=== PATIENT | female | born 1945 | race African-American/Black ===

== ENCOUNTER 2016-10-25 17:52 | Inpatient (IN) | payer MEDICARE, MEDICAID ==
--- NOTE | 2016-10-25 18:49 | ER Document Report ---
ED Medical Screen (RME) - General Chief Complaint: Chest Pain Stated Complaint: CHEST PAIN Time Seen by Provider: 10/25/16 18:45 Notes: Patient says that she is having anterior chest pain, shortness of breath, and swelling of her lower extremities. She called her contract design agent who saw her in the office today and sent her here for further evaluation and care. Patient says that she has gained about 16 pounds in the past 2 weeks. Denies any vomiting or diarrhea. Has a mostly dry cough. No fevers. TRAVEL OUTSIDE OF THE [place] IN LAST 30 DAYS: No - Related Data Allergies/Adverse Reactions: codeine Allergy (Verified 10/25/16 17:55) Past Medical History - Past Medical History Cardiac Medical History: Reports: Hx Atrial Fibrillation, Hx Heart Attack, Hx Hypertension Neurological Medical History: Reports: Hx Cerebrovascular Accident Renal/ Medical History: Denies: Hx Peritoneal Dialysis GI Medical History: Reports: Hx Gastroesophageal Reflux Disease Psychiatric Medical History: Reports: Hx Depression Past Surgical History: Reports: Hx Abdominal Surgery - hernia repair, Hx Cardiac Catheterization, Hx Hysterectomy, Hx Tonsillectomy - Immunizations Immunizations up to date: Yes Hx Diphtheria, Pertussis, Tetanus Vaccination: No Physical Exam - Vital signs Vitals: Temp Pulse Resp BP Pulse Ox 97.9 F 57 L 25 H 156/76 H 97 10/25/16 18:08 10/25/16 18:08 10/25/16 18:08 10/25/16 18:08 10/25/16 18:08 Course - Vital Signs Vital signs: Temp Pulse Resp BP Pulse Ox 97.9 F 57 L 25 H 156/76 H 97 10/25/16 18:08 10/25/16 18:08 10/25/16 18:08 10/25/16 18:08 10/25/16 18:08
[2016-10-25 19:40] LABS: ABSOLUTE BASOPHILS # (AUTO) 0.1 10^3/uL (0.0-0.2); ABSOLUTE EOSINOPHILS # (AUTO) 0.2 10^3/uL (0.0-0.6); ABSOLUTE LYMPHOCYTES (AUTO) 3.2 10^3/uL (0.5-4.7); ABSOLUTE MONOCYTES (AUTO) 0.7 10^3/uL (0.1-1.4); ABSOLUTE NEUT (AUTO) 3.4 10^3/uL (1.7-8.2); EOSINOPHILS % (AUTO) 3.2 % (0-6); HEMATOCRIT 39.3 % (36.0-47.0); HEMOGLOBIN 12.9 g/dL (12.0-15.5); HGB HCT DIFFERENCE -0.6; LYMPHOCYTES % (AUTO) 41.7 % (13-45); MEAN CORPUSCULAR HEMOGLOBIN 30.3 pg (27.0-33.4); MEAN CORPUSCULAR HGB CONC 32.9 g/dL (32.0-36.0); MEAN CORPUSCULAR VOLUME 92 fl (80-97); MONOCYTES % (AUTO) 9.6 % (3-13); RED BLOOD COUNT 4.27 10^6/uL (3.72-5.28); RED CELL DISTRIBUTION WIDTH 13.6 % (11.5-14.0); SEGMENTED NEUTROPHILS % (AUTO) 44.5 % (42-78); WHITE BLOOD COUNT 7.6 10^3/uL (4.0-10.5)
[2016-10-25 19:54] LABS: ALANINE AMINOTRANSFERASE 40 U/L (9-52); ALBUMIN 3.9 g/dL (3.5-5.0); ALKALINE PHOSPHATASE 72 U/L (38-126); ANION GAP 8 (5-19); ASPARTATE AMINO TRANSFERASE 25 U/L (14-36); BILIRUBIN,DIRECT 0.3 mg/dL (0.0-0.4); BILIRUBIN,TOTAL 0.5 mg/dL (0.2-1.3); BLOOD UREA NITROGEN 16 mg/dL (7-20); CALCIUM 9.5 mg/dL (8.4-10.2); CARBON DIOXIDE 27 mmol/L (22-30); CHLORIDE 106 mmol/L (98-107); CREATININE RESULT 1.05 mg/dL (0.52-1.25); GLUCOSE 101 mg/dL (75-110); POTASSIUM 4.3 mmol/L (3.6-5.0); TOTAL PROTEIN 7.2 g/dL (6.3-8.2)
[2016-10-25 20:05] LABS: CREATINE KINASE MB 0.94 ng/mL (<4.55)
[2016-10-25 20:06] LABS: TROPONIN I < 0.012 ng/mL
--- NOTE | 2016-10-25 20:21 | RADIOLOGY REPORT (SQ) ---
EXAM DESCRIPTION: CHEST PA/LAT COMPLETED DATE/TIME: 10/25/2016 7:14 pm REASON FOR STUDY: Chest pain and short of breath. COMPARISON: February 2016 EXAM PARAMETERS: NUMBER OF VIEWS: two views TECHNIQUE: Digital Frontal and Lateral radiographic views of the chest acquired. RADIATION DOSE: NA LIMITATIONS: none FINDINGS: LUNGS AND PLEURA: Reticulonodular densities are identified in the right lung which were no t apparent on the previous study. There are minimal similar changes in the left lung. This could be on the basis of an infectious or neoplastic process. No acute consolidations or pleural effusions a re identified. MEDIASTINUM AND HILAR STRUCTURES: No masses or contour abnormalities. HEART AND VASCULAR STRUCTURES: Heart normal size. No evidence for failure. Tortuous thoracic aorta is again identified. BONES: No acute findings. HARDWARE: None in the chest. OTHER: No other significant finding. IMPRESSION: Reticular nodular densities as noted above. This could be on an infectious or neoplasti c process. Clinical correlation followup is recommended. No acute consolidations or pleural effusio ns are identified. Other findings as noted above TECHNICAL DOCUMENTATION: JOB ID: [id number] [employer]- All Rights Reserved
[2016-10-25] MEDS ORDERED: FUROSEMIDE INJ/PF 100 MG/10 ML SDV IV ONE (20:43)
--- NOTE | 2016-10-25 21:12 | EKG REPORT ---
SEVERITY:- ABNORMAL ECG - SINUS RHYTHM LEFT VENTRICULAR HYPERTROPHY : Confirmed by: Bryce Hernandez 25-Oct-2016 21:11:56
[2016-10-25] MEDS ORDERED: LORAZEPAM INJ 2 MG/1 ML VIAL IV ONE (21:48)
[2016-10-25] MEDS ORDERED: LORAZEPAM INJ 2 MG/1 ML VIAL ONE (21:52)
[2016-10-25] MEDS ORDERED: ONDANSETRON HCL INJ/PF 4 MG/2 ML SDV ONE (22:06)
[2016-10-25 22:17] LABS: APPEARANCE,URINE CLEAR; BILIRUBIN,URINE NEGATIVE (NEGATIVE); GLUCOSE, URINE NEGATIVE (NEGATIVE); KETONES,URINE NEGATIVE (NEGATIVE); LEUKOCYTE ESTERASE,URINE NEGATIVE (NEGATIVE); NITRITE,URINE NEGATIVE (NEGATIVE); PROTEIN,URINE NEGATIVE (NEGATIVE); URINE SPECIFIC GRAVITY 1.017; UROBILINOGEN,URINE NEGATIVE mg/dL (<2.0)
--- NOTE | 2016-10-25 22:22 | ER Document Report ---
ED General - General Chief Complaint: Chest Pain Stated Complaint: CHEST PAIN Time Seen by Provider: 10/25/16 18:45 Mode of Arrival: Medic Information source: Patient Notes: 71-year-old female history of congestive heart failure AEvin monroy presents with complaints of 17 pound weight gain in the past week as well as shortness of breath when she lays flat. Patient was seen by her rn licensed practical and sent in for evaluation. Patient denies any fevers or chills admits to nausea and vomiting TRAVEL OUTSIDE OF THE [place] IN LAST 30 DAYS: No - HPI Onset: Last week Onset/Duration: Persistent Quality of pain: Achy Severity: Mild Pain Level: 1 Associated symptoms: Nausea, Vomiting, Shortness of breath Exacerbated by: Supine Relieved by: Denies Similar symptoms previously: Yes Recently seen / treated by doctor: Yes - Related Data Allergies/Adverse Reactions: codeine Allergy (Verified 10/25/16 17:55) Past Medical History - Social History Smoking Status: Never Smoker Cigarette use (# per day): No Chew tobacco use (# tins/day): No Smoking Education Provided: No Drug Abuse: None Family History: Hypertension Patient has suicidal ideation: No Patient has homicidal ideation: No - Past Medical History Cardiac Medical History: Reports: Hx Atrial Fibrillation, Hx Heart Attack, Hx Hypertension Neurological Medical History: Reports: Hx Cerebrovascular Accident Renal/ Medical History: Denies: Hx Peritoneal Dialysis GI Medical History: Reports: Hx Gastroesophageal Reflux Disease Psychiatric Medical History: Reports: Hx Depression Past Surgical History: Reports: Hx Abdominal Surgery - hernia repair, Hx Cardiac Catheterization, Hx Hysterectomy, Hx Tonsillectomy - Immunizations Immunizations up to date: Yes Hx Diphtheria, Pertussis, Tetanus Vaccination: No Review of Systems - Review of Systems Notes: REVIEW OF SYSTEMS: CONSTITUTIONAL : Denies fever, chills, or sweats. Denies recent illness. EENT: Denies eye, ear, throat, or mouth pain or symptoms. Denies nasal or sinus congestion or discharge. Denies throat, tongue, or mouth swelling or difficulty swallowing. CARDIOVASCULAR: Admits to chest pain RESPIRATORY: Admits to shortness of breath GASTROINTESTINAL: Denies abdominal pain or distention. Denies nausea, vomiting , or diarrhea. Denies blood in vomitus, stools, or per rectum. Denies black, tarry stools. Denies constipation. GENITOURINARY: Denies difficulty urinating, painful urination, burning, frequency, blood in urine, or discharge. FEMALE GENITOURINARY: Denies vaginal bleeding, heavy or abnormal periods, irregular periods. Denies vaginal discharge or odor. MUSCULOSKELETAL: Peripheral edema SKIN: Denies rash, lesions or sores. HEMATOLOGIC : Denies easy bruising or bleeding. LYMPHATIC: Denies swollen, enlarged glands. NEUROLOGICAL: Denies confusion or altered mental status. Denies passing out or loss of consciousness. Denies dizziness or lightheadedness. Denies headache. Denies weakness or paralysis or loss of use of either side. Denies problems with gait or speech. Denies sensory loss, numbness, or tingling. Denies seizures. PSYCHIATRIC: Denies anxiety or stress. Denies depression, suicidal ideation, or homicidal ideation. ALL OTHER SYSTEMS REVIEWED AND NEGATIVE. Dictation was performed using [employer] recognition software PHYSICAL EXAMINATION: GENERAL: Well-appearing, well-nourished and in no acute distress. HEAD: Atraumatic, normocephalic. EYES: Pupils equal round and reactive to light, extraocular movements intact, conjunctiva are normal. ENT: Nares patent, oropharynx clear without exudates. Moist mucous membranes. NECK: Normal range of motion, supple without lymphadenopathy LUNGS: Breath sounds clear to auscultation bilaterally and equal. No wheezes rales or rhonchi. HEART: Regular rate and rhythm without murmurs ABDOMEN: Soft, nontender, nondistended abdomen. No guarding, no rebound. No masses appreciated. Female : deferred Musculoskeletal: Normal range of motion, 2 pitting edema bilateral NEUROLOGICAL: Cranial nerves grossly intact. Normal speech, normal gait. Normal sensory, motor exams PSYCH: Normal mood, normal affect. SKIN: Warm, Dry, normal turgor, no rashes or lesions noted. Physical Exam - Vital signs Vitals: Temp Pulse Resp BP Pulse Ox 97.9 F 57 L 25 H 156/76 H 97 10/25/16 18:08 10/25/16 18:08 10/25/16 18:08 10/25/16 18:08 10/25/16 18:08 Course - Re-evaluation Re-evalutation: 10/25/16 22:24 Physical examination notes no significant abnormality, given that the patient has chest pain though I will keep her for an observation. Overnight otherwise she looks well is in no distress does not appear to be an exacerbation of her congestive heart failure - Vital Signs Vital signs: Temp Pulse Resp BP Pulse Ox 97.9 F 57 L 14 162/72 H 100 10/25/16 18:08 10/25/16 18:08 10/25/16 21:32 10/25/16 21:32 10/25/16 21:32 - Laboratory Result Diagrams: 10/25/16 19:30 10/25/16 19:30 Laboratory results interpreted by me: 10/25/16 10/25/16 19:30 21:41 Est GFR (Non-Af Amer) 52 L Urine Ascorbic Acid 20 H - Diagnostic Test Radiology reviewed: Image reviewed, Reports reviewed - EKG Interpretation by Me EKG shows normal: Sinus rhythm, [place], Intervals, QRS Complexes Rhythm: A.Fib When compared to previous EKG there are: No significant change Discharge - Discharge Clinical Impression: Depression with anxiety Chest pain Qualifiers: Chest pain type: unspecified Qualified Code(s): R07.9 - Chest pain, unspecified Atrial fibrillation Qualifiers: Atrial fibrillation type: chronic Qualified Code(s): I48.2 - Chronic atrial fibrillation Nausea & vomiting Qualifiers: Vomiting type: unspecified Vomiting Intractability: non-intractable Qualified Code(s): R11.2 - Nausea with vomiting, unspecified Admitting Provider: Hospitalist Unit Admitted: Telemetry Referrals: STEPHANIE BARAHONA MD [Primary Care Provider] - Follow up as needed
[2016-10-26] MEDS ORDERED: ACETAMINOPHEN 325 MG TABLET PO PRN (00:29)
[2016-10-26] MEDS ORDERED: NORMAL SALINE 1000 ML 1,000 ML IV PRN (00:32)
--- NOTE | 2016-10-26 01:20 | PDOC H&P ---
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 She describes a one-week history of a 17 pound weight gain, along with shortness of breath when lying flat. Ankle and calf swelling over the last 2 weeks. She has had intermittent ankle swelling for some time now; states she became worried when the swelling did not go down in the morning. Intermittent pressure-like substernal chest discomfort also. Nausea and several episodes of vomiting. Several episodes of diarrhea over the weekend, but none since then. No dysuria, fever or chills. Currently resting quietly, chest pain-free. Patient has been discussed with emergency room physician who evaluated the patient. Hospitalized on our service basically overnight on February 21 of last year, with final diagnoses including chest pain, acute coronary syndrome ruled out, along with depression with anxiety, improved. Discharge summary and history and physical reviewed. She is status post Cardiolite stress test September 23 of last year revealing no scintigraphic evidence of myocardial ischemia, scar, or infarction. Aggressive risk factor modification, with treatment of underlying comorbidities recommended. Report noted. Laboratory results are listed in [employer] and are reviewed. X-ray summary results are listed below, with full report(s) reviewed. Films reviewed, along with discussion with on-call radiologist, Dr. valles EKG reviewed. Social history/personal habits: Single. 3 sons. Unemployed. No use of alcohol tobacco or illicit drugs. Allergies/adverse reactions are listed in [employer] and are reviewed. No problems with Percocet. Home medications initially autopopulated into [employer] may not accurately reflect patient's true medications, dosages, and/or frequencies. casting technician to reconcile medications. Unfortunately, patient not certain of all medications/dosages/frequencies. REVIEW OF SYSTEMS: Constitutional: No fever or chills. Eyes: Wears glasses. ENT: No swallowing problems or complaints. Denies hearing loss. Pulmonary: See history and present illness. Cardiovascular: See history and present illness. Gastrointestinal: See history and present illness. Skin: No current complaints, including rashes. Hematologic: Denies easy bruising. Neurologic: No current complaints, including numbness or tingling. Musculoskeletal: Mild joint pain from arthritis. See history and present illness. Psychiatric: Anxiety. Endocrine: No current complaints, including polyuria. Genitourinary: No current complaints, including dysuria. PHYSICAL EXAMINATION: 5 feet 5 inches tall. 115.3 kg. BMI 42.3 kg/m. Blood pressure 117/72. Pulse 71 and regular. 97% saturation on room air. Respirations are 17 and unlabored. Temperature 97.9. Morbidly obese otherwise well-developed -[place] female appearing a bit younger than her stated age. Pleasant awake alert and cooperative. Somewhat anxious, although no sheri agitation. Female emergency room nursing aide Courtney is present. Skin is warm and dry. No grossly obvious evidence of rash in areas of skin examined. No subcutaneous nodules palpated. ENT: Hearing grossly normal to normal conversation. Tongue midline on protrusion pink and slightly tacky. Eyes: No scleral icterus. Pupils equal and reactive to light at 4 mm. [place] conjunctivae. Neck is supple and nontender to gentle active range of motion and palpation. Midline trachea. No palpable thyroid nodule mass enlargement or tenderness. Lymphatic: No palpable cervical or clavicular nodes. Neck and lymphatic exams limited by patient body habitus. Psychiatric: Reasonable insight into acute and chronic medical issues. Oriented to time location and why here. Lungs: Auscultation reveals clear and equal breath sounds bilaterally. No use of accessory respiratory muscles. Cardiovascular: Heart slightly irregular rate and rhythm, without gallop or rub. Faint systolic murmur detected. No carotid or abdominal aortic bruits. Mild bilateral symmetric calf ankle and pedal edema, slightly pitting. Faintly palpable dorsalis pedis pulses. Abdomen:soft obese nontender with positive bowel sounds. Unable to adequately evaluate abdomen for masses or organomegaly due to body habitus. Compression of her upper abdomen, and, even more noticeably, compression of her sternum, reproduces her previously noted chest discomfort. Extremities: Feet are warm and dry. Very mild bilateral calf tenderness to compression, without palpable venous cord; patient states this typically happens when she has lower extremity swelling. Gentle manipulation of lower extremities fails to reveal any obvious evidence of injury or instability to knees hips or ankles. Neurologic: Moves upper extremities grossly normally. Patellar reflexes absent. Absent Babinski. Light touch is intact at feet. Dorsiflexion and plantarflexion of feet 5 / 5 and symmetric. Past Medical History Cardiac Medical History: Reports: Atrial Fibrillation, Congestive Heart Failure - Diastolic, Myocardial Infarction, Hyperlipidema, Hypertension Denies: DVT, Pulmonary Embolism Pulmonary Medical History: Reports: Sleep Apnea - Recently diagnosed; awaiting her home CPAP machine; uncertain settings Denies: Asthma, Chronic Obstructive Pulmonary Disease (COPD) EENT Medical History: Reports: Eyes - Glasses Denies: Ears, Throat Neurological Medical History: Reports: Other - Several TIAs Denies: Hemorrhagic CVA, Ischemic CVA, Seizures Endocrine Medical History: Denies: Diabetes Mellitus Type 1, Diabetes Mellitus Type 2, Hyperthyroidism, Hypothyroidism Renal/ Medical History: Reports: None GI Medical History: Reports: Gastroesophageal Reflux Disease Denies: Cirrhosis, Hepatitis, Peptic Ulcer Disease Musculoskeltal Medical History: Reports: Arthritis Skin Medical History: Reports: None Psychiatric Medical History: Reports: General Anxiety Disorder Denies: Alcohol Dependency, Depression, Substance Abuse, Tobacco Dependency Hematology: Reports: None Infectious Medical History: Denies: Clostridium Difficile, Hepatitis B, Hepatitis C, Methicillin- Resistant Staph Aureus Past Surgical History Past Surgical History: Reports: Cardiac Catheterization, Hysterectomy, Tonsillectomy Social History Information Source: Patient, Emergency Med Personnel, [facility] Records Smoking Status: Never Smoker Frequency of Alcohol Use: None Hx Recreational Drug Use: No Drugs: None Hx Prescription Drug Abuse: No - Advance Directive Resuscitation Status: Full Code Surrogate healthcare decision maker:: Her son oJse Cazares Family History Family History: Hypertension Parental Family History Reviewed: Yes - Parents of heart attacks. Children Family History Reviewed: Yes - Healthy Sibling(s) Family History Reviewed.: Yes - Brother suffered recent stroke Medication/Allergy Home Medications: RX: Ascorbic Acid [Vitamin C] 1,000 mg PO DAILY 10/26/16 RX: Cholecalciferol (Vitamin D3) [Vitamin D3 1000 Unit Tablet] 1,000 unit PO DAILY 10/26/16 RX: Cyanocobalamin (Vitamin B-12) [Vitamin B-12] 1,000 mcg PO DAILY 10/26/16 RX: Losartan Potassium [Cozaar 50 mg Tablet] 50 mg PO Q12 10/26/16 RX: [place]-3/Dha/Epa/Fish Oil [Fish Oil 1,000 mg Softgel] 1,000 mg PO DAILY 10/26 RX: Omeprazole 20 mg PO DAILY 10/26/16 RX: Rivaroxaban [Xarelto] 20 mg PO DAILY 10/26/16 Albuterol Sulfate [Ventolin HFA MDI 18 GM] 1 - 2 puff IH Q4H PRN #1 mdi Amox Tr/Potassium Clavulanate [Augmentin 875-125 mg Tablet] 1 tab PO BID #20 tablet 10/28/16 Guaifenesin [Mucinex] 600 mg PO BID #20 tab.er.12h 10/28/16 RX: Aspirin [Ecotrin 81 mg EC Tablet] 81 mg PO DAILY tabec 10/28/16 RX: Docusate Sodium [Colace 100 mg Capsule] 100 mg PO BID #60 capsule 10/28/16 RX: Doxycycline Hyclate [Vibramycin 100 mg Tablet] 100 mg PO Q12 #20 tablet 01/06 RX: Furosemide [Lasix 20 mg Tablet] 20 mg PO BID #60 tablet 10/28/16 RX: Sennosides/Docusate 8.6-50 mg [Senna Plus Tablet] 2 each PO QHS #60 tablet 10/28/16 Allergies/Adverse Reactions: codeine Allergy (Verified 10/26/16 01:05) Physical Exam Vital Signs: Temp Pulse Resp BP Pulse Ox 97.9 F 57 L 19 117/72 97 10/25/16 18:08 10/25/16 18:08 10/25/16 23:31 10/25/16 23:31 10/25/16 23:31 Results Impressions: Chest X-Ray 10/25/16 18:46 IMPRESSION: Reticular nodular densities as noted above. This could be on an infectious or neoplastic process. Clinical correlation followup is recommended. No acute consolidations or pleural effusions are identified. Other findings as noted above Assessment & Plan - Diagnosis (1) Abnormal chest x-ray Is this a current diagnosis for this admission?: YesPlan: Discussed with Dr. valles, on-call radiologist. Will proceed with CT scan of chest with contrast. (2) Precordial chest pain Is this a current diagnosis for this admission?: YesPlan: Likely musculoskeletal, but given her known coronary artery disease, Patient will be placed in observation bed under chest pain protocol. Patient understands to notify staff should chest pain recur. Serial troponin . Repeat EKG. lipid panel. I have strongly encouraged patient not to get out of bed without notifying staff , to avoid a fall with injury. Knee high SCDs for DVT prophylaxis. With patient on Xarelto, no need for Lovenox or heparin. Impression and plans were discussed with patient . Time spent in evaluation and management of patient: 61 minutes. (3) Anticoagulated Is this a current diagnosis for this admission?: YesPlan: Resume home medications as appropriate once these have been determined and reviewed. (4) Anxiety Is this a current diagnosis for this admission?: YesPlan: Resume home medications as appropriate once these have been determined and reviewed. (5) Atrial fibrillation Qualifiers: Atrial fibrillation type: paroxysmal Qualified Code(s): I48.0 - Paroxysmal atrial fibrillation Is this a current diagnosis for this admission?: YesPlan: Resume home medications as appropriate once these have been determined and reviewed. (6) Diastolic CHF Qualifiers: Congestive heart failure chronicity: acute on chronic Qualified Code (s): I50.33 - Acute on chronic diastolic (congestive) heart failure Is this a current diagnosis for this admission?: YesPlan: Resume home medications as appropriate once these have been determined and reviewed. (7) HLD (hyperlipidemia) Qualifiers: Hyperlipidemia type: unspecified Qualified Code(s): E78.5 - Hyperlipidemia, unspecified Is this a current diagnosis for this admission?: YesPlan: Resume home medications as appropriate once these have been determined and reviewed.
[2016-10-26 08:32] LABS: ANION GAP 9 (5-19); BLOOD UREA NITROGEN 17 mg/dL (7-20); CALCIUM 9.4 mg/dL (8.4-10.2); CARBON DIOXIDE 26 mmol/L (22-30); CHLORIDE 107 mmol/L (98-107); CREATININE RESULT 0.83 mg/dL (0.52-1.25); GLUCOSE 121 mg/dL (75-110); SODIUM 141.6 mmol/L (137-145)
[2016-10-26 08:33] LABS: CHOLESTEROL 200.49 mg/dL (0-200); Direct HDL 36 mg/dL (>40); TRIGLYCERIDES 139 mg/dL (<150)
[2016-10-26 08:54] LABS: DIRECT LDL 128 mg/dL (<100)
--- NOTE | 2016-10-26 09:32 | RADIOLOGY REPORT (SQ) ---
EXAM DESCRIPTION: CT CHEST WITH COMPLETED DATE/TIME: 10/26/2016 8:20 am REASON FOR STUDY: abn cxr R93.8 ABNORMAL FINDINGS ON DIAGNOSTIC IMAGING OF BODY STRUCT COMPARISON: Chest films 10/25/2016 TECHNIQUE: CT scan of the chest performed using helical scanning technique with dynamic intravenous contrast injection. Images reviewed with lung, soft tissue and bone windows. Reconstructed coronal and sagittal MPR images reviewed. All images stored on PACS. All CT scanners at this facility use dose modulation, iterative reconstruction, and/or weight based d osing when appropriate to reduce radiation dose to as low as reasonably achievable (ALARA). [facility]: Dose Right [facility]: CareDose [facility]: Dose Right [facility]: Teradose 4D [facility]: Sense.ly CONTRAST TYPE AND DOSE: 80mL Isovue 370- low osmolar. RENAL FUNCTION: Creatinine 1.05 RADIATION DOSE: 19.40 mGy. LIMITATIONS: None. FINDINGS: LUNGS AND PLEURA: There is minimal ground-glass opacity at both lung bases indicating mini mal alveolar consolidation, edema versus pneumonia. Mild pulmonary vascular prominence. No intersti tial edema. No pleural effusions. No pneumothorax. No pulmonary nodules. Airways are patent. HILAR AND MEDIASTINAL STRUCTURES: No identified masses or abnormal nodes. HEART AND VASCULAR STRUCTURES: No aneurysm or dissection. No central pulmonary emboli. No pericardi al effusion. Mild cardiomegaly HARDWARE: None in the chest. UPPER ABDOMEN: Small hiatal hernia. Fatty liver. Stones in the gallbladder. THYROID AND OTHER SOFT TISSUES: No masses. No adenopathy. BONES: No significant finding. OTHER: No other significant finding. IMPRESSION: Mild cardiomegaly and pulmonary vascular congestion. Patchy mild ground-glass opacity i n in both lungs, question mild pulmonary edema Fatty liver. Gallstones. TECHNICAL DOCUMENTATION: JOB ID: [id number] Quality ID # [id number]: Final reports with documentation of one or more dose reduction techniques (e.g., Au tomated exposure control, adjustment of the mA and/or kV according to patient size, use of iterative reconstruction technique) 2010 [employer]- All Rights Reserved
[2016-10-26] MEDS: ASPIRIN 81 MG TABLET, ENT COATED PO SCH (10:11)
--- NOTE | 2016-10-26 10:43 | Physician Advisory Note ---
Physician Advisor ProgressNote .: Pursuant to the plan for Paula Prather, I have reviewed the medical record for this patient. Physician Advisor Statement: Nice documentation of co-morbidities chronic/persistent Afib & chronic diastolic CHF. Please consider documentin. "CP, suspect due to ____" 2. "obesity w/BMI 41.5" 3. "possible acute on chronic diastolic CHF" - & state if acute CHF is later r/ o'd, if it is 4. "steatohepatitis, likely due to obesity + HLD" [or ...] 5. "chronic cholelithiasis" 6. Medical necessity: if this Medicare pt is found to not be sufficiently stable for d/c today, please document continued clinical concerns & may then consider change to Inpt status. 7. "CAD w/prior AL" 8. "bradycardia as an adverse effect of metoprolol" Discussion: 71yo w/persistent Afib, chr diast CHF, CAD/AL, KESHAWN, TIAs, in w/CP, HR 57, RR25, labs not overly remarkable, CXR w/reticular nodular densities bilat c/w infectious or CA cause. ED gave Lasix 120mg IV x1, Zofran & Ativan x1 too. Attg ordered NS @75, ASA, I/Os, daily wts, tele, falls prec.s, CT chest, f/u labs, VS q4h, CPAP Qhs. Attg held metoprolol. CT shows mild CMG, pulm vasc conges BLL, patchy gr-glass opacities bilat - possible pulm edema, along w/fatty liver, gallstones. Pt since arrival has showed recurrent bradycardia as low as 43 & 37 this AM. Thanks! CK
--- NOTE | 2016-10-26 12:15 | EKG REPORT ---
SEVERITY:- ABNORMAL ECG - SINUS RHYTHM ATRIAL PREMATURE COMPLEX LEFT VENTRICULAR HYPERTROPHY : Confirmed by: Chandni Zavala MD 26-Oct-2016 12:14:26
[2016-10-26] MEDS: RIVAROXABAN 10 MG TABLET PO SCH (13:31)
[2016-10-26] MEDS: FUROSEMIDE 20 MG TABLET PO SCH (18:18)
[2016-10-26] MEDS: ALBUTEROL SULFATE HFA (90 MCG/PUFF) 200 PUFF/8.5 GM MDI IH PRN (18:48)
[2016-10-26] MEDS: LOSARTAN POTASSIUM 50 MG TABLET PO SCH (21:04)
[2016-10-26] MEDS: AMOXICILLIN TR/POT CLAVULANATE 500-125 MG TAB PO SCH (21:04)
--- NOTE | 2016-10-26 21:26 | PDOC CONSULTATION ---
Consultation Consult Date: 10/26/16 Attending physician:: MELY AGUIAR Consult reason:: Chest pain and dyspnea History of Present Illness Admission Date/PCP: 10/25/16 23:50 STEPHANIE BARAHONA MD Patient complains of: dyspnea and chest discomfort History of Present Illness: GERARDO WILILAMSON is a 71 year old -[place] female with known underlying coronary artery disease, with history of previous MN, along with atrial fibrillation, on Xarelto for same, and known diastolic congestive heart failure who was admitted through the emergency room. She describes a one-week history of a 17 pound weight gain, along with shortness of breath when lying flat. Ankle and calf swelling over the last 2 weeks. She has had intermittent ankle swelling for some time now states she became worried when the swelling did not go down in the morning. Intermittent pressure-like substernal chest discomfort also. Nausea and several episodes of vomiting. Several episodes of diarrhea over the weekend, but none since then. Currently resting quietly, chest pain free. Patient also gives history of sleep apnea syndrome. She was last tested for sleep apnea approximately 4-5 years ago in [facility]. Subsequently she moved to [place] and has not been on CPAP therapy for last 4 years. Patient denied any significant change in weight. Patient had a heart catheterization several years ago at [facility] which was negative for any significant blockages.. This history was obtained and supplemented. Past Medical History Cardiac Medical History: Reports: Atrial Fibrillation, Congestive Heart Failure , Myocardial Infarction, Hyperlipidema, Hypertension Denies: DVT, Pulmonary Embolism Pulmonary Medical History: Reports: Sleep Apnea - Recently diagnosed; awaiting her home CPAP machine; uncertain settings Denies: Asthma, Bronchitis, Chronic Obstructive Pulmonary Disease (COPD), Pneumonia, Tuberculosis EENT Medical History: Reports: Eyes - Glasses Denies: Ears, Throat Neurological Medical History: Reports: Other - Several TIAs Denies: Hemorrhagic CVA, Ischemic CVA, Seizures Endocrine Medical History: Denies: Diabetes Mellitus Type 1, Diabetes Mellitus Type 2, Hyperthyroidism, Hypothyroidism Renal/ Medical History: Reports: None Denies: End Stage Renal Disease GI Medical History: Reports: Gastroesophageal Reflux Disease Denies: Cirrhosis, Hepatitis, Peptic Ulcer Disease Musculoskeltal Medical History: Reports: Arthritis Skin Medical History: Reports: None Psychiatric Medical History: Reports: General Anxiety Disorder Denies: Alcohol Dependency, Bipolar Disorder, Depression, Substance Abuse, Tobacco Dependency Hematology: Reports: None Denies: Anemia, Bleeding Tendencies Infectious Medical History: Denies: Clostridium Difficile, Hepatitis B, Hepatitis C, Methicillin- Resistant Staph Aureus Past Surgical History Past Surgical History: Reports: Cardiac Catheterization, Hysterectomy, Tonsillectomy Social History Information Source: Patient Smoking Status: Never Smoker Frequency of Alcohol Use: None Hx Recreational Drug Use: No Drugs: None Hx Prescription Drug Abuse: No - Advance Directive Resuscitation Status: Full Code Surrogate healthcare decision maker:: Patient's sons Family History Family History: None, Hypertension Parental Family History Reviewed: Yes Children Family History Reviewed: Yes Sibling(s) Family History Reviewed.: Yes Medication/Allergy Home Medications: Ascorbic Acid [Vitamin C] 1,000 mg PO DAILY 10/26/16 Cholecalciferol (Vitamin D3) [Vitamin D3 1000 Unit Tablet] 1,000 unit PO DAILY 10/26/16 Cyanocobalamin (Vitamin B-12) [Vitamin B-12] 1,000 mcg PO DAILY 10/26/16 Losartan Potassium [Cozaar 50 mg Tablet] 50 mg PO Q12 10/26/16 Bennett-3/Dha/Epa/Fish Oil [Fish Oil 1,000 mg Softgel] 1,000 mg PO DAILY 10/26/16 Omeprazole 20 mg PO DAILY 10/26/16 Rivaroxaban [Xarelto] 20 mg PO DAILY 10/26/16 Albuterol Sulfate [Ventolin HFA MDI 18 GM] 1 - 2 puff IH Q4H PRN #1 mdi Amox Tr/Potassium Clavulanate [Augmentin 875-125 mg Tablet] 1 tab PO BID #20 tablet 10/28/16 Aspirin [Ecotrin 81 mg EC Tablet] 81 mg PO DAILY tabec 10/28/16 Docusate Sodium [Colace 100 mg Capsule] 100 mg PO BID #60 capsule 10/28/16 Doxycycline Hyclate [Vibramycin 100 mg Tablet] 100 mg PO Q12 #20 tablet Furosemide [Lasix 20 mg Tablet] 20 mg PO BID #60 tablet 10/28/16 Guaifenesin [Mucinex] 600 mg PO BID #20 tab.er.12h 10/28/16 Sennosides/Docusate 8.6-50 mg [Senna Plus Tablet] 2 each PO QHS #60 tablet 10/28 Allergies/Adverse Reactions: codeine Allergy (Verified 10/26/16 01:05) Review of Systems Constitutional: ABSENT: chills, fever(s), headache(s), weight gain, weight loss Eyes: ABSENT: visual disturbances Ears: ABSENT: hearing changes Cardiovascular: PRESENT: chest pain, dyspnea on exertion, edema, orthropnea, palpitations Respiratory: PRESENT: dyspnea. ABSENT: cough, hemoptysis Gastrointestinal: ABSENT: abdominal pain, constipation, diarrhea, hematemesis, hematochezia, nausea, vomiting Genitourinary: ABSENT: dysuria, hematuria Musculoskeletal: ABSENT: joint swelling Integumentary: ABSENT: rash, wounds Neurological: ABSENT: abnormal gait, abnormal speech, confusion, dizziness, focal weakness, syncope Psychiatric: ABSENT: anxiety, depression, homidical ideation, suicidal ideation Endocrine: ABSENT: cold intolerance, heat intolerance, polydipsia, polyuria Hematologic/Lymphatic: ABSENT: easy bleeding, easy bruising Physical Exam Vital Signs: Temp Pulse Resp BP Pulse Ox 98.2 F 55 L 18 132/69 H 96 10/26/16 16:00 10/26/16 16:00 10/26/16 16:00 10/26/16 16:00 10/26/16 16:00 Intake & Output 10/25/16 10/26/16 10/27/16 06:59 06:59 06:59 Intake Total 800 Output Total 400 Balance 400 Weight 113.2 kg General appearance: PRESENT: no acute distress, well-developed, well-nourished Head exam: PRESENT: atraumatic, normocephalic Eye exam: PRESENT: conjunctiva pink, EOMI, PERRLA. ABSENT: scleral icterus Ear exam: PRESENT: normal external ear exam Mouth exam: PRESENT: moist, tongue midline Neck exam: ABSENT: carotid bruit, JVD, lymphadenopathy, thyromegaly Respiratory exam: PRESENT: clear to auscultation kayleigh. ABSENT: rales, rhonchi, wheezes Cardiovascular exam: PRESENT: RRR, +S1, +S2, systolic murmur - 1/6 NADER aortic area and 1/6 PSM apex. ABSENT: diastolic murmur, rubs Pulses: PRESENT: normal dorsalis pedis pul, +2 pedal pulses bilateral Vascular exam: PRESENT: normal capillary refill GI/Abdominal exam: PRESENT: normal bowel sounds, soft. ABSENT: distended, guarding, mass, organolmegaly, rebound, tenderness Rectal exam: PRESENT: deferred Extremities exam: PRESENT: full ROM, +1 edema. ABSENT: calf tenderness, clubbing, pedal edema Neurological exam: PRESENT: alert, awake, oriented to person, oriented to place , oriented to time, oriented to situation, CN II-XII grossly intact. ABSENT: motor sensory deficit Psychiatric exam: PRESENT: appropriate affect, normal mood. ABSENT: homicidal ideation, suicidal ideation Skin exam: PRESENT: dry, intact, warm. ABSENT: cyanosis, rash Results Laboratory Results: 10/26/16 07:30 10/26/16 10/26/16 10/26/16 07:30 07:30 07:30 Sodium 141.6 Potassium 4.0 Chloride 107 Carbon Dioxide 26 Anion Gap 9 BUN 17 Creatinine 0.83 Est GFR ( Amer) > 60 Est GFR (Non-Af Amer) > 60 Glucose 121 H Calcium 9.4 Magnesium 1.9 Triglycerides 139 Cholesterol 200.49 H LDL Cholesterol Direct 128 H VLDL Cholesterol 28.0 HDL Cholesterol 36 L 10/26/16 10/26/16 01:41 07:30 Troponin I < 0.012 < 0.012 EKG Comments: NSR, No acute ST-T changes Impressions: Chest X-Ray 10/25/16 18:46 IMPRESSION: Reticular nodular densities as noted above. This could be on an infectious or neoplastic process. Clinical correlation followup is recommended. No acute consolidations or pleural effusions are identified. Other findings as noted above Chest CT 10/26/16 08:00 IMPRESSION: Mild cardiomegaly and pulmonary vascular congestion. Patchy mild ground-glass opacity in in both lungs, question mild pulmonary edema Fatty liver. Gallstones. Assessment & Plan - Diagnosis (1) Chest pain Qualifiers: Chest pain type: unspecified Qualified Code(s): R07.9 - Chest pain, unspecified Is this a current diagnosis for this admission?: Yes (2) KESHAWN (obstructive sleep apnea) Is this a current diagnosis for this admission?: Yes (3) Atrial fibrillation Qualifiers: Atrial fibrillation type: paroxysmal Qualified Code(s): I48.0 - Paroxysmal atrial fibrillation Is this a current diagnosis for this admission?: Yes (4) HLD (hyperlipidemia) Qualifiers: Hyperlipidemia type: unspecified Qualified Code(s): E78.5 - Hyperlipidemia, unspecified Is this a current diagnosis for this admission?: Yes (5) Diastolic CHF Qualifiers: Congestive heart failure chronicity: acute on chronic Qualified Code (s): I50.33 - Acute on chronic diastolic (congestive) heart failure Is this a current diagnosis for this admission?: Yes (6) Dyspnea Qualifiers: Dyspnea type: unspecified Qualified Code(s): R06.00 - Dyspnea, unspecified Is this a current diagnosis for this admission?: Yes - Notes Notes: Chest pain: Patient has some typical and atypical features of chest pain. Cardiac enzymes so far has been negative. Electrocardiogram did not show any definitive ST segment changes. Multiple differential diagnoses exist in this patient. In descending order of probability this includes underlying coronary artery disease, gastroesophageal reflux, musculoskeletal pain, referred pain from elsewhere, anxiety panic disorder etc.Patient has significant cardiac risk factors, which indicates that there is a intermediate probability of chest discomfort coming from underlying CAD. Feel that it would need to be evaluated further. Discussed evaluation to assess this. In this regard risk benefits of nuclear stress test and other alternative processes were discussed in detail. The patient prefers to undergo nuclear stress test. The small risk of radiation , myocardial infarction, , cardiac arrhythmias, respiratory distress etc. were discussed. Patient understood the risks and gave informed consent. Nuclear stress test was therefore scheduled. For risk evaluation, patient is also being scheduled for a 2-D echocardiogram. Patient questions were answered. Obstructive sleep apnea: Patient has a history of it. Patient still has it based on history. Patient will benefit from reinstitution of CPAP therapy. Patient advised to come to the office for the prescription. It is very likely that patient may eventually need a sleep study. Atrial fibrillation: Paroxysmal. Patient in sinus rhythm. High chance of recurrence. Patient will benefit from continuing chronic anticoagulation. Dyslipidemia: Continue with statin therapy. CHF: Patient was noted to be in CHF on presentation. Patient did respond nicely to IV Lasix. BNP was noted to be normal but sometimes it can be falsely normal in obese patient. CHF is felt to be secondary to diastolic dysfunction. Patient has been advised salt and fluid restriction along with satisfactory control of blood pressure, weight loss and CPAP therapy. Dyspnea: Most likely related to diastolic dysfunction and CHF. This has improved following IV Lasix. Quick improvement suggest presence of CHF. There are contributing factors which includes obesity, deconditioning etc. Patient has been encouraged in weight loss and also regular walking program. - Time Time Spent: 30 to 50 Minutes - CODE STATUS was discussed, patient remains full code. Surrogate decision-maker patient son. Multiple medical problems were addressed. More than 50% of the time spent coordinating care, discussing management plans with involved caregivers. Management plans discussed with involved personnels. Medical decision making was of moderate to high complexity , patient's has multiple comorbidities. Medications reviewed and adjusted accordingly: Yes
--- NOTE | 2016-10-26 21:43 | PDOC PROGRESS REPORT ---
Subjective Progress Note for:: 10/26/16 Subjective:: Reports occasional chest tightness, but reports she overall feels much better. She also reports prior to admission that she woke up with brown phlegm and has been having a fever and chills subjectively over the past several days. Additionally, patient reports significant amount of lower extremity swelling as well as abdominal swelling over the past several days prior to admission. Patient reports that she had an outpatient sleep study which revealed that she needed CPAP, but has yet to get a machine. Patient admits to constipation and tinnitus. Denies diarrhea, rash, focal weakness, nausea, vomiting. Physical Exam Vital Signs: Temp Pulse Resp BP Pulse Ox 98.0 F 59 L 17 119/67 95 10/26/16 04:00 10/26/16 07:00 10/26/16 04:00 10/26/16 04:00 10/26/16 04:00 Intake & Output 10/25/16 10/26/16 10/27/16 06:59 06:59 06:59 Weight 113.2 kg Exam: GENERAL: No acute distress, awake, alert, oriented 3 HEENT: Conjunctiva clear, nonicteric, moist mucous membranes, no JVD, midline trachea RESPIRATORY: Bilateral bibasilar rales, right upper lobe egophony CARDIAC: IRR,+2/6 sm ABDOMEN: Soft, nondistended, nontender, positive bowel sounds, no rebound, no guarding EXTREMETIES: No cyanosis, clubbing; 1+ ble edema NEUROLOGIC: Alert, oriented to person/place/time, CN's grossly intact, no focal deficits SKIN: No rash, wounds PSYCH: Normal mood, normal affect Results Laboratory Results: 10/26/16 01:41 Troponin I < 0.012 Impressions: Chest X-Ray 10/25/16 18:46 IMPRESSION: Reticular nodular densities as noted above. This could be on an infectious or neoplastic process. Clinical correlation followup is recommended. No acute consolidations or pleural effusions are identified. Other findings as noted above Assessment & Plan - Diagnosis (1) Diastolic CHF Qualifiers: Congestive heart failure chronicity: acute on chronic Qualified Code (s): I50.33 - Acute on chronic diastolic (congestive) heart failure Is this a current diagnosis for this admission?: YesPlan: Currently volume overloaded. Echo done on 09/24/15 reveals an EF of percent, grade 1 diastolic dysfunction. Patient cannot tolerate beta blockers due to bradycardia. Patient currently on Cozaar and Lasix has been added. (2) Pneumonia Qualifiers: Laterality: right Lung location: upper lobe of lung Is this a current diagnosis for this admission?: YesPlan: Initiate patient on albuterol as needed, Augmentin and doxycycline for community -acquired pneumonia. (3) Constipation Qualifiers: Constipation type: unspecified constipation type Qualified Code(s): K59.00 - Constipation, unspecified Is this a current diagnosis for this admission?: YesPlan: Place patient on senna and Colace (4) Chest pain Qualifiers: Chest pain type: unspecified Qualified Code(s): R07.9 - Chest pain, unspecified Is this a current diagnosis for this admission?: YesPlan: Patient with chest pain likely secondary to pleurisy. Obtain stress test in a.m. Negative enzymes 3 (5) KESHAWN (obstructive sleep apnea) Is this a current diagnosis for this admission?: YesPlan: Consult patient's sleep medicine physician (6) Anticoagulated Is this a current diagnosis for this admission?: YesPlan: xarelto (7) Atrial fibrillation Qualifiers: Atrial fibrillation type: paroxysmal Qualified Code(s): I48.0 - Paroxysmal atrial fibrillation Is this a current diagnosis for this admission?: YesPlan: currently bradycardic on xarelto (8) HLD (hyperlipidemia) Qualifiers: Hyperlipidemia type: unspecified Qualified Code(s): E78.5 - Hyperlipidemia, unspecified Is this a current diagnosis for this admission?: Yes - Time Time Spent with patient: 35 or more minutes Medications reviewed and adjusted accordingly: Yes Anticipated discharge: Home Within: within 24 hours
[2016-10-26] MEDS: DOXYCYCLINE HYCLATE 100 MG TABLET PO SCH (23:22)
[2016-10-26] MEDS: SENNOSIDES/DOCUSATE 8.6-50 MG 1 EACH TABLET PO SCH (23:22)
[2016-10-27] MEDS: AMOXICILLIN TR/POT CLAVULANATE 500-125 MG TAB PO SCH ×3 (05:39→22:00)
[2016-10-27] MEDS ORDERED: (PENDING PHARMACY ID) (Omega-3/Dha/Epa/Fish Oil [Fish Oil 1,000 Mg Softgel] 1,000 MG) PO SCH (10:00)
[2016-10-27] MEDS: CYANOCOBALAMIN (VITAMIN B-12) 1,000 MCG TABLET PO SCH (11:20)
[2016-10-27] MEDS: FUROSEMIDE 20 MG TABLET PO SCH ×2 (11:20→18:35)
[2016-10-27] MEDS: DOCUSATE SODIUM 100 MG CAPSULE PO SCH ×2 (11:20→18:35)
[2016-10-27] MEDS: OMEGA-3 ACID ETHYL ESTERS 1 GM CAPSULE PO SCH (11:20)
[2016-10-27] MEDS: DOXYCYCLINE HYCLATE 100 MG TABLET PO SCH ×2 (11:21→22:00)
[2016-10-27] MEDS: LANSOPRAZOLE 15 MG TAB.RAP.DR PO SCH (11:21)
[2016-10-27] MEDS: CHOLECALCIFEROL (D3) 1,000 UNIT TABLET PO SCH (11:21)
[2016-10-27] MEDS: LOSARTAN POTASSIUM 50 MG TABLET PO SCH ×2 (11:21→21:59)
[2016-10-27] MEDS: ASPIRIN 81 MG TABLET, ENT COATED PO SCH (11:22)
[2016-10-27] MEDS: LIDOCAINE 5% (700 MG) TRANSDERMAL ADH..PATCH TP SCH (11:22)
[2016-10-27] MEDS: ASCORBIC ACID 500 MG TABLET PO SCH (11:22)
[2016-10-27] MEDS: ALBUTEROL SULFATE HFA (90 MCG/PUFF) 200 PUFF/8.5 GM MDI IH PRN (11:23)
[2016-10-27] MEDS ORDERED: REGADENOSON INJ 0.4 MG/5 ML DISP.SYRIN IV ONE (13:02)
[2016-10-27] MEDS ORDERED: AMINOPHYLLINE INJ/PF 250 MG/10 ML SDV IV ONE (13:02)
[2016-10-27] MEDS: RIVAROXABAN 10 MG TABLET PO SCH (14:49)
--- NOTE | 2016-10-27 15:12 | DRAGON STRESS TEST REPORT ---
LexiScan Nuclear Stress Test using single photon emmision computerized tomography. Indication : Patient with Chest pain and dyspnea. CAD risk factors: hypertension, family history and dyslipidemia Resting EKG: Sinus rhythm with no significant baseline ST segment changes. Stress EKG: No significant additional EKG changes noted with LexiScan bolus. Reason for termination: Protocol. Procedure report : Baseline heart rate 61 beats per minute with blood pressure of 147/86. Patient had no significant complaints. Heart rate at 2 minutes post bolus 72 with a blood pressure of 152/76 At 3 minutes post bolus heart rate 71 with blood pressure of 138/86 No significant EKG changes were noted. Patient had no significant complaints during the procedure or postprocedure. Conclusions: Normal EKG and hemodynamic response to IV LexiScan. Nuclear data: At rest the patient was given 15.04 millicuries of technetium 99 sestamibi injected intravenously. As per protocol rest non gated SPECT images were obtained. Subsequently the patient was given intravenous LexiScan at a dose of 0.4 mg in 5 mL intravenously, followed by flush with normal saline. Immediately post LexiScan bolus, stress dose of 47.8 millicuries of technetium 99 sestamibi was injected intravenously. As per protocol stress gated images were obtained. Nuclear interpretation: Both raw and processed data were used for interpretation. Visual, qualitative, computer-generated quantitative data was used. There was good myocardial uptake of technetium compound. Motion artifact and soft tissue attenuations were noted. These were felt not to be significantly affecting the interpretation. No definitive areas of transient or fixed perfusion defect noted. EKG gated imaging showed LV EF at 66 %. T. I D. ratio was 1.17 . lung heart ratio was 0.29 and also 4. Inability to exercise by its self can increase cardiovascular event rate.visually noted to be within normal limits. No significant extracardiac and abnormal radiotracer activities were noted. IMPRESSION: 1. There is no definitive scintigraphic evidence of LexiScan induced myocardial ischemia. 2. There is no definitive scintigraphic evidence of myocardial infarction/scar. 3. EKG gated imaging shows left ventricular ejection fraction of approximately 66 % without any definite regional wall motion abnormalities. 4. Inability to exercise by its self can increase cardiovascular event rate. RECOMMENDATIONS: Aggressive risk factor modification, medical therapy. Clinical correlation with echocardiogram derived ejection fraction. Patient should be informed that occasionally single vessel disease and/or balanced ischemia could be missed Further assessment and reevaluation may be needed in future if symptoms persists or worsens. Appointment to discuss results. Bryce Hernandez M.D., MRCP Board certified in cardiovascular diseases, Nuclear cardiology, Echocardiography, Cardiac CT and Cardiac MRI. Ph. [phone] [facility]
--- NOTE | 2016-10-27 18:42 | PDOC PROGRESS REPORT ---
Subjective Progress Note for:: 10/27/16 Subjective:: Patient reports she is feeling much worse. She reports shortness of breath and malaise. Patient also complains of severe constipation Denies nausea, vomiting, worsening swelling. Physical Exam Vital Signs: Temp Pulse Resp BP Pulse Ox 98.2 F 69 20 139/74 H 97 10/27/16 15:58 10/27/16 15:58 10/27/16 15:58 10/27/16 15:58 10/27/16 15:58 Intake & Output 10/26/16 10/27/16 10/28/16 06:59 06:59 06:59 Intake Total 1130 360 Output Total 400 1200 Balance 730 -840 Weight 113.2 kg 114.5 kg Exam: GENERAL: No acute distress, awake, alert, oriented 3 HEENT: Conjunctiva clear, nonicteric, moist mucous membranes, no JVD, midline trachea RESPIRATORY: Bilateral bibasilar rales, right upper lobe egophony CARDIAC: IRR,+2/6 sm ABDOMEN: Soft, nondistended, nontender, positive bowel sounds, no rebound, no guarding EXTREMETIES: No cyanosis, clubbing; 1+ ble edema NEUROLOGIC: Alert, oriented to person/place/time, CN's grossly intact, no focal deficits SKIN: No rash, wounds PSYCH: Normal mood, normal affect Results Laboratory Results: 10/26/16 07:30 10/26/16 10/26/16 01:41 07:30 Troponin I < 0.012 < 0.012 Impressions: Chest X-Ray 10/25/16 18:46 IMPRESSION: Reticular nodular densities as noted above. This could be on an infectious or neoplastic process. Clinical correlation followup is recommended. No acute consolidations or pleural effusions are identified. Other findings as noted above Chest CT 10/26/16 08:00 IMPRESSION: Mild cardiomegaly and pulmonary vascular congestion. Patchy mild ground-glass opacity in in both lungs, question mild pulmonary edema Fatty liver. Gallstones. Assessment & Plan - Diagnosis (1) Diastolic CHF Qualifiers: Congestive heart failure chronicity: acute on chronic Qualified Code (s): I50.33 - Acute on chronic diastolic (congestive) heart failure Is this a current diagnosis for this admission?: YesPlan: Currently remains volume overloaded. Echo done on 09/24/15 reveals an EF of percent, grade 1 diastolic dysfunction. Currently pending results of new echo. Patient cannot tolerate beta blockers due to bradycardia. Patient currently on Cozaar and Lasix has been added. Consider addition of spironolactone. (2) Pneumonia Qualifiers: Laterality: right Lung location: upper lobe of lung Is this a current diagnosis for this admission?: YesPlan: Initiate patient on albuterol as needed, Augmentin and doxycycline for community -acquired pneumonia. Repeat CBC in am and consider IV abx if patient significantly worsening tomorrow. (3) Constipation Qualifiers: Constipation type: unspecified constipation type Qualified Code(s): K59.00 - Constipation, unspecified Is this a current diagnosis for this admission?: YesPlan: On senna and Colace Will give miralax and dulcolax (4) Chest pain Qualifiers: Chest pain type: unspecified Qualified Code(s): R07.9 - Chest pain, unspecified Is this a current diagnosis for this admission?: YesPlan: Patient with chest pain likely secondary to pleurisy. Stress test negative. Negative enzymes 3 (5) KESHAWN (obstructive sleep apnea) Is this a current diagnosis for this admission?: Yes (6) Anticoagulated Is this a current diagnosis for this admission?: Yes (7) Atrial fibrillation Qualifiers: Atrial fibrillation type: paroxysmal Qualified Code(s): I48.0 - Paroxysmal atrial fibrillation Is this a current diagnosis for this admission?: Yes (8) HLD (hyperlipidemia) Qualifiers: Hyperlipidemia type: unspecified Qualified Code(s): E78.5 - Hyperlipidemia, unspecified Is this a current diagnosis for this admission?: Yes - Time Time Spent with patient: 25-34 minutes Medications reviewed and adjusted accordingly: Yes Anticipated discharge: Home Within: within 24 hours, within 48 hours
[2016-10-27] MEDS: SENNOSIDES/DOCUSATE 8.6-50 MG 1 EACH TABLET PO SCH (21:59)
[2016-10-28] MEDS: AMOXICILLIN TR/POT CLAVULANATE 500-125 MG TAB PO SCH (05:41)
[2016-10-28 07:12] LABS: ABSOLUTE BASOPHILS # (AUTO) 0.1 10^3/uL (0.0-0.2); ABSOLUTE EOSINOPHILS # (AUTO) 0.2 10^3/uL (0.0-0.6); ABSOLUTE LYMPHOCYTES (AUTO) 2.3 10^3/uL (0.5-4.7); ABSOLUTE MONOCYTES (AUTO) 0.6 10^3/uL (0.1-1.4); ABSOLUTE NEUT (AUTO) 3.1 10^3/uL (1.7-8.2); EOSINOPHILS % (AUTO) 3.3 % (0-6); HEMATOCRIT 38.5 % (36.0-47.0); HEMOGLOBIN 12.7 g/dL (12.0-15.5); HGB HCT DIFFERENCE -0.4; LYMPHOCYTES % (AUTO) 36.8 % (13-45); MEAN CORPUSCULAR HEMOGLOBIN 29.8 pg (27.0-33.4); MEAN CORPUSCULAR HGB CONC 33.1 g/dL (32.0-36.0); MEAN CORPUSCULAR VOLUME 90 fl (80-97); MONOCYTES % (AUTO) 9.5 % (3-13); RED BLOOD COUNT 4.27 10^6/uL (3.72-5.28); RED CELL DISTRIBUTION WIDTH 13.5 % (11.5-14.0); SEGMENTED NEUTROPHILS % (AUTO) 49.4 % (42-78); WHITE BLOOD COUNT 6.3 10^3/uL (4.0-10.5)
[2016-10-28 07:29] LABS: ANION GAP 10 (5-19); BLOOD UREA NITROGEN 18 mg/dL (7-20); CALCIUM 9.6 mg/dL (8.4-10.2); CARBON DIOXIDE 25 mmol/L (22-30); CHLORIDE 104 mmol/L (98-107); CREATININE RESULT 0.79 mg/dL (0.52-1.25); GLUCOSE 125 mg/dL (75-110); MAGNESIUM 1.8 mg/dL (1.6-2.3); POTASSIUM 4.2 mmol/L (3.6-5.0); SODIUM 139.1 mmol/L (137-145)
--- NOTE | 2016-10-28 08:43 | RADIOLOGY REPORT (SQ) ---
EXAM DESCRIPTION: CHEST PA/LAT COMPLETED DATE/TIME: 10/28/2016 8:14 am REASON FOR STUDY: pna COMPARISON: 10/25/2016 EXAM PARAMETERS: NUMBER OF VIEWS: two views TECHNIQUE: Digital Frontal and Lateral radiographic views of the chest acquired. RADIATION DOSE: NA LIMITATIONS: none FINDINGS: LUNGS AND PLEURA: The previously described reticulonodular densities appear improved. No consolidations or pleural effusions are identified. MEDIASTINUM AND HILAR STRUCTURES: No masses or contour abnormalities. HEART AND VASCULAR STRUCTURES: The configuration of the heart mediastinal structures is unchanged. BONES: No acute findings. HARDWARE: None in the chest. OTHER: No other significant finding. IMPRESSION: The previously described reticulonodular densities appear improved. Other findings as n oted above TECHNICAL DOCUMENTATION: JOB ID: [id number]- All Rights Reserved
[2016-10-28] MEDS: ASPIRIN 81 MG TABLET, ENT COATED PO SCH (09:56)
[2016-10-28] MEDS: CYANOCOBALAMIN (VITAMIN B-12) 1,000 MCG TABLET PO SCH (10:01)
[2016-10-28] MEDS: LIDOCAINE 5% (700 MG) TRANSDERMAL ADH..PATCH TP SCH (10:01)
[2016-10-28] MEDS: LANSOPRAZOLE 15 MG TAB.RAP.DR PO SCH (10:01)
[2016-10-28] MEDS: LOSARTAN POTASSIUM 50 MG TABLET PO SCH (10:01)
[2016-10-28] MEDS: OMEGA-3 ACID ETHYL ESTERS 1 GM CAPSULE PO SCH (10:02)
[2016-10-28] MEDS: FUROSEMIDE 20 MG TABLET PO SCH (10:04)
[2016-10-28] MEDS: ALBUTEROL SULFATE HFA (90 MCG/PUFF) 200 PUFF/8.5 GM MDI IH PRN (10:05)
[2016-10-28] MEDS: ASCORBIC ACID 500 MG TABLET PO SCH (10:05)
[2016-10-28] MEDS: CHOLECALCIFEROL (D3) 1,000 UNIT TABLET PO SCH (10:05)
[2016-10-28] MEDS: DOXYCYCLINE HYCLATE 100 MG TABLET PO SCH (10:05)
[2016-10-28] MEDS: DOCUSATE SODIUM 100 MG CAPSULE PO SCH (10:05)
--- NOTE | 2016-10-28 10:45 | XCELERA REPORT ---
[address] [address] Transthoracic Echocardiogram Report Name: GERARDO WILLIAMSON Age: 71 yrs Gender: Female : 1945 Patient Status: Inpatient Patient Location: 5\S\538\S\A Study Date: 10/27/2016 12:55 PM Height: 65 in Weight: 249 lb BSA: 2.2 m2 Procedure: A complete two-dimensional transthoracic echocardiogram was performed (2D, M-mode, spectral and color flow Doppler). The study was technically difficult with many images being suboptimal in quality. Reason For Study: chf Ordering Physician: GERALDINE BUTLER Performed By: Dheeraj Matthews Interpretation Summary The study was technically difficult with many images being suboptimal in quality. The left ventricular ejection fraction is normal. There is mild concentric left ventricular hypertrophy. The left ventricle is grossly normal size. Doppler measurements suggest pseudonormalized left ventricular relaxation, which is associated with grade II/IV or mild to moderate diastolic dysfunction Wall motion cannot be accurately commented on, but no definite regional wall motion abnormalities noted. The right ventricle is borderline dilated. The right ventricular systolic function is normal. The right atrium is normal in size Borderline left atrial enlargement. There is a trace amount of mitral regurgitation There is no mitral valve stenosis. There is a trace to mild amount of aortic regurgitation There is no aortic valve stenosis Tricuspid regurgitation jet envelope not well defined to measure RV systolic pressure accurately. There is a trace or physiologic amount of tricuspid regurgitation The aortic root is not well visualized. The inferior vena cava was not well visualized There is no pericardial effusion. MMode/2D Measurements \T\ Calculations RVDd: 2.7 cm LVIDd: 5.7 cm FS: 43.3 % Ao root diam: 3.1 cm IVSd: 1.3 cm LVIDs: 3.2 cm EDV(Teich): 157.5 ml LVPWd: 1.1 cm ESV(Teich): 41.3 ml Ao root area: 7.4 cm2 EF(Teich): 73.8 % LA dimension: 4.4 cm Doppler Measurements \T\ Calculations MV E max viviane: MV P1/2t max viviane: Ao V2 max: AI max viviane: 79.0 cm/sec 80.8 cm/sec 183.3 cm/sec 352.8 cm/sec MV A max viviane: MV P1/2t: 70.2 msec Ao max PG: AI max P.6 cm/sec 13.4 mmHg 49.8 mmHg MV E/A: 0.90 MVA(P1/2t): 3.1 cm2 AI dec slope: MV dec slope: 337.4 cm/sec2 151.2 cm/sec2 AI P1/2t: 683.6 msec LV V1 max PG: PA V2 max: TR max viviane: RAP systole: 10.4 mmHg 102.4 cm/sec 237.3 cm/sec 10.0 mmHg LV V1 max: PA max P.2 mmHg TR max P.1 cm/sec 22.5 mmHg RVSP(TR): 32.5 mmHg Left Ventricle The left ventricle is grossly normal size. There is mild concentric left ventricular hypertrophy. The left ventricular ejection fraction is normal. Doppler measurements suggest pseudonormalized left ventricular relaxation, which is associated with grade II/IV or mild to moderate diastolic dysfunction. Wall motion cannot be accurately commented on, but no definite regional wall motion abnormalities noted. Right Ventricle The right ventricle is borderline dilated. The right ventricular systolic function is normal. Atria The right atrium is normal in size. Borderline left atrial enlargement. Interarterial septum not well visualized and not well dopplered. Cannot comment on ASD/PFO presence. Mitral Valve There is mild mitral annular calcification. There is no mitral valve stenosis. There is a trace amount of mitral regurgitation. Aortic Valve The aortic valve is mildly calcified. There is no aortic valve stenosis. There is a trace to mild amount of aortic regurgitation. Tricuspid Valve The tricuspid valve is not well visualized secondary to technical limitations. There is no tricuspid stenosis. There is a trace or physiologic amount of tricuspid regurgitation. Tricuspid regurgitation jet envelope not well defined to measure RV systolic pressure accurately. Pulmonic Valve The pulmonic valve is not well visualized. Great Vessels The aortic root is not well visualized. The inferior vena cava was not well visualized. Effusions There is no pericardial effusion. : GERALDINE BUTLER > Bryce Hernandez
--- NOTE | 2016-10-28 11:16 | PDOC PROGRESS REPORT ---
Subjective Progress Note for:: 10/27/16 Subjective:: Patient seems to be doing better with gradual improvement. Pt is denying any chest arm or neck discomfort. Patient denying any PND, orthopnea. Patient denied any sustained palpitations, dizziness, syncope, near syncope. Patient denying any fever chills. Patient denying any other significant discomfort. Patient is maintaining sinus rhythm. Review of systems: Rest review of systems negative. Medications: Medications have been reviewed. Nuclear stress test procedure was explained to the patient in detail. Risks benefits were discussed and informed consent was obtained. Alternatives were discussed. Patient informed that based on risk factors, physical exam, lab data findings and symptoms there is at least intermediate probability of underlying CAD. Nuclear stress test procedure was therefore scheduled. Physical Exam Vital Signs: Temp Pulse Resp BP Pulse Ox 98.2 F 69 20 139/74 H 97 10/27/16 15:58 10/27/16 15:58 10/27/16 15:58 10/27/16 15:58 10/27/16 15:58 Exam: GENERAL: well-nourished and in no acute distress. Alert and oriented x3 HEAD: Atraumatic, normocephalic. EYES: Pupils equal round and reactive to light, extraocular movements intact, sclera anicteric, conjunctiva are normal. ENT: TMs normal, nares patent, oropharynx clear without exudates. Moist mucous membranes. No oral ulcerations or bleeding gums noted NECK: supple without lymphadenopathy. Trachea is central. No cervical or axillary lymphadenopathy noted. Carotids are 2+, JVD WNL LUNGS: Respiration seems nonlabored, no significant accessory muscle action noted. Breath sounds clear to auscultation bilaterally and equal noted. No wheezes rales or rhonchi noted. No significant dullness noted on percussion. CHEST: Palpation of the chest wall shows no significant chest wall tenderness. No other significant abnormalities noted. 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 ABDOMEN: Soft, no significant tenderness appreciated, normoactive bowel sounds. No guarding, no rebound. No rigidity noted . No masses appreciated. EXTREMITIES: Pedal pulses are 1-2+, no calf tenderness noted. No clubbing or cyanosis. 1+ pedal edema noted NEUROLOGICAL: Focused neurological exam showed no significant neurologic deficit. Normal speech, no focal weakness appreciated. PSYCH: Normal mood, normal affect. Judgment and insight within normal limits. SKIN: No significant ecchymosis, rash, ulcerations or signs of pruritus noted. MUSCULOSKELETAL EXAM: No significant joint swelling noted. Results Impressions: Chest X-Ray 10/25/16 18:46 IMPRESSION: Reticular nodular densities as noted above. This could be on an infectious or neoplastic process. Clinical correlation followup is recommended. No acute consolidations or pleural effusions are identified. Other findings as noted above Chest CT 10/26/16 08:00 IMPRESSION: Mild cardiomegaly and pulmonary vascular congestion. Patchy mild ground-glass opacity in in both lungs, question mild pulmonary edema Fatty liver. Gallstones. Assessment & Plan - Diagnosis (1) Chest pain Qualifiers: Chest pain type: unspecified Qualified Code(s): R07.9 - Chest pain, unspecified Is this a current diagnosis for this admission?: Yes (2) KESHAWN (obstructive sleep apnea) Is this a current diagnosis for this admission?: Yes (3) Atrial fibrillation Qualifiers: Atrial fibrillation type: paroxysmal Qualified Code(s): I48.0 - Paroxysmal atrial fibrillation Is this a current diagnosis for this admission?: Yes (4) HLD (hyperlipidemia) Qualifiers: Hyperlipidemia type: unspecified Qualified Code(s): E78.5 - Hyperlipidemia, unspecified Is this a current diagnosis for this admission?: Yes (5) Diastolic CHF Qualifiers: Congestive heart failure chronicity: acute on chronic Qualified Code (s): I50.33 - Acute on chronic diastolic (congestive) heart failure Is this a current diagnosis for this admission?: Yes - Notes Notes: Patient claims chest pain is improved. This was evaluated with a nuclear stress test. Nuclear stress test was negative for any significant areas of ischemia or any significant areas of scar. The nuclear stress test is felt to be relatively low risk. Patient informed that occasionally single-vessel disease and balanced ischemia could be missed. Patient advised aggressive risk factor modification and medical therapy. Patient informed that further evaluation may become necessary if symptoms worsens or there is a development of new symptoms indicative of angina or angina equivalent symptom. Chest pain: This is resolved. Dyspnea: This has improved. Patient to continue with some baseline diuretic therapy. KESHAWN: Patient will continue with nightly CPAP therapy. Patient may need to be requalified with his home sleep study. Diastolic CHF: Improved. 2D echo results reviewed with the patient. Obesity: Patient has been encouraged in weight loss and regular walking program. - Time Time with patient: Greater than 35 minutes - Patient was seen multiple times. Total time exceeds 40 minutes. In the morning nuclear stress test procedure, risks benefits, alternatives were discussed. Patient seen during the stress test. Patient also seen after stress test when results were discussed with the patient in detail. Patient's questions were answered. Nuclear stress test results were discussed with the patient. Patient was informed that no definitive evidence of pharmacologic stress-induced ischemia noted. No definite fixed defects were noted. Patient informed that occasionally significant single vessel disease or balanced ischemia could be missed. However based on the current study results, would recommend aggressive risk factor modification and medical therapy. It may also be worthwhile to consider evaluation or empiric management of other causes of chest pain. Should no other cause be found and if persistent in having chest pain, then cardiac catheterization should be considered. Right now, recommendations are for aggressive risk factor modification and medical management. CODE STATUS was discussed, patient remains full code. Surrogate decision-maker unchanged. Multiple medical problems were addressed. More than 50% of the time spent coordinating care, discussing management plans with involved caregivers. Management plans discussed with involved personnels. Medical decision making was of moderate to high complexity, patient's has multiple comorbidities. Medications reviewed and adjusted accordingly: Yes
[2016-10-28] MEDS ORDERED: NA PHOS,M-B/NA PHOS,DI-BA (ADULT) 133 ML ENEMA PR ONE (12:00)
[2016-10-28 12:15] VITALS: BP 119/67
--- NOTE | 2016-10-28 19:56 | PDOC DISCHARGE SUMMARY ---
General - Admit/Disc Date/PCP Admission Date/Primary Care Provider: 10/27/16 18:33 STEPHANIE BARAHONA MD Discharge Date: 10/28/16 - Discharge Diagnosis (1) Pneumonia Is this a current diagnosis for this admission?: Yes (2) Diastolic CHF Is this a current diagnosis for this admission?: Yes (3) Constipation Is this a current diagnosis for this admission?: Yes (4) Chest pain Is this a current diagnosis for this admission?: Yes (5) KESHAWN (obstructive sleep apnea) Is this a current diagnosis for this admission?: Yes (6) Anticoagulated Is this a current diagnosis for this admission?: Yes (7) Atrial fibrillation Is this a current diagnosis for this admission?: Yes (8) HLD (hyperlipidemia) Is this a current diagnosis for this admission?: Yes (9) Morbid obesity with BMI of 40.0-44.9, adult Is this a current diagnosis for this admission?: Yes - Additional Information Resuscitation Status: Full Code Discharge Diet: Cardiac, Diabetic Discharge Activity: Activity As Tolerated, Balance Activity w/Rest, Weigh Daily Home Medications: Ascorbic Acid [Vitamin C] 1,000 mg PO DAILY 10/26/16 Cholecalciferol (Vitamin D3) [Vitamin D3 1000 Unit Tablet] 1,000 unit PO DAILY 10/26/16 Cyanocobalamin (Vitamin B-12) [Vitamin B-12] 1,000 mcg PO DAILY 10/26/16 Losartan Potassium [Cozaar 50 mg Tablet] 50 mg PO Q12 10/26/16 [place]-3/Dha/Epa/Fish Oil [Fish Oil 1,000 mg Softgel] 1,000 mg PO DAILY 10/26/16 Omeprazole 20 mg PO DAILY 10/26/16 Rivaroxaban [Xarelto] 20 mg PO DAILY 10/26/16 Albuterol Sulfate [Ventolin HFA MDI 18 GM] 1 - 2 puff IH Q4H PRN #1 mdi Amox Tr/Potassium Clavulanate [Augmentin 875-125 mg Tablet] 1 tab PO BID #20 tablet 10/28/16 Aspirin [Ecotrin 81 mg EC Tablet] 81 mg PO DAILY tabec 10/28/16 Docusate Sodium [Colace 100 mg Capsule] 100 mg PO BID #60 capsule 10/28/16 Doxycycline Hyclate [Vibramycin 100 mg Tablet] 100 mg PO Q12 #20 tablet Furosemide [Lasix 20 mg Tablet] 20 mg PO BID #60 tablet 10/28/16 Guaifenesin [Mucinex] 600 mg PO BID #20 tab.er.12h 10/28/16 Sennosides/Docusate 8.6-50 mg [Senna Plus Tablet] 2 each PO QHS #60 tablet 10/28 History of Present Illness History of Present Illness: Please see H&P for full HPI. Hospital Course Hospital Course: The to the emergency department with complaints of shortness of breath chest discomfort, and increased weight gain as well as dyspnea on exertion. Patient was found to be in acute congestive heart failure and was given IV Lasix with improvement of her symptoms. Metoprolol was stopped due to chronic bradycardia. Patient is in A. fib rate controlled and also on Eliquis. Patient 's cardiac enzymes were negative. A stress test was performed which was also negative. Patient also underwent a CTA for an abnormal chest x-ray which was found to be pneumonia. Patient was empirically started on doxycycline and Augmentin with improvement of her symptoms. Patient was unable to provide a sputum specimen. Physical Exam Vital Signs: Temp Pulse Resp BP Pulse Ox 98.2 F 56 L 18 119/67 97 10/28/16 12:13 10/28/16 12:13 10/28/16 12:13 10/28/16 12:13 10/28/16 12:13 Intake & Output 10/27/16 10/28/16 10/29/16 06:59 06:59 06:59 Intake Total 335 Balance 335 Weight 117.7 kg Exam: GENERAL: No acute distress, awake, alert, oriented 3 HEENT: Conjunctiva clear, nonicteric, moist mucous membranes, no JVD, midline trachea RESPIRATORY: clear Auscultation bilaterally CARDIAC: IRR,+2/6 sm ABDOMEN: Soft, nondistended, nontender, positive bowel sounds, no rebound, no guarding EXTREMETIES: No cyanosis, clubbing, edema NEUROLOGIC: Alert, oriented to person/place/time, CN's grossly intact, no focal deficits SKIN: No rash, wounds PSYCH: Normal mood, normal affect Results Laboratory Results: 10/28/16 06:42 10/28/16 06:42 10/28/16 10/28/16 06:42 06:42 WBC 6.3 RBC 4.27 Hgb 12.7 Hct 38.5 MCV 90 MCH 29.8 MCHC 33.1 RDW 13.5 Plt Count 169 Seg Neutrophils % 49.4 Lymphocytes % 36.8 Monocytes % 9.5 Eosinophils % 3.3 Basophils % 1.0 Absolute Neutrophils 3.1 Absolute Lymphocytes 2.3 Absolute Monocytes 0.6 Absolute Eosinophils 0.2 Absolute Basophils 0.1 Sodium 139.1 Potassium 4.2 Chloride 104 Carbon Dioxide 25 Anion Gap 10 BUN 18 Creatinine 0.79 Est GFR ( Amer) > 60 Est GFR (Non-Af Amer) > 60 Glucose 125 H Calcium 9.6 Magnesium 1.8 Impressions: Chest CT 10/26/16 08:00 IMPRESSION: Mild cardiomegaly and pulmonary vascular congestion. Patchy mild ground-glass opacity in in both lungs, question mild pulmonary edema Fatty liver. Gallstones. Chest X-Ray 10/28/16 00:00 IMPRESSION: The previously described reticulonodular densities appear improved. Other findings as noted above Qualifiers PATEINT BEING DISCHARGED WITH ANY OF THE FOLLOWING DIAGNOSIS?: Heart Failure HF Pt being discharged on ACEI for LVEF less than 40%?: Yes HF Pt being discharged on ARBS for LVEF less than 40%?: No Reason(s) for not prescribing ARBS:: Not indicated - on hina HF Pt with Afib discharged with Warfarin?: No Reason(s) for not prescribing Warfarin:: Not indicated - on eliquis HF Pt discharged on evidence-based Beta Reinaldo:: No Reason(s) for not prescribing evidence-based Beta Reinaldo:: Medical Contraindication - bradycardia Plan Time Spent: Less than 30 Minutes
[2016-10-29] MEDS ORDERED: LANSOPRAZOLE 15 MG TAB.RAP.DR PO SCH (06:00)
--- NOTE | 2016-10-29 12:53 | PDOC PROGRESS REPORT ---
Subjective Progress Note for:: 10/28/16 Subjective:: Patient seems to be doing better with significant improvement. Pt is denying any chest arm or neck discomfort. Patient denying any PND, orthopnea. Patient denied any sustained palpitations, dizziness, syncope, near syncope. Patient denying any fever chills. Patient denying any other significant discomfort. Patient is maintaining sinus rhythm. Review of systems: Rest review of systems negative. Medications: Medications have been reviewed. Physical Exam Vital Signs: Temp Pulse Resp BP Pulse Ox 98.1 F 55 L 16 131/72 H 98 10/28/16 07:15 10/28/16 07:15 10/28/16 07:15 10/28/16 07:15 10/28/16 07:15 Intake & Output 10/27/16 10/28/16 10/29/16 06:59 06:59 06:59 Intake Total 335 Balance 335 Weight 117.7 kg Exam: GENERAL: well-nourished and in no acute distress. Alert and oriented x3 HEAD: Atraumatic, normocephalic. EYES: Pupils equal round and reactive to light, extraocular movements intact, sclera anicteric, conjunctiva are normal. ENT: TMs normal, nares patent, oropharynx clear without exudates. Moist mucous membranes. No oral ulcerations or bleeding gums noted NECK: supple without lymphadenopathy. Trachea is central. No cervical or axillary lymphadenopathy noted. Carotids are 2+, JVD WNL LUNGS: Respiration seems nonlabored, no significant accessory muscle action noted. Breath sounds clear to auscultation bilaterally and equal noted. No wheezes rales or rhonchi noted. No significant dullness noted on percussion. CHEST: Palpation of the chest wall shows no significant chest wall tenderness. No other significant abnormalities noted. 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 ABDOMEN: Soft, no significant tenderness appreciated, normoactive bowel sounds. No guarding, no rebound. No rigidity noted . No masses appreciated. EXTREMITIES: Pedal pulses are 1-2+, no calf tenderness noted. No clubbing or cyanosis.trace to 1+ pedal edema noted NEUROLOGICAL: Focused neurological exam showed no significant neurologic deficit. Normal speech, no focal weakness appreciated. PSYCH: Normal mood, normal affect. Judgment and insight within normal limits. SKIN: No significant ecchymosis, rash, ulcerations or signs of pruritus noted. MUSCULOSKELETAL EXAM: No significant joint swelling noted. Results Laboratory Results: 10/28/16 06:42 10/28/16 06:42 10/28/16 10/28/16 06:42 06:42 WBC 6.3 RBC 4.27 Hgb 12.7 Hct 38.5 MCV 90 MCH 29.8 MCHC 33.1 RDW 13.5 Plt Count 169 Seg Neutrophils % 49.4 Lymphocytes % 36.8 Monocytes % 9.5 Eosinophils % 3.3 Basophils % 1.0 Absolute Neutrophils 3.1 Absolute Lymphocytes 2.3 Absolute Monocytes 0.6 Absolute Eosinophils 0.2 Absolute Basophils 0.1 Sodium 139.1 Potassium 4.2 Chloride 104 Carbon Dioxide 25 Anion Gap 10 BUN 18 Creatinine 0.79 Est GFR ( Amer) > 60 Est GFR (Non-Af Amer) > 60 Glucose 125 H Calcium 9.6 Magnesium 1.8 Impressions: Chest CT 10/26/16 08:00 IMPRESSION: Mild cardiomegaly and pulmonary vascular congestion. Patchy mild ground-glass opacity in in both lungs, question mild pulmonary edema Fatty liver. Gallstones. Chest X-Ray 10/28/16 00:00 IMPRESSION: The previously described reticulonodular densities appear improved. Other findings as noted above Assessment & Plan - Diagnosis (1) Chest pain Qualifiers: Chest pain type: unspecified Qualified Code(s): R07.9 - Chest pain, unspecified Is this a current diagnosis for this admission?: Yes (2) KESHAWN (obstructive sleep apnea) Is this a current diagnosis for this admission?: Yes (3) Atrial fibrillation Qualifiers: Atrial fibrillation type: paroxysmal Qualified Code(s): I48.0 - Paroxysmal atrial fibrillation Is this a current diagnosis for this admission?: Yes (4) HLD (hyperlipidemia) Qualifiers: Hyperlipidemia type: unspecified Qualified Code(s): E78.5 - Hyperlipidemia, unspecified Is this a current diagnosis for this admission?: Yes (5) Diastolic CHF Qualifiers: Congestive heart failure chronicity: acute on chronic Qualified Code (s): I50.33 - Acute on chronic diastolic (congestive) heart failure Is this a current diagnosis for this admission?: Yes - Notes Notes: Patient claims chest pain is improved. This was evaluated with a nuclear stress test. Nuclear stress test was negative for any significant areas of ischemia or any significant areas of scar. These results were discussed. Patient questions answered. Chest pain: This is resolved. Dyspnea: This has improved. Patient to continue with some baseline diuretic therapy. Related to diastolic dysfunction. KESHAWN: Patient will continue with nightly CPAP therapy. Patient may need to be requalified with his home sleep study. Diastolic CHF: Improved. 2D echo results reviewed with the patient. Obesity: Patient has been encouraged in weight loss and regular walking program. - Time Time with patient: 15-25 minutes - CODE STATUS was discussed, patient remains full code. Surrogate decision-maker unchanged. Multiple medical problems were addressed. More than 50% of the time spent coordinating care, discussing management plans with involved caregivers. Management plans discussed with involved personnels. Medical decision making was of moderate to high complexity , patient's has multiple comorbidities. Medications reviewed and adjusted accordingly: Yes
== END 2016-10-28 12:37 | disposition home or self-care (01) | DRG 193 ==
LOC: ER 17:52 → EH 22:47 → UNDOADMOB 22:47 → EH 23:50 → 5 10-26 01:39 → OBSVTOIN 10-27 18:33
PROVIDERS: ADMIT Family Medicine; ATTEND Family Medicine
DX: J18.9 Pneumonia, unspecified organism (principal); I50.33 Acute on chronic diastolic (congestive) heart failure; Z68.41 Body mass index [BMI] 40.0-44.9, adult; R07.9 Chest pain, unspecified; G47.33 Obstructive sleep apnea (adult) (pediatric); I48.0 Paroxysmal atrial fibrillation; E78.5 Hyperlipidemia, unspecified; I10 Essential (primary) hypertension; E66.01 Morbid (severe) obesity due to excess calories; I25.10 Atherosclerotic heart disease of native coronary artery without angina pectoris; F41.1 Generalized anxiety disorder; I25.2 Old myocardial infarction; Z79.01 Long term (current) use of anticoagulants; Z79.899 Other long term (current) drug therapy; Z86.73 Personal history of transient ischemic attack (TIA), and cerebral infarction without residual deficits; Z90.710 Acquired absence of both cervix and uterus; Z88.8 Allergy status to other drugs, medicaments and biological substances
CPT/HCPCS: 36415; 71020; 71260; 78452; 80048; 80053; 80061; 81001; 82553; 83735; 83880; 84484; 85025; 93005; 93010; 93017; 93306; 94660; 94667; 94799; 96374; 96375; 99285; A9500; G0378; G8996-GN; G8997-GN; G8998-GN; J0280; J1940; J2060; J2405; J2785; J3490; Q9969

== ENCOUNTER 2016-12-14 15:32 | Emergency (ER) | payer MEDICARE, MEDICAID ==
--- NOTE | 2016-12-14 16:20 | ER Document Report ---
ED Extremity Problem, Lower - General Stated Complaint: RIGHT LEG PAIN Time Seen by Provider: 12/14/16 16:04 Notes: Patient says that she got up this morning and felt her usual normal self. She even went to [employer] and rode a low scooter around there and returned home to get ready to go to work. Patient just purchased a brace to wear on her right knee at work for stability. She has only worn the brace one day, yesterday. She went to put it on to wear it today and she noted severe pain in the right mid anterior thigh going all the way down to her right foot. She was unable to move the leg and unable to stand on it or walk. This all occurred about 2:15 this afternoon. She was unable to ambulate so she called the rescue squad to bring her here. On the way to the emergency department, the patient was given 1 mg of Dilaudid and 4 mg of Zofran IV. Patient has never had this happen before. Recalls no unusual activity or injury. Has a history of arthritis of her back. In pain management, also for her back. She is on Xarelto because she has A. fib. TRAVEL OUTSIDE OF THE [place] IN LAST 30 DAYS: No - Related Data Allergies/Adverse Reactions: codeine Allergy (Verified 10/26/16 01:05) Past Medical History - Social History Smoking Status: Unknown if Ever Smoked Cigarette use (# per day): No Family History: Reviewed & Not Pertinent, Hypertension - Past Medical History Cardiac Medical History: Reports: Hx Atrial Fibrillation, Hx Congestive Heart Failure - Diastolic, Hx Heart Attack, Hx Hypercholesterolemia, Hx Hypertension Denies: Hx DVT, Hx Pulmonary Embolism Pulmonary Medical History: Reports: Hx Sleep Apnea - Recently diagnosed; awaiting her home CPAP machine; uncertain settings Neurological Medical History: Reports: Hx Cerebrovascular Accident. Denies: Hx Seizures GI Medical History: Reports: Hx Gastroesophageal Reflux Disease Musculoskeltal Medical History: Reports Hx Arthritis Past Surgical History: Reports: Hx Abdominal Surgery - hernia repair, Hx Cardiac Catheterization, Hx Hysterectomy, Hx Tonsillectomy - Immunizations Immunizations up to date: Yes Hx Diphtheria, Pertussis, Tetanus Vaccination: No Review of Systems - Review of Systems Notes: REVIEW OF SYSTEMS: CONSTITUTIONAL : Denies fever. EENT: Denies eye, ear, nose or mouth or throat pain or other symptoms. CARDIOVASCULAR: Denies chest pain. RESPIRATORY: Denies cough, chest congestion, or shortness of breath. GASTROINTESTINAL: Denies abdominal pain or nausea, vomiting, or diarrhea. GENITOURINARY: Denies difficulty or painful urinating, urinary frequency, blood in urine. MUSCULOSKELETAL: Denies back or neck pain. Denies joint pain or swelling. See HPI. SKIN: Denies rash or skin lesions. NEUROLOGICAL: Denies LOC or altered mental status. Denies headache. Denies sensory loss or motor deficits. ALL OTHER SYSTEMS REVIEWED AND NEGATIVE. Physical Exam - Vital signs Vitals: Temp Pulse BP Pulse Ox 98.0 F 60 150/93 H 98 12/14/16 15:46 12/14/16 15:46 12/14/16 15:46 12/14/16 15:46 Interpretation: Normal - Notes Notes: PHYSICAL EXAMINATION: GENERAL: Well-appearing, in no acute distress. HEAD: Atraumatic, normocephalic. EYES: Pupils equal round and reactive to light, extraocular movements intact. ENT: oropharynx clear without exudates. Moist mucous membranes. NECK: Normal range of motion, supple. LUNGS: Breath sounds clear and equal bilaterally. HEART: Irregular rate and rhythm without murmurs. ABDOMEN: Soft, nontender. No guarding or rebound. BACK: No tenderness throughout entire back. EXTREMITIES: Right knee has fluid accumulation around the anterior knee and extending up above the patella to about the mid or distal two thirds of the right thigh. All of this area is very tender to the touch and very painful to move. Patient does not have any pain or swelling in the distal lower leg or other areas of the thigh and nothing that would suggest the patient has a venous thrombosis. NEUROLOGICAL: Normal speech, normal gait. Normal sensory, motor, and reflex exams. Awake, alert, and oriented x3. Cranial nerves normal. PSYCH: Normal mood, normal affect. SKIN: Warm, dry, no rashes. Course - Re-evaluation Re-evalutation: 12/14/16 18:59 I discussed the case with Dr. Alicea, delivery person for orthopedics, who has seen this patient previously in his office and injected both of her knees about a year ago. Tried to arrange for follow-up tomorrow but he is not in his office. However, he said other people are to be there who can see the patient in follow-up. I do not think a knee immobilizer is indicated in this patient because there is no trauma that would weaken any of the knee ligaments. In addition, I think that a knee immobilizer probably would cause more discomfort. 12/14/16 19:03 - Vital Signs Vital signs: Temp Pulse Resp BP Pulse Ox 98.0 F 93 16 138/73 H 98 12/14/16 20:00 12/14/16 20:00 12/14/16 20:00 12/14/16 20:00 12/14/16 20:00 Vital signs are all essentially normal. - Laboratory Result Diagrams: 12/14/16 17:20 12/14/16 17:20 Laboratory results interpreted by me: 12/14/16 12/14/16 17:20 17:20 PT 23.2 H APTT 37.0 H Est GFR (Non-Af Amer) 57 L Procedures - Immobilization Right Anterior Knee Pre-Proc Neuro Vasc Exam: Normal Immobilizer type: Crutches Post-Proc Neuro Vasc Exam: Normal Discharge - Discharge Clinical Impression: Effusion of right knee Condition: Stable Disposition: HOME, SELF-CARE Additional Instructions: Knee Effusion You have a fluid collection in the knee joint, called an effusion. This fluid build up can occur from irritation of the synovial membrane lining the knee joint or from a more serious injury to the knee. Irritation of the membrane can occur from excessive, repetitive knee activitiy, like kneeling or squatting for extended periods or even just excessive walking, jogging, or skiing. Effusions also can occur with infections in the joint and with some arthritic conditions, especially gout. Fluid collections in these situations are usually yellow in color and either clear or cloudy in appearance. Significant injury to the knee can result in fluid collection which is partly or entirely blood and this condition is known as a hemarthrosis of the knee joint. If the fluid collection is not too large and/or painful, it can be managed conservatively with rest, ice packs, and anti-inflammatory and pain medications as needed. If the fluid collection is large and very painful, the knee joint can be drained (aspirated) by a relatively minor procedure of inserting a needle in the joint and removing some or all of the fluid present. If your knee was aspirated, you should rest it as much as possible for a few days, keep a pressure dressing around the knee and apply ice packs for at least 48 - 72 hours. If there are signs of developing infection such as heat and redness of the knee, fever, etc. you should return immediately for a recheck. Ice Packs Apply ice packs frequently against the painful area. Many different schedules are recommended, such as "20 minutes on, 20 minutes off" or "one hour ice, two hours rest." If you need to work, you may need to go longer between ice treatments. You should plan to have the area ice packed AT LEAST one fourth of the time. The ice should be applied over the wrap, tape, or splint, or over a layer of cloth -- not directly against the skin. Some ice bags have a built-in cloth and can be put directly on the skin. USE OF CRUTCHES: The doctor has recommended that you not bear weight at this time. You will need to use crutches. Adjust the crutches so the tops come to about two inches under the armpit while you are standing upright. Use your hands -- not your armpits -- to support your weight. To get into a chair, support yourself with one crutch on the injured side. Hold the chair with the other hand, then lower yourself while putting all your weight on the good leg. Going up stairs is `good leg up, step up, then bring up crutches and bad leg.' Down stairs is `bad leg and crutches down, then bring good leg down.' If you develop numbness or swelling in an arm or hand, you are using the crutches incorrectly. Return if you are having any problems with the crutches. ORAL NARCOTIC MEDICATION: You have been given a prescription for pain control. This medication is a narcotic. It's best taken with food, as nausea can result if taken on an empty stomach. Don't operate machinery or drive within six hours of taking this medication. Do not combine this medicine with alcohol, or with any medication which can cause sedation (such as cold tablets or sleeping pills) unless you get permission from the physician. Narcotics tend to cause constipation. If possible, drink plenty of fluids and eat a diet high in fiber and fruits. Antinausea Medication You have been given a medication to suppress nausea and vomiting. This type of medication can be given as a shot, pill, or suppository. It will usually last for many hours. Pills and shots usually last six to eight hours, suppositories last about 12 hours. For the typical illness, only one or two doses of the medication may be necessary. Mild lightheadedness may occur. This type of medicine can cause drowsiness. Do not drive or operate dangerous machinery while under its influence. Do not mix with alcohol. See your doctor at once if you have muscle spasms or tightness, or uncontrollable motions (particularly of the neck, mouth, or jaw). Persistent vomiting or severe lightheadedness should also be evaluated by the physician. FOLLOW-UP CARE: If you have been referred to a physician for follow-up care, call the physician s office for an appointment as you were instructed or within the next two days. If you experience worsening or a significant change in your symptoms, notify the physician immediately or return to the Emergency Department at any time for re-evaluation. This collection of fluid in the knee might be blood because your blood is being thinned by the Xarelto you are taking. I would advise holding off taking 1 dose of the Xarelto. Call Dr. Alicea's office tomorrow morning to see if 1 of his associates can see you in the office to recheck your knee tomorrow. Forms: Return to Work Referrals: MEKHI ALICEA MD [ACTIVE STAFF] - Follow up tomorrow
[2016-12-14] MEDS ORDERED: ONDANSETRON HCL INJ/PF 4 MG/2 ML SDV IV ONE ×2 (16:25→18:15)
[2016-12-14] MEDS ORDERED: FENTANYL CITRATE INJ/PF 100 MCG/2 ML AMPUL IV ONE ×2 (16:37→18:14)
[2016-12-14 17:31] LABS: ABSOLUTE BASOPHILS # (AUTO) 0.1 10^3/uL (0.0-0.2); ABSOLUTE EOSINOPHILS # (AUTO) 0.1 10^3/uL (0.0-0.6); ABSOLUTE LYMPHOCYTES (AUTO) 1.9 10^3/uL (0.5-4.7); ABSOLUTE MONOCYTES (AUTO) 0.6 10^3/uL (0.1-1.4); ABSOLUTE NEUT (AUTO) 3.8 10^3/uL (1.7-8.2); BASOPHILS % (AUTO) 0.8 % (0-2); EOSINOPHILS % (AUTO) 2.2 % (0-6); HEMATOCRIT 37.3 % (36.0-47.0); HEMOGLOBIN 12.3 g/dL (12.0-15.5); HGB HCT DIFFERENCE -0.4; LYMPHOCYTES % (AUTO) 29.1 % (13-45); MEAN CORPUSCULAR HEMOGLOBIN 30.3 pg (27.0-33.4); MEAN CORPUSCULAR HGB CONC 32.9 g/dL (32.0-36.0); MEAN CORPUSCULAR VOLUME 92 fl (80-97); MONOCYTES % (AUTO) 8.7 % (3-13); RED BLOOD COUNT 4.05 10^6/uL (3.72-5.28); RED CELL DISTRIBUTION WIDTH 13.9 % (11.5-14.0); SEGMENTED NEUTROPHILS % (AUTO) 59.2 % (42-78); WHITE BLOOD COUNT 6.5 10^3/uL (4.0-10.5)
[2016-12-14 17:37] LABS: PROTHROMBIN TIME 23.2 SEC (11.4-15.4)
[2016-12-14 17:54] LABS: ALANINE AMINOTRANSFERASE 33 U/L (9-52); ALBUMIN 3.9 g/dL (3.5-5.0); ALKALINE PHOSPHATASE 71 U/L (38-126); ANION GAP 10 (5-19); ASPARTATE AMINO TRANSFERASE 28 U/L (14-36); BILIRUBIN,DIRECT 0.3 mg/dL (0.0-0.4); BILIRUBIN,TOTAL 0.4 mg/dL (0.2-1.3); BLOOD UREA NITROGEN 14 mg/dL (7-20); CALCIUM 9.1 mg/dL (8.4-10.2); CARBON DIOXIDE 25 mmol/L (22-30); CHLORIDE 107 mmol/L (98-107); CREATININE RESULT 0.97 mg/dL (0.52-1.25); GLUCOSE 107 mg/dL (75-110); POTASSIUM 4.5 mmol/L (3.6-5.0); SODIUM 142.4 mmol/L (137-145); TOTAL PROTEIN 7.1 g/dL (6.3-8.2)
[2016-12-14 20:02] VITALS: BP 138/73
== END 2016-12-14 20:05 | disposition home or self-care (01) ==
LOC: ER 15:32
DX: M25.461 Effusion, right knee (principal); M79.604 Pain in right leg; M79.651 Pain in right thigh; Z79.899 Other long term (current) drug therapy
CPT/HCPCS: 96376; 99283; 96374; 96375; 36415; 85025; 85610; 85730; 80053; J3010; J2405

== ENCOUNTER 2016-12-20 10:44 | Inpatient (IN) | payer MEDICARE, MEDICAID ==
[2016-12-20] MEDS ORDERED: ASPIRIN 81 MG TABLET, CHEWABLE PO ONE (11:03)
--- NOTE | 2016-12-20 11:03 | ER Document Report ---
ED General - General Stated Complaint: CHEST PAIN Time Seen by Provider: 12/20/16 11:03 Mode of Arrival: Ambulatory Information source: Patient Notes: 71-year-old female history of A. fib on Xarelto presents with complaints of chest pain palpitations. Patient notes symptoms started just prior to arrival. Patient's heart rate is noted to be greater than 100. Patient denies any fevers or chills nausea vomiting or diarrhea. Patient denies being on any medication for her heart rate TRAVEL OUTSIDE OF THE [place] IN LAST 30 DAYS: No - HPI Onset: Just prior to arrival Onset/Duration: Sudden Quality of pain: Pressure Severity: Mild Pain Level: 1 Associated symptoms: Chest pain Exacerbated by: Denies Relieved by: Denies Similar symptoms previously: Yes Recently seen / treated by doctor: Yes - Related Data Allergies/Adverse Reactions: codeine Allergy (Verified 10/26/16 01:05) Home Medications: Current Home Medications Albuterol Sulfate [Ventolin HFA MDI 18 GM] 2 puff IH Q4HP PRN 12/20/16 [History] Ascorbic Acid [Vitamin C] 1,000 mg PO DAILY 12/20/16 [History] Calcium Carbonate/Vitamin D3 [Os-Iam 250 mg with Vitamin D 125 Units] 1 tab PO DAILY 12/20/16 [History] Furosemide [Lasix 20 mg Tablet] 20 mg PO DAILY@1400 12/20/16 [History] Furosemide [Lasix] 40 mg PO QAM 12/20/16 [History] Ibuprofen [Motrin 800 mg Tablet] 800 mg PO BIDP PRN 12/20/16 [History] Losartan Potassium [Cozaar 50 mg Tablet] 50 mg PO Q12 12/20/16 [History] Metoprolol Tartrate [Lopressor 25 mg Tablet] 25 mg PO DAILY 12/20/16 [History] [place]-3 Acid Ethyl Esters [Lovaza 1 gm Capsule] 1 gm PO DAILY 12/20/16 [History] Omeprazole Magnesium [Prilosec Otc] 20 mg PO QAM 12/20/16 [History] Oxycodone HCl/Acetaminophen [Percocet 5-325 mg Tablet] 1 tab PO Q4HP PRN [History] Rivaroxaban [Xarelto] 20 mg PO WSUPPER 12/20/16 [History] Tramadol HCl [Ultram 50 mg Tablet] 50 mg PO QIDP PRN 12/20/16 [History] Past Medical History - Social History Smoking Status: Never Smoker Cigarette use (# per day): No Chew tobacco use (# tins/day): No Smoking Education Provided: No Family History: Reviewed & Not Pertinent, Hypertension - Past Medical History Cardiac Medical History: Reports: Hx Atrial Fibrillation, Hx Congestive Heart Failure - Diastolic, Hx Heart Attack, Hx Hypercholesterolemia, Hx Hypertension Denies: Hx DVT, Hx Pulmonary Embolism Pulmonary Medical History: Reports: Hx Sleep Apnea - Recently diagnosed; awaiting her home CPAP machine; uncertain settings Neurological Medical History: Reports: Hx Cerebrovascular Accident. Denies: Hx Seizures GI Medical History: Reports: Hx Gastroesophageal Reflux Disease Musculoskeltal Medical History: Reports Hx Arthritis, Denies Hx Multiple Sclerosis Past Surgical History: Reports: Hx Abdominal Surgery - hernia repair, Hx Cardiac Catheterization, Hx Hysterectomy, Hx Tonsillectomy - Immunizations Immunizations up to date: Yes Hx Diphtheria, Pertussis, Tetanus Vaccination: No Review of Systems - Review of Systems Notes: REVIEW OF SYSTEMS: CONSTITUTIONAL : Denies fever, chills, or sweats. Denies recent illness. EENT: Denies eye, ear, throat, or mouth pain or symptoms. Denies nasal or sinus congestion or discharge. Denies throat, tongue, or mouth swelling or difficulty swallowing. CARDIOVASCULAR: Admits to chest pain palpitations RESPIRATORY: Denies cough, cold, or chest congestion. Denies shortness of breath, difficulty breathing, or wheezing. GASTROINTESTINAL: Denies abdominal pain or distention. Denies nausea, vomiting , or diarrhea. Denies blood in vomitus, stools, or per rectum. Denies black, tarry stools. Denies constipation. GENITOURINARY: Denies difficulty urinating, painful urination, burning, frequency, blood in urine, or discharge. FEMALE GENITOURINARY: Denies vaginal bleeding, heavy or abnormal periods, irregular periods. Denies vaginal discharge or odor. MUSCULOSKELETAL: Denies back or neck pain or stiffness. Denies joint pain or swelling. SKIN: Denies rash, lesions or sores. HEMATOLOGIC : Denies easy bruising or bleeding. LYMPHATIC: Denies swollen, enlarged glands. NEUROLOGICAL: Denies confusion or altered mental status. Denies passing out or loss of consciousness. Denies dizziness or lightheadedness. Denies headache. Denies weakness or paralysis or loss of use of either side. Denies problems with gait or speech. Denies sensory loss, numbness, or tingling. Denies seizures. PSYCHIATRIC: Denies anxiety or stress. Denies depression, suicidal ideation, or homicidal ideation. ALL OTHER SYSTEMS REVIEWED AND NEGATIVE. PHYSICAL EXAMINATION: GENERAL: Well-appearing, well-nourished and in no acute distress. HEAD: Atraumatic, normocephalic. EYES: Pupils equal round and reactive to light, extraocular movements intact, conjunctiva are normal. ENT: Nares patent, oropharynx clear without exudates. Moist mucous membranes. NECK: Normal range of motion, supple without lymphadenopathy LUNGS: Breath sounds clear to auscultation bilaterally and equal. No wheezes rales or rhonchi. HEART: A. fib RVR ABDOMEN: Soft, nontender, nondistended abdomen. No guarding, no rebound. No masses appreciated. Female : deferred Musculoskeletal: Normal range of motion, no pitting or edema. No cyanosis. NEUROLOGICAL: Cranial nerves grossly intact. Normal speech, normal gait. Normal sensory, motor exams PSYCH: Normal mood, normal affect. SKIN: Warm, Dry, normal turgor, no rashes or lesions noted. Dictation was performed using [employer] voice recognition software Physical Exam - Vital signs Vitals: Temp Pulse Resp BP Pulse Ox 98.2 F 136 H 20 138/96 H 100 12/20/16 11:00 12/20/16 11:00 12/20/16 11:00 12/20/16 11:00 12/20/16 11:00 Course - Re-evaluation Re-evalutation: 12/20/16 13:40 Patient symptoms of palpitations have improved significantly, pt no longer in afib rvr, have stopped the drip pt continues ot have chest pain, given hx with observe 12/20/16 16:13 - Vital Signs Vital signs: Temp Pulse Resp BP Pulse Ox 98.4 F 88 18 131/79 H 100 12/20/16 16:00 12/20/16 16:00 12/20/16 16:00 12/20/16 16:00 12/20/16 16:00 - Laboratory Result Diagrams: 12/20/16 11:10 12/20/16 11:10 Laboratory results interpreted by me: 12/20/16 12/20/16 11:10 11:10 RDW 14.4 H Glucose 202 H - Diagnostic Test Radiology reviewed: Image reviewed, Reports reviewed - EKG Interpretation by Me EKG shows normal: Sinus rhythm, Foley, Intervals, QRS Complexes Rate: Tachycardia Rhythm: A.Fib Critical Care Note - Critical Care Note Total time excluding time spent on procedures (mins): 33 Comments: 33 minutes of critical care time spent in direct contact evaluating and reevaluating the patient, treating symptoms, reviewing labs and studies and speaking with family and consultants excluding any procedures Discharge - Discharge Clinical Impression: Anticoagulated, Atrial fibrillation with RVR Chest pain Qualifiers: Chest pain type: unspecified Qualified Code(s): R07.9 - Chest pain, unspecified Admitting Provider: Hospitalist Unit Admitted: Telemetry
[2016-12-20] MEDS ORDERED: DILTIAZEM HCL INJ 25 MG/5 ML VIAL IV ONE (11:04)
[2016-12-20] MEDS: DILTIAZEM HCL/D5W 125 ML IV PRN (11:19)
[2016-12-20 11:20] LABS: ABSOLUTE BASOPHILS # (AUTO) 0.1 10^3/uL (0.0-0.2); ABSOLUTE EOSINOPHILS # (AUTO) 0.2 10^3/uL (0.0-0.6); ABSOLUTE LYMPHOCYTES (AUTO) 2.9 10^3/uL (0.5-4.7); ABSOLUTE MONOCYTES (AUTO) 0.4 10^3/uL (0.1-1.4); ABSOLUTE NEUT (AUTO) 2.9 10^3/uL (1.7-8.2); BASOPHILS % (AUTO) 0.9 % (0-2); EOSINOPHILS % (AUTO) 2.7 % (0-6); HEMATOCRIT 41.8 % (36.0-47.0); HGB HCT DIFFERENCE 0.2; LYMPHOCYTES % (AUTO) 44.8 % (13-45); MEAN CORPUSCULAR HEMOGLOBIN 30.4 pg (27.0-33.4); MEAN CORPUSCULAR HGB CONC 33.5 g/dL (32.0-36.0); MEAN CORPUSCULAR VOLUME 91 fl (80-97); MONOCYTES % (AUTO) 6.7 % (3-13); RED CELL DISTRIBUTION WIDTH 14.4 % (11.5-14.0); SEGMENTED NEUTROPHILS % (AUTO) 44.9 % (42-78); WHITE BLOOD COUNT 6.5 10^3/uL (4.0-10.5)
[2016-12-20 11:38] LABS: ALANINE AMINOTRANSFERASE 42 U/L (9-52); ALKALINE PHOSPHATASE 80 U/L (38-126); ANION GAP 10 (5-19); ASPARTATE AMINO TRANSFERASE 27 U/L (14-36); BILIRUBIN,DIRECT 0.3 mg/dL (0.0-0.4); BILIRUBIN,TOTAL 0.6 mg/dL (0.2-1.3); BLOOD UREA NITROGEN 16 mg/dL (7-20); CALCIUM 9.6 mg/dL (8.4-10.2); CARBON DIOXIDE 28 mmol/L (22-30); CHLORIDE 105 mmol/L (98-107); CREATINE KINASE 120 U/L (30-135); GLUCOSE 202 mg/dL (75-110); POTASSIUM 3.8 mmol/L (3.6-5.0); SODIUM 143.3 mmol/L (137-145); TOTAL PROTEIN 7.6 g/dL (6.3-8.2)
--- NOTE | 2016-12-20 11:43 | RADIOLOGY REPORT (SQ) ---
EXAM DESCRIPTION: CHEST SINGLE VIEW COMPLETED DATE/TIME: 12/20/2016 11:18 am REASON FOR STUDY: chest pain COMPARISON: 10/28/2016 NUMBER OF VIEWS: One view. TECHNIQUE: Single frontal radiographic view of the chest acquired. LIMITATIONS: Patient body habitus. FINDINGS: LUNGS AND PLEURA: Lungs appear generally clear. Detail limited. MEDIASTINUM AND HILAR STRUCTURES: Stable appearance. HEART AND VASCULAR STRUCTURES: Heart is stable. No overt CHF. BONES: No acute findings. HARDWARE: None in the chest. OTHER: No other significant finding. IMPRESSION: Nothing acute. TECHNICAL DOCUMENTATION: JOB ID: [id number] [employer]- All Rights Reserved
[2016-12-20 11:50] LABS: TROPONIN I < 0.012 ng/mL
--- NOTE | 2016-12-20 13:37 | EKG REPORT ---
SEVERITY:- ABNORMAL ECG - A-FIB WITH RVR. LVH WITH SECONDARY REPOLARIZATION ABNORMALITY : Confirmed by: Chavo Collins MD 20-Dec-2016 13:35:29
[2016-12-20] MEDS ORDERED: IPRATROPIUM/ALBUTEROL 0.5-2.5 MG/3 ML AMPUL NEB PRN (14:12)
[2016-12-20] MEDS ORDERED: ONDANSETRON HCL INJ/PF 4 MG/2 ML SDV IV PRN (14:25)
[2016-12-20] MEDS ORDERED: OXYCODONE-ACETAMINOPHEN 5-325 MG TABLET PO PRN (14:28)
[2016-12-20] MEDS ORDERED: METOPROLOL TARTRATE 25 MG TABLET PO ONE (14:45)
--- NOTE | 2016-12-20 14:50 | PDOC H&P ---
History of Present Illness Admission Date/PCP: 12/20/16 13:49 STEPHANIE BARAHONA MD Patient complains of: chest pain History of Present Illness: GERARDO WILLIAMSON is a 71 year old female with known CAD and chronic afib on xarelto presented to the ED from home after awakening this morning with chest pressure, palpitations like her heart is coming out of her chest, diaphoresis, SOA, WHALEN, nausea, diarrhea, dysuria, swelling of her legs, 1-2 pillow orthopnea, PND, general pain and weakness, in fact nearly all review of systems positive - she just doesn't feel well. On arrival in ED she was in RVR with her afib, placed on cardizem gtt after a bolus with rapid improvement in her vent rate and subsequently resolution of her symptoms. her eval is negative otherwise. we were asked to admit for obs and evaluation. she was just here in October and underwent cardiology consult with dr hernandez including echo and stress test which were negative for ischemia. She reports previous heart cath at [facility] in 2013 that was abnormal but did not require stents or balloon, details are unknown at this time. Past Medical History Cardiac Medical History: Reports: Atrial Fibrillation, Congestive Heart Failure - Diastolic, Myocardial Infarction, Hyperlipidema, Hypertension Denies: DVT, Pulmonary Embolism Pulmonary Medical History: Reports: Sleep Apnea - Recently diagnosed; awaiting her home CPAP machine; uncertain settings Neurological Medical History: Denies: Seizures GI Medical History: Reports: Gastroesophageal Reflux Disease Musculoskeltal Medical History: Reports: Arthritis Hematology: Denies: Anemia, Bleeding Tendencies Past Surgical History Past Surgical History: Reports: Cardiac Catheterization, Hysterectomy, Tonsillectomy Social History Information Source: Patient Smoking Status: Never Smoker Frequency of Alcohol Use: None Hx Recreational Drug Use: No Drugs: None Hx Prescription Drug Abuse: No - Advance Directive Resuscitation Status: Full Code Family History Family History: Reviewed & Not Pertinent, Hypertension Parental Family History Reviewed: Yes Children Family History Reviewed: Yes Sibling(s) Family History Reviewed.: Yes Medication/Allergy Home Medications: Albuterol Sulfate [Ventolin HFA MDI 18 GM] 2 puff IH Q4HP PRN 12/20/16 Ascorbic Acid [Vitamin C] 1,000 mg PO DAILY 12/20/16 Calcium Carbonate/Vitamin D3 [Os-Iam 250 mg with Vitamin D 125 Units] 1 tab PO DAILY 12/20/16 Furosemide [Lasix 20 mg Tablet] 20 mg PO DAILY@1400 12/20/16 Furosemide [Lasix] 40 mg PO QAM 12/20/16 Ibuprofen [Motrin 800 mg Tablet] 800 mg PO BIDP PRN 12/20/16 Losartan Potassium [Cozaar 50 mg Tablet] 50 mg PO Q12 12/20/16 Metoprolol Tartrate [Lopressor 25 mg Tablet] 25 mg PO DAILY 12/20/16 [place]-3 Acid Ethyl Esters [Lovaza 1 gm Capsule] 1 gm PO DAILY 12/20/16 Omeprazole Magnesium [Prilosec Otc] 20 mg PO QAM 12/20/16 Oxycodone HCl/Acetaminophen [Percocet 5-325 mg Tablet] 1 tab PO Q4HP PRN Rivaroxaban [Xarelto] 20 mg PO WSUPPER 12/20/16 Tramadol HCl [Ultram 50 mg Tablet] 50 mg PO QIDP PRN 12/20/16 Allergies/Adverse Reactions: codeine Allergy (Verified 10/26/16 01:05) Review of Systems All systems: reviewed and no additional remarkable complaints except as stated - all systems reviewed, see HPI, remaining systems negative Physical Exam Vital Signs: Temp Pulse Resp BP Pulse Ox 98.2 F 136 H 17 122/72 99 12/20/16 11:00 12/20/16 11:00 12/20/16 13:03 12/20/16 13:03 12/20/16 13:03 General appearance: PRESENT: no acute distress, morbidly obese, well-developed, well-nourished Head exam: PRESENT: atraumatic, normocephalic Eye exam: PRESENT: EOMI. ABSENT: conjunctival injection, scleral icterus Neck exam: ABSENT: carotid bruit, JVD, lymphadenopathy, tenderness Respiratory exam: PRESENT: chest wall tenderness. ABSENT: accessory muscle use Cardiovascular exam: PRESENT: irregular rhythm, systolic murmur. ABSENT: tachycardia Pulses: PRESENT: normal radial pulses, normal dorsalis pedis pul GI/Abdominal exam: PRESENT: normal bowel sounds, soft. ABSENT: tenderness Extremities exam: PRESENT: pedal edema - trace ankles, other - palpable cord in the Rt calf. ABSENT: calf tenderness Musculoskeletal exam: PRESENT: ambulatory, full ROM Neurological exam: PRESENT: alert, awake, oriented to person, oriented to place , oriented to time, oriented to situation Psychiatric exam: PRESENT: appropriate affect, normal mood Skin exam: PRESENT: warm. ABSENT: petechiae, rash Results Laboratory Results: 12/20/16 11:10 12/20/16 11:10 MCV 91 fl (80-97) 12/20/16 11:10 MCH 30.4 pg (27.0-33.4) 12/20/16 11:10 MCHC 33.5 g/dL (32.0-36.0) 12/20/16 11:10 RDW 14.4 % (11.5-14.0) H 12/20/16 11:10 Seg Neutrophils % 44.9 % (42-78) 12/20/16 11:10 Lymphocytes % 44.8 % (13-45) 12/20/16 11:10 Monocytes % 6.7 % (3-13) 12/20/16 11:10 Eosinophils % 2.7 % (0-6) 12/20/16 11:10 Basophils % 0.9 % (0-2) 12/20/16 11:10 Absolute Neutrophils 2.9 10^3/uL (1.7-8.2) 12/20/16 11:10 Absolute Lymphocytes 2.9 10^3/uL (0.5-4.7) 12/20/16 11:10 Absolute Monocytes 0.4 10^3/uL (0.1-1.4) 12/20/16 11:10 Absolute Eosinophils 0.2 10^3/uL (0.0-0.6) 12/20/16 11:10 Absolute Basophils 0.1 10^3/uL (0.0-0.2) 12/20/16 11:10 Chloride 105 mmol/L (98-107) 12/20/16 11:10 Carbon Dioxide 28 mmol/L (22-30) 12/20/16 11:10 Anion Gap 10 (5-19) 12/20/16 11:10 Est GFR ( Amer) > 60 (>60) 12/20/16 11:10 Est GFR (Non-Af Amer) > 60 (>60) 12/20/16 11:10 Glucose 202 mg/dL (75-110) H 12/20/16 11:10 Calcium 9.6 mg/dL (8.4-10.2) 12/20/16 11:10 Total Bilirubin 0.6 mg/dL (0.2-1.3) 12/20/16 11:10 AST 27 U/L (14-36) 12/20/16 11:10 ALT 42 U/L (9-52) 12/20/16 11:10 Alkaline Phosphatase 80 U/L (38-126) 12/20/16 11:10 Total Protein 7.6 g/dL (6.3-8.2) 12/20/16 11:10 Albumin 4.0 g/dL (3.5-5.0) 12/20/16 11:10 12/20/16 12/20/16 11:10 11:10 Creatine Kinase 120 CK-MB (CK-2) 1.40 Troponin I < 0.012 EKG Comments: afib with RVR, no ischemic changes Impressions: Chest X-Ray 12/20/16 11:03 IMPRESSION: Nothing acute. Status: Image reviewed by me Assessment & Plan - Diagnosis (1) Atrial fibrillation with RVR Is this a current diagnosis for this admission?: Yes (2) Chest pain Qualifiers: Chest pain type: unspecified Qualified Code(s): R07.9 - Chest pain, unspecified Is this a current diagnosis for this admission?: Yes (3) Morbid obesity with BMI of 40.0-44.9, adult Is this a current diagnosis for this admission?: Yes (4) Anticoagulated Is this a current diagnosis for this admission?: Yes (5) KESHAWN (obstructive sleep apnea) Is this a current diagnosis for this admission?: Yes - Time Time Spent: 50 to 70 Minutes Medications reviewed and adjusted accordingly: Yes Anticipated discharge: Home Within: within 24 hours - Plan Summary Plan Summary: admit to telemetry to monitor for recurrence; resume her home toprol and may need to increase dose to maintain rate control. ck TSH, Mg, Phos and trend Yvan through the night, UA for the dysuria symptoms and if diarrhea confirmed during her stay then send stool studies. its hard to sort out due to a positive review of systems. consult Dr Hernandez given the possibility of small vessel disease suggested on heart cath and borderline TID ratio of 1.17 (with some studies suggesting 1.22 as cutoff for detecting severe CAD). try to get old records from [facility] to clarify cath results. continue xarelto which makes likelihood of thrombo-occlusive disease unlikely but she has a palpable varicosity deep in the calf so will ck doppler of the Rt leg to make sure. of note, her last CT chest showed gallstones but her WBCs and LFTs are reassuring.
[2016-12-20 15:23] LABS: APPEARANCE,URINE CLEAR; BILIRUBIN,URINE NEGATIVE (NEGATIVE); GLUCOSE, URINE NEGATIVE (NEGATIVE); KETONES,URINE NEGATIVE (NEGATIVE); LEUKOCYTE ESTERASE,URINE NEGATIVE (NEGATIVE); NITRITE,URINE NEGATIVE (NEGATIVE); PROTEIN,URINE NEGATIVE (NEGATIVE); URINE SPECIFIC GRAVITY 1.005; UROBILINOGEN,URINE NEGATIVE mg/dL (<2.0)
[2016-12-20 15:24] LABS: MAGNESIUM 1.9 mg/dL (1.6-2.3); PHOSPHORUS 3.1 mg/dL (2.5-4.5)
[2016-12-20] MEDS ORDERED: METOPROLOL TARTRATE PF/INJ 5 MG/5 ML SDV IV ONE (16:26)
[2016-12-20] MEDS ORDERED: NORMAL SALINE 1000 ML 1,000 ML IV ONE (16:26)
[2016-12-20] MEDS: RIVAROXABAN 10 MG TABLET PO SCH (16:59)
[2016-12-20 18:38] LABS: CREATINE KINASE MB 1.85 ng/mL (<4.55); TROPONIN I 0.018 ng/mL
[2016-12-20] MEDS: LOSARTAN POTASSIUM 50 MG TABLET PO SCH (21:54)
--- NOTE | 2016-12-20 22:30 | RADIOLOGY REPORT (SQ) ---
EXAM DESCRIPTION: VENOUS BILATERAL LOWER COMPLETED DATE/TIME: 12/20/2016 10:12 pm REASON FOR STUDY: palp cord, rt. calf R53.1 WEAKNESS COMPARISON: None. TECHNIQUE: Dynamic and static lee scale and color images acquired of both lower extremity venous sy stems. Selected spectral images acquired with additional compression and augmentation maneuvers. Imag es stored on PACS. LIMITATIONS: None. FINDINGS: RIGHT LEG COMMON FEMORAL AND FEMORAL: Normal phasicity, compression and augmentation. No visualized echogenic m aterial on lee scale. No defects on color images. POPLITEAL: Normal compression and augmentation. No visualized echogenic material on lee scale. No de fects on color images. CALF VESSELS: Normal compression and augmentation. No visualized echogenic material on lee scale. No defects on color image. GSV AND SSV: Normal compression. No visualized echogenic material on lee scale. No defects on color images. ANY DEEP VENOUS INSUFFICIENCY: Not evaluated. ANY EVIDENCE OF POPLITEAL CYST: No. OTHER: No other significant finding. LEFT LEG COMMON FEMORAL AND FEMORAL: Normal phasicity, compression and augmentation. No visualized echogenic m aterial on lee scale. No defects on color images. POPLITEAL: Normal compression and augmentation. No visualized echogenic material on lee scale. No de fects on color images. CALF VESSELS: Normal compression and augmentation. No visualized echogenic material on lee scale. No defects on color images. GSV AND SSV: Normal compression. No visualized echogenic material on lee scale. No defects on color images. ANY DEEP VENOUS INSUFFICIENCY: Not evaluated. ANY EVIDENCE POPLITEAL CYST: No. OTHER: No other significant finding. IMPRESSION: NO EVIDENCE DVT OR SVT IN EITHER LEG. TECHNICAL DOCUMENTATION: JOB ID: [id number] [employer]- All Rights Reserved
[2016-12-21 00:58] LABS: CREATINE KINASE MB 2.03 ng/mL (<4.55)
[2016-12-21 01:02] LABS: TROPONIN I 0.014 ng/mL
[2016-12-21] MEDS: LANSOPRAZOLE 15 MG TAB.RAP.DR PO SCH (05:24)
[2016-12-21 06:47] LABS: HEMATOCRIT 38.6 % (36.0-47.0); HGB HCT DIFFERENCE 0.4; MEAN CORPUSCULAR HEMOGLOBIN 30.4 pg (27.0-33.4); MEAN CORPUSCULAR HGB CONC 33.8 g/dL (32.0-36.0); MEAN CORPUSCULAR VOLUME 90 fl (80-97); RED BLOOD COUNT 4.28 10^6/uL (3.72-5.28); WHITE BLOOD COUNT 5.9 10^3/uL (4.0-10.5)
[2016-12-21] MEDS: ACETAMINOPHEN 325 MG TABLET PO PRN ×2 (07:59→20:25)
--- NOTE | 2016-12-21 08:03 | EKG REPORT ---
SEVERITY:- ABNORMAL ECG - ATRIAL FIBRILLATION BORDERLINE LEFT AXIS DEVIATION PROBABLE ANTEROSEPTAL INFARCT, OLD BORDERLINE PROLONGED QT INTERVAL : Confirmed by: Chavo Collins MD 21-Dec-2016 08:03:32
[2016-12-21] MEDS ORDERED: METOPROLOL TARTRATE 25 MG TABLET PO SCH (10:00)
[2016-12-21] MEDS: DILTIAZEM HCL/D5W 125 ML IV PRN (10:26)
[2016-12-21] MEDS ORDERED: METOPROLOL SUCCINATE 50 MG TAB.SR.24H PO ONE (10:30)
[2016-12-21] MEDS: CALCIUM CARBONATE 250 MG/VITAMIN D3 125 UNIT TABLET PO SCH (10:30)
[2016-12-21] MEDS: DOCUSATE SODIUM 100 MG CAPSULE PO SCH (10:31)
[2016-12-21] MEDS: LOSARTAN POTASSIUM 50 MG TABLET PO SCH ×2 (10:32→21:38)
--- NOTE | 2016-12-21 10:38 | PDOC PROGRESS REPORT ---
Subjective Progress Note for:: 12/21/16 Subjective:: Patient is seen on morning rounds. She states she is feeling much better than yesterday. She denies any palpitations, shortness of breath or dyspnea. She denies nausea, abdominal pain or diarrhea. She denies any arthralgiase and myalgias. She states she is concerned that her palpitations will come bback when she is more active. She was encouraged to increase her activity this morning. Physical Exam Vital Signs: Temp Pulse Resp BP Pulse Ox 98.1 F 76 18 123/85 100 12/21/16 07:12 12/21/16 07:12 12/21/16 07:12 12/21/16 07:12 12/21/16 07:12 Intake & Output 12/20/16 12/21/16 12/22/16 06:59 06:59 06:59 Intake Total 1190 Balance 1190 Weight 114.4 kg General appearance: PRESENT: no acute distress, morbidly obese, well-developed, well-nourished Head exam: PRESENT: atraumatic, normocephalic Eye exam: PRESENT: conjunctiva pink, EOMI, PERRLA. ABSENT: scleral icterus Ear exam: PRESENT: normal external ear exam Mouth exam: PRESENT: moist, tongue midline Neck exam: ABSENT: carotid bruit, JVD, lymphadenopathy, thyromegaly Respiratory exam: PRESENT: clear to auscultation kayleigh. ABSENT: rales, rhonchi, wheezes Cardiovascular exam: PRESENT: irregular rhythm, +S1, +S2. ABSENT: diastolic murmur, rubs, systolic murmur Pulses: PRESENT: normal dorsalis pedis pul Vascular exam: PRESENT: normal capillary refill GI/Abdominal exam: PRESENT: normal bowel sounds, soft. ABSENT: distended, guarding, mass, organolmegaly, rebound, tenderness Rectal exam: PRESENT: deferred Extremities exam: PRESENT: full ROM. ABSENT: calf tenderness, clubbing, pedal edema Neurological exam: PRESENT: alert, awake, oriented to person, oriented to place , oriented to time, oriented to situation, CN II-XII grossly intact. ABSENT: motor sensory deficit Psychiatric exam: PRESENT: appropriate affect, normal mood. ABSENT: homicidal ideation, suicidal ideation Skin exam: PRESENT: dry, intact, warm. ABSENT: cyanosis, rash Results Laboratory Results: 12/21/16 06:30 12/20/16 12/21/16 14:55 06:30 WBC 5.9 RBC 4.28 Hgb 13.0 Hct 38.6 MCV 90 MCH 30.4 MCHC 33.8 RDW 14.0 Plt Count 192 Urine Color STRAW Urine Appearance CLEAR Urine pH 5.0 Ur Specific [place] 1.005 Urine Protein NEGATIVE Urine Glucose (UA) NEGATIVE Urine Ketones NEGATIVE Urine Blood NEGATIVE Urine Nitrite NEGATIVE Ur Leukocyte Esterase NEGATIVE Urine WBC (Auto) 0 Urine RBC (Auto) 1 12/20/16 12/20/16 12/21/16 17:50 17:50 00:18 Creatine Kinase 108 99 CK-MB (CK-2) 1.85 Troponin I 0.018 12/21/16 00:18 Creatine Kinase CK-MB (CK-2) 2.03 Troponin I 0.014 Impressions: Venous Doppler Study 12/20/16 00:00 IMPRESSION: NO EVIDENCE DVT OR SVT IN EITHER LEG. Chest X-Ray 12/20/16 11:03 IMPRESSION: Nothing acute. Assessment & Plan - Diagnosis (1) Atrial fibrillation with RVR Is this a current diagnosis for this admission?: YesPlan: Rate controlled at the present time and xarelto (2) Anxiety Is this a current diagnosis for this admission?: YesPlan: Continue current medications (3) Morbid obesity with BMI of 40.0-44.9, adult Is this a current diagnosis for this admission?: YesPlan: Improved. Continue current medications (4) Anticoagulated Is this a current diagnosis for this admission?: Yes (5) KESHAWN (obstructive sleep apnea) Is this a current diagnosis for this admission?: Yes (6) HLD (hyperlipidemia) Qualifiers: Hyperlipidemia type: unspecified Qualified Code(s): E78.5 - Hyperlipidemia, unspecified (7) Chest pain Qualifiers: Chest pain type: unspecified Qualified Code(s): R07.9 - Chest pain, unspecified Is this a current diagnosis for this admission?: Yes - Time Time Spent with patient: 25-34 minutes Critical Time spent with patient: 15-24 minutes Medications reviewed and adjusted accordingly: Yes Anticipated discharge: Home Within: within 24 hours
--- NOTE | 2016-12-21 13:38 | PDOC CONSULTATION ---
Consultation Consult Date: 12/20/16 Attending physician:: NILSA PORRAS Consult reason:: Chest pain History of Present Illness Admission Date/PCP: 12/20/16 13:49 STEPHANIE BARAHONA MD Patient complains of: Chest pain History of Present Illness: GERARDO WILLIAMSON is a 71 year old female with known CAD and chronic afib on xarelto presented to the ED from home after awakening this morning with chest pressure, palpitations like her heart is coming out of her chest, diaphoresis, SOA, WHALEN, nausea, diarrhea, dysuria, swelling of her legs, 1-2 pillow orthopnea, PND, general pain and weakness, in fact nearly all review of systems positive - she just doesn't feel well. On arrival in ED she was in RVR with her afib, placed on cardizem gtt after a bolus with rapid improvement in her vent rate and subsequently resolution of her symptoms. she was just here in October and underwent cardiology consult and further evaluation with echo and stress test which were negative for ischemia. She reports previous heart cath at [facility] in 2013 that was abnormal but did not require stents or balloon, details are unknown at this time. Patient was interviewed in the evening and was noted to be comfortable. This history was confirmed and supplemented. Patient does describe history of sleep apnea but awaiting CPAP titration study. Past Medical History Cardiac Medical History: Reports: Atrial Fibrillation, Congestive Heart Failure - Diastolic, Myocardial Infarction, Hyperlipidema, Hypertension Denies: DVT, Pulmonary Embolism Pulmonary Medical History: Reports: Sleep Apnea - Recently diagnosed; awaiting her home CPAP machine; uncertain settings Neurological Medical History: Denies: Seizures GI Medical History: Reports: Gastroesophageal Reflux Disease Musculoskeltal Medical History: Reports: Arthritis Hematology: Denies: Anemia, Bleeding Tendencies Past Surgical History Past Surgical History: Reports: Cardiac Catheterization, Hysterectomy, Tonsillectomy Social History Information Source: Patient Smoking Status: Never Smoker Frequency of Alcohol Use: None Hx Recreational Drug Use: No Drugs: None Hx Prescription Drug Abuse: No - Advance Directive Resuscitation Status: Full Code Family History Family History: Hypertension Parental Family History Reviewed: Yes Children Family History Reviewed: Yes Sibling(s) Family History Reviewed.: Yes Medication/Allergy Home Medications: Albuterol Sulfate [Ventolin HFA MDI 18 GM] 2 puff IH Q4HP PRN 12/20/16 Ascorbic Acid [Vitamin C] 1,000 mg PO DAILY 12/20/16 Calcium Carbonate/Vitamin D3 [Os-Iam 250 mg with Vitamin D 125 Units] 1 tab PO DAILY 12/20/16 Furosemide [Lasix 20 mg Tablet] 20 mg PO DAILY@1400 12/20/16 Furosemide [Lasix] 40 mg PO QAM 12/20/16 Ibuprofen [Motrin 800 mg Tablet] 800 mg PO BIDP PRN 12/20/16 Losartan Potassium [Cozaar 50 mg Tablet] 50 mg PO Q12 12/20/16 Metoprolol Tartrate [Lopressor 25 mg Tablet] 25 mg PO DAILY 12/20/16 [place]-3 Acid Ethyl Esters [Lovaza 1 gm Capsule] 1 gm PO DAILY 12/20/16 Omeprazole Magnesium [Prilosec Otc] 20 mg PO QAM 12/20/16 Oxycodone HCl/Acetaminophen [Percocet 5-325 mg Tablet] 1 tab PO Q4HP PRN Rivaroxaban [Xarelto] 20 mg PO WSUPPER 12/20/16 Tramadol HCl [Ultram 50 mg Tablet] 50 mg PO QIDP PRN 12/20/16 Allergies/Adverse Reactions: codeine Allergy (Verified 10/26/16 01:05) Review of Systems Review of Systems: Please see history of present illness and past medical history as wall. Constitutional: No fever or chills reported. Head : History of intermittent headaches but no head injury. Eyes: No recent eye pain, diplopia, redness, discharge, acute visual changes. Ears: No recent chronic ear pain, acute hearing loss, ear discharge. Oral cavity: No recent ulcerations, bleeding, oral cavity discomfort. Neck: No recent acute neck pain reported. Hematologic: No recent easy bruising or bleeding or hematologic malignancy reported. Lymphatic: No recent lymphatic malignancy, chronic lymphadenopathy reported yet Cardiovascular system review: See history of present illness. Palpitations but no near syncope or syncope. Intermittent pedal edema. Respiratory system review: No recent chronic cough, hemoptysis, blood clots in the lungs reported. Mild Shortness of breath on exertion Gastrointestinal system review: Negative for any recent acute or chronic abdominal pain, hematemesis, melena, recent change in bowel habits. Genitourinary system review: No recent acute or chronic hematuria, flank pain, UTI etc. reported. Skin system review: Negative for any recent abnormal bruising, no rash, no pruritus reported. Neurologic: No prior history of strokes, mini strokes, seizure disorder. Psychologic: No history of major psychosis or major depression reported. Musculoskeletal: Minor aches and pains reported. No acute joint swelling reported. Endocrine: No recent polyuria, polydipsia, recent heat or cold intolerance. Physical Exam Vital Signs: Temp Pulse Resp BP Pulse Ox 98.4 F 78 18 131/79 H 100 12/20/16 16:00 12/20/16 19:00 12/20/16 16:00 12/20/16 16:00 12/20/16 16:00 Intake & Output 12/19/16 12/20/16 12/21/16 06:59 06:59 06:59 Intake Total 240 Balance 240 Weight 111.11 kg Exam: GENERAL: well-nourished and in no acute distress. Alert and oriented x3 HEAD: Atraumatic, normocephalic. EYES: Pupils equal round and reactive to light, extraocular movements intact, sclera anicteric, conjunctiva are normal. ENT: TMs normal, nares patent, oropharynx clear without exudates. Moist mucous membranes. No oral ulcerations or bleeding gums noted NECK: supple without lymphadenopathy. Trachea is central. No cervical or axillary lymphadenopathy noted. Carotids are 2+, JVD WNL LUNGS: Respiration seems nonlabored, no significant accessory muscle action noted. Breath sounds clear to auscultation bilaterally and equal noted. No wheezes rales or rhonchi noted. No significant dullness noted on percussion. CHEST: Palpation of the chest wall shows elicitable chest wall tenderness. No other significant abnormalities noted. HEART: [place] PERINATAL COORDINATOR, No PSH, 1/6 NADER aortic area, 1/6 husain systolic murmur mitral area, no rubs, no gallops. ABDOMEN: Soft, no significant tenderness appreciated, normoactive bowel sounds. No guarding, no rebound. No rigidity noted . No masses appreciated. EXTREMITIES: Pedal pulses are 1-2+, no calf tenderness noted. No clubbing or cyanosis.trace to 1+ pedal edema noted NEUROLOGICAL: Focused neurological exam showed no significant neurologic deficit. Normal speech, no focal weakness appreciated. PSYCH: Normal mood, normal affect. Judgment and insight within normal limits. SKIN: No significant ecchymosis, rash, ulcerations or signs of pruritus noted. MUSCULOSKELETAL EXAM: No significant joint swelling noted. Results Laboratory Results: 12/20/16 14:55 Urine Color STRAW Urine Appearance CLEAR Urine pH 5.0 Ur Specific [place] 1.005 Urine Protein NEGATIVE Urine Glucose (UA) NEGATIVE Urine Ketones NEGATIVE Urine Blood NEGATIVE Urine Nitrite NEGATIVE Ur Leukocyte Esterase NEGATIVE Urine WBC (Auto) 0 Urine RBC (Auto) 1 12/20/16 12/20/16 17:50 17:50 Creatine Kinase 108 CK-MB (CK-2) 1.85 Troponin I 0.018 Impressions: Chest X-Ray 12/20/16 11:03 IMPRESSION: Nothing acute. Assessment & Plan - Diagnosis (1) Atrial fibrillation with RVR Is this a current diagnosis for this admission?: Yes (2) Chest pain Qualifiers: Chest pain type: unspecified Qualified Code(s): R07.9 - Chest pain, unspecified Is this a current diagnosis for this admission?: Yes (3) Dyspnea Qualifiers: Dyspnea type: unspecified Qualified Code(s): R06.00 - Dyspnea, unspecified (4) Morbid obesity with BMI of 40.0-44.9, adult Is this a current diagnosis for this admission?: Yes (5) KESHAWN (obstructive sleep apnea) Is this a current diagnosis for this admission?: Yes - Notes Notes: Atrial fibrillation with rapid ventricular response: Ventricular response improved with Cardizem drip. Patient on beta-geno therapy for history of palpitations. Will try optimize beta-geno therapy. Continue chronic anticoagulation with Xarelto. Chest pain: Recent evaluation was negative. Continue with cycling cardiac enzymes. Feel chest pain clinically is musculoskeletal. Patient does describe history of arthritis. Dyspnea: Possibly related to paroxysmal atrial fibrillation with underlying diastolic dysfunction, deconditioning, obesity etc. Severe obesity: Patient will benefit from weight loss. This has been discussed with the patient and encouraged with it. Obstructive sleep apnea: Patient would benefit immensely from CPAP therapy. This will be instituted. - Time Time Spent: 30 to 50 Minutes - CODE STATUS was discussed, patient remains full code. Surrogate decision-maker patient siblings. Multiple medical problems were addressed. More than 50% of the time spent coordinating care, discussing management plans with involved caregivers. Management plans discussed with involved personnels. Medical decision making was of moderate to high complexity , patient's has multiple comorbidities.
--- NOTE | 2016-12-21 14:02 | PDOC PROGRESS REPORT ---
Subjective Progress Note for:: 12/21/16 Subjective:: Patient seems to be doing better with gradual improvement. Pt is denying any chest arm or neck discomfort. Patient denying any PND, orthopnea. Patient denied any sustained palpitations, dizziness, syncope, near syncope. Patient denying any fever chills. Patient denying any other significant discomfort. Patient is maintaining atrial fibrillation but heart rate is well controlled. Review of systems: Rest review of systems negative. Medications: Medications have been reviewed. Physical Exam Vital Signs: Temp Pulse Resp BP Pulse Ox 98.1 F 76 18 123/85 100 12/21/16 07:12 12/21/16 07:12 12/21/16 07:12 12/21/16 07:12 12/21/16 07:12 Intake & Output 12/20/16 12/21/16 12/22/16 06:59 06:59 06:59 Intake Total 1190 Balance 1190 Weight 114.4 kg Exam: GENERAL: well-nourished and in no acute distress. Alert and oriented x3 HEAD: Atraumatic, normocephalic. EYES: Pupils equal round and reactive to light, extraocular movements intact, sclera anicteric, conjunctiva are normal. ENT: TMs normal, nares patent, oropharynx clear without exudates. Moist mucous membranes. No oral ulcerations or bleeding gums noted NECK: supple without lymphadenopathy. Trachea is central. No cervical or axillary lymphadenopathy noted. Carotids are 2+, JVD WNL LUNGS: Respiration seems nonlabored, no significant accessory muscle action noted. Breath sounds clear to auscultation bilaterally and equal noted. No wheezes rales or rhonchi noted. No significant dullness noted on percussion. CHEST: Palpation of the chest wall shows elicitable chest wall tenderness. No other significant abnormalities noted. 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 ABDOMEN: Soft, no significant tenderness appreciated, normoactive bowel sounds. No guarding, no rebound. No rigidity noted . No masses appreciated. EXTREMITIES: Pedal pulses are 1-2+, no calf tenderness noted. No clubbing or cyanosis.trace to 1+ pedal edema noted NEUROLOGICAL: Focused neurological exam showed no significant neurologic deficit. Normal speech, no focal weakness appreciated. PSYCH: Normal mood, normal affect. Judgment and insight within normal limits. SKIN: No significant ecchymosis, rash, ulcerations or signs of pruritus noted. MUSCULOSKELETAL EXAM: No significant joint swelling noted. Results Laboratory Results: 12/21/16 06:30 12/20/16 12/21/16 14:55 06:30 WBC 5.9 RBC 4.28 Hgb 13.0 Hct 38.6 MCV 90 MCH 30.4 MCHC 33.8 RDW 14.0 Plt Count 192 Urine Color STRAW Urine Appearance CLEAR Urine pH 5.0 Ur Specific [place] 1.005 Urine Protein NEGATIVE Urine Glucose (UA) NEGATIVE Urine Ketones NEGATIVE Urine Blood NEGATIVE Urine Nitrite NEGATIVE Ur Leukocyte Esterase NEGATIVE Urine WBC (Auto) 0 Urine RBC (Auto) 1 12/20/16 12/20/16 12/21/16 17:50 17:50 00:18 Creatine Kinase 108 99 CK-MB (CK-2) 1.85 Troponin I 0.018 12/21/16 00:18 Creatine Kinase CK-MB (CK-2) 2.03 Troponin I 0.014 EKG Comments: Telemetry strips reviewed. Shows atrial fibrillation with controlled heart rate response. Impressions: Venous Doppler Study 12/20/16 00:00 IMPRESSION: NO EVIDENCE DVT OR SVT IN EITHER LEG. Chest X-Ray 12/20/16 11:03 IMPRESSION: Nothing acute. Assessment & Plan - Diagnosis (1) Atrial fibrillation with RVR Is this a current diagnosis for this admission?: Yes (2) Chest pain Qualifiers: Qualified Code(s): R07.9 - Chest pain, unspecified Is this a current diagnosis for this admission?: Yes (3) Dyspnea Qualifiers: Qualified Code(s): R06.00 - Dyspnea, unspecified (4) Morbid obesity with BMI of 40.0-44.9, adult Is this a current diagnosis for this admission?: Yes (5) KESHAWN (obstructive sleep apnea) Is this a current diagnosis for this admission?: Yes - Notes Notes: Atrial fibrillation with rapid ventricular response: Have placed patient on metoprolol succinate 50 mg p.o. daily, Cardizem drip stopped. Patient on beta- geno therapy for history of palpitations. Will try optimize beta-geno therapy. Continue chronic anticoagulation with Xarelto. Chest pain: Recent evaluation was negative. Continue with cycling cardiac enzymes. Feel chest pain clinically is musculoskeletal. Patient does describe history of arthritis. Dyspnea: Possibly related to atrial fibrillation with underlying diastolic dysfunction, deconditioning, obesity etc. patient will benefit from weight loss , regular walking program. Severe obesity: Patient will benefit from weight loss. This has been discussed with the patient and encouraged with it. Obstructive sleep apnea: Patient would benefit immensely from CPAP therapy. Patient will benefit from a titration study and this will be scheduled. - Time Time with patient: 15-25 minutes - CODE STATUS was discussed, patient remains full code. Surrogate decision-maker unchanged. Multiple medical problems were addressed. More than 50% of the time spent coordinating care, discussing management plans with involved caregivers. Management plans discussed with involved personnels. Medical decision making was of moderate to high complexity , patient's has multiple comorbidities. Medications reviewed and adjusted accordingly: Yes
[2016-12-21] MEDS: RIVAROXABAN 10 MG TABLET PO SCH (17:39)
[2016-12-22] MEDS: LANSOPRAZOLE 15 MG TAB.RAP.DR PO SCH (05:38)
[2016-12-22] MEDS: LOSARTAN POTASSIUM 50 MG TABLET PO SCH (09:10)
[2016-12-22] MEDS: DOCUSATE SODIUM 100 MG CAPSULE PO SCH (09:10)
[2016-12-22] MEDS: CALCIUM CARBONATE 250 MG/VITAMIN D3 125 UNIT TABLET PO SCH (09:10)
[2016-12-22] MEDS ORDERED: METOPROLOL SUCCINATE 50 MG TAB.SR.24H PO SCH (10:00)
--- NOTE | 2016-12-22 11:08 | PDOC PROGRESS REPORT ---
Subjective Progress Note for:: 12/22/16 Subjective:: Patient seems to be doing better. Patient is expected to be discharged later today. Pt is denying any chest arm or neck discomfort. Patient denying any PND , orthopnea. Patient denied any sustained palpitations, dizziness, syncope, near syncope. Patient denying any fever chills. Patient denying any other significant discomfort. Patient is maintaining atrial fibrillation but heart rate is well controlled. Review of systems: Rest review of systems negative. Medications: Medications have been reviewed. Physical Exam Vital Signs: Temp Pulse Resp BP Pulse Ox 97.5 F 11 L 16 142/83 H 100 12/22/16 07:45 12/22/16 08:48 12/22/16 08:48 12/22/16 07:45 12/22/16 08:48 Intake & Output 12/21/16 12/22/16 12/23/16 06:59 06:59 06:59 Intake Total 780 Output Total 850 Balance -70 Weight 116.7 kg Exam: GENERAL: well-nourished and in no acute distress. Alert and oriented x3 HEAD: Atraumatic, normocephalic. EYES: Pupils equal round and reactive to light, extraocular movements intact, sclera anicteric, conjunctiva are normal. ENT: TMs normal, nares patent, oropharynx clear without exudates. Moist mucous membranes. No oral ulcerations or bleeding gums noted NECK: supple without lymphadenopathy. Trachea is central. No cervical or axillary lymphadenopathy noted. Carotids are 2+, JVD WNL LUNGS: Respiration seems nonlabored, no significant accessory muscle action noted. Breath sounds clear to auscultation bilaterally and equal noted. No wheezes rales or rhonchi noted. No significant dullness noted on percussion. CHEST: Palpation of the chest wall shows no significant chest wall tenderness. No other significant abnormalities noted. 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 ABDOMEN: Soft, no significant tenderness appreciated, normoactive bowel sounds. No guarding, no rebound. No rigidity noted . No masses appreciated. EXTREMITIES: Pedal pulses are 1-2+, no calf tenderness noted. No clubbing or cyanosis.trace to 1+ pedal edema noted NEUROLOGICAL: Focused neurological exam showed no significant neurologic deficit. Normal speech, no focal weakness appreciated. PSYCH: Normal mood, normal affect. Judgment and insight within normal limits. SKIN: No significant ecchymosis, rash, ulcerations or signs of pruritus noted. MUSCULOSKELETAL EXAM: No significant joint swelling noted. Results EKG Comments: Telemetry strips shows atrial fibrillation with controlled ventricular response. Impressions: Venous Doppler Study 12/20/16 00:00 IMPRESSION: NO EVIDENCE DVT OR SVT IN EITHER LEG. Chest X-Ray 12/20/16 11:03 IMPRESSION: Nothing acute. Assessment & Plan - Diagnosis (1) Atrial fibrillation with RVR Is this a current diagnosis for this admission?: Yes (2) Chest pain Qualifiers: Qualified Code(s): R07.9 - Chest pain, unspecified Is this a current diagnosis for this admission?: Yes (3) Dyspnea Qualifiers: Qualified Code(s): R06.00 - Dyspnea, unspecified (4) Morbid obesity with BMI of 40.0-44.9, adult Is this a current diagnosis for this admission?: Yes (5) KESHAWN (obstructive sleep apnea) Is this a current diagnosis for this admission?: Yes - Notes Notes: Atrial fibrillation with rapid ventricular response: Have placed patient on metoprolol succinate 50 mg p.o. daily yesterday. Heart rate seems reasonably well controlled. Patient may benefit from a event monitoring as an outpatient for better control of heart rate. Patient on beta-geno therapy for history of palpitations. Will try optimize beta-geno therapy. Continue chronic anticoagulation with Xarelto. Chest pain: Recent evaluation was negative. Cardiac enzymes all been negative. Feel chest pain clinically is musculoskeletal. Patient does describe history of arthritis. Dyspnea: Possibly related to now persistent atrial fibrillation with underlying diastolic dysfunction, deconditioning, obesity etc. patient will benefit from weight loss, regular walking program. Severe obesity: Patient will benefit from weight loss. This has been discussed with the patient and encouraged with it. Obstructive sleep apnea: Patient would benefit immensely from CPAP therapy. Patient will benefit from a titration study and this will be scheduled. - Time Time with patient: 15-25 minutes - More than 50% of the time spent coordinating care, discussing management plans with involved caregivers. Management plans discussed with involved personnels. Medical decision making was of moderate to high complexity, patient's has multiple comorbidities.
--- NOTE | 2016-12-22 11:25 | PDOC DISCHARGE SUMMARY ---
General - Admit/Disc Date/PCP Admission Date/Primary Care Provider: 12/21/16 15:57 STEPHANIE BARAHONA MD Discharge Date: 12/22/16 - Discharge Diagnosis (1) Atrial fibrillation with RVR Is this a current diagnosis for this admission?: YesSummary: Resolved with increase in beta geno (2) Anxiety Is this a current diagnosis for this admission?: YesSummary: Improved will continue home medication (3) Morbid obesity with BMI of 40.0-44.9, adult Is this a current diagnosis for this admission?: YesSummary: Patient was counseled (4) Anticoagulated Is this a current diagnosis for this admission?: YesSummary: Continue xarelto (5) KESHAWN (obstructive sleep apnea) Is this a current diagnosis for this admission?: Yes (7) Chest pain Is this a current diagnosis for this admission?: YesSummary: Acute coronary syndrome ruled out, most likely musculoskeletal in origin - Additional Information Resuscitation Status: Full Code Discharge Diet: Cardiac Discharge Activity: Activity As Tolerated, Balance Activity w/Rest Home Medications: Albuterol Sulfate [Ventolin HFA MDI 18 GM] 2 puff IH Q4HP PRN 12/20/16 Ascorbic Acid [Vitamin C] 1,000 mg PO DAILY 12/20/16 Calcium Carbonate/Vitamin D3 [Os-Iam 250 mg with Vitamin D 125 Units] 1 tab PO DAILY 12/20/16 Furosemide [Lasix 20 mg Tablet] 20 mg PO DAILY@1400 12/20/16 Furosemide [Lasix] 40 mg PO QAM 12/20/16 Ibuprofen [Motrin 800 mg Tablet] 800 mg PO BIDP PRN 12/20/16 Losartan Potassium [Cozaar 50 mg Tablet] 50 mg PO Q12 12/20/16 Adams-3 Acid Ethyl Esters [Lovaza 1 gm Capsule] 1 gm PO DAILY 12/20/16 Omeprazole Magnesium [Prilosec Otc] 20 mg PO QAM 12/20/16 Oxycodone HCl/Acetaminophen [Percocet 5-325 mg Tablet] 1 tab PO Q4HP PRN Tramadol HCl [Ultram 50 mg Tablet] 50 mg PO QIDP PRN 12/20/16 Acetaminophen [Tylenol 325 mg Tablet] 650 mg PO Q4HP PRN tablet 12/22/16 Metoprolol Succinate [Toprol Xl 50 mg Tab.sr] 50 mg PO DAILY #30 tab.sr.24h 07/09 Rivaroxaban [Xarelto] 20 mg PO WSUPPER #30 tablet 12/22/16 History of Present Illness Patient complains of: Palpitations and chest pain History of Present Illness: GERARDO WILLIAMSON is a 71 year old female with known CAD and chronic afib on xarelto presented to the ED from home after awakening this morning with chest pressure, palpitations like her heart is coming out of her chest, diaphoresis, SOA, WHALEN, nausea, diarrhea, dysuria, swelling of her legs, 1-2 pillow orthopnea, PND, general pain and weakness, in fact nearly all review of systems positive - she just doesn't feel well. On arrival in ED she was in RVR with her afib, placed on cardizem gtt after a bolus with rapid improvement in her vent rate and subsequently resolution of her symptoms. her eval is negative otherwise. we were asked to admit for obs and evaluation. she was just here in October and underwent cardiology consult with dr hernandez including echo and stress test which were negative for ischemia. She reports previous heart cath at [facility] in 2013 that was abnormal but did not require stents or balloon, details are unknown at this time. Hospital Course Hospital Course: Patient was admitted to the telemetry floor. Patient's beta-geno was increased with improvement of rate control her atrial fibrillation. She had serial troponins which were all negative. Dr. Hernandez saw the patient in consult for cardiology. She was continued on Xarelto and metoprolol. Heart rate continued to be well controlled. She was able to be out of bed without any tachycardia. Today she feels well, she feels ready for discharge. Physical Exam Vital Signs: Temp Pulse Resp BP Pulse Ox 97.5 F 11 L 16 142/83 H 100 12/22/16 07:45 12/22/16 08:48 12/22/16 08:48 12/22/16 07:45 12/22/16 08:48 Intake & Output 12/21/16 12/22/16 12/23/16 06:59 06:59 06:59 Intake Total 780 Output Total 850 Balance -70 Weight 116.7 kg General appearance: PRESENT: no acute distress, morbidly obese, well-developed, well-nourished Head exam: PRESENT: atraumatic, normocephalic Eye exam: PRESENT: conjunctiva pink, EOMI, PERRLA. ABSENT: scleral icterus Ear exam: PRESENT: normal external ear exam Mouth exam: PRESENT: moist, tongue midline Neck exam: ABSENT: carotid bruit, JVD, lymphadenopathy, thyromegaly Respiratory exam: PRESENT: clear to auscultation kayleigh. ABSENT: rales, rhonchi, wheezes Cardiovascular exam: PRESENT: irregular rhythm. ABSENT: diastolic murmur, rubs , systolic murmur Pulses: PRESENT: normal dorsalis pedis pul Vascular exam: PRESENT: normal capillary refill GI/Abdominal exam: PRESENT: normal bowel sounds, soft. ABSENT: distended, guarding, mass, organolmegaly, rebound, tenderness Rectal exam: PRESENT: deferred Extremities exam: PRESENT: full ROM. ABSENT: calf tenderness, clubbing, pedal edema Neurological exam: PRESENT: alert, awake, oriented to person, oriented to place , oriented to time, oriented to situation, CN II-XII grossly intact. ABSENT: motor sensory deficit Psychiatric exam: PRESENT: appropriate affect, normal mood. ABSENT: homicidal ideation, suicidal ideation Skin exam: PRESENT: dry, intact, warm. ABSENT: cyanosis, rash Results Impressions: Venous Doppler Study 12/20/16 00:00 IMPRESSION: NO EVIDENCE DVT OR SVT IN EITHER LEG. Chest X-Ray 12/20/16 11:03 IMPRESSION: Nothing acute. Qualifiers PATEINT BEING DISCHARGED WITH ANY OF THE FOLLOWING DIAGNOSIS?: No Plan Discharge Plan: Home with family Time Spent: Less than 30 Minutes
[2016-12-22 11:55] VITALS: BP 131/79
== END 2016-12-22 14:04 | disposition home or self-care (01) | DRG 309 ==
LOC: ER 10:44 → EH 13:49 → 5 15:59 → OBSVTOIN 12-21 15:57
PROVIDERS: ADMIT Internal Medicine; ATTEND Internal Medicine
PROC: 3E0F73Z Introduction of Anti-inflammatory into Respiratory Tract, Via Natural or Artificial Opening (ICD-10-PCS; principal; 2016-12-20)
DX: I48.2 Chronic atrial fibrillation (principal); Z68.41 Body mass index [BMI] 40.0-44.9, adult; I50.32 Chronic diastolic (congestive) heart failure; F41.9 Anxiety disorder, unspecified; I25.10 Atherosclerotic heart disease of native coronary artery without angina pectoris; E66.01 Morbid (severe) obesity due to excess calories; G47.33 Obstructive sleep apnea (adult) (pediatric); I11.0 Hypertensive heart disease with heart failure; K21.9 Gastro-esophageal reflux disease without esophagitis; M19.90 Unspecified osteoarthritis, unspecified site; E78.5 Hyperlipidemia, unspecified; I25.2 Old myocardial infarction; Z79.01 Long term (current) use of anticoagulants; Z79.899 Other long term (current) drug therapy; Z88.6 Allergy status to analgesic agent; Z90.710 Acquired absence of both cervix and uterus; Z82.49 Family history of ischemic heart disease and other diseases of the circulatory system
CPT/HCPCS: 36415; 71010; 80053; 81001; 82550; 82553; 83735; 84100; 84484; 85025; 85027; 93005; 93010; 93970; 96365; 96366; 99291; G0378; J3490; J7030

== ENCOUNTER 2017-02-10 08:47 | Day surgery (SDC) | payer MEDICARE, MEDICAID ==
[~2017-02-10 08:47] MED LIST: CHONDR SU A NA/HYALUR INTRAOC KIT (SURGICARE) ONE; EPINEPHRINE INJ/PF 1 MG/1 ML AMPULE ONE; KETOROLAC TROMETHAMINE 0.45% 4 DROP/0.4 ML DROPERETTE OD PRN; LIDOCAINE 1% INJ-PF (10 MG/ML) 30 ML SDV ONE
[2017-02-10] MEDS: TETRACAINE HCL 0.5% OPH SOLN 2 ML OD PRN ×3 (09:14→09:43)
[2017-02-10] MEDS: CYCLOPENTOLATE 0.2%/PHENYLEPHRINE 1% OPH SOLN 2 ML OD PRN ×3 (09:15→09:32)
[2017-02-10] MEDS: BESIFLOXACIN HCL 0.6% OPH SUSP 5 ML BOTTLE OD PRN ×3 (09:15→10:03)
[2017-02-10] MEDS: TROPICAMIDE 1% OPH SOLN 3 ML OD PRN ×3 (09:15→09:32)
[2017-02-10] MEDS ORDERED: MIDAZOLAM 2 MG/2 ML INJ ONE (09:29)
--- NOTE | 2017-02-10 18:04 | [facility] OPERATIVE REPORT E ---
[facility] Operative Report NAME: GERARDO WILLIAMSON AGE: 71Y DATE OF SURGERY: 02/10/2017 ROOM: PREOPERATIVE DIAGNOSIS: CATARACT, RIGHT EYE. POSTOPERATIVE DIAGNOSIS: CATARACT, RIGHT EYE. OPERATION: Cataract extraction with intraocular lens implant of the right eye. SURGEON: HIRAM CHEN M.D. ANESTHESIA: Topical. PROCEDURE: After obtaining appropriate consent, the patient's right eye was prepped and draped in sterile fashion as well as the surgeon in a sterile manner and cataract surgery was started. First a paracentesis blade was used to make a small side-port incision. Viscoelastic was used to inflate the anterior chamber. Next a 2.4 mm incision was made with the paracentesis blade. A continuous capsulorrhexis incision was made using a cystotome and Utrata forceps. Following this hydrodissection was carried out to make the lens fully loose and mobile and it was rotated 90 degrees. Following this, a [id number]-ekn-[id number] technique was used to phacoemulsify the lens with a CDE of 7.14. The remaining cortex was removed with irrigation/aspiration. Provisc was instilled into the capsular bag to inflate the bag. A SN60WF, 21.5 diopter lens was placed. The remaining viscoelastic material was removed with irrigation/aspiration. Following this, a 10-0 nylon suture was used to close the incision and it was found to be watertight. Vigamox was instilled in the eye and a protective shield was placed over the eye. The patient returned to the postoperative recovery in stable condition. DICTATING PHYSICIAN: HIRAM CHEN M.D. [id number] PHY#: [id number] ID: [id number] JOB#: [id number] ACCT: [id number] cc:HIRAM CHEN M.D. >
--- NOTE | 2017-02-10 18:08 | DISCHARGE SUMMARY E ---
Discharge Summary NAME: GERARDO WILLIAMSON : 1945 AGE: 71Y ADMITTED: 02/10/2017 DISCHARGED: 02/10/2017 REASON FOR ADMISSION: This is a 71-year-old patient who underwent cataract extraction of the right eye. DIAGNOSIS: Cataract, right eye. HISTORY AND HISTORY: She underwent surgery because she was having trouble seeing road signs and medicine bottles. The patient should be on a regular diet. No bending at the waist. No heavy lifting. She should use her Besivance, Ilevro, and Durezol at 3:00 p.m. and 8:00 p.m. and sleep with a rigid shield, and I will see her for a 1-day postoperative tomorrow. DICTATING PHYSICIAN: HIRAM CHEN M.D. [id number] PHY#: [id number] ID: [id number] JOB#: [id number] ACCT: [id number] cc:HIRAM CHEN M.D. >
== END 2017-02-10 10:56 | disposition home or self-care (01) ==
LOC: SC 08:47
PROVIDERS: ATTEND Internal Medicine
PROC: 08RJ3JZ Replacement of Right Lens with Synthetic Substitute, Percutaneous Approach (ICD-10-PCS; principal; 2017-02-10 10:00)
DX: H25.11 Age-related nuclear cataract, right eye (principal); Z96.1 Presence of intraocular lens; Z98.42 Cataract extraction status, left eye; M19.90 Unspecified osteoarthritis, unspecified site; K21.9 Gastro-esophageal reflux disease without esophagitis; I11.0 Hypertensive heart disease with heart failure; I50.9 Heart failure, unspecified; I48.91 Unspecified atrial fibrillation; R73.03 Prediabetes; G47.30 Sleep apnea, unspecified; Z88.5 Allergy status to narcotic agent; Z79.1 Long term (current) use of non-steroidal anti-inflammatories (NSAID); Z86.73 Personal history of transient ischemic attack (TIA), and cerebral infarction without residual deficits; Z79.01 Long term (current) use of anticoagulants; Z79.899 Other long term (current) drug therapy
CPT/HCPCS: 66984; V2632; J2250; J3490 ×2; A9270; J0171; 142

== ENCOUNTER 2017-02-26 22:51 | Inpatient (IN) | payer MEDICARE, MEDICAID ==
[2017-02-26] MEDS ORDERED: DILTIAZEM HCL INJ 25 MG/5 ML VIAL IV ONE (23:23)
[2017-02-26] MEDS ORDERED: DILTIAZEM HCL/D5W 125 MG/125 ML RTUINJ IV PRN (23:23)
[2017-02-26] MEDS ORDERED: ASPIRIN 81 MG TABLET, CHEWABLE PO ONE (23:23)
[2017-02-26] MEDS: NITROGLYCERIN 0.4 MG/TAB 25 TAB/BOTTLE SL PRN (23:29)
--- NOTE | 2017-02-26 23:31 | ER Document Report ---
ED General - General Chief Complaint: Chest Pain Stated Complaint: CHEST PAIN Notes: Patient is a 71-year-old female with past medical history of diabetes, hypertension, hyperlipidemia, CHF, known coronary artery disease, history of atrial fibrillation, currently anticoagulated with rivaroxaban who presents with 1 hour of palpitations and chest pain. States that this was acute in onset has not has worsened since that time. She describes the palpitations as a sensation of her heart trying to beat out of her chest. She does describe the pain as being a pressure, heavy sensation over the left side of her chest without radiation. Nothing improves or worsens her symptoms. She notes associated shortness of breath, nausea and was diaphoretic while driving to the hospital. She has had similar symptoms in the past with exacerbations of her atrial fibrillation. She has not seen her primary care doctor since the onset of the symptoms. She denies any headache, neck pain, fever, cough, abdominal pain. She does note that she has gained 14 pounds in the past 1 week. It was TRAVEL OUTSIDE OF THE [place] IN LAST 30 DAYS: No - Related Data Allergies/Adverse Reactions: codeine Allergy (Intermediate, Verified 02/26/17 23:01) SLEEPS FOR DAYS Past Medical History - General Information source: Patient - Social History Smoking Status: Never Smoker Frequency of alcohol use: None Drug Abuse: None Family History: Hypertension - Past Medical History Cardiac Medical History: Reports: Hx Atrial Fibrillation, Hx Congestive Heart Failure - Diastolic, Hx Hypercholesterolemia, Hx Hypertension - MEDS Denies: Hx DVT, Hx Heart Attack - chf, Hx Pulmonary Embolism Pulmonary Medical History: Reports: Hx Sleep Apnea - Recently diagnosed; awaiting her home CPAP machine; uncertain settings Denies: Hx Asthma Neurological Medical History: Denies: Hx Cerebrovascular Accident, Hx Seizures Renal/ Medical History: Denies: Hx Peritoneal Dialysis GI Medical History: Reports: Hx Gastroesophageal Reflux Disease. Denies: Hx Hepatitis, Hx Hiatal Hernia, Hx Ulcer - DIVERTICULITIS Musculoskeltal Medical History: Reports Hx Arthritis, Denies Hx Multiple Sclerosis Infectious Medical History: Denies: Hx Hepatitis Past Surgical History: Reports: Hx Abdominal Surgery - hernia repair, Hx Cardiac Catheterization, Hx Hysterectomy, Hx Tonsillectomy. Denies: Hx Mastectomy, Hx Open Heart Surgery, Hx Pacemaker - Immunizations Immunizations up to date: Yes Hx Diphtheria, Pertussis, Tetanus Vaccination: No Review of Systems - Review of Systems Notes: Constitutional: Negative for fever. HENT: Negative for sore throat. Eyes: Negative for visual changes. Cardiovascular: Positive for chest pain. Respiratory: Positive for shortness of breath. Gastrointestinal: Negative for abdominal pain, vomiting or diarrhea. Genitourinary: Negative for dysuria. Musculoskeletal: Negative for back pain. Skin: Negative for rash. Neurological: Negative for headaches, weakness or numbness. 10 point ROS negative except as marked above and in HPI. Physical Exam - Vital signs Vitals: Resp Pulse Ox 22 H 98 02/26/17 23:16 02/26/17 23:16 Interpretation: Tachycardic, Tachypneic Notes: PHYSICAL EXAMINATION: GENERAL: Appears uncomfortable but in no severe distress HEAD: Atraumatic, normocephalic. EYES: Pupils equal round and reactive to light, extraocular movements intact, sclera anicteric, conjunctiva are normal. ENT: nares patent, oropharynx clear without exudates. Moderately dry mucous membranes. NECK: Normal range of motion, supple without lymphadenopathy LUNGS: Tachypneic. Breath sounds clear to auscultation bilaterally and equal. No wheezes rales or rhonchi. HEART: Irregularly irregular rhythm. 3 out of 6 systolic ejection murmur ABDOMEN: Soft, nontender, normoactive bowel sounds. No guarding, no rebound. No masses appreciated. EXTREMITIES: Normal range of motion, 2+ pitting edema that is equal and symmetric in the bilateral lower extremities. NEUROLOGICAL: No focal neurological deficits. Moves all extremities spontaneously and on command. PSYCH: Normal mood, normal affect. SKIN: Warm, Dry, normal turgor, no rashes or lesions noted. Course - Re-evaluation Re-evalutation: 02/26/17 23:28 Patient presents with acute onset of palpitations, chest pain, nausea and diaphoresis with associated shortness of breath. Her heart score at time of presentation is 6. Her initial heart rate is ranging between 130 and 150, A. fib with rapid ventricular response. She denies any missed medications of the trigger today. Her EKG does not show any significant ischemic changes beyond some minimal 0.25 mm depression in V4 through 5 nondiagnostic of acute ischemia. Patient does appear uncomfortable but in no severe distress. Examination does reveal an irregular irregular rhythm, 3 out of 6 systolic ejection murmur, and 2+ pitting edema in the bilateral lower extremities. Patient is also tachypneic. Will proceed with initiation of a diltiazem infusion after initial bolus of 10 mg, nitroglycerin for chest pain, 324 mg of aspirin chewed now, labs and a chest x-ray. Patient is critically ill at this time given her unstable vital signs, active chest pain, and the need for diltiazem infusion. Will continue to reassess frequently. She will require hospitalization. 02/27/17 00:35 Patient's heart rate has improved to 109 at this time on diltiazem infusion. She is now mostly chest pain-free after administration of the first sublingual nitroglycerin. Laboratories are unremarkable. Will discuss with the hospitalist for admission 02/27/17 01:45 Patient remains hemodynamically stable, heart rate 87, remains without any chest pain. Dr. Pruitt has agreed to admit the patient. - Vital Signs Vital signs: Temp Pulse Resp BP Pulse Ox 20 133/85 H 95 02/27/17 00:56 02/27/17 00:56 02/27/17 00:56 - Laboratory Result Diagrams: 02/26/17 23:13 02/26/17 23:13 Laboratory results interpreted by me: 02/26/17 23:13 Glucose 160 H Calcium 10.3 H AST 37 H Creatine Kinase 156 H - Diagnostic Test Radiology reviewed: Image reviewed, Reports reviewed Radiology results interpreted by me: 02/27/17 01:57 Chest x-ray: No acute infiltrate or pneumothorax - EKG Interpretation by Me Additional EKG results interpreted by me: 02/26/17 23:30 Atrial fibrillation with rapid ventricular response. Rate 129. Minimal ST depressions in V4 through V5 proximally 0.25 mm. QTC is 499. Critical Care Note - Critical Care Note Total time excluding time spent on procedures (mins): 38 Comments: Critical care time spent obtaining history from patient or surrogate, discussions with consultants, development of treatment plan with patient or surrogate, evaluation of patient's response to treatment, examination of patient , ordering and performing treatments and interventions, ordering and review of laboratory studies, re-evaluation of patient's condition, ordering and review of radiographic studies and review of old charts Discharge - Discharge Clinical Impression: Atrial fibrillation with RVR Chest pain Qualifiers: Chest pain type: unspecified Qualified Code(s): R07.9 - Chest pain, unspecified Condition: Fair Disposition: ADMITTED INPATIENT Admitting Provider: [place] [facility] Admitted: [facility] Referrals: STEPHANIE BARAHONA MD [Primary Care Provider] - Follow up as needed
[2017-02-26 23:45] LABS: ABSOLUTE BASOPHILS # (AUTO) 0.1 10^3/uL (0.0-0.2); ABSOLUTE EOSINOPHILS # (AUTO) 0.2 10^3/uL (0.0-0.6); ABSOLUTE LYMPHOCYTES (AUTO) 3.4 10^3/uL (0.5-4.7); ABSOLUTE MONOCYTES (AUTO) 0.8 10^3/uL (0.1-1.4); ABSOLUTE NEUT (AUTO) 4.3 10^3/uL (1.7-8.2); BASOPHILS % (AUTO) 1.4 % (0-2); EOSINOPHILS % (AUTO) 1.9 % (0-6); HEMATOCRIT 40.9 % (36.0-47.0); HEMOGLOBIN 13.7 g/dL (12.0-15.5); HGB HCT DIFFERENCE 0.2; LYMPHOCYTES % (AUTO) 38.5 % (13-45); MEAN CORPUSCULAR HEMOGLOBIN 30.3 pg (27.0-33.4); MEAN CORPUSCULAR HGB CONC 33.6 g/dL (32.0-36.0); MEAN CORPUSCULAR VOLUME 90 fl (80-97); MONOCYTES % (AUTO) 9.5 % (3-13); RED BLOOD COUNT 4.53 10^6/uL (3.72-5.28); SEGMENTED NEUTROPHILS % (AUTO) 48.7 % (42-78); WHITE BLOOD COUNT 8.9 10^3/uL (4.0-10.5)
[2017-02-26 23:53] LABS: ALANINE AMINOTRANSFERASE 44 U/L (9-52); ALBUMIN 4.3 g/dL (3.5-5.0); ALKALINE PHOSPHATASE 100 U/L (38-126); ANION GAP 12 (5-19); ASPARTATE AMINO TRANSFERASE 37 U/L (14-36); BILIRUBIN,DIRECT 0.4 mg/dL (0.0-0.4); BILIRUBIN,TOTAL 0.4 mg/dL (0.2-1.3); BLOOD UREA NITROGEN 16 mg/dL (7-20); CALCIUM 10.3 mg/dL (8.4-10.2); CARBON DIOXIDE 28 mmol/L (22-30); CHLORIDE 103 mmol/L (98-107); CREATINE KINASE 156 U/L (30-135); CREATININE RESULT 0.92 mg/dL (0.52-1.25); GLUCOSE 160 mg/dL (75-110); POTASSIUM 3.6 mmol/L (3.6-5.0); SODIUM 142.6 mmol/L (137-145); TOTAL PROTEIN 7.5 g/dL (6.3-8.2)
[2017-02-27 00:03] LABS: CREATINE KINASE MB 1.42 ng/mL (<4.55)
[2017-02-27 00:04] LABS: TROPONIN I < 0.012 ng/mL
[2017-02-27] MEDS: NITROGLYCERIN 0.4 MG/TAB 25 TAB/BOTTLE SL PRN (00:05)
--- NOTE | 2017-02-27 01:23 | RADIOLOGY REPORT (SQ) ---
EXAM DESCRIPTION: CHEST SINGLE VIEW CLINICAL HISTORY: 71 years, Female, sob, chest pain COMPARISON: None. NUMBER OF VIEWS: 1 TECHNIQUE: Yash radiographic technique LIMITATIONS: None. FINDINGS: Cardiac size and pulmonary vasculature are normal. Lungs are clear. No pleural effusions or pneumothorax. IMPRESSION: Normal for age portable AP chest radiograph. 2011 [facility] [employer]- All Rights Reserved
[2017-02-27] MEDS ORDERED: ACETAMINOPHEN 325 MG TABLET PO PRN (03:27)
[2017-02-27] MEDS ORDERED: PROMETHAZINE HCL 25 MG TABLET PO PRN (03:27)
[2017-02-27] MEDS ORDERED: DILTIAZEM HCL/D5W 125 MG/125 ML RTUINJ IV PRN (03:28)
[2017-02-27 03:48] LABS: ADD ON TESTING BLD IN LAB ACKNOWLEDGE
--- NOTE | 2017-02-27 03:57 | PDOC H&P ---
History of Present Illness Admission Date/PCP: 02/27/17 02:06 MD Lisa SALDIVAR Patient complains of: Chest pain History of Present Illness: GERARDO WILLIAMSON is a 71 year old -[place] female, with underlying hypertension, known diastolic heart failure and coronary artery disease, atrial fibrillation, currently anticoagulated with Xarelto, who presents to the emergency room for evaluation of a 1 hour history of palpitations fluttering and substernal chest discomfort. Chest pain described as a heavy sensation over the left side of her chest without radiation. Nothing improves or worsens her symptoms. Some associated shortness of breath, nausea and diaphoresis. No prior history of DVT or pulmonary embolism. Was noted to be in atrial fibrillation with rapid ventricular response upon arrival. Has responded nicely to Cardizem drip. Currently resting quietly. Still having some intermittent mild chest discomfort, but on exam this is reproduced/increased with upper epigastric and sternal compression. Describes a 14 pound weight gain over the past week. Saw Dr. Huertas 2 days ago and states a number of medications were changed, including increasing her Lasix. Does admit to dietary indiscretion in the form of fried fish and popcorn with popcorn salt. Normally weighs herself on a daily basis, but did skip 2 or 3 days over the last week or so. Patient has been discussed with emergency room nurse practitioner who evaluated the patient. Hospitalized on our service basically overnight the first and 2 December of this year with final diagnoses including atrial fibrillation with rapid ventricular response along with anxiety. Discharge summary has been reviewed. Admitted to our service 25 October of this year, with admission diagnoses including precordial chest pain. History and physical has been reviewed. Dictation via voice recognition software. Laboratory results are listed in [id number] and are reviewed. X-ray summary results are listed below, with full report(s) reviewed. EKG reviewed and compared to prior tracing from December 21 of this year. Social history/personal habits: Single. Lives alone. 3 sons. Unemployed. No use of alcohol tobacco or illicit drugs. Allergies/adverse reactions are listed in [id number] and are reviewed. No problems with Percocet. Home medications initially autopopulated into [employer] may not accurately reflect patient's true medications, dosages, and/or frequencies. semiconductor development technician to reconcile medications. Unfortunately, patient not certain of all medications/dosages/frequencies. REVIEW OF SYSTEMS: Constitutional: No fever or chills. Eyes: Wears glasses. ENT: No swallowing problems or complaints. Denies hearing loss. Pulmonary: See history and present illness. Cardiovascular: See history and present illness. Gastrointestinal: See history and present illness. Skin: No current complaints, including rashes. Hematologic: Easy bruising. Neurologic: No current complaints, including numbness or tingling. Musculoskeletal: Joint pain from arthritis. Psychiatric: Anxiety. Endocrine: No current complaints, including polyuria. Genitourinary: No current complaints, including dysuria. PHYSICAL EXAMINATION: Female emergency room nursing aide Bethany is present. 5 feet 5 inches tall. 113.9 kg. BMI 41.8 kg/m. Blood pressure 127/67. Pulse 80 and slightly irregular. 96% saturation on room air. Respirations are 17 and unlabored. Temperature not recorded on chart; skin feels normothermic. Morbidly obese otherwise well-developed -[place] female appearing a bit younger than her stated age. Appears slightly fatigued. Otherwise, pleasant awake alert and cooperative. No obvious distress other than mildly anxious. No agitation. Skin is warm and dry. No grossly obvious evidence of rash in areas of skin examined. No subcutaneous nodules palpated. ENT: Hearing grossly normal to normal conversation. Tongue midline on protrusion pink and slightly tacky. Eyes: No scleral icterus. Pupils equal and reactive to light at 4 mm. [place] conjunctivae. Neck is supple and nontender to gentle active range of motion and palpation. Midline trachea. No palpable thyroid nodule mass enlargement or tenderness. Lymphatic: No palpable cervical or clavicular nodes. Neck and lymphatic exams limited by patient body habitus. Psychiatric: Reasonable insight into acute and chronic medical issues. Oriented to time location and why here. Lungs: Auscultation reveals clear and equal breath sounds bilaterally. No use of accessory respiratory muscles. Cardiovascular: Heart regular rate and rhythm, without gallop or rub. Subtle 1/ 6 systolic ejection murmur heard at cardiac apex. No carotid or abdominal aortic bruits. No ankle or pedal edema. Faintly palpable dorsalis pedis pulses. Abdomen:soft obese nontender with positive bowel sounds. Unable to adequately evaluate abdomen for masses or organomegaly due to body habitus. Compression of upper epigastrium seems to somewhat reproduce her chest discomfort; sternal compression certainly does. Extremities: Feet are warm and dry. No calf tenderness to compression. No grossly obvious visual evidence of calf swelling. Gentle manipulation of lower extremities fails to reveal any obvious evidence of injury or instability to knees hips or ankles. Neurologic: Moves upper extremities grossly normally. Patellar reflexes absent. Absent Babinski. Light touch is intact at feet. Dorsiflexion and plantarflexion of feet 5 / 5 and symmetric. Past Medical History Cardiac Medical History: Reports: Atrial Fibrillation, Congestive Heart Failure - Diastolic, Myocardial Infarction, Hyperlipidema, Hypertension Denies: DVT, Pulmonary Embolism Pulmonary Medical History: Reports: Sleep Apnea - Has has home machine; uncertain settings. No home oxygen. Denies: Asthma, Chronic Obstructive Pulmonary Disease (COPD) Neurological Medical History: Denies: Hemorrhagic CVA, Ischemic CVA, Seizures Endocrine Medical History: Denies: Diabetes Mellitus Type 1, Diabetes Mellitus Type 2, Hyperthyroidism, Hypothyroidism Renal/ Medical History: Reports: None GI Medical History: Reports: Gastroesophageal Reflux Disease Denies: Cirrhosis, Hepatitis, Hiatal Hernia Musculoskeltal Medical History: Reports: Arthritis Skin Medical History: Reports: None Psychiatric Medical History: Reports: General Anxiety Disorder Denies: Alcohol Dependency, Depression, Substance Abuse, Tobacco Dependency Hematology: Reports: Other Infectious Medical History: Denies: Hepatitis B, Hepatitis C, Methicillin-Resistant Staph Aureus, Vancomycin-Resistant Enterococci Past Surgical History Past Surgical History: Reports: Cardiac Catheterization, Hysterectomy, Tonsillectomy Social History Information Source: Patient, Emergency Med Personnel, [facility] Records Lives with: Alone Smoking Status: Never Smoker Frequency of Alcohol Use: None Hx Recreational Drug Use: No Drugs: None Hx Prescription Drug Abuse: No - Advance Directive Resuscitation Status: Full Code Surrogate healthcare decision maker:: Kevin Cazares Family History Family History: Hypertension Parental Family History Reviewed: Yes - Parents of heart attacks. Children Family History Reviewed: Yes - Healthy Sibling(s) Family History Reviewed.: Yes - Brother with prior stroke. Medication/Allergy Home Medications: RX: Furosemide [Lasix 80 mg Tablet] 80 mg PO DAILY 02/27/17 RX: Ibuprofen [Motrin 800 mg Tablet] 800 mg PO Q12HP PRN 02/27/17 RX: Metoprolol Succinate [Toprol Xl 50 mg Tab.sr] 50 mg PO DAILY 02/27/17 RX: Omeprazole 20 mg PO DAILY 02/27/17 RX: Potassium Chloride [Klor-Con 10 Meq Tablet.sa] 10 meq PO DAILY 02/27/17 RX: Rivaroxaban [Xarelto] 20 mg PO DAILY 02/27/17 Diltiazem HCl [Cardizem Cd 120 mg Capsule] 1 cap.sr PO DAILY #30 cap.sr Allergies/Adverse Reactions: codeine Allergy (Intermediate, Verified 02/26/17 23:01) SLEEPS FOR DAYS Physical Exam Vital Signs: Temp Pulse Resp BP Pulse Ox 15 119/76 98 02/27/17 03:26 02/27/17 03:26 02/27/17 03:31 Results Impressions: Chest X-Ray 02/26/17 23:24 IMPRESSION: Normal for age portable AP chest radiograph. 2010 [employer]- All Rights Reserved Assessment & Plan - Diagnosis (1) Atrial fibrillation with RVR Is this a current diagnosis for this admission?: Yes Plan: Continue Cardizem drip. Wean as tolerated. Cardiology consult. I have strongly encouraged patient not to get out of bed without notifying staff , to avoid a fall with injury. Knee high SCDs for DVT prophylaxis; with patient on Xarelto, no need for Lovenox or heparin. Impression and plans were discussed with patient, who concurs. Time spent in evaluation and management of patient: 73 minutes. (2) Dietary indiscretion Is this a current diagnosis for this admission?: Yes Plan: Dietary consult (3) Precordial chest pain Is this a current diagnosis for this admission?: Yes Plan: Likely musculoskeletal in origin, but will proceed with serial troponins. (4) Weight gain, abnormal Is this a current diagnosis for this admission?: Yes Plan: Dietary consult. (5) Anticoagulated Is this a current diagnosis for this admission?: Yes Plan: Resume home medications as appropriate once these have been determined and reviewed. (6) Diastolic CHF Qualifiers: Congestive heart failure chronicity: chronic Qualified Code(s): I50.32 - Chronic diastolic (congestive) heart failure Is this a current diagnosis for this admission?: Yes Plan: Resume home medications as appropriate once these have been determined and reviewed. (7) HLD (hyperlipidemia) Qualifiers: Hyperlipidemia type: unspecified Qualified Code(s): E78.5 - Hyperlipidemia , unspecified Is this a current diagnosis for this admission?: Yes Plan: Resume home medications as appropriate once these have been determined and reviewed. (8) Morbid obesity with BMI of 40.0-44.9, adult Is this a current diagnosis for this admission?: Yes Plan: Dietary consult. (9) KESHAWN (obstructive sleep apnea) Is this a current diagnosis for this admission?: Yes Plan: CPAP nightly - Time Time Spent: Greater than 70 Minutes Medications reviewed and adjusted accordingly: No - Patient uncertain of certain recent medication changes. Anticipated discharge: Home Within: within 48 hours - Inpatient Certification Based on my medical assessment, after consideration of the patient's comorbidities, presenting symptoms, or acuity I expect that the services needed warrant INPATIENT care.: Yes I certify that my determination is in accordance with my understanding of Medicare's requirements for reasonable and necessary INPATIENT services [42 CFR 412.3e].: Yes Medical Necessity: Need Close Monitoring Due to Risk of Patient Decompensation, Need For Continuous Telemetry Monitoring, Risk of Diagnosis Which Will Require Inpatient Eval/Care/Monitoring Post Hospital Care: D/C or Transfer Summary
[2017-02-27 03:58] LABS: MAGNESIUM 1.9 mg/dL (1.6-2.3)
[2017-02-27] MEDS ORDERED: LANSOPRAZOLE 30 MG TAB.RAP.DR PO ONE (04:00)
[2017-02-27] MEDS ORDERED: ALBUTEROL SULFATE HFA (90 MCG/PUFF) 8 GM MDI (1 MDI/ER DISP) IH PRN (05:01)
[2017-02-27] MEDS ORDERED: ALBUTEROL SULFATE HFA (90 MCG/PUFF) 200 PUFF/8.5 GM MDI IH PRN (08:52)
[2017-02-27] MEDS: ASPIRIN 81 MG TABLET, ENT COATED PO SCH (10:17)
[2017-02-27] MEDS: DOCUSATE SODIUM 100 MG CAPSULE PO SCH ×2 (10:17→17:16)
[2017-02-27] MEDS: DILTIAZEM HCL 30 MG TABLET PO SCH ×6 (11:52→23:24)
--- NOTE | 2017-02-27 16:40 | PDOC CONSULTATION ---
Consultation Consult Date: 02/27/17 Attending physician:: SILVINO SHAH Consult reason:: Atrial fibrillation with rapid ventricular response and positive troponin I History of Present Illness Admission Date/PCP: 02/27/17 03:28 STEPHANIE BARAHONA MD Patient complains of: Shortness of breath History of Present Illness: GERARDO WILLIAMSON is a 71 year old -[place]iquais female, with underlying hypertension, known diastolic heart failure and coronary artery disease, atrial fibrillation, currently anticoagulated with Xarelto, who presents to the emergency room for evaluation of a 1 hour history of palpitations fluttering and substernal chest discomfort. Chest pain described as a heavy sensation over the left side of her chest without radiation. Nothing improves or worsens her symptoms. Some associated shortness of breath, nausea and diaphoresis. No prior history of DVT or pulmonary embolism. Was noted to be in atrial fibrillation with rapid ventricular response upon arrival. Has responded nicely to Cardizem drip. Currently resting quietly,. Still having some intermittent mild chest discomfort, but on exam this is reproduced/increased with upper epigastric and sternal compression. Describes a 14 pound weight loss over the past week. Saw Dr. Huertas 2 days ago and states a number of medications were changed, including increasing her Lasix. Does admit to dietary indiscretion in the form of fried fish and popcorn with popcorn salt. Normally weighs herself on a daily basis, but did skip 2 or 3 days over the last week or so. Patient has been discussed with emergency room nurse practitioner who evaluated the patient. Hospitalized on our service basically overnight the first and 2 December of this year with final diagnoses including atrial fibrillation with rapid ventricular response along with anxiety. Discharge summary has been reviewed. Admitted to our service 25 October of this year, with admission diagnoses including precordial chest pain. History and physical has been reviewed. Previous recent hospitalization was reviewed. Recent stress test was negative. Patient does have history of sleep apnea and seems to be noncompliant with CPAP therapy. Patient had seen me in the past for this problem. Past Medical History Cardiac Medical History: Reports: Atrial Fibrillation, Congestive Heart Failure - Diastolic, Myocardial Infarction, Hyperlipidema, Hypertension Denies: DVT, Pulmonary Embolism Pulmonary Medical History: Reports: Sleep Apnea - Has has home machine; uncertain settings. No home oxygen. Denies: Asthma, Chronic Obstructive Pulmonary Disease (COPD) EENT Medical History: Reports: Other Neurological Medical History: Denies: Hemorrhagic CVA, Ischemic CVA, Seizures Endocrine Medical History: Denies: Diabetes Mellitus Type 1, Diabetes Mellitus Type 2, Hyperthyroidism, Hypothyroidism Renal/ Medical History: Reports: None GI Medical History: Reports: Gastroesophageal Reflux Disease Denies: Cirrhosis, Hepatitis, Hiatal Hernia Musculoskeltal Medical History: Reports: Arthritis Skin Medical History: Reports: None Psychiatric Medical History: Reports: General Anxiety Disorder Denies: Alcohol Dependency, Depression, Substance Abuse, Tobacco Dependency Hematology: Reports: Other Denies: Anemia, Sickle Cell Disease, Bleeding Tendencies Infectious Medical History: Denies: Hepatitis B, Hepatitis C, Methicillin-Resistant Staph Aureus, Vancomycin-Resistant Enterococci Past Surgical History Past Surgical History: Reports: Cardiac Catheterization, Hysterectomy, Tonsillectomy Denies: Amputation, Mastectomy, Pacemaker Social History Information Source: Patient Lives with: Alone Smoking Status: Former Smoker Number of Years Smokin Last Time Smoked: 1996 Frequency of Alcohol Use: None Hx Recreational Drug Use: No Drugs: None Hx Prescription Drug Abuse: No - Advance Directive Resuscitation Status: Full Code Surrogate healthcare decision maker:: Patient's son is the surrogate decision-maker Family History Family History: Hypertension Parental Family History Reviewed: Yes Children Family History Reviewed: Yes Sibling(s) Family History Reviewed.: Yes Medication/Allergy Home Medications: Carvedilol [Coreg 6.25 mg Tablet] 6.25 mg PO Q12 02/27/17 Furosemide [Lasix 80 mg Tablet] 80 mg PO DAILY 02/27/17 Ibuprofen [Motrin 800 mg Tablet] 800 mg PO Q12HP PRN 02/27/17 Metolazone [Zaroxolyn 2.5 mg Tablet] 15 mg PO Q7D 02/27/17 Metoprolol Succinate [Toprol Xl 50 mg Tab.sr] 50 mg PO DAILY 02/27/17 Omeprazole 20 mg PO DAILY 02/27/17 Potassium Chloride [Klor-Con 10 Meq Tablet.sa] 10 meq PO DAILY 02/27/17 Rivaroxaban [Xarelto] 20 mg PO DAILY 02/27/17 Allergies/Adverse Reactions: codeine Allergy (Intermediate, Verified 02/26/17 23:01) SLEEPS FOR DAYS Review of Systems Review of Systems: Please see history of present illness and past medical history as wall. Constitutional: No fever or chills reported. Head : No recent chronic headaches, recent head injury. Eyes: No recent eye pain, diplopia, redness, discharge, acute visual changes. Ears: No recent chronic ear pain, acute hearing loss, ear discharge. Oral cavity: No recent ulcerations, bleeding, oral cavity discomfort. Neck: No recent acute neck pain reported. Hematologic: No recent easy bruising or bleeding or hematologic malignancy reported. Lymphatic: No recent lymphatic malignancy, chronic lymphadenopathy reported yet Cardiovascular system review: See history of present illness. Respiratory system review: No recent chronic cough, hemoptysis, blood clots in the lungs reported. Mild Shortness of breath on exertion Gastrointestinal system review: Negative for any recent acute or chronic abdominal pain, hematemesis, melena, recent change in bowel habits. Genitourinary system review: No recent acute or chronic hematuria, flank pain, UTI etc. reported. Skin system review: Negative for any recent abnormal bruising, no rash, no pruritus reported. Neurologic: No prior history of strokes, mini strokes, seizure disorder. Psychologic: No history of major psychosis or major depression reported. Musculoskeletal: Minor aches and pains reported. No acute joint swelling reported. Endocrine: No recent polyuria, polydipsia, recent heat or cold intolerance. History of sleep apnea. Physical Exam Vital Signs: Temp Pulse Resp BP Pulse Ox 97.9 F 86 20 119/79 99 02/26/17 23:03 02/27/17 14:00 02/27/17 04:06 02/27/17 13:31 02/27/17 04:06 Intake & Output 02/26/17 02/27/17 02/28/17 06:59 06:59 06:59 Intake Total 30 300 Output Total 200 Balance 30 100 Weight 114.7 kg Exam: GENERAL: well-nourished and in no acute distress. Alert and oriented x3 HEAD: Atraumatic, normocephalic. EYES: Pupils equal round and reactive to light, extraocular movements intact, sclera anicteric, conjunctiva are normal. ENT: TMs normal, nares patent, oropharynx clear without exudates. Moist mucous membranes. No oral ulcerations or bleeding gums noted NECK: supple without lymphadenopathy. Trachea is central. No cervical or axillary lymphadenopathy noted. Carotids are 2+, JVD WNL LUNGS: Respiration seems nonlabored, no significant accessory muscle action noted. Breath sounds clear to auscultation bilaterally and equal noted. No wheezes rales or rhonchi noted. No significant dullness noted on percussion. CHEST: Palpation of the chest wall shows mild diffuse chest wall tenderness. No other significant abnormalities noted. HEART: [place] [employer], No PSH, 1/6 NADER aortic area, 1/6 husain systolic murmur mitral area, no rubs, no gallops. ABDOMEN: Soft, no significant tenderness appreciated, normoactive bowel sounds. No guarding, no rebound. No rigidity noted . No masses appreciated. EXTREMITIES: Pedal pulses are 1-2+, no calf tenderness noted. No clubbing or cyanosis.trace to 1+ pedal edema noted NEUROLOGICAL: Focused neurological exam showed no significant neurologic deficit. Normal speech, no focal weakness appreciated. PSYCH: Normal mood, normal affect. Judgment and insight within normal limits. SKIN: No significant ecchymosis, rash, ulcerations or signs of pruritus noted. MUSCULOSKELETAL EXAM: No significant joint swelling noted. Results Laboratory Results: 02/27/17 02/27/17 04:02 10:11 Troponin I 0.054 0.036 EKG Comments: Atrial fibrillation with rapid ventricular response. Minor nonspecific ST segment depression noted. Impressions: Chest X-Ray 02/26/17 23:24 IMPRESSION: Normal for age portable AP chest radiograph. 2010 [employer]- All Rights Reserved Assessment & Plan - Diagnosis (1) Atrial fibrillation with RVR Is this a current diagnosis for this admission?: Yes (2) Precordial chest pain Is this a current diagnosis for this admission?: Yes (3) Diastolic CHF Qualifiers: Congestive heart failure chronicity: chronic Qualified Code(s): I50.32 - Chronic diastolic (congestive) heart failure Is this a current diagnosis for this admission?: Yes (4) HLD (hyperlipidemia) Qualifiers: Hyperlipidemia type: unspecified Qualified Code(s): E78.5 - Hyperlipidemia , unspecified Is this a current diagnosis for this admission?: Yes (5) KESHAWN (obstructive sleep apnea) Is this a current diagnosis for this admission?: Yes (6) Super obesity Is this a current diagnosis for this admission?: Yes - Notes Notes: Atrial fibrillation with rapid ventricular response: Patient responded to IV Cardizem. Recommend switch to p.o. Cardizem. Precordial chest pain: Most likely related to supply demand mismatch from atrial fibrillation with rapid ventricular response. Recent stress test results were reviewed. Troponin I was relatively unremarkable. Diastolic CHF: Most likely precipitated by atrial fibrillation with rapid ventricular response and dietary indiscretion. This is acute on chronic. Hyperlipidemia: Recommend good control of dyslipidemia. LDL goal should be less than 100. Obstructive sleep apnea: Patient will benefit from regular CPAP use. Obesity: Patient encouraged in weight loss. - Time Time Spent: 30 to 50 Minutes - CODE STATUS was discussed, patient remains full code. Surrogate decision-maker patient's son. Multiple medical problems were addressed. More than 50% of the time spent coordinating care, discussing management plans with involved caregivers. Management plans discussed with involved personnels. Medical decision making was of moderate to high complexity , patient's has multiple comorbidities. Medications reviewed and adjusted accordingly: Yes
--- NOTE | 2017-02-27 16:54 | EKG REPORT ---
SEVERITY:- ABNORMAL ECG - ATRIAL FIBRILLATION LVH WITH SECONDARY REPOLARIZATION ABNORMALITY BORDERLINE PROLONGED QT INTERVAL : Confirmed by: Chandni Zavala MD 27-Feb-2017 16:54:32
[2017-02-27] MEDS: LANSOPRAZOLE 30 MG TAB.RAP.DR PO SCH (17:16)
--- NOTE | 2017-02-27 17:22 | RADIOLOGY REPORT (SQ) ---
EXAM DESCRIPTION: MRI HEAD WITHOUT COMPLETED DATE/TIME: 02/27/2017 4:54 pm REASON FOR STUDY: numbness/tingling in right arm COMPARISON: None. TECHNIQUE: Multiplanar imaging includes non-contrasted T1, T2, FLAIR, and diffusion with ADC map seq uences. Images stored on PACS. LIMITATIONS: None. FINDINGS: ANATOMY: No anomalies. Normal vascular flow voids. Pituitary fossa normal. CSF SPACES: Age-appropriate. CEREBRUM: High signal intensity lesions scattered throughout the white matter on FLAIR imaging with d istribution suggesting micro-vascular ischemic changes. No evidence of hemorrhage, mass, or extraaxi al fluid collection. POSTERIOR FOSSA: No signal alteration. No hemorrhage. No edema, masses or mass effect. Internal minnie tory canals, cerebello-pontine angles, mastoids normal. DIFFUSION IMAGING: Negative for acute or sub-acute infarction. ORBITS: No masses. Globes normal. PARANASAL SINUSES: No fluid levels. Mucosa normal. OTHER: No other significant finding. IMPRESSION: 1. Chronic small vessel changes. No acute abnormality. No recent CVA detected. EVIDENCE OF ACUTE STROKE: NO. TECHNICAL DOCUMENTATION: JOB ID: [id number]- All Rights Reserved
[2017-02-27 22:52] LABS: AMORPHOUS SEDIMENT,URINE TRACE /HPF; APPEARANCE,URINE CLOUDY; BILIRUBIN,URINE NEGATIVE (NEGATIVE); GLUCOSE, URINE NEGATIVE (NEGATIVE); KETONES,URINE NEGATIVE (NEGATIVE); LEUKOCYTE ESTERASE,URINE NEGATIVE (NEGATIVE); NITRITE,URINE NEGATIVE (NEGATIVE); PROTEIN,URINE NEGATIVE (NEGATIVE); URINE SPECIFIC GRAVITY 1.021; UROBILINOGEN,URINE NEGATIVE mg/dL (<2.0)
[2017-02-28 05:22] LABS: HEMATOCRIT 36.6 % (36.0-47.0); HEMOGLOBIN 12.2 g/dL (12.0-15.5); MEAN CORPUSCULAR HEMOGLOBIN 30.4 pg (27.0-33.4); MEAN CORPUSCULAR HGB CONC 33.5 g/dL (32.0-36.0); MEAN CORPUSCULAR VOLUME 91 fl (80-97); RED BLOOD COUNT 4.03 10^6/uL (3.72-5.28); RED CELL DISTRIBUTION WIDTH 14.2 % (11.5-14.0); WHITE BLOOD COUNT 7.3 10^3/uL (4.0-10.5)
[2017-02-28] MEDS: DILTIAZEM HCL 30 MG TABLET PO SCH ×3 (05:31→12:14)
[2017-02-28] MEDS: LANSOPRAZOLE 30 MG TAB.RAP.DR PO SCH (05:31)
[2017-02-28 05:41] LABS: ANION GAP 10 (5-19); BLOOD UREA NITROGEN 14 mg/dL (7-20); CALCIUM 9.3 mg/dL (8.4-10.2); CARBON DIOXIDE 28 mmol/L (22-30); CHLORIDE 105 mmol/L (98-107); CREATININE RESULT 0.75 mg/dL (0.52-1.25); GLUCOSE 140 mg/dL (75-110); POTASSIUM 3.9 mmol/L (3.6-5.0); SODIUM 142.6 mmol/L (137-145)
[2017-02-28] MEDS: ASPIRIN 81 MG TABLET, ENT COATED PO SCH (09:27)
[2017-02-28] MEDS: DOCUSATE SODIUM 100 MG CAPSULE PO SCH (09:27)
[2017-02-28 09:53] VITALS: BP 132/66
--- NOTE | 2017-02-28 09:56 | PDOC DISCHARGE SUMMARY ---
General - Admit/Disc Date/PCP Admission Date/Primary Care Provider: 02/27/17 03:28 STPEHANIE BARAHONA MD Discharge Date: 02/28/17 - Additional Information Resuscitation Status: Full Code Discharge Diet: Cardiac - Low-fat low-salt Discharge Activity: Activity As Tolerated, Balance Activity w/Rest Home Medications: Furosemide [Lasix 80 mg Tablet] 80 mg PO DAILY 02/27/17 Ibuprofen [Motrin 800 mg Tablet] 800 mg PO Q12HP PRN 02/27/17 Metoprolol Succinate [Toprol Xl 50 mg Tab.sr] 50 mg PO DAILY 02/27/17 Omeprazole 20 mg PO DAILY 02/27/17 Potassium Chloride [Klor-Con 10 Meq Tablet.sa] 10 meq PO DAILY 02/27/17 Rivaroxaban [Xarelto] 20 mg PO DAILY 02/27/17 Diltiazem HCl [Cardizem Cd 120 mg Capsule] 1 cap.sr PO DAILY #30 cap.sr Additional Information: Continue home CPAP. Return to the emergency room if symptoms recur. History of Present Illness Patient complains of: Palpitations History of Present Illness: GERARDO WILLIAMSON is a 71 year old -Citizen Of [place] female, with underlying hypertension, known diastolic heart failure and coronary artery disease, atrial fibrillation, currently anticoagulated with Xarelto, who presents to the emergency room for evaluation of a 1 hour history of palpitations fluttering and substernal chest discomfort. Chest pain described as a heavy sensation over the left side of her chest without radiation. Nothing improves or worsens her symptoms. Some associated shortness of breath, nausea and diaphoresis. No prior history of DVT or pulmonary embolism. Was noted to be in atrial fibrillation with rapid ventricular response upon arrival. Has responded nicely to Cardizem drip. Currently resting quietly,. Still having some intermittent mild chest discomfort, but on exam this is reproduced/increased with upper epigastric and sternal compression. Describes a 14 pound weight loss over the past week. Saw Dr. Huertas 2 days ago and states a number of medications were changed, including increasing her Lasix. Does admit to dietary indiscretion in the form of fried fish and popcorn with popcorn salt. Normally weighs herself on a daily basis, but did skip 2 or 3 days over the last week or so. Patient has been discussed with emergency room nurse practitioner who evaluated the patient. Hospitalized on our service basically overnight the first and 2 December of this year with final diagnoses including atrial fibrillation with rapid ventricular response along with anxiety. Discharge summary has been reviewed. Admitted to our service 25 October of this year, with admission diagnoses including precordial chest pain. History and physical has been reviewed. For details please refer to history and physical examination performed by the admitting physician. Hospital Course Hospital Course: The patient was admitted to [facility]. Cardizem drip was continued. Heart rate got controlled and she was transitioned to oral Cardizem. Cardiology was consulted. Cardiac enzymes were obtained and was negative for myocardial infarction. Patient eventually converted back to sinus rhythm. Course was noted for some Course was noted for numbness in upper extremity where an MRI of brain did not reveal any stroke. The rest of the hospital stay is unremarkable. Patient cleared by cardiology to be discharged. Physical Exam Vital Signs: Temp Pulse Resp BP Pulse Ox 98.3 F 76 19 132/66 H 96 02/28/17 08:00 02/28/17 08:00 02/28/17 08:00 02/28/17 08:00 02/28/17 08:18 Intake & Output 02/27/17 02/28/17 03/01/17 06:59 06:59 06:59 Intake Total 30 1214 Output Total 750 Balance 30 464 Weight 114.7 kg 116.4 kg General appearance: PRESENT: no acute distress, cooperative, morbidly obese Head exam: PRESENT: normocephalic Eye exam: PRESENT: EOMI Mouth exam: PRESENT: moist, neck supple Neck exam: ABSENT: JVD Respiratory exam: PRESENT: clear to auscultation kayleigh Cardiovascular exam: PRESENT: RRR. ABSENT: gallop GI/Abdominal exam: PRESENT: normal bowel sounds, soft. ABSENT: distended Extremities exam: PRESENT: other - trace edema Neurological exam: PRESENT: alert, awake, oriented to situation Skin exam: PRESENT: dry, warm. ABSENT: cyanosis Results Laboratory Results: 02/28/17 04:39 02/28/17 04:39 02/27/17 02/28/17 02/28/17 21:35 04:39 04:39 WBC 7.3 RBC 4.03 Hgb 12.2 Hct 36.6 MCV 91 MCH 30.4 MCHC 33.5 RDW 14.2 H Plt Count 143 L Sodium 142.6 Potassium 3.9 Chloride 105 Carbon Dioxide 28 Anion Gap 10 BUN 14 Creatinine 0.75 Est GFR ( Amer) > 60 Est GFR (Non-Af Amer) > 60 Glucose 140 H Calcium 9.3 Urine Color YELLOW Urine Appearance CLOUDY Urine pH 5.0 Ur Specific [place] 1.021 Urine Protein NEGATIVE Urine Glucose (UA) NEGATIVE Urine Ketones NEGATIVE Urine Blood NEGATIVE Urine Nitrite NEGATIVE Ur Leukocyte Esterase NEGATIVE Urine WBC (Auto) 5 Urine RBC (Auto) 2 02/27/17 02/27/17 04:02 10:11 Troponin I 0.054 0.036 Impressions: Chest X-Ray 02/26/17 23:24 IMPRESSION: Normal for age portable AP chest radiograph. 2010 [employer]- All Rights Reserved Head MRI 02/27/17 00:00 IMPRESSION: 1. Chronic small vessel changes. No acute abnormality. No recent CVA detected. EVIDENCE OF ACUTE STROKE: NO. Qualifiers PATEINT BEING DISCHARGED WITH ANY OF THE FOLLOWING DIAGNOSIS?: No Plan Discharge Plan: Follow up with primary physician in 1 week. Time Spent: Less than 30 Minutes
--- NOTE | 2017-02-28 18:44 | PDOC PROGRESS REPORT ---
Subjective Progress Note for:: 02/28/17 Subjective:: Patient seems to be doing better with gradual improvement. Pt is denying any chest arm or neck discomfort. Patient denying any PND, orthopnea. Patient denied any sustained palpitations, dizziness, syncope, near syncope. Patient denying any fever chills. Patient denying any other significant discomfort. Patient is maintaining sinus rhythm. Review of systems: Rest review of systems negative. Medications: Medications have been reviewed. Physical Exam Vital Signs: Temp Pulse Resp BP Pulse Ox 98.3 F 76 19 132/66 H 96 02/28/17 11:02 02/28/17 11:02 02/28/17 11:02 02/28/17 11:02 02/28/17 11:02 Intake & Output 02/27/17 02/28/17 03/01/17 06:59 06:59 06:59 Intake Total 30 1214 Output Total 750 Balance 30 464 Weight 114.7 kg 116.4 kg Exam: GENERAL: well-nourished and in no acute distress. Alert and oriented x3 HEAD: Atraumatic, normocephalic. EYES: Pupils equal round and reactive to light, extraocular movements intact, sclera anicteric, conjunctiva are normal. ENT: TMs normal, nares patent, oropharynx clear without exudates. Moist mucous membranes. No oral ulcerations or bleeding gums noted NECK: supple without lymphadenopathy. Trachea is central. No cervical or axillary lymphadenopathy noted. Carotids are 2+, JVD WNL LUNGS: Respiration seems nonlabored, no significant accessory muscle action noted. Breath sounds clear to auscultation bilaterally and equal noted. No wheezes rales or rhonchi noted. No significant dullness noted on percussion. CHEST: Palpation of the chest wall shows no significant chest wall tenderness. No other significant abnormalities noted. HEART: [place] [employer], No PSH, 1/6 NADER aortic area, 1/6 husain systolic murmur mitral area, no rubs, no gallops. ABDOMEN: Soft, no significant tenderness appreciated, normoactive bowel sounds. No guarding, no rebound. No rigidity noted . No masses appreciated. EXTREMITIES: Pedal pulses are 1-2+, no calf tenderness noted. No clubbing or cyanosis.trace to 1+ pedal edema noted NEUROLOGICAL: Focused neurological exam showed no significant neurologic deficit. Normal speech, no focal weakness appreciated. PSYCH: Normal mood, normal affect. Judgment and insight within normal limits. SKIN: No significant ecchymosis, rash, ulcerations or signs of pruritus noted. MUSCULOSKELETAL EXAM: No significant joint swelling noted. Results Laboratory Results: 02/28/17 04:39 02/28/17 04:39 02/27/17 02/28/17 02/28/17 21:35 04:39 04:39 WBC 7.3 RBC 4.03 Hgb 12.2 Hct 36.6 MCV 91 MCH 30.4 MCHC 33.5 RDW 14.2 H Plt Count 143 L Sodium 142.6 Potassium 3.9 Chloride 105 Carbon Dioxide 28 Anion Gap 10 BUN 14 Creatinine 0.75 Est GFR ( Amer) > 60 Est GFR (Non-Af Amer) > 60 Glucose 140 H Calcium 9.3 Urine Color YELLOW Urine Appearance CLOUDY Urine pH 5.0 Ur Specific [place] 1.021 Urine Protein NEGATIVE Urine Glucose (UA) NEGATIVE Urine Ketones NEGATIVE Urine Blood NEGATIVE Urine Nitrite NEGATIVE Ur Leukocyte Esterase NEGATIVE Urine WBC (Auto) 5 Urine RBC (Auto) 2 02/27/17 02/27/17 04:02 10:11 Troponin I 0.054 0.036 Impressions: Chest X-Ray 02/26/17 23:24 IMPRESSION: Normal for age portable AP chest radiograph. 2010 [employer]- All Rights Reserved Head MRI 02/27/17 00:00 IMPRESSION: 1. Chronic small vessel changes. No acute abnormality. No recent CVA detected. EVIDENCE OF ACUTE STROKE: NO. Assessment & Plan - Diagnosis (1) Atrial fibrillation with RVR Is this a current diagnosis for this admission?: Yes (2) Precordial chest pain Is this a current diagnosis for this admission?: Yes (3) Diastolic CHF Qualifiers: Congestive heart failure chronicity: chronic Qualified Code(s): I50.32 - Chronic diastolic (congestive) heart failure Is this a current diagnosis for this admission?: Yes (4) HLD (hyperlipidemia) Qualifiers: Hyperlipidemia type: unspecified Qualified Code(s): E78.5 - Hyperlipidemia , unspecified Is this a current diagnosis for this admission?: Yes (5) KSEHAWN (obstructive sleep apnea) Is this a current diagnosis for this admission?: Yes (6) Super obesity Is this a current diagnosis for this admission?: Yes - Notes Notes: Atrial fibrillation with RVR: Patient noted to be in sinus rhythm this morning. Continue with current dose of Cardizem and beta-geno. Patient can be followed in the office. Patient will benefit from a sleep study. This was discussed. Precordial chest pain: Currently stable. This has also resolved. Nuclear stress test results reviewed. This was noted to be relatively satisfactory. Diastolic CHF: Aggravated by atrial fibrillation. Currently compensated. Continue low-dose diuretics and other supportive treatment. Patient advised on salt and fluid restriction. Dyslipidemia: Patient encouraged compliance with medication and keeping LDL below 70. Obstructive sleep apnea: Discussed that she will benefit from further evaluation and correct management of obstructive sleep apnea. This is especially in regards to prevention of recurrence of atrial fibrillation. Super obesity: Patient currently encouraged in losing weight. Patient was discussed with hospitalist. He is planning to discharge the patient. Patient was seen earlier this morning on morning rounds at around 9 AM. - Time Time with patient: Greater than 35 minutes - CODE STATUS was discussed, patient remains full code. Surrogate decision-maker unchanged. Multiple medical problems were addressed. More than 50% of the time spent coordinating care, discussing management plans with involved caregivers. Management plans discussed with involved personnels. Medical decision making was of moderate to high complexity, patient's has multiple comorbidities. Medications reviewed and adjusted accordingly: Yes
== END 2017-02-28 12:40 | disposition home or self-care (01) | DRG 310 ==
LOC: ER 22:51 → UNDOADMIN 02-27 02:06 → EH 02-27 02:06 → 3N 02-27 04:20
PROVIDERS: ADMIT Family Medicine; ATTEND Family Medicine
PROC: 5A09457 Assistance with Respiratory Ventilation, 24-96 Consecutive Hours, Continuous Positive Airway Pressure (ICD-10-PCS; principal; 2017-02-27)
DX: I48.91 Unspecified atrial fibrillation (principal)
CPT/HCPCS: 36415; 70551; 71010; 80048; 80053; 81001; 82550; 82553; 83735; 83880; 84443; 84484; 85025; 85027; 93005; 93010; 94660; J3490

== ENCOUNTER 2017-04-18 20:41 | Emergency (ER) | payer MEDICARE, MEDICAID ==
--- NOTE | 2017-04-18 21:32 | RADIOLOGY REPORT (SQ) ---
EXAM DESCRIPTION: CHEST PA/LAT COMPLETED DATE/TIME: 04/18/2017 9:13 pm REASON FOR STUDY: sob COMPARISON: October 2016 EXAM PARAMETERS: NUMBER OF VIEWS: two views TECHNIQUE: Digital Frontal and Lateral radiographic views of the chest acquired. RADIATION DOSE: NA LIMITATIONS: none FINDINGS: LUNGS AND PLEURA: No opacities, masses or pneumothorax. No pleural effusion. There is a m ild nonspecific prominence of interstitial markings. MEDIASTINUM AND HILAR STRUCTURES: No masses or contour abnormalities. HEART AND VASCULAR STRUCTURES: The configuration of the heart mediastinal structures is unchanged. T ortuous thoracic aorta is again identified. BONES: Degenerative changes are again identified in the thoracic spine. HARDWARE: None in the chest. OTHER: No other significant finding. IMPRESSION: No significant interval change. No acute findings. Other findings as noted above TECHNICAL DOCUMENTATION: JOB ID: [id number] [employer]- All Rights Reserved
--- NOTE | 2017-04-18 23:08 | ER Document Report ---
ED General - General Chief Complaint: Shortness Of Breath Stated Complaint: DIFFICULTY BREATHING Time Seen by Provider: 04/18/17 23:05 Notes: Patient is a 71-year-old female presents with complaint of difficulty breathing for last several days. No fevers. No vomiting. No chest pain. She does have history of atrial fibrillation but says this is been under good control. No changes in her medications since her admission February except for her doctor recently added carvedilol but she has not started taking it yet. She has no other complaints at this time. She is on Xarelto due to her history of A. fib. No new leg pain or leg swelling. No abdominal pain. No history of asthma. She does have a previous history of bronchitis but says this is when she was younger. She has not smoked since the . TRAVEL OUTSIDE OF THE [place] IN LAST 30 DAYS: No - Related Data Allergies/Adverse Reactions: codeine Allergy (Intermediate, Verified 04/18/17 20:56) SLEEPS FOR DAYS Past Medical History - Social History Smoking Status: Former Smoker Frequency of alcohol use: None Drug Abuse: None Family History: Hypertension - Past Medical History Cardiac Medical History: Reports: Hx Atrial Fibrillation, Hx Congestive Heart Failure - Diastolic, Hx Heart Attack, Hx Hypercholesterolemia, Hx Hypertension Denies: Hx DVT, Hx Pulmonary Embolism Pulmonary Medical History: Reports: Hx Sleep Apnea - Has has home machine; uncertain settings. No home oxygen. Denies: Hx Asthma, Hx COPD Neurological Medical History: Denies: Hx Cerebrovascular Accident, Hx Seizures Endocrine Medical History: Denies: Hx Diabetes Mellitus Type 1, Hx Diabetes Mellitus Type 2, Hx Hyperthyroidism, Hx Hypothyroidism Renal/ Medical History: Denies: Hx Peritoneal Dialysis GI Medical History: Reports: Hx Gastroesophageal Reflux Disease. Denies: Hx Cirrhosis, Hx Hepatitis, Hx Hiatal Hernia, Hx Ulcer - DIVERTICULITIS Musculoskeltal Medical History: Reports Hx Arthritis, Denies Hx Multiple Sclerosis Psychiatric Medical History: Denies: Hx Depression Infectious Medical History: Denies: Hx Hepatitis, Hx MRSA, Hx VRE Past Surgical History: Reports: Hx Abdominal Surgery - hernia repair, Hx Cardiac Catheterization, Hx Hysterectomy, Hx Tonsillectomy. Denies: Hx Mastectomy, Hx Open Heart Surgery, Hx Pacemaker - Immunizations Immunizations up to date: Yes Hx Diphtheria, Pertussis, Tetanus Vaccination: No Review of Systems - Review of Systems Notes: My Normal Review Basic REVIEW OF SYSTEMS: CONSTITUTIONAL : Denies fever, chills, or sweats. Denies recent illness. EENT: Denies eye, ear, throat, or mouth pain or symptoms. Denies nasal or sinus congestion. CARDIOVASCULAR: Denies chest pain. RESPIRATORY: Difficulty breathing. GASTROINTESTINAL: Denies abdominal pain. Denies nausea, vomiting, or diarrhea. Denies constipation. Last BM: MUSCULOSKELETAL: Denies neck or back pain or joint pain or swelling. SKIN: Denies rash or skin lesions. NEUROLOGICAL: Denies altered mental status or loss of consciousness. Denies headache. Denies weakness or paralysis or loss of use of either side. Denies problems with gait or speech. Denies sensory or motor loss. ALL OTHER SYSTEMS REVIEWED AND NEGATIVE. Physical Exam - Vital signs Vitals: Temp Pulse Resp BP Pulse Ox 98.5 F 78 20 129/56 H 96 04/18/17 20:56 04/18/17 20:56 04/18/17 20:56 04/18/17 20:56 04/18/17 20:56 - Notes Notes: General Appearance: Well nourished, alert, cooperative, no acute distress, no obvious discomfort. Vitals: reviewed, See vital signs table. Head: no swelling or tenderness to the head Eyes: PERRL, EOMI, Conjuctiva clear Mouth: No decreasd moisture Throat: No tonsillar inflammation, No airway obstruction, No lymphadenopathy Neck: Supple, no neck tenderness, No thyromegaly Lungs: Patient is making a wheezing type sound. Throat itself is coming from the lungs with upper airway. Give her breathing treatment. She does have good air movement bilaterally. She does not have accessory muscle use. She is mildly tachypneic. Heart: Normal rate, Regular rythm, No murmur, no rub Abdomen: Normal BS, soft, No rigidity, No abdominal tenderness, No guarding, no rebound, no abdominal masses, no organomegaly Extremities: strength 5/5 in all extremities, good pulses in all extremities, no swelling or tenderness in the extremities, no edema. Skin: warm, dry, appropriate color, no rash Neuro: speech clear, oriented x 3, normal affect, responds appropriately to questions. Course - Re-evaluation Re-evalutation: 04/19/17 00:13 After breathing treatments the patient's lung vo are completely clear but she still has an expiratory wheezing type sound but seems to be coming from her upper airway. There is no inspiratory stridor. Its only on expiration. Seems consistent with having increased secretions or mucus. I will give her 1 racemic epi to see if this helps. She is in no distress and otherwise looks well. I will obtain a lateral neck x-ray just to make sure that that looks okay. Again I do not suspect that there is any type of mass-effect in her neck being that she has no noise with inspiration. 04/19/17 00:17 04/19/17 01:38 Patient did not have a whole improvement in the slight expiratory wheeze that she has after receiving the racemic epi. The patient says that the first breathing treatment, DuoNeb, did do her a lot better. She is not tachypneic. She looks well. She says she feels much improved and like to go home. She still currently receiving magnesium I informed her that I prefer that she stays let us finish magnesium for let her go home. Patient is agreeable to this. Patient will be reassessed once magnesium is done. - Vital Signs Vital signs: Temp Pulse Resp BP Pulse Ox 98.5 F 78 22 H 142/76 H 97 04/18/17 20:56 04/18/17 20:56 04/19/17 02:01 04/19/17 02:01 04/19/17 02:01 04/19/17 02:48 Patient is feeling much improved. Her wheezing is now gone. She looks very well and says she feels much improved. Due to her frequent recurrent cough has now been ongoing for a week I will place her on azithromycin. I will also place her back on steroids. I will give him an inhaler to go home with. I strongly encouraged her follow-up closely with her care doctor. I encouraged her return to ER immediately if she has worsening cough, difficulty breathing, fevers, or she feels unwell. Patient agrees with plan will be discharged home. Dictation of this chart was performed using voice recognition software; therefore, there may be some unintended grammatical errors. - Laboratory Result Diagrams: 04/18/17 22:55 04/18/17 22:55 Laboratory results interpreted by me: 04/18/17 04/18/17 22:55 22:55 RDW 14.7 H Seg Neutrophils % 87.6 H Lymphocytes % 10.3 L Monocytes % 1.6 L Est GFR (Non-Af Amer) 50 L Glucose 244 H AST 52 H ALT 85 H - EKG Interpretation by Me Additional EKG results interpreted by me: 04/18/17 23:07 EKG is reviewed and interpreted by me. EKG shows sinus rhythm with a rate of [address] segment elevation or depression. Single PAC. OH interval, QRS duration, QTc intervals are within normal range. Old EKG for comparison is from February 26, 2017. Discharge - Discharge Clinical Impression: Bronchitis Condition: Good Disposition: HOME, SELF-CARE Additional Instructions: Please use the inhaler as 2 puffs every 4 hours. Please take the steroids and antibiotics as prescribed. Please follow up with your doctor in 2 days for revaluation. Please return to the ER if you have worsening difficulty breathing , recurrent fevers, chest pain, or if you feel unwell. Prescriptions: Azithromycin 250 mg PO DAILY #4 tablet Prednisone [Deltasone 20 mg Tablet] 3 tab PO DAILY 4 Days tablet Referrals: STEPHANIE BARAHONA MD [Primary Care Provider] - 04/21/17
[2017-04-18] MEDS ORDERED: METHYLPREDNISOLONE INJ 125 MG/2 ML SDV IV ONE (23:13)
[2017-04-18] MEDS ORDERED: IPRATROPIUM/ALBUTEROL 0.5-2.5 MG/3 ML AMPUL NEB ONE (23:14)
[2017-04-18 23:23] LABS: ABSOLUTE LYMPHOCYTES (AUTO) 0.9 10^3/uL (0.5-4.7); ABSOLUTE MONOCYTES (AUTO) 0.1 10^3/uL (0.1-1.4); ABSOLUTE NEUT (AUTO) 7.6 10^3/uL (1.7-8.2); BASOPHILS % (AUTO) 0.4 % (0-2); EOSINOPHILS % (AUTO) 0.1 % (0-6); HEMOGLOBIN 13.1 g/dL (12.0-15.5); HGB HCT DIFFERENCE 0.3; LYMPHOCYTES % (AUTO) 10.3 % (13-45); MEAN CORPUSCULAR HEMOGLOBIN 30.5 pg (27.0-33.4); MEAN CORPUSCULAR HGB CONC 33.5 g/dL (32.0-36.0); MEAN CORPUSCULAR VOLUME 91 fl (80-97); MONOCYTES % (AUTO) 1.6 % (3-13); RED BLOOD COUNT 4.29 10^6/uL (3.72-5.28); RED CELL DISTRIBUTION WIDTH 14.7 % (11.5-14.0); SEGMENTED NEUTROPHILS % (AUTO) 87.6 % (42-78); WHITE BLOOD COUNT 8.6 10^3/uL (4.0-10.5)
[2017-04-18] MEDS: MAGNESIUM SULFATE/D5W 1 GM/100 ML RTUPB IV SCH (23:30)
[2017-04-18 23:32] LABS: VENOUS BLOOD BASE EXCESS 2.4 mmol/L; VENOUS BLOOD HCO3 28.9 mmol/L (20-32); VENOUS BLOOD PCO2 51.9 mmHg (35-63); VENOUS BLOOD PH 7.36 (7.30-7.42)
[2017-04-19 00:05] LABS: ALANINE AMINOTRANSFERASE 85 U/L (9-52); ALBUMIN 3.7 g/dL (3.5-5.0); ALKALINE PHOSPHATASE 78 U/L (38-126); ANION GAP 13 (5-19); ASPARTATE AMINO TRANSFERASE 52 U/L (14-36); BILIRUBIN,DIRECT 0.4 mg/dL (0.0-0.4); BILIRUBIN,TOTAL 0.4 mg/dL (0.2-1.3); BLOOD UREA NITROGEN 20 mg/dL (7-20); CALCIUM 9.2 mg/dL (8.4-10.2); CARBON DIOXIDE 28 mmol/L (22-30); CHLORIDE 102 mmol/L (98-107); CREATININE RESULT 1.09 mg/dL (0.52-1.25); GLUCOSE 244 mg/dL (75-110); POTASSIUM 3.8 mmol/L (3.6-5.0); SODIUM 142.9 mmol/L (137-145); TOTAL PROTEIN 6.8 g/dL (6.3-8.2)
[2017-04-19] MEDS ORDERED: RACEPINEPHRINE HCL 2.25% NEB 0.5 ML AMPUL NEB ONE (00:14)
--- NOTE | 2017-04-19 01:07 | RADIOLOGY REPORT (SQ) ---
EXAM DESCRIPTION: SOFT TISSUE NECK COMPLETED DATE/TIME: 04/19/2017 12:39 am REASON FOR STUDY: dyspnea COMPARISON: None. NUMBER OF VIEWS: Two views. TECHNIQUE: AP and lateral radiographic image of the soft tissues of the neck. LIMITATIONS: Motion artifact and patient's body habitus. FINDINGS: EPIGLOTTIS: Normal. Contour normal. PREVERTEBRAL SOFT TISSUES: No obvious swelling at the visualized prevertebral soft tissues anterior t o C2-C4. The lower neck is obscured by the patient's shoulders. SUBGLOTTIC AREA: No obvious narrowing. BONES: Multilevel degenerative changes in the spine LUNG APICES: Not well visualized. OTHER: No radiopaque foreign body. IMPRESSION: Limited exam. No acute radiographic finding in the visualized soft tissues of the neck. TECHNICAL DOCUMENTATION: JOB ID: [id number] [employer]- All Rights Reserved
[2017-04-19] MEDS: MAGNESIUM SULFATE/D5W 1 GM/100 ML RTUPB IV SCH (01:09)
[2017-04-19] MEDS ORDERED: AZITHROMYCIN 250 MG TABLET PO ONE (02:47)
[2017-04-19] MEDS ORDERED: ALBUTEROL SULFATE HFA (90 MCG/PUFF) 8 GM MDI (1 MDI/ER DISP) IH ONE (02:48)
[2017-04-19 03:25] VITALS: BP 142/78
--- NOTE | 2017-04-19 07:51 | EKG REPORT ---
SEVERITY:- ABNORMAL ECG - SINUS RHYTHM ATERIAL PREMATURE COMPLEX LEFT VENTRICULAR HYPERTROPHY : Confirmed by: Chavo Collins MD 19-Apr-2017 07:50:57
== END 2017-04-19 03:25 | disposition home or self-care (01) ==
LOC: ER 20:41
DX: J40 Bronchitis, not specified as acute or chronic (principal); R06.02 Shortness of breath; Z87.891 Personal history of nicotine dependence
CPT/HCPCS: 93005; 94640 ×2; 99285; 96374; 36415; 85025; 80053; 82803; 71020; 70360; 93010; A9270 ×2; J2930; J3475 ×2; J3490 ×2; J7620

== ENCOUNTER 2017-12-26 16:52 | Emergency (ER) | payer MEDICARE, MEDICAID ==
[2017-12-26 17:35] VITALS: BP 153/74
--- NOTE | 2017-12-26 17:53 | ER Document Report ---
ED Medical Screen (RME) - General Chief Complaint: Insect Bite Stated Complaint: POSSIBLE BITE Time Seen by Provider: 12/26/17 17:47 Mode of Arrival: Wheelchair Information source: Patient Notes: Patient presents to the emergency department with complaints of right foot irritation. Patient reports she stepped in a fire ant pile on Tuesday. Since that time she has used peroxide and cream on the foot. She reports the foot is swollen and itchy. She denies allergies to fire aunts. Patient speaking in clear voice no shortness of breath. TRAVEL OUTSIDE OF THE [place] IN LAST 30 DAYS: No - HPI Onset: Other - tuesday Onset/Duration: Persistent Severity: Severe Pain Level: 5 - itchy Associated Symptoms: None. denies: Nausea, Vomiting Exacerbated by: Denies Relieved by: Denies Similar symptoms previously: Yes - years ago did the same thing on the left foot Recently seen / treated by doctor: No - Related Data Allergies/Adverse Reactions: codeine Allergy (Intermediate, Verified 12/26/17 16:55) SLEEPS FOR DAYS Past Medical History - General Information source: Patient - Social History Cigarette use (# per day): No Chew tobacco use (# tins/day): No Frequency of alcohol use: None Drug Abuse: None Lives with: Alone Family history: Reviewed & Not Pertinent - Past Medical History Cardiac Medical History: Reports: Hx Atrial Fibrillation, Hx Congestive Heart Failure - Diastolic, Hx Heart Attack, Hx Hypercholesterolemia, Hx Hypertension Denies: Hx DVT, Hx Pulmonary Embolism Pulmonary Medical History: Reports: Hx Sleep Apnea - Has has home machine; uncertain settings. No home oxygen. Denies: Hx Asthma, Hx COPD Neurological Medical History: Denies: Hx Cerebrovascular Accident, Hx Seizures Endocrine Medical History: Denies: Hx Diabetes Mellitus Type 1, Hx Diabetes Mellitus Type 2, Hx Hyperthyroidism, Hx Hypothyroidism Renal/ Medical History: Denies: Hx Peritoneal Dialysis GI Medical History: Reports: Hx Gastroesophageal Reflux Disease. Denies: Hx Cirrhosis, Hx Hepatitis, Hx Hiatal Hernia, Hx Ulcer - DIVERTICULITIS Musculoskeltal Medical History: Reports Hx Arthritis, Denies Hx Multiple Sclerosis Psychiatric Medical History: Denies: Hx Depression Infectious Medical History: Denies: Hx Hepatitis, Hx MRSA, Hx VRE Past Surgical History: Reports: Hx Abdominal Surgery - hernia repair, Hx Cardiac Catheterization, Hx Hysterectomy, Hx Tonsillectomy. Denies: Hx Mastectomy, Hx Open Heart Surgery, Hx Pacemaker - Immunizations Immunizations up to date: Yes Hx Diphtheria, Pertussis, Tetanus Vaccination: No History of Influenza Vaccine for 02/2017 - 07/2017 Season: Yes Influenza Administration Date for 02/2017 - 07/2017 Season: 02/22/17 Review of Systems - Review of Systems Notes: Review HPI for review of systems., All other systems negative Physical Exam - Vital signs Vitals: Temp Pulse Resp BP Pulse Ox 98.6 F 52 L 16 153/74 H 97 12/26/17 17:31 12/26/17 17:31 12/26/17 17:31 12/26/17 17:31 12/26/17 17:31 - Notes Notes: PHYSICAL EXAMINATION: GENERAL: Well-appearing and in no acute distress HEAD: Atraumatic, normocephalic. EYES: extraocular movements intact, sclera anicteric, conjunctiva are normal. ENT: nares patent, opens mouth wide, good clear voice. Moist mucous membranes. NECK: Normal range of motion, supple without lymphadenopathy LUNGS: CTAB and equal. No wheezes rales or rhonchi. HEART: Regular rate and rhythm without murmurs ABDOMEN: Soft, no tenderness. No guarding, no rebound EXTREMITIES: Normal range of motion, bilateral pedal swelling, No cyanosis. NEUROLOGICAL: Cranial nerves grossly intact. Normal sensory/motor exams. PSYCH: Normal mood, normal affect. SKIN: Warm, Dry, normal turgor, several fire ant bites noted to right dorsal foot, no edema, no warmth, Course - Re-evaluation Re-evalutation: 12/26/17 18:00 no SOB, right foot looks good, several fire ant bites noted but no sign of infection, RR even/unlabored. Bilateral pedal swelling. Patient was instructed on importance of soaking her foot, do not irritate ant bites, return for s/s infection. - Vital Signs Vital signs: Temp Pulse Resp BP Pulse Ox 98.6 F 52 L 16 153/74 H 97 12/26/17 17:31 12/26/17 17:31 12/26/17 17:31 12/26/17 17:31 12/26/17 17:31 Doctor's Discharge - Discharge Clinical Impression: fire ant bites right foot Condition: Stable Disposition: HOME, SELF-CARE Instructions: Use of Diphenhydramine, Insect Bites ([facility]) Additional Instructions: *You have been evaluated for fire ant bites *Take benadryl as indicated *Cool soaks ro right foot *Follow up with your primary care provider *Return to ED for worsening condition, changes, needs, difficulty breathing Monitor your blood pressure. Your blood pressure was elevated today. This may be because you were anxious, in pain or because you need medication. It is important to follow up with your primary care provider for full evaluation. Forms: Elevated Blood Pressure
== END 2017-12-26 18:02 | disposition home or self-care (01) ==
LOC: ER 16:52
DX: S90.861A Insect bite (nonvenomous), right foot, initial encounter (principal); W57.XXXA Bitten or stung by nonvenomous insect and other nonvenomous arthropods, initial encounter; I48.91 Unspecified atrial fibrillation; I50.9 Heart failure, unspecified; E78.00 Pure hypercholesterolemia, unspecified; I11.0 Hypertensive heart disease with heart failure; I25.2 Old myocardial infarction; Z90.710 Acquired absence of both cervix and uterus
CPT/HCPCS: 99281

== ENCOUNTER 2018-04-01 20:39 | Observation (INO) | payer MEDICARE, MEDICAID ==
[2018-04-01] MEDS ORDERED: ASPIRIN 81 MG TABLET, CHEWABLE PO ONE (20:50)
[2018-04-01 21:07] LABS: ABSOLUTE BASOPHILS # (AUTO) 0.1 10^3/uL (0.0-0.2); ABSOLUTE EOSINOPHILS # (AUTO) 0.2 10^3/uL (0.0-0.6); ABSOLUTE LYMPHOCYTES (AUTO) 3.3 10^3/uL (0.5-4.7); ABSOLUTE MONOCYTES (AUTO) 0.6 10^3/uL (0.1-1.4); ABSOLUTE NEUT (AUTO) 3.4 10^3/uL (1.7-8.2); BASOPHILS % (AUTO) 1.1 % (0-2); EOSINOPHILS % (AUTO) 2.2 % (0-6); HEMATOCRIT 40.6 % (36.0-47.0); HEMOGLOBIN 13.4 g/dL (12.0-15.5); LYMPHOCYTES % (AUTO) 43.8 % (13-45); MEAN CORPUSCULAR HEMOGLOBIN 29.7 pg (27.0-33.4); MEAN CORPUSCULAR VOLUME 90 fl (80-97); MONOCYTES % (AUTO) 8.4 % (3-13); PLATELET COUNT 224 10^3/uL (150-450); RED BLOOD COUNT 4.52 10^6/uL (3.72-5.28); RED CELL DISTRIBUTION WIDTH 13.8 % (11.5-14.0); SEGMENTED NEUTROPHILS % (AUTO) 44.5 % (42-78); TOTAL CELLS COUNTED % (AUTO) 100 %; WHITE BLOOD COUNT 7.6 10^3/uL (4.0-10.5)
[2018-04-01 21:20] LABS: ALANINE AMINOTRANSFERASE 36 U/L (9-52); ALBUMIN 3.7 g/dL (3.5-5.0); ALKALINE PHOSPHATASE 83 U/L (38-126); ANION GAP 12 (5-19); ASPARTATE AMINO TRANSFERASE 30 U/L (14-36); BILIRUBIN,DIRECT 0.2 mg/dL (0.0-0.4); BILIRUBIN,TOTAL 0.3 mg/dL (0.2-1.3); BLOOD UREA NITROGEN 17 mg/dL (7-20); CALCIUM 9.5 mg/dL (8.4-10.2); CARBON DIOXIDE 26 mmol/L (22-30); CHLORIDE 105 mmol/L (98-107); CREATINE KINASE 85 U/L (30-135); GLUCOSE 198 mg/dL (75-110); POTASSIUM 3.6 mmol/L (3.6-5.0); SODIUM 143.3 mmol/L (137-145); TOTAL PROTEIN 6.6 g/dL (6.3-8.2)
[2018-04-01 21:32] LABS: CREATINE KINASE MB 0.83 ng/mL (<4.55)
[2018-04-01 21:38] LABS: TROPONIN I < 0.012 ng/mL
--- NOTE | 2018-04-01 21:52 | RADIOLOGY REPORT (SQ) ---
XR CHEST 1 VIEW HISTORY: CP. COMPARISON: None. FINDINGS: Cardiomegaly is present. Lungs are clear. No pleural effusion or pneumothorax is seen. No acute osseous findings. IMPRESSION: No acute cardiopulmonary abnormality.
--- NOTE | 2018-04-01 21:53 | ER Document Report ---
ED General - General Chief Complaint: Chest Pain Stated Complaint: CHEST HEAVINESS Time Seen by Provider: 04/01/18 21:03 Notes: Patient is a 72-year old female with a past medical history of retention, hyperlipidemia, diabetes, morbid obesity, atrial fibrillation, who presents with palpitations and chest discomfort both of which have now resolved. Patient reports several hours prior to arrival she began to have a sensation of fluttering in her chest. She states that this is associated with a heaviness, tightness in her central chest with heaviness or numbness in her bilateral upper extremities. She states that she became diaphoretic and nauseated with this discomfort. She states that the symptoms have now spontaneously resolved without intervention. No obvious trigger for the onset of the symptoms. She denies a history of similar symptoms in the past. She denies any known history of coronary artery disease. She has had a catheterization 4 years ago which at that time did not show any lesions amenable to intervention. She has not had any repeat catheterizations or stress test since that time. She has not contacted her primary care doctor regarding today's concerns. She does take sotalol for her A. fib and has been compliant with this medication. TRAVEL OUTSIDE OF THE [place] IN LAST 30 DAYS: No - Related Data Allergies/Adverse Reactions: codeine Allergy (Intermediate, Verified 12/26/17 16:55) SLEEPS FOR DAYS Past Medical History - General Information source: Patient - Social History Smoking Status: Smoker,Current Status Unk Frequency of alcohol use: None Drug Abuse: None Lives with: Alone Family History: Hypertension Patient has suicidal ideation: No Patient has homicidal ideation: No - Past Medical History Cardiac Medical History: Reports: Hx Atrial Fibrillation, Hx Congestive Heart Failure - Diastolic, Hx Heart Attack, Hx Hypercholesterolemia, Hx Hypertension Denies: Hx DVT, Hx Pulmonary Embolism Pulmonary Medical History: Reports: Hx Sleep Apnea - Has has home machine; uncertain settings. No home oxygen. Denies: Hx Asthma, Hx COPD Neurological Medical History: Denies: Hx Cerebrovascular Accident, Hx Seizures Endocrine Medical History: Denies: Hx Diabetes Mellitus Type 1, Hx Diabetes Mellitus Type 2, Hx Hyperthyroidism, Hx Hypothyroidism Renal/ Medical History: Denies: Hx Peritoneal Dialysis GI Medical History: Reports: Hx Gastroesophageal Reflux Disease. Denies: Hx Cirrhosis, Hx Hepatitis, Hx Hiatal Hernia. Comment Only: Hx Ulcer - DIVERTICULITIS Musculoskeletal Medical History: Reports Hx Arthritis, Denies Hx Multiple Sclerosis Psychiatric Medical History: Denies: Hx Depression Infectious Medical History: Denies: Hx Hepatitis, Hx MRSA, Hx VRE Past Surgical History: Reports: Hx Abdominal Surgery - hernia repair, Hx Cardiac Catheterization - x3, Hx Hysterectomy, Hx Tonsillectomy. Denies: Hx Mastectomy, Hx Open Heart Surgery, Hx Pacemaker - Immunizations Immunizations up to date: Yes Hx Diphtheria, Pertussis, Tetanus Vaccination: No Review of Systems - Review of Systems Notes: Constitutional: Negative for fever. HENT: Negative for sore throat. Eyes: Negative for visual changes. Cardiovascular: Positive for chest pain and palpitations both now resolved Respiratory: Negative for shortness of breath. Gastrointestinal: Negative for abdominal pain, vomiting or diarrhea. Genitourinary: Negative for dysuria. Musculoskeletal: Negative for back pain. Skin: Negative for rash. Neurological: Negative for headaches, weakness or numbness. 10 point ROS negative except as marked above and in HPI. Physical Exam - Vital signs Vitals: Pulse Ox 100 04/01/18 20:50 Interpretation: Tachycardic Notes: PHYSICAL EXAMINATION: GENERAL: Well-appearing, well-nourished and in no acute distress. HEAD: Atraumatic, normocephalic. EYES: Pupils equal round and reactive to light, extraocular movements intact, sclera anicteric, conjunctiva are normal. ENT: nares patent, oropharynx clear without exudates. Moist mucous membranes. NECK: Normal range of motion, supple without lymphadenopathy LUNGS: Breath sounds clear to auscultation bilaterally and equal. No wheezes rales or rhonchi. HEART: Regular rate and rhythm without murmurs ABDOMEN: Soft, nontender, normoactive bowel sounds. No guarding, no rebound. No masses appreciated. EXTREMITIES: Normal range of motion, no pitting or edema. No cyanosis. NEUROLOGICAL: No focal neurological deficits. Moves all extremities spontaneously and on command. PSYCH: Normal mood, normal affect. SKIN: Warm, Dry, normal turgor, no rashes or lesions noted. Course - Re-evaluation Re-evalutation: 04/01/18 21:51 Patient presents with an episode of palpitations with associated chest pressure , bilateral upper extremity heaviness, nausea and diaphoresis with associated shortness of breath that occurred several hours prior to arrival and has now resolved. The patient has a history of A. fib with RVR currently treated with sotalol and is currently in a normal sinus rhythm. Currently chest pain-free. Initial troponin and EKG unremarkable. Patient has not had a stress test or cardiac catheterization in over 4 years. She has multiple risk factors for coronary artery disease including hypertension, obesity, advanced age, known hyperlipidemia, diabetes, and a history of prior PA although has never had stents or CABG. The patient is currently pain-free but her heart score is 5 given her age, risk factors and history. I do not feel comfortable discharging the patient and will discuss with the hospitalist for observation admission for serial troponins and stress testing. [id number]-Dr. Cardona has accepted the patient for observation - Vital Signs Vital signs: Temp Pulse Resp BP Pulse Ox 97.6 F 52 L 19 112/54 L 100 04/02/18 01:09 04/02/18 02:00 04/02/18 01:09 04/02/18 01:09 04/02/18 01:09 - Laboratory Result Diagrams: 04/01/18 20:55 04/01/18 20:55 Laboratory results interpreted by me: 04/01/18 20:55 Glucose 198 H - Diagnostic Test Radiology reviewed: Image reviewed, Reports reviewed Radiology results interpreted by me: 04/02/18 03:00 Chest x-ray: No acute infiltrate or pneumothorax - EKG Interpretation by Me Additional EKG results interpreted by me: 04/02/18 03:01 Atrial fibrillation. Rate 100. No ST elevations or depressions. Prolonged QTC at 511. Discharge - Discharge Clinical Impression: Palpitations Chest pain Qualifiers: Chest pain type: unspecified Qualified Code(s): R07.9 - Chest pain, unspecified Condition: Fair Disposition: ADMITTED OBSERVATION Admitting Provider: Hospitalist Unit Admitted: Telemetry
[2018-04-01] MEDS ORDERED: DIAZEPAM 5 MG TABLET PO PRN (21:58)
[2018-04-01] MEDS ORDERED: NITROGLYCERIN 0.4 MG/TAB 25 TAB/BOTTLE SL PRN (21:58)
[2018-04-02 03:48] LABS: CHOLESTEROL 176.36 mg/dL (0-200); CREATINE KINASE 69 U/L (30-135); TRIGLYCERIDES 135 mg/dL (<150)
[2018-04-02 03:58] LABS: DIRECT LDL 128 mg/dL (<100)
[2018-04-02 03:59] LABS: CREATINE KINASE MB 1.06 ng/mL (<4.55); TROPONIN I 0.016 ng/mL
--- NOTE | 2018-04-02 04:14 | PDOC H&P ---
History of Present Illness Admission Date/PCP: 04/01/18 22:16 STEPHANIE BARAHONA MD Patient complains of: Chest pain History of Present Illness: GERARDO WILLIAMSON is a 72 year old female with a past medical history of diastolic heart failure, obstructive sleep apnea with CPAP noncompliance, dyslipidemia, diabetes, atrial fibrillation and dyslipidemia. She presents several hours after the onset of palpitations with heaviness in her chest which radiated numbness to the bilateral upper extremity. Associated with some shortness of breath nausea without vomiting or diaphoresis. She denies recent changes in her medication regiment, in the emergency room she has an unremarkable workup and is referred to the hospitalist for admission. Patient admits to fatigue, uncontrolled blood pressure at home with readings in the systolic 180s and noncompliance with CPAP. Past Medical History Cardiac Medical History: Reports: Atrial Fibrillation, Congestive Heart Failure - Diastolic, Myocardial Infarction, Hyperlipidema, Hypertension Denies: DVT, Pulmonary Embolism Pulmonary Medical History: Reports: Sleep Apnea - Has has home machine; uncertain settings. No home oxygen. Denies: Asthma, Chronic Obstructive Pulmonary Disease (COPD) Neurological Medical History: Denies: Seizures Endocrine Medical History: Denies: Diabetes Mellitus Type 1, Diabetes Mellitus Type 2, Hyperthyroidism, Hypothyroidism GI Medical History: Reports: Gastroesophageal Reflux Disease Denies: Cirrhosis, Hepatitis, Hiatal Hernia Musculoskeltal Medical History: Reports: Arthritis Psychiatric Medical History: Denies: Depression Hematology: Denies: Anemia, Sickle Cell Disease, Bleeding Tendencies Infectious Medical History: Denies: Methicillin-Resistant Staph Aureus, Vancomycin-Resistant Enterococci Past Surgical History Past Surgical History: Reports: Cardiac Catheterization - x3, Hysterectomy, Tonsillectomy Denies: Amputation, Mastectomy, Pacemaker Social History Information Source: Patient, Emergency Med Personnel, [facility] Records Smoking Status: Smoker,Current Status Unk Frequency of Alcohol Use: None Hx Recreational Drug Use: No Drugs: None Hx Prescription Drug Abuse: No - Advance Directive Resuscitation Status: Full Code Family History Family History: Hypertension Parental Family History Reviewed: Yes Children Family History Reviewed: Yes Sibling(s) Family History Reviewed.: Yes Medication/Allergy Home Medications: Furosemide [Lasix 80 mg Tablet] 80 mg PO DAILY 02/27/17 Ibuprofen [Motrin 800 mg Tablet] 800 mg PO Q12HP PRN 02/27/17 Metoprolol Succinate [Toprol Xl 50 mg Tab.sr] 50 mg PO DAILY 02/27/17 Omeprazole 20 mg PO DAILY 02/27/17 Potassium Chloride [Klor-Con 10 Meq Capsule ER] 10 meq PO DAILY 02/27/17 Rivaroxaban [Xarelto] 20 mg PO DAILY 02/27/17 Diltiazem HCl [Cardizem Cd 120 mg Capsule] 1 cap.sr PO DAILY #30 cap.sr Azithromycin 250 mg PO DAILY #4 tablet 04/19/17 Prednisone [Deltasone 20 mg Tablet] 3 tab PO DAILY 4 Days tablet 04/19/17 Allergies/Adverse Reactions: codeine Allergy (Intermediate, Verified 12/26/17 16:55) SLEEPS FOR DAYS Review of Systems Constitutional: PRESENT: fatigue. ABSENT: chills, fever(s), headache(s), weight gain, weight loss Eyes: ABSENT: visual disturbances Ears: ABSENT: hearing changes Cardiovascular: ABSENT: chest pain, dyspnea on exertion, edema, orthropnea, palpitations Respiratory: PRESENT: as per HPI, dyspnea. ABSENT: cough, hemoptysis Gastrointestinal: ABSENT: abdominal pain, constipation, diarrhea, hematemesis, hematochezia, nausea, vomiting Genitourinary: ABSENT: dysuria, hematuria Musculoskeletal: ABSENT: joint swelling Integumentary: ABSENT: rash, wounds Neurological: ABSENT: abnormal gait, abnormal speech, confusion, dizziness, focal weakness, syncope Psychiatric: ABSENT: anxiety, depression, homidical ideation, suicidal ideation Endocrine: ABSENT: cold intolerance, heat intolerance, polydipsia, polyuria Hematologic/Lymphatic: ABSENT: easy bleeding, easy bruising Physical Exam Vital Signs: Temp Pulse Resp BP Pulse Ox 97.6 F 50 L 17 111/60 97 04/02/18 03:58 04/02/18 03:58 04/02/18 03:58 04/02/18 03:58 04/02/18 03:58 Intake & Output 03/31/18 04/01/18 04/02/18 11:59 11:59 11:59 Weight 115.4 kg General appearance: PRESENT: mild distress, obese, well-developed, well- nourished Head exam: PRESENT: atraumatic, normocephalic Eye exam: PRESENT: conjunctiva pink, EOMI, PERRLA. ABSENT: scleral icterus Ear exam: PRESENT: normal external ear exam Mouth exam: PRESENT: moist, tongue midline Neck exam: ABSENT: carotid bruit, JVD, lymphadenopathy, thyromegaly Respiratory exam: PRESENT: accessory muscle use, crackles, prolonged expiratory phas, tachypnea. ABSENT: rales, rhonchi, wheezes Cardiovascular exam: PRESENT: RRR. ABSENT: diastolic murmur, rubs, systolic murmur Pulses: PRESENT: normal dorsalis pedis pul Vascular exam: PRESENT: normal capillary refill GI/Abdominal exam: PRESENT: normal bowel sounds, soft. ABSENT: distended, guarding, mass, organolmegaly, rebound, tenderness Rectal exam: PRESENT: deferred Extremities exam: PRESENT: full ROM, +1 edema. ABSENT: calf tenderness, clubbing, pedal edema Neurological exam: PRESENT: alert, awake, oriented to person, oriented to place , oriented to time, oriented to situation, CN II-XII grossly intact. ABSENT: motor sensory deficit Psychiatric exam: PRESENT: appropriate affect, normal mood. ABSENT: homicidal ideation, suicidal ideation Skin exam: PRESENT: dry, intact, warm. ABSENT: cyanosis, rash Results Laboratory Results: 04/02/18 03:18 Triglycerides 135 Cholesterol 176.36 LDL Cholesterol Direct 128 H VLDL Cholesterol 27.0 HDL Cholesterol 36 L 04/02/18 04/02/18 03:18 03:18 Creatine Kinase 69 CK-MB (CK-2) 1.06 Troponin I 0.016 Impressions: Chest X-Ray 04/01/18 20:50 IMPRESSION: No acute cardiopulmonary abnormality. Assessment & Plan - Diagnosis (1) Chest pain Qualifiers: Chest pain type: unspecified Qualified Code(s): R07.9 - Chest pain, unspecified Is this a current diagnosis for this admission?: Yes Plan: multiple risk factors for coronary artery disease and subsequently will observe and evaluation of acute coronary syndrome versus coronary artery disease with anginal equivalents. Cardiac monitoring blood pressure Q6 hours ,TSH, lipid profile, serial cardiac enzymes and consideration of cardiac stress test (2) Palpitations Is this a current diagnosis for this admission?: Yes Plan: Paroxysmal uncontrolled A. fib (3) Atrial fibrillation with RVR Is this a current diagnosis for this admission?: Yes Plan: Currently controlled, follow-up telemetry monitoring (4) Diastolic CHF Qualifiers: Qualified Code(s): I50.32 - Chronic diastolic (congestive) heart failure Is this a current diagnosis for this admission?: Yes Plan: Optimize blood pressure, heart rate and volume (5) KESHAWN (obstructive sleep apnea) Is this a current diagnosis for this admission?: Yes Plan: CPAP and education - Time Time Spent: 30 to 50 Minutes - Inpatient Certification Medical Necessity: Need Close Monitoring Due to Risk of Patient Decompensation
--- NOTE | 2018-04-02 09:57 | EKG REPORT ---
SEVERITY:- ABNORMAL ECG - ATRIAL FIBRILLATION LEFT VENTRICULAR HYPERTROPHY PROLONGED QT INTERVAL : Confirmed by: Chavo Collins MD 02-Apr-2018 09:56:36
[2018-04-02 09:58] LABS: CREATINE KINASE MB 1.04 ng/mL (<4.55)
[2018-04-02] MEDS ORDERED: METOPROLOL SUCCINATE 50 MG TAB.SR.24H PO SCH (10:00)
[2018-04-02 10:04] LABS: TROPONIN I < 0.012 ng/mL
[2018-04-02 10:46] LABS: FREE T4 (FREE THYROXINE) 0.97 ng/dL (0.78-2.19)
[2018-04-02 10:59] LABS: THYROID STIMULATING HORMONE 1.39 uIU/mL (0.47-4.68)
[2018-04-02] MEDS: DILTIAZEM HCL 120 MG CAP.SR.24H PO SCH (11:15)
[2018-04-02] MEDS: FUROSEMIDE 80 MG TABLET PO SCH (11:15)
[2018-04-02] MEDS: LANSOPRAZOLE 15 MG TAB.RAP.DR PO SCH (11:16)
--- NOTE | 2018-04-02 11:22 | RADIOLOGY REPORT (SQ) ---
EXAM DESCRIPTION: MRI HEAD WITHOUT COMPLETED DATE/TIME: 04/02/2018 11:05 am REASON FOR STUDY: left sided weakness, r/o CVA I48.0 PAROXYSMAL ATRIAL FIBRILLATION COMPARISON: 2016. TECHNIQUE: Multiplanar imaging includes non-contrasted T1, T2, FLAIR, and diffusion with ADC map seq uences. Images stored on PACS. LIMITATIONS: None. FINDINGS: ANATOMY: No anomalies. Normal vascular flow voids. Pituitary fossa normal. CSF SPACES: Atrophy induced prominence of ventricles and CSF spaces. CEREBRUM: High signal intensity lesions scattered throughout the white matter on FLAIR imaging with d istribution suggesting micro-vascular ischemic changes. No evidence of hemorrhage, mass, or extraaxi al fluid collection. POSTERIOR FOSSA: No signal alteration. No hemorrhage. No edema, masses or mass effect. Internal minnie tory canals, cerebello-pontine angles, mastoids normal. DIFFUSION IMAGING: Negative for acute or sub-acute infarction. ORBITS: No masses. Globes normal. PARANASAL SINUSES: Right maxillary mucosal thickening. No fluid levels. OTHER: No other significant finding. IMPRESSION: 1. Chronic changes. 2. No acute or suspicious abnormality. No recent CVA evident. EVIDENCE OF ACUTE STROKE: NO. TECHNICAL DOCUMENTATION: JOB ID: [id number] [employer]- All Rights Reserved Reading location - IP/workstation name: [email or web address]
--- NOTE | 2018-04-02 13:58 | PDOC PROGRESS REPORT ---
Subjective Progress Note for:: 04/02/18 - seen on rounds this morning. Subjective:: states she has numbness of her left hand. states she had chest pressure. states the left side of her arm feels weak. states she had these feelings in the past when she had a CVA years ago. states her left leg also left weak yesterday. states she felt diaphoretic, nauseous and lightheaded. states 2 weeks ago she was started on sotalol by her insurance auditor- dr shore Reason For Visit: CHEST PAIN, AFIB, ANXIETY Physical Exam Vital Signs: Temp Pulse Resp BP Pulse Ox 98.0 F 48 L 16 140/73 H 100 04/02/18 08:26 04/02/18 08:26 04/02/18 08:26 04/02/18 08:26 04/02/18 08:26 Intake & Output 04/01/18 04/02/18 04/03/18 06:59 06:59 06:59 Weight 254 lb 6.615 oz General appearance: PRESENT: no acute distress, morbidly obese Head exam: PRESENT: atraumatic, normocephalic Eye exam: PRESENT: EOMI. ABSENT: scleral icterus Ear exam: PRESENT: normal external ear exam Mouth exam: PRESENT: moist, tongue midline Neck exam: ABSENT: tracheal deviation Respiratory exam: PRESENT: decreased breath sounds - bilaterally- ?body habitus vs poor inspiratory effort, symmetrical Cardiovascular exam: PRESENT: +S1, +S2 Pulses: PRESENT: +2 pedal pulses bilateral GI/Abdominal exam: PRESENT: normal bowel sounds, soft. ABSENT: tenderness Extremities exam: ABSENT: pedal edema Neurological exam: PRESENT: alert, awake, oriented to person, oriented to place , oriented to time, oriented to situation, CN II-XII grossly intact, other - strength UE- R>L, sensation intact Skin exam: PRESENT: dry, warm Results Laboratory Results: 04/02/18 04/02/18 03:18 03:18 Triglycerides 135 Cholesterol 176.36 LDL Cholesterol Direct 128 H VLDL Cholesterol 27.0 HDL Cholesterol 36 L TSH 1.39 Free T4 0.97 04/02/18 04/02/18 04/02/18 03:18 03:18 08:55 Creatine Kinase 69 CK-MB (CK-2) 1.06 1.04 Troponin I 0.016 < 0.012 Impressions: Chest X-Ray 04/01/18 20:50 IMPRESSION: No acute cardiopulmonary abnormality. Head MRI 04/02/18 00:00 IMPRESSION: 1. Chronic changes. 2. No acute or suspicious abnormality. No recent CVA evident. EVIDENCE OF ACUTE STROKE: NO. Assessment & Plan - Diagnosis (1) Chest pain Qualifiers: Chest pain type: unspecified Qualified Code(s): R07.9 - Chest pain, unspecified Is this a current diagnosis for this admission?: Yes (2) Palpitations Is this a current diagnosis for this admission?: Yes (4) KESHAWN (obstructive sleep apnea) Is this a current diagnosis for this admission?: Yes (5) PAF (paroxysmal atrial fibrillation) Is this a current diagnosis for this admission?: Yes (6) Diastolic CHF Qualifiers: Qualified Code(s): I50.32 - Chronic diastolic (congestive) heart failure Is this a current diagnosis for this admission?: Yes - Time Time Spent with patient: 15-24 minutes - Plan Summary Plan Summary: chest pain- troponins remain neg. EKG showed no changes. sinus justin. will repeat in AM. will get an ECHO. c/w home meds for now. continue to monitor on Tele overnight. possible D/C in AM if she does well and remains asymptomatic. she will need to f/u with her insurance auditor. she told me that she was started on sotalol 2 weeks ago- but i do not see that in her med list - will ask nursing to verify that. TSH normal. Nitro PRN. Bilateral numbness of hands- left side worse than right- concern for CVA with decreased strength- got MRI head to r/o CVA- was normal with no acute findings. PAF- well controlled- c/w xarelto and cardizem. disposition- possible d/c in AM if she remains pain free and imaging results are WNL
[2018-04-02 16:11] LABS: CREATINE KINASE MB 1.03 ng/mL (<4.55); TROPONIN I 0.012 ng/mL
[2018-04-02] MEDS ORDERED: RIVAROXABAN 10 MG TABLET PO SCH (17:00)
--- NOTE | 2018-04-02 17:46 | EKG REPORT ---
SEVERITY:- ABNORMAL ECG - SINUS BRADYCARDIA LEFT VENTRICULAR HYPERTROPHY : Confirmed by: Chavo Collins MD 02-Apr-2018 17:45:28
[2018-04-02] MEDS ORDERED: SOTALOL HCL 80 MG TABLET ONE (18:12)
[2018-04-02] MEDS: SOTALOL HCL 80 MG TABLET PO SCH (18:14)
--- NOTE | 2018-04-02 21:43 | XCELERA REPORT ---
[address] [address] Transthoracic Echocardiogram Report Name: GERARDO WILLIAMSON Age: 72 yrs Gender: Female : 1945 Patient Status: Inpatient Patient Location: [address] [place], [place] [address] Study Date: 04/02/2018 05:32 PM Height: 65 in Weight: 254 lb BSA: 2.2 m2 Procedure: A complete two-dimensional transthoracic echocardiogram was performed (2D, M-mode, spectral and color flow Doppler). The study was technically difficult with many images being suboptimal in quality. Reason For Study: atrial fibrillation Ordering Physician: JAYCEE MOON Performed By: Torri George Interpretation Summary The left ventricular ejection fraction is normal. There is mild to moderate concentric left ventricular hypertrophy. Doppler measurements suggest pseudonormalized left ventricular relaxation, which is associated with grade II/IV or mild to moderate diastolic dysfunction The left ventricle is grossly normal size. Wall motion cannot be accurately commented on, but no definite regional wall motion abnormalities noted. The right ventricle is mildly dilated. Right ventricular function cannot be assessed due to poor image quality. The left atrium is moderately dilated. The right atrium is mildly dilated. There is a trace amount of mitral regurgitation There is no mitral valve stenosis. There is no aortic valve stenosis There is a mild amount of aortic regurgitation There is a trace or physiologic amount of tricuspid regurgitation Tricuspid regurgitation jet envelope not well defined to measure RV systolic pressure accurately. The aortic root is not well visualized. The inferior vena cava was not well visualized There is no pericardial effusion. The study was technically difficult with many images being suboptimal in quality. MMode/2D Measurements & Calculations RVDd: 3.5 cm LVIDd: 5.0 cm FS: 37.6 % Ao root diam: 2.6 cm IVSd: 1.6 cm LVIDs: 3.1 cm EDV(Teich): 119.9 ml Ao root area: 5.2 cm2 LVPWd: 1.2 cm ESV(Teich): 39.1 ml EF(Teich): 67.4 % LVOT diam: 1.6 cm LVOT area: 2.0 cm2 Doppler Measurements & Calculations MV E max viviane: MV dec slope: Ao V2 max: LV V1 max P.6 cm/sec 280.6 cm/sec2 143.7 cm/sec 7.7 mmHg MV A max viviane: MV dec time: 0.28 secAo max PG: LV V1 max: 71.6 cm/sec 8.3 mmHg 138.6 cm/sec MV E/A: 1.1 BARON(V,D): 2.0 cm2 MR max viviane: PA V2 max: TR max viviane: 174.1 cm/sec 102.6 cm/sec 119.8 cm/sec MR max PG: PA max P.2 mmHg TR max P.1 mmHg 5.8 mmHg Left Ventricle The left ventricle is grossly normal size. There is mild to moderate concentric left ventricular hypertrophy. The left ventricular ejection fraction is normal. Doppler measurements suggest pseudonormalized left ventricular relaxation, which is associated with grade II/IV or mild to moderate diastolic dysfunction. Wall motion cannot be accurately commented on, but no definite regional wall motion abnormalities noted. Right Ventricle The right ventricle is mildly dilated. Right ventricular function cannot be assessed due to poor image quality. Atria The right atrium is mildly dilated. The left atrium is moderately dilated. Interarterial septum not well visualized and not well dopplered. Cannot comment on ASD/PFO presence. Mitral Valve The mitral valve is not well visualized. There is no mitral valve stenosis. There is a trace amount of mitral regurgitation. Aortic Valve The aortic valve is not well visualized secondary to technical limitations. There is no aortic valve stenosis. There is a mild amount of aortic regurgitation. Tricuspid Valve The tricuspid valve is not well visualized secondary to technical limitations. There is no tricuspid stenosis. There is a trace or physiologic amount of tricuspid regurgitation. Tricuspid regurgitation jet envelope not well defined to measure RV systolic pressure accurately. Pulmonic Valve The pulmonic valve is not well visualized. Great Vessels The aortic root is not well visualized. The inferior vena cava was not well visualized. Effusions There is no pericardial effusion. : JAYCEE MOON > Bryce Hernandez
[2018-04-02] MEDS: POTASSIUM CHLORIDE 10 MEQ CAPSULE.ER PO SCH (22:23)
[2018-04-03] MEDS ORDERED: LOSARTAN POTASSIUM 25 MG TABLET PO SCH (10:00)
[2018-04-03] MEDS: SOTALOL HCL 80 MG TABLET PO SCH (10:21)
[2018-04-03] MEDS: POTASSIUM CHLORIDE 10 MEQ CAPSULE.ER PO SCH (10:21)
[2018-04-03] MEDS: DILTIAZEM HCL 120 MG CAP.SR.24H PO SCH (10:21)
[2018-04-03] MEDS: FUROSEMIDE 80 MG TABLET PO SCH (10:22)
[2018-04-03] MEDS: LANSOPRAZOLE 15 MG TAB.RAP.DR PO SCH (10:22)
--- NOTE | 2018-04-03 11:20 | Physician Advisory Note ---
Physician Advisor ProgressNote .: Pursuant to the plan for [facility], I have reviewed the medical record for this patient. Physician Advisor Statement: Elderly Medicare pt, 72yo, w/DM-2, HLD, HTN, moribd obesity w/BMI 43.9, paroxysmal Afib, chr diast CHF, KESHAWN w/CPAP noncompliance, presented w/CP/ palpits assoc'd w/N/diaph. "HEART score 5". Initial HR 100 on EKG, but subsequently mostly 50s per VS notes. Spent 1st MN in ED care. AFter being brought in as Obs, she developed left-sided numbness/weakness concerning for possible CVA. New attg felt need for MRI & ECHO & continued monitoring for a 2nd MN. Please document, if you agree: 1. "Acute CP, suspect due to " 2. was there "acute Lt hemiparesis, suspect acute cerebrovascular ischemia/____ _", or just numbness? - or just 1 extremity affected? 3. Medical necessity: Please be explicit about the reasons you felt CONCERNED enough to keep pt a 2nd MN for continued close monitoring rather than d/c'ing pt on 11 PM. Then may change to Inpt status, b/c appropriate for this as of 04/02 PM (even if now ok for d/c today). Thanks! CK
[2018-04-03 14:21] VITALS: BP 111/60
--- NOTE | 2018-04-03 15:19 | PDOC DISCHARGE SUMMARY ---
General - Admit/Disc Date/PCP Admission Date/Primary Care Provider: 04/01/18 22:16 STEPHANIE BARAHONA MD Discharge Date: 04/03/18 - seen on rounds this morning - Discharge Diagnosis (1) Chest pain Is this a current diagnosis for this admission?: Yes (2) Palpitations Is this a current diagnosis for this admission?: Yes (4) KESHAWN (obstructive sleep apnea) Is this a current diagnosis for this admission?: Yes (5) PAF (paroxysmal atrial fibrillation) Is this a current diagnosis for this admission?: Yes (6) Diastolic CHF Is this a current diagnosis for this admission?: Yes - Additional Information Resuscitation Status: Full Code Discharge Diet: Cardiac Discharge Activity: Activity As Tolerated, Balance Activity w/Rest Prescriptions: Diltiazem HCl [Cardizem Cd 120 mg Capsule] 120 mg PO DAILY #30 cap.sr.24h Nitroglycerin [Nitrostat 0.4 mg (1/150 Gr) Tabs 25/Bottle] 1 tab SL Q5MP PRN # 14 bottle PRN Reason: Home Medications: Ascorbic Acid [Vitamin C 500 mg Tablet] 500 mg PO BID 04/02/18 Calcium Carbonate [Calcium] 500 mg PO BID 04/02/18 Cyanocobalamin (Vitamin B-12) [Vitamin B12] 2,500 mcg PO BID 04/02/18 Furosemide [Lasix 80 mg Tablet] 80 mg PO BID 04/02/18 Losartan Potassium [Cozaar 25 mg Tablet] 25 mg PO Q12 04/02/18 Omeprazole Magnesium [Prilosec Otc] 20 mg PO DAILY 04/02/18 Potassium Chloride [Klor-Con 10 Meq Capsule ER] 10 meq PO Q12 04/02/18 Rivaroxaban [Xarelto] 20 mg PO QPM 04/02/18 Sotalol HCl [Sotalol AF] 80 mg PO BID 04/02/18 Diltiazem HCl [Cardizem Cd 120 mg Capsule] 120 mg PO DAILY #30 cap.sr.24h Nitroglycerin [Nitrostat 0.4 mg (1/150 Gr) Tabs 25/Bottle] 1 tab SL Q5MP PRN # 14 bottle 04/03/18 History of Present Illness History of Present Illness: GERARDO WILLIAMSON is a 72 year old female who was placed on observation for chest pain. please see initially H&P for full assessment and plan Hospital Course Hospital Course: she was placed in telemetry after admission. she remained chest pain free. her troponins remained WNL. she was started back on her CPAP. she told me that she could not use the CPAP because it did not fit her well- states she was getting "water" in her face. states she couldn't keep it on her face and hence she stopped using it. i think her chest pain was due to not using her CPAP- i have contacted and they have ordered CPAP at home and she will try new machine. spoke to her this morning- she has no acute complaints at this time- her son at bedside- they are both requesting discharge. she walked around with nursing on the hallway and had no pain I have told her to speak with her bioinformatics software engineer for possible stress test she had ECHO done- which showed grade 2/3 diastolic dysfunction. she will continue with her lasix. during her stay she c/o arm weakness - concern for stroke and hence MRI brain was ordered. she was started on cardizem but since she has sotalol as her medication at home by her bioinformatics software engineer- i am STOPPING cardizem and discharging her on sotalol. advised her the following discharge instructions: follow up with pcp within 1 week follow up with bioinformatics software engineer within 1 week- consider having a stress test done. start using your CPAP daily as discussed. talk to your bioinformatics software engineer about it if you have any chest pain then please call 911 and go to ED immediately Physical Exam Vital Signs: Temp Pulse Resp BP Pulse Ox 98.2 F 57 L 17 111/60 98 04/03/18 14:16 04/03/18 14:16 04/03/18 14:16 04/03/18 14:16 04/03/18 14:16 Intake & Output 04/02/18 04/03/18 04/04/18 06:59 06:59 06:59 Intake Total 1385 Balance 1385 Weight 254 lb 6.615 oz 263 lb 14.293 oz Results Laboratory Results: 04/02/18 04/02/18 04/02/18 03:18 03:18 08:55 Creatine Kinase 69 CK-MB (CK-2) 1.06 1.04 Troponin I 0.016 < 0.012 04/02/18 15:30 Creatine Kinase CK-MB (CK-2) 1.03 Troponin I 0.012 Impressions: Chest X-Ray 04/01/18 20:50 IMPRESSION: No acute cardiopulmonary abnormality. Head MRI 04/02/18 00:00 IMPRESSION: 1. Chronic changes. 2. No acute or suspicious abnormality. No recent CVA evident. EVIDENCE OF ACUTE STROKE: NO. Qualifiers - * PATIENT BEING DISCHARGED WITH ANY OF THE FOLLOWING DIAGNOSIS: No Plan Time Spent: Less than 30 Minutes
[2018-04-04] MEDS ORDERED: LANSOPRAZOLE 15 MG TAB.RAP.DR PO SCH (06:00)
== END 2018-04-03 16:00 | disposition home or self-care (01) ==
LOC: ER 20:39 → EH 22:16 → 4N 04-02 00:09
PROVIDERS: ADMIT Internal Medicine; ATTEND Internal Medicine
DX: R07.89 Other chest pain (principal); R00.2 Palpitations; G47.33 Obstructive sleep apnea (adult) (pediatric); I48.0 Paroxysmal atrial fibrillation; I50.32 Chronic diastolic (congestive) heart failure; I11.0 Hypertensive heart disease with heart failure; R53.1 Weakness; R06.02 Shortness of breath; R11.0 Nausea; R53.83 Other fatigue; R20.0 Anesthesia of skin; F17.200 Nicotine dependence, unspecified, uncomplicated; E78.5 Hyperlipidemia, unspecified; E66.9 Obesity, unspecified; I25.2 Old myocardial infarction; Z91.19 Patient's noncompliance with other medical treatment and regimen; Z79.02 Long term (current) use of antithrombotics/antiplatelets; Z90.710 Acquired absence of both cervix and uterus; Z82.49 Family history of ischemic heart disease and other diseases of the circulatory system; Z86.73 Personal history of transient ischemic attack (TIA), and cerebral infarction without residual deficits
CPT/HCPCS: 93005 ×2; 99285; 36415 ×2; 84439; 82553 ×2; 82550 ×2; 84443; 85025; 80053; 84484 ×2; 80061; 93306; 70551; 71045; 93010 ×2; 94660; G0378 ×3; A9270 ×14; J3490 ×2

== ENCOUNTER 2018-10-25 18:46 | Emergency (ER) | payer MEDICARE ==
--- NOTE | 2018-10-25 19:21 | ER Document Report ---
ED Medical Screen (RME) - General Chief Complaint: Dizziness Stated Complaint: DIZZY Time Seen by Provider: 10/25/18 19:20 Mode of Arrival: Wheelchair Information source: Patient Notes: Patient presents with multiple complaints. Patient reports nausea dizziness with shortness of breath for the past 5 days. Patient also reports lower abdominal pain low back pain and facial swelling. Patient denies any chest discomfort. I have greeted and performed a rapid initial assessment of this patient. A comprehensive ED assessment and evaluation of the patient, analysis of test results and completion of the medical decision making process will be conducted by additional ED providers. TRAVEL OUTSIDE OF THE [place] IN LAST 30 DAYS: No - Related Data Allergies/Adverse Reactions: No Known Allergies Allergy (Verified 10/25/18 18:55) Past Medical History - Social History Family history: Reviewed & Not Pertinent - Past Medical History Cardiac Medical History: Reports: Hx Atrial Fibrillation, Hx Congestive Heart Failure - Diastolic, Hx Heart Attack, Hx Hypercholesterolemia, Hx Hypertension Denies: Hx Coronary Artery Disease, Hx DVT, Hx Pulmonary Embolism Pulmonary Medical History: Reports: Hx Bronchitis, Hx Sleep Apnea - Has has home machine; uncertain settings. No home oxygen. Denies: Hx Asthma, Hx COPD, Hx Pneumonia Neurological Medical History: Reports: Hx Cerebrovascular Accident - 1984, NO LASTING DEFICITS. Denies: Hx Seizures Endocrine Medical History: Denies: Hx Diabetes Mellitus Type 1, Hx Diabetes Mellitus Type 2, Hx Hyperthyroidism, Hx Hypothyroidism Renal/ Medical History: Denies: Hx Peritoneal Dialysis GI Medical History: Reports: Hx Gastroesophageal Reflux Disease. Denies: Hx Cirrhosis, Hx Hepatitis, Hx Hiatal Hernia. Comment Only: Hx Ulcer - DIVERTICULITIS Musculoskeltal Medical History: Denies Hx Arthritis, Denies Hx Multiple Scle rosis Psychiatric Medical History: Denies: Hx Depression Infectious Medical History: Denies: Hx Hepatitis, Hx MRSA, Hx VRE Past Surgical History: Reports: Hx Abdominal Surgery - hernia repair, Hx Cardiac Catheterization - x3, Hx Hysterectomy, Hx Tonsillectomy. Denies: Hx Mastectomy, Hx Open Heart Surgery, Hx Pacemaker - Immunizations Immunizations up to date: Yes Hx Diphtheria, Pertussis, Tetanus Vaccination: Yes History of Influenza Vaccine for 02/2017 - 07/2017 Season: Yes Influenza Administration Date for 02/2017 - 07/2017 Season: 02/22/17 Physical Exam - Vital signs Vitals: Temp Pulse Resp BP Pulse Ox 97.9 F 52 L 19 146/70 H 97 10/25/18 19:13 10/25/18 19:13 10/25/18 19:13 10/25/18 19:13 10/25/18 19:13 - Respiratory Respiratory status: No respiratory distress Chest status: Nontender Breath sounds: Normal Chest palpation: Normal Course - Vital Signs Vital signs: Temp Pulse Resp BP Pulse Ox 97.9 F 52 L 19 146/70 H 97 10/25/18 19:13 10/25/18 19:13 10/25/18 19:13 10/25/18 19:13 10/25/18 19:13
--- NOTE | 2018-10-25 19:52 | RADIOLOGY REPORT (SQ) ---
EXAM DESCRIPTION: CHEST 2 VIEWS COMPLETED DATE/TIME: 10/25/2018 7:44 pm REASON FOR STUDY: sob, dizzy COMPARISON: 10/23/2018 EXAM PARAMETERS: NUMBER OF VIEWS: two views TECHNIQUE: Digital Frontal and Lateral radiographic views of the chest acquired. RADIATION DOSE: NA LIMITATIONS: none FINDINGS: LUNGS AND PLEURA: No opacities, masses or pneumothorax. No pleural effusion. MEDIASTINUM AND HILAR STRUCTURES: No masses or contour abnormalities. HEART AND VASCULAR STRUCTURES: Heart normal size. No evidence for failure. BONES: No acute findings. HARDWARE: None in the chest. OTHER: No other significant finding. IMPRESSION: NO ACUTE RADIOGRAPHIC FINDING IN THE CHEST. TECHNICAL DOCUMENTATION: JOB ID: [id number] [employer]- All Rights Reserved Reading location - IP/workstation name: [email or web address]
[2018-10-25 20:27] LABS: ABSOLUTE EOSINOPHILS # (AUTO) 0.2 10^3/uL (0.0-0.6); ABSOLUTE LYMPHOCYTES (AUTO) 3.3 10^3/uL (0.5-4.7); ABSOLUTE MONOCYTES (AUTO) 0.7 10^3/uL (0.1-1.4); ABSOLUTE NEUT (AUTO) 2.8 10^3/uL (1.7-8.2); BASOPHILS % (AUTO) 0.7 % (0-2); EOSINOPHILS % (AUTO) 2.9 % (0-6); HEMATOCRIT 37.4 % (36.0-47.0); HEMOGLOBIN 12.4 g/dL (12.0-15.5); LYMPHOCYTES % (AUTO) 46.5 % (13-45); MEAN CORPUSCULAR HGB CONC 33.2 g/dL (32.0-36.0); MEAN CORPUSCULAR VOLUME 90 fl (80-97); MONOCYTES % (AUTO) 10.2 % (3-13); PLATELET COUNT 208 10^3/uL (150-450); RED BLOOD COUNT 4.14 10^6/uL (3.72-5.28); RED CELL DISTRIBUTION WIDTH 13.6 % (11.5-14.0); SEGMENTED NEUTROPHILS % (AUTO) 39.7 % (42-78); TOTAL CELLS COUNTED % (AUTO) 100 %; WHITE BLOOD COUNT 7.2 10^3/uL (4.0-10.5)
[2018-10-25 20:45] LABS: ALANINE AMINOTRANSFERASE 38 U/L (9-52); ALBUMIN 3.6 g/dL (3.5-5.0); ALKALINE PHOSPHATASE 78 U/L (38-126); ANION GAP 8 (5-19); ASPARTATE AMINO TRANSFERASE 37 U/L (14-36); BILIRUBIN,DIRECT 0.2 mg/dL (0.0-0.4); BILIRUBIN,TOTAL 0.2 mg/dL (0.2-1.3); BLOOD UREA NITROGEN 13 mg/dL (7-20); CALCIUM 9.1 mg/dL (8.4-10.2); CARBON DIOXIDE 30 mmol/L (22-30); CHLORIDE 103 mmol/L (98-107); GLUCOSE 171 mg/dL (75-110); POTASSIUM 3.6 mmol/L (3.6-5.0); SODIUM 140.6 mmol/L (137-145); TOTAL PROTEIN 6.4 g/dL (6.3-8.2)
[2018-10-25 20:46] LABS: APPEARANCE,URINE SLIGHTLY-CLOUDY; BILIRUBIN,URINE NEGATIVE (NEGATIVE); COLOR,URINE YELLOW; GLUCOSE, URINE NEGATIVE (NEGATIVE); KETONES,URINE NEGATIVE (NEGATIVE); LEUKOCYTE ESTERASE,URINE NEGATIVE (NEGATIVE); NITRITE,URINE NEGATIVE (NEGATIVE); PROTEIN,URINE NEGATIVE (NEGATIVE); URINE SPECIFIC GRAVITY 1.016; UROBILINOGEN,URINE NEGATIVE mg/dL (<2.0)
--- NOTE | 2018-10-25 20:46 | ER Document Report ---
ED General - General Chief Complaint: Dizziness Stated Complaint: DIZZY Time Seen by Provider: 10/25/18 19:20 Primary Care Provider: STEPHANIE BARAHONA MD [Primary Care Provider] - Follow up tomorrow Mode of Arrival: Wheelchair Notes: Patient is a 73-year-old female that comes emergency department with several complaints. Her chief complaint is pain along the right side of her face, she states it feels like there is a "drawing" towards her right jaw and just underneath the jaw with pain in the area. She clarifies that she means "swelling". She states it also hurts to chew/heat. She denies painful swallowing, fever/chills. She states she is having to eat slightly differently because of the pain. Patient secondarily states that she will get frequent lightheadedness when walking around although this is not new, she states this is been going on for a long time. She denies falling or hitting her head. She denies any other complaints to me although she did tell triage she occasionally gets some pain in her belly and back. She denies nausea or vomiting. Past medical history includes atrial fibrillation, hypertension, CAD, she states she has had multiple catheterizations but never had a stent or bypass. She also has had a hernia repair and hysterectomy. She denies diabetes. She is on Xarelto. TRAVEL OUTSIDE OF THE [place] IN LAST 30 DAYS: No - Related Data Allergies/Adverse Reactions: No Known Allergies Allergy (Verified 10/25/18 18:55) Past Medical History - General Information source: Patient - Social History Smoking Status: Never Smoker Frequency of alcohol use: None Drug Abuse: None Lives with: Family Family History: Hypertension Patient has suicidal ideation: No Patient has homicidal ideation: No - Past Medical History Cardiac Medical History: Reports: Hx Atrial Fibrillation, Hx Congestive Heart Failure - Diastolic, Hx Heart Attack, Hx Hypercholesterolemia, Hx Hypertension Denies: Hx Coronary Artery Disease, Hx DVT, Hx Pulmonary Embolism Pulmonary Medical History: Reports: Hx Bronchitis, Hx Sleep Apnea - Has has home machine; uncertain settings. No home oxygen. Denies: Hx Asthma, Hx COPD, Hx Pneumonia Neurological Medical History: Reports: Hx Cerebrovascular Accident - 1984, NO LASTING DEFICITS. Denies: Hx Seizures Endocrine Medical History: Denies: Hx Diabetes Mellitus Type 1, Hx Diabetes Mellitus Type 2, Hx Hyperthyroidism, Hx Hypothyroidism Renal/ Medical History: Denies: Hx Peritoneal Dialysis GI Medical History: Reports: Hx Gastroesophageal Reflux Disease. Denies: Hx Cirrhosis, Hx Hepatitis, Hx Hiatal Hernia. Comment Only: Hx Ulcer - DIVE RTICULITIS Musculoskeletal Medical History: Denies Hx Arthritis, Denies Hx Multiple Sclerosis Psychiatric Medical History: Denies: Hx Depression Infectious Medical History: Denies: Hx Hepatitis, Hx MRSA, Hx VRE Past Surgical History: Reports: Hx Abdominal Surgery - hernia repair, Hx Cardiac Catheterization - x3, Hx Hysterectomy, Hx Tonsillectomy. Denies: Hx Mastectomy, Hx Open Heart Surgery, Hx Pacemaker - Immunizations Immunizations up to date: Yes Hx Diphtheria, Pertussis, Tetanus Vaccination: Yes Review of Systems - Review of Systems Constitutional: See HPI EENT: See HPI Cardiovascular: See HPI Respiratory: No symptoms reported Gastrointestinal: No symptoms reported Genitourinary: No symptoms reported Female Genitourinary: No symptoms reported Musculoskeletal: No symptoms reported Skin: No symptoms reported Hematologic/Lymphatic: No symptoms reported Neurological/Psychological: See HPI Physical Exam - Vital signs Vitals: Temp Pulse Resp BP Pulse Ox 97.9 F 52 L 19 146/70 H 97 10/25/18 19:13 10/25/18 19:13 10/25/18 19:13 10/25/18 19:13 10/25/18 19:13 - Notes Notes: GENERAL: Alert, interacts well. No acute distress. HEAD: Normocephalic, atraumatic. EYES: Pupils equal, round, and reactive to light. Extraocular movements intact. ENT: Oral mucosa moist, tongue midline. Oropharynx unremarkable. Airway patent. Nares patent, no nasal septal hematoma, TM's intact. Erythema and tenderness over the posterior molar area with no evidence of induration or fluctuance, no abscesses noted. Slight nearby lymphadenopathy of the submandibular and anterior cervical areas. No submandibular swelling. No cellulitis noted. NECK: Full range of motion. Supple. Trachea midline. LUNGS: Clear to auscultation bilaterally, no wheezes, rales, or rhonchi. No respiratory distress. HEART: Regular rate and rhythm. No murmur ABDOMEN: Soft, non-tender. Non-distended. Bowel sounds present in all 4 quadrants. GENITOURINARY: Deferred EXTREMITIES: Moves all 4 extremities spontaneously. No edema, normal radial and dorsalis pedis pulses bilaterally. No cyanosis. BACK: no cervical, thoracic, lumbar midline tenderness. No saddle anesthesia, normal distal neurovascular exam. Moves all extremities in full range of motion. NEUROLOGICAL: Alert and oriented x3. Normal speech. Cranial nerves II through XII grossly intact. PSYCH: Normal affect, normal mood. SKIN: Warm, dry, normal turgor. No rashes or lesions noted. Course - Re-evaluation Re-evalutation: CBC, chemistry, troponin unremarkable. Chest x-ray unremarkable. EKG without significant change. Patient is well-appearing, sleeping on initial evaluation, easily aroused, conversational. Patient's only new symptoms today are the mouth and jaw pain. She has in flammation and pain with erythema over the right lower gumline, appears to have adjacent tender lymph nodes but there is no soft tissue swelling, indurated or fluctuant area, no evidence of abscess. No trismus. No neurological deficits. I did get the patient up to ambulate and she was able to do so without difficulty. Her symptoms of dizziness with standing which, go have been going on for a long time. I discussed with patient. Patient will be treated with antibiotics for what appears to be a dental infection, she states she is ready to leave, she states that she needs rest, she is still working despite her advanced age and she states she is completely worn out. She does agree to follow close with primary care provider first and then she will follow-up with dentist afterwards if nee ded. Discussed chronic dizziness work-up and she states she will have this performed and close follow-up. She agrees to return if she worsens in any way, this was discussed in detail. Stable at time of discharge. - Vital Signs Vital signs: Temp Pulse Resp BP Pulse Ox 97.9 F 52 L 19 129/64 H 95 10/25/18 22:42 10/25/18 19:13 10/25/18 22:42 10/25/18 22:42 10/25/18 22:42 - Laboratory Result Diagrams: 10/25/18 20:07 10/25/18 20:07 Laboratory results interpreted by me: 10/25/18 10/25/18 10/25/18 20:07 20:07 20:14 Seg Neutrophils % 39.7 L Lymphocytes % 46.5 H Glucose 171 H AST 37 H Urine Ascorbic Acid 40 H - EKG Interpretation by Me Additional EKG results interpreted by me: EKG shows sinus bradycardia at a rate of 53, no T wave inversions or ST segment changes in consecutive leads, left axis deviation, QTC 436, NC interval of 176. Previous EKG also showing bradycardia and LVH. Discharge - Discharge Clinical Impression: Jaw pain, Facial swelling, Light-headedness Condition: Stable Disposition: HOME, SELF-CARE Additional Instructions: With the pain along your gumline, redness and swelling along the gumline, nearby swollen lymph nodes, this appears to be a dental infection. Take the antibiotics as prescribed to completion. Your work-up and evaluation is reassuring at this time, however because of frequent dizziness and lightheadedness please follow-up closely with your primary care provider for additional evaluation management. Return if you worsen including passing out, severe headache, chest pain, fever, weakness/numbness on one side of the body, or any other concerning or worsening symptoms. Prescriptions: Penicillin V Potassium [Penicillin Vk 500 mg Tablet] 500 mg PO BID #20 tablet Forms: Return to Work Referrals: STEPHANIE BARAHONA MD [Primary Care Provider] - Follow up tomorrow
[2018-10-25] MEDS ORDERED: PENICILLIN V POTASSIUM 500 MG TABLET PO ONE (21:59)
[2018-10-25 22:43] VITALS: BP 129/64
--- NOTE | 2018-10-26 07:37 | EKG REPORT ---
SEVERITY:- ABNORMAL ECG - SINUS RHYTHM LEFT VENTRICULAR HYPERTROPHY : Confirmed by: Chavo Collins MD 26-Oct-2018 07:36:45
== END 2018-10-25 22:43 | disposition home or self-care (01) ==
LOC: ER 18:46
DX: R68.84 Jaw pain (principal); K05.10 Chronic gingivitis, plaque induced; R42 Dizziness and giddiness; I11.9 Hypertensive heart disease without heart failure; I25.10 Atherosclerotic heart disease of native coronary artery without angina pectoris; I25.2 Old myocardial infarction; I48.91 Unspecified atrial fibrillation; Z79.02 Long term (current) use of antithrombotics/antiplatelets; R00.1 Bradycardia, unspecified
CPT/HCPCS: 93005; 99284; 36415; 83735; 85025; 80053; 81001; 84484; 71046; 93010; A9270

== ENCOUNTER 2018-10-27 14:19 | Observation (INO) | payer MEDICARE ==
[2018-10-27] MEDS ORDERED: ASPIRIN 81 MG TABLET, CHEWABLE PO ONE (14:22)
--- NOTE | 2018-10-27 14:55 | RADIOLOGY REPORT (SQ) ---
EXAM DESCRIPTION: CHEST SINGLE VIEW COMPLETED DATE/TIME: 10/27/2018 2:45 pm REASON FOR STUDY: chest pain COMPARISON: 10/25/2018 EXAM PARAMETERS: NUMBER OF VIEWS: One view. TECHNIQUE: Single frontal radiographic view of the chest acquired. RADIATION DOSE: NA LIMITATIONS: None. FINDINGS: LUNGS AND PLEURA: No opacities, masses or pneumothorax. No pleural effusion. MEDIASTINUM AND HILAR STRUCTURES: No masses. Contour normal. HEART AND VASCULAR STRUCTURES: Cardiomegaly. BONES: No acute findings. HARDWARE: None in the chest. OTHER: No other significant finding. IMPRESSION: Cardiomegaly without acute abnormality of the lungs. TECHNICAL DOCUMENTATION: JOB ID: [id number] [employer] All Rights Reserved Reading location - IP/workstation name: [email or web address]
[2018-10-27 15:08] LABS: ABSOLUTE BASOPHILS # (AUTO) 0.1 10^3/uL (0.0-0.2); ABSOLUTE EOSINOPHILS # (AUTO) 0.2 10^3/uL (0.0-0.6); ABSOLUTE LYMPHOCYTES (AUTO) 3.1 10^3/uL (0.5-4.7); ABSOLUTE MONOCYTES (AUTO) 0.7 10^3/uL (0.1-1.4); ABSOLUTE NEUT (AUTO) 3.4 10^3/uL (1.7-8.2); BASOPHILS % (AUTO) 1.3 % (0-2); EOSINOPHILS % (AUTO) 2.9 % (0-6); HEMATOCRIT 38.2 % (36.0-47.0); HEMOGLOBIN 12.8 g/dL (12.0-15.5); LYMPHOCYTES % (AUTO) 40.9 % (13-45); MEAN CORPUSCULAR HEMOGLOBIN 30.2 pg (27.0-33.4); MEAN CORPUSCULAR HGB CONC 33.4 g/dL (32.0-36.0); MEAN CORPUSCULAR VOLUME 90 fl (80-97); MONOCYTES % (AUTO) 9.8 % (3-13); PLATELET COUNT 203 10^3/uL (150-450); RED BLOOD COUNT 4.23 10^6/uL (3.72-5.28); RED CELL DISTRIBUTION WIDTH 13.8 % (11.5-14.0); SEGMENTED NEUTROPHILS % (AUTO) 45.1 % (42-78); TOTAL CELLS COUNTED % (AUTO) 100 %; WHITE BLOOD COUNT 7.6 10^3/uL (4.0-10.5)
[2018-10-27] MEDS ORDERED: ONDANSETRON HCL INJ/PF 4 MG/2 ML SDV IV ONE (15:09)
--- NOTE | 2018-10-27 15:27 | ER Document Report ---
ED General - General Chief Complaint: Chest Pain Stated Complaint: CHEST PAIN Time Seen by Provider: 10/27/18 14:40 Notes: Patient is a 73-year-old female, with history of CHF, atrial fibrillation that presents to the emergency department for chief complaint of chest pain shortness of breath. Patient reports that she was in preoperative area, prior to having cholecystectomy, and she told the staff that she was having chest discomfort, and shortness of breath, and felt lightheaded so they canceled the surgery and sent her to the emergency department. Patient reports she is been having symptoms on and off for the past 3 days, she did come to the emergency department on Tuesday, and was worked up and discharged home at that time. Sh anjum denies having the pain at this time, denies feeling short of breath just has some mild nausea. When she had the pain she described as a 3 out of 10 described as an ache in the middle of her chest, that would come and go. She reports she has had several left heart catheterizations in the past but it has been a few years and the last one, but denies having any stents. She thinks she had a stress test about 2 years ago, but does not remember the results. Past Medical History: Atrial fibrillation, on sotalol and Xarelto, CHF, hypertension Past Surgical History: Left heart catheterizations, without intervention Social History: Denies current tobacco, alcohol or drug use. Family History: Reviewed and noncontributory for presenting illness Allergies: Reviewed, see documented allergy list. REVIEW OF SYSTEMS: Other than noted above, the 12 point review of systems was reviewed with the pat ient and were negative, all pertinent findings are included in the HPI. PHYSICAL EXAMINATION: Vital signs reviewed, nursing noted reviewed. GENERAL: Obese female, no acute distress HEAD: Atraumatic, normocephalic. EYES: Eyes appear normal, extraocular movements intact, sclera anicteric, conjun ctiva are normal. ENT: nares patent, oropharynx clear without exudates. Moist mucous membranes. NECK: Normal range of motion, supple without lymphadenopathy LUNGS: Breath sounds clear to auscultation bilaterally and equal. No wheezes rales or rhonchi. HEART: Heart rate bradycardic, regular rhythm, no audible murmur. ABDOMEN: Soft, obese, normoactive bowel sounds. No rebound, guarding, or r igidity. No masses appreciated. EXTREMITIES: Nontender, good range of motion, pulses equal bilaterally, trace bilateral pedal edema. NEUROLOGICAL: No focal neurological deficits. Moves all extremities spontaneously Motor and sensory grossly intact on exam. PSYCH: Normal mood, normal affect. SKIN: Warm, Dry, normal turgor, no rashes or lesions noted on exposed skin TRAVEL OUTSIDE OF THE [place] IN LAST 30 DAYS: No - Related Data Allergies/Adverse Reactions: No Known Allergies Allergy (Verified 10/27/18 13:14) Past Medical History - Social History Smoking Status: Never Smoker Chew tobacco use (# tins/day): No Frequency of alcohol use: None Drug Abuse: None Family History: Hypertension Patient has suicidal ideation: No Patient has homicidal ideation: No - Past Medical History Cardiac Medical History: Reports: Hx Atrial Fibrillation, Hx Congestive Heart Failure - Diastolic, Hx Heart Attack, Hx Hypercholesterolemia, Hx Hypertension Denies: Hx Coronary Artery Disease, Hx DVT, Hx Pulmonary Embolism Pulmonary Medical History: Reports: Hx Bronchitis, Hx Sleep Apnea - Has has home machine; uncertain settings. No home oxygen. Denies: Hx Asthma, Hx COPD, Hx Pneumonia Neurological Medical History: Reports: Hx Cerebrovascular Accident - 1984, NO LASTING DEFICITS. Denies: Hx Seizures Endocrine Medical History: Denies: Hx Diabetes Mellitus Type 1, Hx Diabetes Mellitus Type 2, Hx Hyperthyroidism, Hx Hypothyroidism Renal/ Medical History: Denies: Hx Peritoneal Dialysis GI Medical History: Reports: Hx Gastroesophageal Reflux Disease. Denies: Hx Cirrhosis, Hx Hepatitis, Hx Hiatal Hernia. Comment Only: Hx Ulcer - DIVERTICULITIS Musculoskeletal Medical History: Denies Hx Arthritis, Denies Hx Multiple Scler osis Psychiatric Medical History: Denies: Hx Depression Infectious Medical History: Denies: Hx Hepatitis, Hx MRSA, Hx VRE Past Surgical History: Reports: Hx Abdominal Surgery - hernia repair, Hx Cardiac Catheterization - x3, Hx Hysterectomy, Hx Tonsillectomy. Denies: Hx Mastectomy, Hx Open Heart Surgery, Hx Pacemaker - Immunizations Immunizations up to date: Yes Hx Diphtheria, Pertussis, Tetanus Vaccination: Yes Physical Exam - Vital signs Vitals: Pulse Ox 100 10/27/18 14:22 Course - Re-evaluation Re-evalutation: Patient seen and examined vital signs reviewed. Laboratory data and imaging were ordered as appropriate for the patient's presenting symptoms and complaint, with consideration of any critical or life threatening conditions that may be associated with their obtained history and exam as noted above. Patient was treated with Zofran for her nausea, and aspirin Results were reviewed when available and demonstrated negative troponin, and BNP, chest x-ray negative for acute process just cardiomegaly The patient was re-evaluated and was stable Evaluation was most consistent with chest pain, nonspecific, patient is high risk, with a heart score of 5, recommend admitting for observation, given the patient had similar symptoms a few days ago, likely need stress test sooner than later. Results were discussed with the patient at this point after careful consideration I feel that that patient should be admitted to the hospital. This was discussed with the patient that it is in the best interest for their care to be admitted for further evaluation and management. Patient agreed with this plan of care. A call was placed to the admitted physician, Dr. Chowdary who graciously accepted the patient onto their service. *Note is created using voice recognition software and may contain spelling, syntax or grammatical errors. Laboratory 10/27/18 10/27/18 10/27/18 14:35 14:35 14:35 WBC 7.6 RBC 4.23 Hgb 12.8 Hct 38.2 MCV 90 MCH 30.2 MCHC 33.4 RDW 13.8 Plt Count 203 Seg Neutrophils % 45.1 Lymphocytes % 40.9 Monocytes % 9.8 Eosinophils % 2.9 Basophils % 1.3 Absolute Neutrophils 3.4 Absolute Lymphocytes 3.1 Absolute Monocytes 0.7 Absolute Eosinophils 0.2 Absolute Basophils 0.1 Sodium 143.5 Potassium 3.6 Chloride 105 Carbon Dioxide 29 Anion Gap 10 BUN 13 Creatinine 0.70 Est GFR ( Amer) > 60 Est GFR (Non-Af Amer) > 60 Glucose 114 H Calcium 9.4 Total Bilirubin 0.6 Direct Bilirubin 0.2 Neonat Total Bilirubin Not Reportable Neonat Direct Bilirubin Not Reportable Neonat Indirect Bili Not Reportable AST 50 H ALT 44 Alkaline Phosphatase 76 Troponin I < 0.012 NT-Pro-B Natriuret Pep Total Protein 6.9 Albumin 3.7 10/27/18 14:35 WBC RBC Hgb Hct MCV MCH MCHC RDW Plt Count Seg Neutrophils % Lymphocytes % Monocytes % Eosinophils % Basophils % Absolute Neutrophils Absolute Lymphocytes Absolute Monocytes Absolute Eosinophils Absolute Basophils Sodium Potassium Chloride Carbon Dioxide Anion Gap BUN Creatinine Est GFR ( Amer) Est GFR (Non-Af Amer) Glucose Calcium Total Bilirubin Direct Bilirubin Neonat Total Bilirubin Neonat Direct Bilirubin Neonat Indirect Bili AST ALT Alkaline Phosphatase Troponin I NT-Pro-B Natriuret Pep 102 Total Protein Albumin Chest X-Ray 10/27/18 14:22 IMPRESSION: Cardiomegaly without acute abnormality of the lungs. - Vital Signs Vital signs: Temp Pulse Resp BP Pulse Ox 98.0 F 53 L 16 134/69 H 97 10/27/18 21:08 10/27/18 21:08 10/27/18 21:08 10/27/18 21:08 10/27/18 21:08 - Laboratory Result Diagrams: 10/27/18 14:35 10/27/18 14:35 Laboratory results interpreted by me: 10/27/18 14:35 Glucose 114 H AST 50 H - EKG Interpretation by Me Additional EKG results interpreted by me: EKG demonstrates sinus bradycardia with a ventricular rate of 45 bpm, left axis deviation, QTC 437 ms, no ST elevation, this is compared with prior EKG from 10/25/2018, without significant change. Discharge - Discharge Clinical Impression: Chest pain Qualifiers: Chest pain type: unspecified Qualified Code(s): R07.9 - Chest pain, unspecified Condition: Stable Disposition: ADMITTED OBSERVATION Admitting Provider: Ricarda (Hospitalist) Unit Admitted: Telemetry
[2018-10-27 15:28] LABS: ALANINE AMINOTRANSFERASE 44 U/L (9-52); ALBUMIN 3.7 g/dL (3.5-5.0); ALKALINE PHOSPHATASE 76 U/L (38-126); ANION GAP 10 (5-19); ASPARTATE AMINO TRANSFERASE 50 U/L (14-36); BILIRUBIN,DIRECT 0.2 mg/dL (0.0-0.4); BILIRUBIN,TOTAL 0.6 mg/dL (0.2-1.3); BLOOD UREA NITROGEN 13 mg/dL (7-20); CALCIUM 9.4 mg/dL (8.4-10.2); CARBON DIOXIDE 29 mmol/L (22-30); CHLORIDE 105 mmol/L (98-107); GLUCOSE 114 mg/dL (75-110); POTASSIUM 3.6 mmol/L (3.6-5.0); SODIUM 143.5 mmol/L (137-145); TOTAL PROTEIN 6.9 g/dL (6.3-8.2)
[2018-10-27] MEDS ORDERED: IPRATROPIUM/ALBUTEROL 0.5-2.5 MG/3 ML AMPUL NEB PRN (18:42)
[2018-10-27] MEDS ORDERED: ACETAMINOPHEN 325 MG TABLET PO PRN (18:42)
[2018-10-27] MEDS ORDERED: ONDANSETRON 4 MG TAB.RAPDIS PO PRN (18:42)
--- NOTE | 2018-10-27 18:56 | PDOC H&P ---
History of Present Illness Admission Date/PCP: 10/27/18 16:19 STEPHANIE BARAHONA MD History of Present Illness: GERARDO WILLIAMSON is a 73 year old female past medical history of hypertension, diastolic heart failure, CAD (per patient she was told that she had a heart attack has had several LHC had been reported as negative), paroxysmal A. fib(on Cardizem, sotalol which was a started at [place] last year by a manager personnel selection other than her current manager personnel selection Dr. Huertas.), KESHAWN on CPAP. Patient reported to ED after complaining of shortness of breath, chest pain, dizziness while at the preop to schedule outpatient cholecystectomy. Patient reported the symptoms to the staff and her surgery was canceled and patient was brought to ED. She is stating that she has been feeling lightheaded, on and off sharp chest pain, nonradiating, 3/10, mid chest, worse with exertion and better with rest. Denies any fever, nausea, chills, abdominal pain, diarrhea, weight changes, constipation, urinary symptoms controlled weakness, tingling. On Cardizem in ED troponins were negative, NT BNP 102, chest x-ray cardiomegaly without any acute abnormalities. EKG showed sinus bradycardia. Past Medical History Cardiac Medical History: Reports: Atrial Fibrillation, Congestive Heart Failure - Diastolic, Myocardial Infarction, Hyperlipidema, Hypertension Denies: Coronary Artery Disease, DVT, Pulmonary Embolism Pulmonary Medical History: Reports: Bronchitis, Sleep Apnea - Has has home machine; uncertain settings. No home oxygen. Denies: Asthma, Chronic Obstructive Pulmonary Disease (COPD), Pneumonia Neurological Medical History: Denies: Seizures Endocrine Medical History: Denies: Diabetes Mellitus Type 1, Diabetes Mellitus Type 2, Hyperthyroidism, Hypothyroidism GI Medical History: Reports: Gastroesophageal Reflux Disease Denies: Cirrhosis, Hepatitis, Hiatal Hernia Musculoskeltal Medical History: Denies: Arthritis Psychiatric Medical History: Denies: Depression Hematology: Denies: Anemia, Sickle Cell Disease, Bleeding Tendencies Infectious Medical History: Denies: Methicillin-Resistant Staph Aureus, Vancomycin-Resistant Enterococci Past Surgical History Past Surgical History: Reports: Cardiac Catheterization - x3, Hysterectomy, Tonsillectomy Denies: Amputation, Mastectomy, Pacemaker Social History Smoking Status: Never Smoker Frequency of Alcohol Use: None Hx Recreational Drug Use: No Drugs: None Hx Prescription Drug Abuse: No Family History Family History: Hypertension Parental Family History Reviewed: Yes Children Family History Reviewed: Yes Sibling(s) Family History Reviewed.: Yes Medication/Allergy Allergies/Adverse Reactions: No Known Allergies Allergy (Verified 10/27/18 13:14) Review of Systems Review of Systems: as per hpi Physical Exam Vital Signs: Temp Pulse Resp BP Pulse Ox 98.7 F 49 L 18 159/79 H 98 10/27/18 14:30 10/27/18 14:30 10/27/18 15:01 10/27/18 15:01 10/27/18 15:01 Intake & Output 10/26/18 10/27/18 10/28/18 06:59 06:59 06:59 Weight 113 kg Results Laboratory Results: 10/27/18 14:35 10/27/18 14:35 10/27/18 10/27/18 14:35 14:35 WBC 7.6 RBC 4.23 Hgb 12.8 Hct 38.2 MCV 90 MCH 30.2 MCHC 33.4 RDW 13.8 Plt Count 203 Seg Neutrophils % 45.1 Lymphocytes % 40.9 Monocytes % 9.8 Eosinophils % 2.9 Basophils % 1.3 Absolute Neutrophils 3.4 Absolute Lymphocytes 3.1 Absolute Monocytes 0.7 Absolute Eosinophils 0.2 Absolute Basophils 0.1 Sodium 143.5 Potassium 3.6 Chloride 105 Carbon Dioxide 29 Anion Gap 10 BUN 13 Creatinine 0.70 Est GFR ( Amer) > 60 Est GFR (Non-Af Amer) > 60 Glucose 114 H Calcium 9.4 Total Bilirubin 0.6 AST 50 H ALT 44 Alkaline Phosphatase 76 Total Protein 6.9 Albumin 3.7 10/27/18 10/27/18 14:35 14:35 Troponin I < 0.012 NT-Pro-B Natriuret Pep 102 Impressions: Chest X-Ray 10/27/18 14:22 IMPRESSION: Cardiomegaly without acute abnormality of the lungs. Assessment and Plan - Diagnosis (1) Chest pain Is this a current diagnosis for this admission?: No Plan: No acute EKG changes, troponins negative. Continue antiplatelets, beta-blockers, LUIS and statins. We will order cardiac a stress test for further risk stratification. (2) Bradycardia Is this a current diagnosis for this admission?: Yes Plan: She is complaining of chronic dizziness which is worsened recently. ED she was found to be in bradycardia. Monitor on my observation patient's heart ranging from 45-50 which could be the reason for her lightheadedness. Patient does state that she was started on sotalol last year by another manager personnel selection at [facility] and Dr. Huertas her manager personnel selection is aware of it. Continue telemetry, will decrease sotalol from 80 twice daily to 40 twice daily. Contact her manager personnel selection to see if we could either DC or decrease dose of sotal ol. (3) PAF (paroxysmal atrial fibrillation) Is this a current diagnosis for this admission?: No Plan: Continue telemetry. Start Cardizem. Start sotalol at half a dose. Continue Xarelto. (4) Diastolic CHF Qualifiers: Qualified Code(s): I50.32 - Chronic diastolic (congestive) heart failure Is this a current diagnosis for this admission?: No Plan: Cardiac diet, diuretics, beta-blockers, LUIS. Does not seem to be exacerbated. (5) HLD (hyperlipidemia) Qualifiers: Hyperlipidemia type: unspecified Qualified Code(s): E78.5 - Hyperlipidemia, unspecified Is this a current diagnosis for this admission?: Yes Plan: Start home meds. (6) Morbid obesity with BMI of 40.0-44.9, adult Is this a current diagnosis for this admission?: Yes Plan: Lifestyle modification advised. (7) KESHAWN (obstructive sleep apnea) Is this a current diagnosis for this admission?: No Plan: Nocturnal CPAP.
[2018-10-27] MEDS ORDERED: NITROGLYCERIN 0.4 MG/TAB 25 TAB/BOTTLE SL PRN (19:04)
[2018-10-27] MEDS ORDERED: HYDRALAZINE HCL INJ/PF 20 MG/1 ML SDV IV PRN (19:04)
[2018-10-27] MEDS: SOTALOL HCL 80 MG TABLET PO SCH (21:31)
[2018-10-27] MEDS: DILTIAZEM HCL 60 MG TABLET PO SCH (21:38)
[2018-10-27] MEDS: PROMETHAZINE HCL INJ 25 MG/1 ML VIAL IV PRN (21:42)
[2018-10-27] MEDS: ZOLPIDEM TARTRATE 5 MG TABLET PO PRN (21:42)
[2018-10-27] MEDS: FAMOTIDINE 20 MG TABLET PO SCH (21:43)
[2018-10-27] MEDS: ATORVASTATIN CALCIUM 40 MG TABLET PO SCH (21:43)
--- NOTE | 2018-10-27 22:10 | EKG REPORT ---
SEVERITY:- ABNORMAL ECG - SINUS BRADYCARDIA LEFT VENTRICULAR HYPERTROPHY : Confirmed by: Chavo Collins MD 27-Oct-2018 22:09:49
[2018-10-28] MEDS: DILTIAZEM HCL 60 MG TABLET PO SCH ×3 (05:31→21:50)
[2018-10-28 07:26] LABS: ABSOLUTE EOSINOPHILS # (AUTO) 0.2 10^3/uL (0.0-0.6); ABSOLUTE LYMPHOCYTES (AUTO) 2.3 10^3/uL (0.5-4.7); ABSOLUTE MONOCYTES (AUTO) 0.7 10^3/uL (0.1-1.4); ABSOLUTE NEUT (AUTO) 2.6 10^3/uL (1.7-8.2); BASOPHILS % (AUTO) 0.9 % (0-2); EOSINOPHILS % (AUTO) 3.3 % (0-6); HEMATOCRIT 37.8 % (36.0-47.0); HEMOGLOBIN 12.5 g/dL (12.0-15.5); LYMPHOCYTES % (AUTO) 39.4 % (13-45); MEAN CORPUSCULAR HEMOGLOBIN 29.9 pg (27.0-33.4); MEAN CORPUSCULAR VOLUME 91 fl (80-97); MONOCYTES % (AUTO) 11.7 % (3-13); PLATELET COUNT 206 10^3/uL (150-450); RED BLOOD COUNT 4.17 10^6/uL (3.72-5.28); RED CELL DISTRIBUTION WIDTH 13.7 % (11.5-14.0); SEGMENTED NEUTROPHILS % (AUTO) 44.7 % (42-78); TOTAL CELLS COUNTED % (AUTO) 100 %; WHITE BLOOD COUNT 5.8 10^3/uL (4.0-10.5)
[2018-10-28 07:42] LABS: TRIGLYCERIDES 159 mg/dL (<150)
[2018-10-28 07:55] LABS: DIRECT LDL 131 mg/dL (<100)
[2018-10-28 07:57] LABS: VLDL CHOLESTEROL 31.8 mg/dL (10-31)
[2018-10-28] MEDS: ASPIRIN 81 MG TABLET, CHEWABLE PO SCH (09:36)
[2018-10-28] MEDS: LOSARTAN POTASSIUM 25 MG TABLET PO SCH (09:36)
[2018-10-28] MEDS: DOCUSATE SODIUM 100 MG CAPSULE PO SCH ×2 (09:36→18:01)
[2018-10-28] MEDS: FAMOTIDINE 20 MG TABLET PO SCH ×2 (09:37→21:50)
[2018-10-28] MEDS: RIVAROXABAN 10 MG TABLET PO SCH (09:37)
[2018-10-28] MEDS: FUROSEMIDE 80 MG TABLET PO SCH ×2 (09:37→18:04)
[2018-10-28] MEDS ORDERED: RIVAROXABAN 15 MG TABLET PO SCH (10:00)
--- NOTE | 2018-10-28 12:56 | PDOC PROGRESS REPORT ---
Subjective Progress Note for:: 10/28/18 Subjective:: GERARDO WILLIAMSON is a 73 year old female past medical history of hypertension, diastolic heart failure, CAD (per patient she was told that she had a heart attack has had several LHC had been reported as negative), paroxysmal A. fib(on Cardizem, sotalol which was a started at [place] last year by a anthropology instructor other than her current anthropology instructor Dr. Huertas.), KESHAWN on CPAP. Patient reported to ED after complaining of shortness of breath, chest pain, dizziness while at the preop to schedule outpatient cholecystectomy. Patient reported the symptoms to the staff and her surgery was canceled and patient was brought to ED. She is stating that she has been feeling lightheaded, on and off sharp chest pain, nonradiating, 3/10, mid chest, worse with exertion and better with rest. Denies any fever, nausea, chills, abdominal pain, diarrhea, weight changes, co nstipation, urinary symptoms controlled weakness, tingling. On Cardizem in ED troponins were negative, NT BNP 102, chest x-ray cardiomegaly without any acute abnormalities. EKG showed sinus bradycardia. 10/28/2018. No acute events overnight. Chest pain has resolved. Lightheadedness is improved. Denies any fever, chills, nausea, vomiting, diarrhea, constipation or any urinary symptoms. Reason For Visit: CHEST PAIN Physical Exam Vital Signs: Temp Pulse Resp BP Pulse Ox 97.8 F 66 18 142/77 H 95 10/28/18 08:00 10/28/18 08:37 10/28/18 08:37 10/28/18 08:00 10/28/18 08:37 Intake & Output 10/27/18 10/28/18 10/29/18 06:59 06:59 06:59 Intake Total 360 Output Total 0 Balance 360 Weight 96.7 kg Results Laboratory Results: 10/28/18 07:12 10/27/18 14:35 10/27/18 10/27/18 10/27/18 14:35 14:35 19:15 WBC 7.6 RBC 4.23 Hgb 12.8 Hct 38.2 MCV 90 MCH 30.2 MCHC 33.4 RDW 13.8 Plt Count 203 Seg Neutrophils % 45.1 Lymphocytes % 40.9 Monocytes % 9.8 Eosinophils % 2.9 Basophils % 1.3 Absolute Neutrophils 3.4 Absolute Lymphocytes 3.1 Absolute Monocytes 0.7 Absolute Eosinophils 0.2 Absolute Basophils 0.1 Sodium 143.5 Potassium 3.6 Chloride 105 Carbon Dioxide 29 Anion Gap 10 BUN 13 Creatinine 0.70 Est GFR ( Amer) > 60 Est GFR (Non-Af Amer) > 60 Glucose 114 H Calcium 9.4 Magnesium Total Bilirubin 0.6 AST 50 H ALT 44 Alkaline Phosphatase 76 Total Protein 6.9 Albumin 3.7 Triglycerides Cholesterol LDL Cholesterol Direct VLDL Cholesterol HDL Cholesterol Free T3 pg/mL 3.67 10/28/18 10/28/18 07:12 07:12 WBC 5.8 RBC 4.17 Hgb 12.5 Hct 37.8 MCV 91 MCH 29.9 MCHC 33.0 RDW 13.7 Plt Count 206 Seg Neutrophils % 44.7 Lymphocytes % 39.4 Monocytes % 11.7 Eosinophils % 3.3 Basophils % 0.9 Absolute Neutrophils 2.6 Absolute Lymphocytes 2.3 Absolute Monocytes 0.7 Absolute Eosinophils 0.2 Absolute Basophils 0.0 Sodium Potassium Chloride Carbon Dioxide Anion Gap BUN Creatinine Est GFR ( Amer) Est GFR (Non-Af Amer) Glucose Calcium Magnesium 1.9 Total Bilirubin AST ALT Alkaline Phosphatase Total Protein Albumin Triglycerides 159 H Cholesterol 183.00 LDL Cholesterol Direct 131 H VLDL Cholesterol 31.8 H HDL Cholesterol 30 L Free T3 pg/mL 10/27/18 10/27/18 10/27/18 14:35 14:35 19:15 Troponin I < 0.012 < 0.012 NT-Pro-B Natriuret Pep 102 10/28/18 01:11 Troponin I < 0.012 NT-Pro-B Natriuret Pep Impressions: Chest X-Ray 10/27/18 14:22 IMPRESSION: Cardiomegaly without acute abnormality of the lungs. Assessment and Plan - Diagnosis (1) Chest pain Qualifiers: Chest pain type: unspecified Qualified Code(s): R07.9 - Chest pain, unspecified Is this a current diagnosis for this admission?: No Plan: Resolved. No acute EKG changes except for bradycardia. Troponins < 0.0123. Continue antiplatelets, beta-blockers, LUIS and statins. Pending cardiac stress test. (2) Bradycardia Is this a current diagnosis for this admission?: Yes Plan: Improving. Heart rate 5266. Continue telemetry, sotalol 40 mg twice daily, Cardizem 60 mg p.o. 3 times daily. Note: She is complaining of chronic dizziness which is worsened recently. ED she was found to be in bradycardia. Monitor on my observation patient's heart ranging from 45-50 which could be the reason for her lightheadedness. Patient does state that she was started on sotalol last year by another anthropology instructor at [place] and Dr. Huertas her anthropology instructor is aware of it. Continue telemetry, will decrease sotalol from 80 twice daily to 40 twice daily. Contact her anthropology instructor to see if we could either DC or decrease dose of sotalol. (3) PAF (paroxysmal atrial fibrillation) Is this a current diagnosis for this admission?: No Plan: Rate controlled. Heart rate 5266. Continue Cardizem 60 g p.o. 3 times daily, sotalol 40 mg p.o. twice daily. Continue Xarelto. (4) Diastolic CHF Is this a current diagnosis for this admission?: No Plan: Cardiac diet, diuretics, beta-blockers, LUIS. Does not seem to be exacerbated. (5) HLD (hyperlipidemia) Qualifiers: Hyperlipidemia type: unspecified Qualified Code(s): E78.5 - Hyperlipidemia, unspecified Is this a current diagnosis for this admission?: Yes Plan: Start home meds. (6) Morbid obesity with BMI of 40.0-44.9, adult Is this a current diagnosis for this admission?: Yes Plan: Lifestyle modification advised. (7) KESHAWN (obstructive sleep apnea) Is this a current diagnosis for this admission?: No Plan: Nocturnal CPAP.
[2018-10-28] MEDS: SOTALOL HCL 80 MG TABLET PO SCH ×2 (13:13→21:51)
[2018-10-28] MEDS: OXYCODONE-ACETAMINOPHEN 5-325 MG TABLET PO PRN (18:14)
[2018-10-28] MEDS: ZOLPIDEM TARTRATE 5 MG TABLET PO PRN (21:49)
[2018-10-28] MEDS: ATORVASTATIN CALCIUM 40 MG TABLET PO SCH (21:50)
[2018-10-29 05:19] LABS: ABSOLUTE BASOPHILS # (AUTO) 0.1 10^3/uL (0.0-0.2); ABSOLUTE EOSINOPHILS # (AUTO) 0.2 10^3/uL (0.0-0.6); ABSOLUTE LYMPHOCYTES (AUTO) 2.7 10^3/uL (0.5-4.7); ABSOLUTE MONOCYTES (AUTO) 0.6 10^3/uL (0.1-1.4); ABSOLUTE NEUT (AUTO) 2.7 10^3/uL (1.7-8.2); BASOPHILS % (AUTO) 1.1 % (0-2); EOSINOPHILS % (AUTO) 3.3 % (0-6); HEMATOCRIT 37.5 % (36.0-47.0); HEMOGLOBIN 12.4 g/dL (12.0-15.5); LYMPHOCYTES % (AUTO) 42.9 % (13-45); MEAN CORPUSCULAR HGB CONC 33.1 g/dL (32.0-36.0); MEAN CORPUSCULAR VOLUME 91 fl (80-97); MONOCYTES % (AUTO) 9.8 % (3-13); PLATELET COUNT 202 10^3/uL (150-450); RED BLOOD COUNT 4.14 10^6/uL (3.72-5.28); RED CELL DISTRIBUTION WIDTH 13.7 % (11.5-14.0); SEGMENTED NEUTROPHILS % (AUTO) 42.9 % (42-78); TOTAL CELLS COUNTED % (AUTO) 100 %; WHITE BLOOD COUNT 6.2 10^3/uL (4.0-10.5)
[2018-10-29] MEDS: DILTIAZEM HCL 60 MG TABLET PO SCH (06:23)
[2018-10-29] MEDS: ASPIRIN 81 MG TABLET, CHEWABLE PO SCH (11:39)
[2018-10-29] MEDS: SOTALOL HCL 80 MG TABLET PO SCH ×2 (11:40→22:28)
[2018-10-29] MEDS: RIVAROXABAN 10 MG TABLET PO SCH (11:41)
[2018-10-29] MEDS: LOSARTAN POTASSIUM 25 MG TABLET PO SCH (11:41)
[2018-10-29] MEDS: FUROSEMIDE 80 MG TABLET PO SCH ×2 (11:41→17:58)
[2018-10-29] MEDS: FAMOTIDINE 20 MG TABLET PO SCH ×2 (11:41→22:17)
[2018-10-29] MEDS: DOCUSATE SODIUM 100 MG CAPSULE PO SCH ×2 (11:41→17:58)
--- NOTE | 2018-10-29 11:56 | PDOC PROGRESS REPORT ---
Subjective Progress Note for:: 10/29/18 Subjective:: GERARDO WILLIAMSON is a 73 year old female past medical history of hypertension, diastolic heart failure, CAD (per patient she was told that she had a heart attack has had several LHC had been reported as negative), paroxysmal A. fib(on Cardizem, sotalol which was a started at [place] last year by a catering sales manager other than her current catering sales manager Dr. Huertas.), KESHAWN on CPAP. Patient reported to ED after complaining of shortness of breath, chest pain, dizziness while at the preop to schedule outpatient cholecystectomy. Patient reported the symptoms to the staff and her surgery was canceled and patient was brought to ED. She is stating that she has been feeling lightheaded, on and off sharp chest pain, nonradiating, 3/10, mid chest, worse with exertion and better with rest. Denies any fever, nausea, chills, abdominal pain, diarrhea, weight changes, co nstipation, urinary symptoms controlled weakness, tingling. On Cardizem in ED troponins were negative, NT BNP 102, chest x-ray cardiomegaly without any acute abnormalities. EKG showed sinus bradycardia. 10/28/2018. No acute events overnight. Chest pain has resolved. Lightheadedness is improved. Denies any fever, chills, nausea, vomiting, diarrhea, constipation or any urinary symptoms. 10/29/2018. No acute events overnight. Patient denies any chest pain, lightheadedness has resolved. However patient was seen to have heart rate of 140s and for sotalol dosages were held. Denies any fever, chills, nausea, vomiting, diarrhea, constipation or any urinary symptoms. Ambulatory with front wheel walker which is her baseline, p.o. tolerant, having normal bowel and bladder movements. Stress test scheduled for tomorrow. Reason For Visit: CHEST PAIN Physical Exam Vital Signs: Temp Pulse Resp BP Pulse Ox 98.1 F 64 16 148/89 H 95 10/29/18 08:00 10/29/18 09:24 10/29/18 09:24 10/29/18 08:00 10/29/18 09:24 Intake & Output 10/28/18 10/29/18 10/30/18 06:59 06:59 06:59 Intake Total 360 1300 Output Total 0 Balance 360 1300 Weight 96.7 kg 96.7 kg General appearance: PRESENT: morbidly obese Head exam: PRESENT: atraumatic, normocephalic Neck exam: ABSENT: carotid bruit, JVD, lymphadenopathy, thyromegaly Respiratory exam: PRESENT: clear to auscultation kayleigh. ABSENT: rales, rhonchi, wheezes Cardiovascular exam: PRESENT: irregular rhythm. ABSENT: diastolic murmur, rubs, systolic murmur GI/Abdominal exam: PRESENT: normal bowel sounds, soft. ABSENT: distended, guarding, mass, organolmegaly, rebound, tenderness Extremities exam: PRESENT: full ROM. ABSENT: calf tenderness, clubbing, pedal edema Neurological exam: PRESENT: alert, awake, oriented to person, oriented to place, oriented to time, oriented to situation, CN II-XII grossly intact. ABSENT: motor sensory deficit Results Laboratory Results: 10/29/18 04:39 10/27/18 14:35 10/29/18 10/29/18 04:39 04:39 WBC 6.2 RBC 4.14 Hgb 12.4 Hct 37.5 MCV 91 MCH 30.0 MCHC 33.1 RDW 13.7 Plt Count 202 Seg Neutrophils % 42.9 Lymphocytes % 42.9 Monocytes % 9.8 Eosinophils % 3.3 Basophils % 1.1 Absolute Neutrophils 2.7 Absolute Lymphocytes 2.7 Absolute Monocytes 0.6 Absolute Eosinophils 0.2 Absolute Basophils 0.1 Magnesium 1.9 10/27/18 10/27/18 10/27/18 14:35 14:35 19:15 Troponin I < 0.012 < 0.012 NT-Pro-B Natriuret Pep 102 10/28/18 01:11 Troponin I < 0.012 NT-Pro-B Natriuret Pep Impressions: Chest X-Ray 10/27/18 14:22 IMPRESSION: Cardiomegaly without acute abnormality of the lungs. Assessment and Plan - Diagnosis (1) Chest pain Qualifiers: Chest pain type: unspecified Qualified Code(s): R07.9 - Chest pain, unspecified Is this a current diagnosis for this admission?: No Plan: Resolved. No acute EKG changes except for bradycardia. Troponins < 0.0123. Continue antiplatelets, beta-blockers, LUIS and statins. Stress test tomorrow. N.p.o. after midnight. (2) Bradycardia Is this a current diagnosis for this admission?: Yes Plan: Improving. Heart rate 5066. Patient's catering sales manager Dr. Huertas. Needs to be contacted Tuesday for advice about sotalol dosage. Continue telemetry, sotalol 40 mg twice daily, decrease Cardizem to 40 p.o. 3 times daily. Note: She is complaining of chronic dizziness which is worsened recently. ED she was found to be in bradycardia. Monitor on my observation patient's heart ranging from 45-50 which could be the reason for her lightheadedness. Patient does state that she was started on sotalol last year by another catering sales manager at [place] and Dr. Huertas her catering sales manager is aware of it. Continue telemetry, will decrease sotalol from 80 twice daily to 40 twice daily. Contact her catering sales manager to see if we could either DC or decrease dose of sotalol. (3) PAF (paroxysmal atrial fibrillation) Is this a current diagnosis for this admission?: No Plan: Rate controlled. Heart rate 5266. Continue Cardizem 30 g p.o. 3 times daily, sotalol 40 mg p.o. twice daily. Continue Xarelto. (4) Diastolic CHF Is this a current diagnosis for this admission?: No Plan: Cardiac diet, diuretics, beta-blockers, LUIS. Does not seem to be exacerbated. (5) HLD (hyperlipidemia) Qualifiers: Hyperlipidemia type: unspecified Qualified Code(s): E78.5 - Hyperlipidemia, unspecified Is this a current diagnosis for this admission?: Yes Plan: Start home meds. (6) Morbid obesity with BMI of 40.0-44.9, adult Is this a current diagnosis for this admission?: Yes Plan: Lifestyle modification advised. (7) KESHAWN (obstructive sleep apnea) Is this a current diagnosis for this admission?: No Plan: Nocturnal CPAP. Weight loss recommended.
[2018-10-29] MEDS ORDERED: DILTIAZEM HCL 60 MG TABLET PO SCH (14:00)
[2018-10-29] MEDS: DILTIAZEM HCL 90 MG TABLET PO SCH ×2 (15:42→22:17)
[2018-10-29] MEDS ORDERED: DILTIAZEM HCL 90 MG TABLET ONE (22:03)
[2018-10-29] MEDS: ZOLPIDEM TARTRATE 5 MG TABLET PO PRN (22:17)
[2018-10-29] MEDS: ATORVASTATIN CALCIUM 40 MG TABLET PO SCH (22:17)
[2018-10-30 04:42] LABS: ABSOLUTE BASOPHILS # (AUTO) 0.1 10^3/uL (0.0-0.2); ABSOLUTE EOSINOPHILS # (AUTO) 0.2 10^3/uL (0.0-0.6); ABSOLUTE LYMPHOCYTES (AUTO) 3.1 10^3/uL (0.5-4.7); ABSOLUTE MONOCYTES (AUTO) 0.8 10^3/uL (0.1-1.4); ABSOLUTE NEUT (AUTO) 3.1 10^3/uL (1.7-8.2); BASOPHILS % (AUTO) 1.2 % (0-2); EOSINOPHILS % (AUTO) 2.3 % (0-6); HEMATOCRIT 38.4 % (36.0-47.0); HEMOGLOBIN 12.8 g/dL (12.0-15.5); LYMPHOCYTES % (AUTO) 42.5 % (13-45); MEAN CORPUSCULAR HEMOGLOBIN 30.5 pg (27.0-33.4); MEAN CORPUSCULAR HGB CONC 33.4 g/dL (32.0-36.0); MEAN CORPUSCULAR VOLUME 91 fl (80-97); MONOCYTES % (AUTO) 11.4 % (3-13); PLATELET COUNT 176 10^3/uL (150-450); RED CELL DISTRIBUTION WIDTH 13.9 % (11.5-14.0); SEGMENTED NEUTROPHILS % (AUTO) 42.6 % (42-78); TOTAL CELLS COUNTED % (AUTO) 100 %; WHITE BLOOD COUNT 7.2 10^3/uL (4.0-10.5)
[2018-10-30] MEDS: DILTIAZEM HCL 90 MG TABLET PO SCH ×3 (10:41→21:55)
[2018-10-30] MEDS: PROMETHAZINE HCL INJ 25 MG/1 ML VIAL IV PRN (10:58)
[2018-10-30] MEDS: DOCUSATE SODIUM 100 MG CAPSULE PO SCH ×2 (10:59→17:16)
[2018-10-30] MEDS: RIVAROXABAN 10 MG TABLET PO SCH (10:59)
[2018-10-30] MEDS: FUROSEMIDE 80 MG TABLET PO SCH ×2 (11:00→17:16)
[2018-10-30] MEDS: OXYCODONE-ACETAMINOPHEN 5-325 MG TABLET PO PRN (11:00)
[2018-10-30] MEDS: FAMOTIDINE 20 MG TABLET PO SCH ×2 (11:00→21:55)
[2018-10-30] MEDS: ASPIRIN 81 MG TABLET, CHEWABLE PO SCH (11:00)
[2018-10-30] MEDS: SOTALOL HCL 80 MG TABLET PO SCH ×2 (11:02→21:55)
[2018-10-30] MEDS: LOSARTAN POTASSIUM 25 MG TABLET PO SCH (11:03)
--- NOTE | 2018-10-30 12:50 | PDOC PROGRESS REPORT ---
Subjective Progress Note for:: 10/30/18 Subjective:: 73 year old female past medical history of hypertension, diastolic heart failure, CAD (per patient she was told that she had a heart attack has had several LHC had been reported as negative), paroxysmal A. fib(on Cardizem, sotalol which was a started at [place] last year by a owner spa director other than her current owner spa director Dr. Huertas.), KESHAWN on CPAP. Patient reported to ED after complaining of shortness of breath, chest pain, dizziness while at the preop to schedule outpatient cholecystectomy. Patient reported the symptoms to the staff and her surgery was canceled and patient was brought to ED. She is stating that she has been feeling lightheaded, on and off sharp chest pain, nonradiating, 3/10, mid chest, worse with exertion and better with rest. Denies any fever, nausea, chills, abdominal pain, diarrhea, weight changes, constipation, urinary symptoms controlled weakness, tingling. On Cardizem in ED troponins were negative, NT BNP 102, chest x-ray cardiomegaly without any acute abnormalities. EKG showed sinus bradycardia. 10/28/2018. No acute events overnight. Chest pain has resolved. Lightheadedness is improved. Denies any fever, chills, nausea, vomiting, diarrhea, constipation or any urinary symptoms. 10/29/2018. No acute events overnight. Patient denies any chest pain, lightheadedness has resolved. However patient was seen to have heart rate of 140s and for sotalol dosages were held. Denies any fever, chills, nausea, vo miting, diarrhea, constipation or any urinary symptoms. Ambulatory with front wheel walker which is her baseline, p.o. tolerant, having normal bowel and bladder movements. Stress test scheduled for tomorrow. 10/30/2018-patient went to stress test this morning came back little while ago in the chair complaining of not feeling well complaining of lightheadedness dizziness chest discomfort. She does not feel like going home today. No other complaints. Waiting for the stress test report. No acute events in the last 24 hours. Heart rate at this morning is 66. Reason For Visit: CHEST PAIN Physical Exam Vital Signs: Temp Pulse Resp BP Pulse Ox 98.3 F 67 18 142/78 H 95 10/30/18 08:06 10/30/18 08:06 10/30/18 08:06 10/30/18 08:06 10/30/18 08:06 Intake & Output 10/29/18 10/30/18 10/31/18 06:59 06:59 06:59 Intake Total 1300 1860 Balance 1300 1860 Weight 96.7 kg 96.7 kg General appearance: PRESENT: no acute distress Head exam: PRESENT: atraumatic Eye exam: PRESENT: PERRLA Mouth exam: PRESENT: moist, tongue midline Neck exam: ABSENT: carotid bruit, JVD, lymphadenopathy, thyromegaly Respiratory exam: PRESENT: clear to auscultation kayleigh. ABSENT: rales, rhonchi, wheezes Cardiovascular exam: PRESENT: RRR. ABSENT: diastolic murmur, rubs, systolic murmur GI/Abdominal exam: PRESENT: normal bowel sounds, soft. ABSENT: distended, guarding, mass, organolmegaly, rebound, tenderness Rectal exam: PRESENT: deferred Extremities exam: PRESENT: full ROM. ABSENT: calf tenderness, clubbing, pedal edema Neurological exam: PRESENT: alert, awake, oriented to person, oriented to place, oriented to time, oriented to situation, CN II-XII grossly intact. ABSENT: motor sensory deficit Psychiatric exam: PRESENT: appropriate affect, normal mood. ABSENT: homicidal ideation, suicidal ideation Results Laboratory Results: 10/30/18 03:54 10/27/18 14:35 10/30/18 10/30/18 03:54 03:54 WBC 7.2 RBC 4.20 Hgb 12.8 Hct 38.4 MCV 91 MCH 30.5 MCHC 33.4 RDW 13.9 Plt Count 176 Seg Neutrophils % 42.6 Lymphocytes % 42.5 Monocytes % 11.4 Eosinophils % 2.3 Basophils % 1.2 Absolute Neutrophils 3.1 Absolute Lymphocytes 3.1 Absolute Monocytes 0.8 Absolute Eosinophils 0.2 Absolute Basophils 0.1 Magnesium 1.8 10/27/18 10/27/18 10/27/18 14:35 14:35 19:15 Troponin I < 0.012 < 0.012 NT-Pro-B Natriuret Pep 102 10/28/18 01:11 Troponin I < 0.012 NT-Pro-B Natriuret Pep Impressions: Chest X-Ray 10/27/18 14:22 IMPRESSION: Cardiomegaly without acute abnormality of the lungs. Assessment and Plan - Diagnosis (1) Chest pain Qualifiers: Chest pain type: unspecified Qualified Code(s): R07.9 - Chest pain, unspecified Is this a current diagnosis for this admission?: No Plan: Resolved. No acute EKG changes except for bradycardia. Troponins < 0.0123. Continue antiplatelets, beta-blockers, LUIS and statins. Stress test tomorrow. N.p.o. after midnight. 10/30/[id number]-buxz-old female came in with chest pains cardiac enzymes are negative. Presently on beta-blockers, LUIS inhibitors, statins and also on Xarelto. (2) Bradycardia Is this a current diagnosis for this admission?: Yes Plan: Improving. Heart rate 5066. Patient's owner spa director Dr. Huertas. Needs to be contacted Tuesday for advice about sotalol dosage. Continue telemetry, sotalol 40 mg twice daily, decrease Cardizem to 40 p.o. 3 times daily. Note: She is complaining of chronic dizziness which is worsened recently. ED she was found to be in bradycardia. Monitor on my observation patient's heart ranging from 45-50 which could be the reason for her lightheadedness. Patient does state that she was started on sotalol last year by another owner spa director at [place] and Dr. Huertas her owner spa director is aware of it. Continue telemetry, will decrease sotalol from 80 twice daily to 40 twice daily. Contact her owner spa director to see if we could either DC or decrease dose of sotalol. 11/09/2018-patient heart rate today 64 complaining of dizziness lightheadedness today. Plan sotalol 40 mg p.o. twice daily. Plan is to continue the present management. (3) PAF (paroxysmal atrial fibrillation) Is this a current diagnosis for this admission?: No Plan: Rate controlled. Heart rate 5266. Continue Cardizem 30 g p.o. 3 times daily, sotalol 40 mg p.o. twice daily. Continue Xarelto. 11/09/2018-patient has history of paroxysmal atrial fibrillation on Xarelto presently on sotalol 40 mg twice a day heart rate 64 rate controlled. Plan is to continue to closely monitor the heart rate and adjust medications appropriately. (4) Morbid obesity with BMI of 40.0-44.9, adult Is this a current diagnosis for this admission?: Yes Plan: Lifestyle modification advised. 10/30/2018-patient's BMI is more than 35 diet exercise weight loss lifestyle modifications are discussed with the patient. - Time Time Spent with patient: 15-24 minutes Smoking Cessation Education: over 10 minutes Medications reviewed and adjusted accordingly: Yes Anticipated discharge: Home
--- NOTE | 2018-10-30 14:44 | Progress Note ---
Provider Note Provider Note: 10/30/2018-patient BMI is more than 35 diet exercise weight loss lifestyle modifications are discussed with the patient.
[2018-10-30] MEDS ORDERED: REGADENOSON INJ 0.4 MG/5 ML DISP.SYRIN IV ONE (15:30)
[2018-10-30] MEDS: ASCORBIC ACID 500 MG TABLET PO SCH (17:16)
[2018-10-30] MEDS: CALCIUM CARBONATE 500 MG TABLET PO SCH (17:16)
[2018-10-30] MEDS: ATORVASTATIN CALCIUM 40 MG TABLET PO SCH (21:55)
--- NOTE | 2018-10-30 23:29 | DRAGON STRESS TEST REPORT ---
Intravenous Lexiscan Cardiolite stress test using single photon emmision computerized tomography. Date of procedure: 10/30/2018. Ordering Provider: . Patient's status: In Patient. Indication: Chest pain. Coronary risk factors: Age, hypertension, and dyslipidemia. Resting EKG: Sinus Rhythm. Nonspecific T changes diffusely. Stress EKG: No changes of ischemia. The patient had no chest pain or discomfort, and there were no arrhythmias seen. Reason for termination: Protocol. Conclusions: Normal EKG and hemodynamic response to IV Lexiscan. Nuclear data: At rest the patient was given 10.91 millicuries of technetium 99m sestamibi injected intravenously. As per protocol rest gated SPECT images were obtained. Subsequently the patient was given intravenous Lexiscan at a dose of 0.4 mg in 5 mL intravenously, followed by flush with normal saline. Subsequently the stress dose of 31.8 millicuries of technetium 99m sestamibi was injected intravenously. As per protocol stress gated images were obtained. Nuclear interpretation: Review of images showed that all segments of the myocardium had normal perfusion at rest, and normal perfusion post stress with IV Lexiscan. All segments of the myocardium had normal motion, contraction, and thickening by gated study. T. I D. ratio was normal at 0.85. There is no transient ischemic dilatation of the left ventricle. Computer read rest, and stress left ventricular ejection fraction were 68 %, and 70 %, respectively. Conclusion: 1. There is no scintigraphic evidence of Lexiscan induced myocardial ischemia. 2. There is no scintigraphic evidence of myocardial infarction/scar. Recommendations: Aggressive risk factor modification, and treating the underlying co- morbidities. MTDD
[2018-10-31] MEDS: DILTIAZEM HCL 90 MG TABLET PO SCH (05:41)
[2018-10-31 05:52] LABS: ABSOLUTE BASOPHILS # (AUTO) 0.1 10^3/uL (0.0-0.2); ABSOLUTE EOSINOPHILS # (AUTO) 0.2 10^3/uL (0.0-0.6); ABSOLUTE LYMPHOCYTES (AUTO) 3.5 10^3/uL (0.5-4.7); ABSOLUTE MONOCYTES (AUTO) 0.8 10^3/uL (0.1-1.4); ABSOLUTE NEUT (AUTO) 3.3 10^3/uL (1.7-8.2); BASOPHILS % (AUTO) 0.9 % (0-2); EOSINOPHILS % (AUTO) 2.6 % (0-6); HEMATOCRIT 38.6 % (36.0-47.0); HEMOGLOBIN 12.8 g/dL (12.0-15.5); LYMPHOCYTES % (AUTO) 45.2 % (13-45); MEAN CORPUSCULAR HEMOGLOBIN 30.2 pg (27.0-33.4); MEAN CORPUSCULAR HGB CONC 33.1 g/dL (32.0-36.0); MEAN CORPUSCULAR VOLUME 91 fl (80-97); MONOCYTES % (AUTO) 9.7 % (3-13); PLATELET COUNT 163 10^3/uL (150-450); RED BLOOD COUNT 4.23 10^6/uL (3.72-5.28); RED CELL DISTRIBUTION WIDTH 13.7 % (11.5-14.0); SEGMENTED NEUTROPHILS % (AUTO) 41.6 % (42-78); TOTAL CELLS COUNTED % (AUTO) 100 %; WHITE BLOOD COUNT 7.9 10^3/uL (4.0-10.5)
[2018-10-31 06:31] LABS: ALANINE AMINOTRANSFERASE 36 U/L (9-52); ALBUMIN 3.6 g/dL (3.5-5.0); ALKALINE PHOSPHATASE 70 U/L (38-126); ANION GAP 12 (5-19); ASPARTATE AMINO TRANSFERASE 32 U/L (14-36); BILIRUBIN,DIRECT 0.3 mg/dL (0.0-0.4); BILIRUBIN,TOTAL 0.3 mg/dL (0.2-1.3); BLOOD UREA NITROGEN 16 mg/dL (7-20); CARBON DIOXIDE 25 mmol/L (22-30); CHLORIDE 105 mmol/L (98-107); GLUCOSE 164 mg/dL (75-110); POTASSIUM 3.9 mmol/L (3.6-5.0); SODIUM 141.8 mmol/L (137-145); TOTAL PROTEIN 6.5 g/dL (6.3-8.2)
[2018-10-31] MEDS ORDERED: (PENDING PHARMACY ID) (Omega-3/Dha/Epa/Fish Oil [Fish Oil 1,000 Mg Softgel] 1 CAP) PO SCH (10:00)
[2018-10-31] MEDS ORDERED: POTASSIUM CHLORIDE 10 MEQ CAPSULE.ER PO SCH (10:00)
[2018-10-31] MEDS ORDERED: OMEGA-3 ACID ETHYL ESTERS 1 GM CAPSULE PO SCH (10:00)
[2018-10-31] MEDS ORDERED: (PENDING PHARMACY ID) (Potassium Chloride [Klor-Con M10] 10 MEQ) PO SCH (10:00)
[2018-10-31] MEDS: ASCORBIC ACID 500 MG TABLET PO SCH (10:19)
[2018-10-31] MEDS: FAMOTIDINE 20 MG TABLET PO SCH (10:19)
[2018-10-31] MEDS: ASPIRIN 81 MG TABLET, CHEWABLE PO SCH (10:19)
[2018-10-31] MEDS: DOCUSATE SODIUM 100 MG CAPSULE PO SCH (10:20)
[2018-10-31] MEDS: FUROSEMIDE 80 MG TABLET PO SCH (10:20)
[2018-10-31] MEDS: CALCIUM CARBONATE 500 MG TABLET PO SCH (10:20)
[2018-10-31] MEDS: RIVAROXABAN 10 MG TABLET PO SCH ×2 (10:21→10:29)
[2018-10-31] MEDS: SOTALOL HCL 80 MG TABLET PO SCH (10:23)
[2018-10-31] MEDS: LOSARTAN POTASSIUM 25 MG TABLET PO SCH (10:24)
[2018-10-31 10:50] VITALS: BP 108/50
--- NOTE | 2018-11-01 17:53 | PDOC DISCHARGE SUMMARY ---
General - Admit/Disc Date/PCP Admission Date/Primary Care Provider: 10/27/18 16:19 STEPHANIE BARAHONA MD Discharge Date: 10/31/18 - Discharge Diagnosis (1) Chest pain Is this a current diagnosis for this admission?: No (2) Bradycardia Is this a current diagnosis for this admission?: Yes (3) PAF (paroxysmal atrial fibrillation) Is this a current diagnosis for this admission?: No (4) Diastolic CHF Is this a current diagnosis for this admission?: No (5) HLD (hyperlipidemia) Is this a current diagnosis for this admission?: Yes (6) Morbid obesity with BMI of 40.0-44.9, adult Is this a current diagnosis for this admission?: Yes (7) KESHAWN (obstructive sleep apnea) Is this a current diagnosis for this admission?: No - Additional Information Discharge Diet: Cardiac Discharge Activity: Activity As Tolerated, Balance Activity w/Rest Prescriptions: Furosemide [Lasix 80 mg Tablet] 40 mg PO DAILY 4 Days #8 tablet Sotalol HCl [Betapace 80 mg Tablet] 40 mg PO Q12 4 Days #8 tablet Home Medications: Albuterol Sulfate [Proair HFA Inhalation Aerosol 8.5 gm MDI] 1 puff IH Q4HP PRN 10/27/18 Ascorbic Acid [Vitamin C 500 mg Tablet] 500 mg PO BID 10/27/18 Calcium Carbonate [Calcium] 500 mg PO BID 10/27/18 Cyanocobalamin (Vitamin B-12) [Vitamin B12] 2,500 mcg PO BID 10/27/18 Ibuprofen [Motrin 800 mg Tablet] 800 mg PO BIDP PRN 10/27/18 Losartan Potassium [Cozaar 50 mg Tablet] 50 mg PO BID 10/27/18 Nitroglycerin [Nitrostat 0.4 mg (1/150 Gr) Tabs 25/Bottle] 0.4 mg SL Q5MP PRN 10/27/18 Emeigh-3/Dha/Epa/Fish Oil [Fish Oil 1,000 mg Softgel] 1 cap PO DAILY 10/27/18 Omeprazole 20 mg PO DAILY 10/27/18 Potassium Chloride [Klor-Con M10] 10 meq PO DAILY 10/27/18 Promethazine HCl [Phenergan 25 mg Tablet] 25 mg PO Q6HP PRN 10/27/18 Rivaroxaban [Xarelto] 20 mg PO DAILY 10/27/18 Furosemide [Lasix 80 mg Tablet] 40 mg PO DAILY 4 Days #8 tablet 10/31/18 Sotalol HCl [Betapace 80 mg Tablet] 40 mg PO Q12 4 Days #8 tablet 10/31/18 History of Present Illness History of Present Illness: GERARDO WILLIAMSON is a 73 year old female past medical history of hypertension, diastolic heart failure, CAD (per patient she was told that she had a heart attack has had several LHC had been reported as negative), paroxysmal A. fib(on Cardizem, sotalol which was a started at [place] last year by a death surveys coder other than her current death surveys coder Dr. Huertas.), KESHAWN on CPAP. Patient reported to ED after complaining of shortness of breath, chest pain, dizziness while at the preop to schedule outpatient laparoscopic cholecystectomy. Patient reported the symptoms to the staff and her surgery was canceled and patient was brought to ED. She is stating that she has been feeling lightheaded, on and off sharp chest pain, nonradiating, 3/10, mid chest, worse with exertion and better with rest. Denies any fever, nausea, chills, abdominal pain, diarrhea, weight changes, constipation, urinary symptoms controlled weakness, tingling. On Cardizem in ED troponins were negative, NT BNP 102, chest x-ray cardiomegaly without any acute abnormalities. EKG showed sinus bradycardia. Hospital Course Hospital Course: (1) Chest pain Resolved. No anginal symptoms during hospitalization or before discharge. No acute EKG changes except for bradycardia. Troponins < 0.0123. Continue antiplatelets, beta-blockers, LUIS and statins. 10/30/2018. Nuclear stress test read as normal perfusion at rest, and normal perfusion post stress test with IV Lexiscan. Ejection fraction 68 and 70% respectively. (2) Bradycardia Resolved. >50s. This was most likely a combination of sotalol and Cardizem. She was admitted to telemetry, her sotalol was decreased to sotalol 40 mg twice daily, decrease Cardizem to 40 p.o. 3 times daily. I personally contacted Dr. Huertas her death surveys coder on 10/30/2018 who stated that patient is not supposed to be on Cardizem. She should be on nifedipine and sotalol. He agreed on your inhaler sotalol to 40 mg and advised me to discharge patient on sotalol 40 mg twice daily and hold her nifedipine and asked the patient to stop by his office and see him on Tuesday morning on 11/01/2018. No appointment needed. Note: On review of her records based on her discharge summary from 04/03/2018 she was discharged on sotalol 80 mg p.o. twice daily and Cardizem CD 120 mg p.o. daily. (3) PAF (paroxysmal atrial fibrillation) Rate controlled. Heart rate 50s. Continued Xarelto. As above. (4) Diastolic CHF Cardiac diet, diuretics, beta-blockers, LUIS. Does not seem to be exacerbated. (5) HLD (hyperlipidemia) Start home meds. (6) Morbid obesity with BMI of 40.0-44.9, adult Lifestyle modification advised. (7) KESHAWN (obstructive sleep apnea) Nocturnal CPAP. Weight loss recommended. Physical Exam Vital Signs: Temp Pulse Resp BP Pulse Ox 98.5 F 65 16 108/50 L 95 10/31/18 10:44 10/31/18 10:44 10/31/18 10:44 10/31/18 10:44 10/31/18 10:44 Intake & Output 10/31/18 11/01/18 11/02/18 06:59 06:59 06:59 Intake Total 798 Output Total 300 Balance 498 Weight 98.6 kg General appearance: PRESENT: no acute distress, obese, well-developed, well- nourished Head exam: PRESENT: atraumatic, normocephalic Respiratory exam: PRESENT: clear to auscultation kayleigh. ABSENT: rales, rhonchi, wheezes Cardiovascular exam: PRESENT: irregular rhythm. ABSENT: diastolic murmur, rubs, systolic murmur GI/Abdominal exam: PRESENT: normal bowel sounds, soft. ABSENT: distended, guarding, mass, organolmegaly, rebound, tenderness Extremities exam: PRESENT: full ROM. ABSENT: calf tenderness, clubbing, pedal edema Neurological exam: PRESENT: alert, awake, oriented to person, oriented to place, oriented to time, oriented to situation, CN II-XII grossly intact. ABSENT: motor sensory deficit Results Laboratory Results: 10/31/18 04:25 10/31/18 04:25 10/27/18 10/27/18 10/27/18 14:35 14:35 19:15 Troponin I < 0.012 < 0.012 NT-Pro-B Natriuret Pep 102 10/28/18 01:11 Troponin I < 0.012 NT-Pro-B Natriuret Pep Impressions: Chest X-Ray 10/27/18 14:22 IMPRESSION: Cardiomegaly without acute abnormality of the lungs. Qualifiers - * PATIENT BEING DISCHARGED WITH ANY OF THE FOLLOWING DIAGNOSIS: No Acute Heart Failure - Is this a Heart Failure Patient?: No LVEF < 40%?: No- if no continue to question #3
== END 2018-10-31 11:35 | disposition home or self-care (01) ==
LOC: ER 14:19 → EH 16:19 → 4N 20:55
PROVIDERS: ADMIT Internal Medicine; ATTEND Internal Medicine
DX: R07.89 Other chest pain (principal); R00.1 Bradycardia, unspecified; I48.0 Paroxysmal atrial fibrillation; I50.32 Chronic diastolic (congestive) heart failure; I11.0 Hypertensive heart disease with heart failure; E78.5 Hyperlipidemia, unspecified; E66.01 Morbid (severe) obesity due to excess calories; G47.33 Obstructive sleep apnea (adult) (pediatric); I25.2 Old myocardial infarction; I25.10 Atherosclerotic heart disease of native coronary artery without angina pectoris; R11.0 Nausea; Z68.41 Body mass index [BMI] 40.0-44.9, adult; Z79.899 Other long term (current) drug therapy; Z82.49 Family history of ischemic heart disease and other diseases of the circulatory system; Z79.02 Long term (current) use of antithrombotics/antiplatelets; Z86.14 Personal history of Methicillin resistant Staphylococcus aureus infection; Z87.19 Personal history of other diseases of the digestive system
CPT/HCPCS: 93005; 99285; 96374; 36415 ×5; 83735 ×4; 85025 ×5; 80053 ×2; 84484 ×2; 84481; 80061; 83880; 93017; 71045; 78452; 93010; 94660 ×3; G0378 ×6; A9500; J2785; A9270 ×45; J2550 ×2; J2405; Q9969; J3490; S0119

== ENCOUNTER → 2018-10-27 | Day surgery (SDC) | payer MEDICARE ==
[2018-10-23 10:12] LABS: HEMATOCRIT 37.8 % (36.0-47.0); HEMOGLOBIN 12.4 g/dL (12.0-15.5); MEAN CORPUSCULAR HEMOGLOBIN 29.8 pg (27.0-33.4); MEAN CORPUSCULAR HGB CONC 32.7 g/dL (32.0-36.0); MEAN CORPUSCULAR VOLUME 91 fl (80-97); PLATELET COUNT 207 10^3/uL (150-450); RED BLOOD COUNT 4.15 10^6/uL (3.72-5.28); RED CELL DISTRIBUTION WIDTH 13.9 % (11.5-14.0); WHITE BLOOD COUNT 7.4 10^3/uL (4.0-10.5)
[2018-10-23 10:32] LABS: ALANINE AMINOTRANSFERASE 34 U/L (9-52); ALBUMIN 3.8 g/dL (3.5-5.0); ALKALINE PHOSPHATASE 84 U/L (38-126); ANION GAP 9 (5-19); ASPARTATE AMINO TRANSFERASE 29 U/L (14-36); BILIRUBIN,DIRECT 0.2 mg/dL (0.0-0.4); BILIRUBIN,TOTAL 0.3 mg/dL (0.2-1.3); BLOOD UREA NITROGEN 13 mg/dL (7-20); CALCIUM 9.6 mg/dL (8.4-10.2); CARBON DIOXIDE 29 mmol/L (22-30); CHLORIDE 105 mmol/L (98-107); GLUCOSE 201 mg/dL (75-110); POTASSIUM 4.2 mmol/L (3.6-5.0); SODIUM 142.7 mmol/L (137-145); TOTAL PROTEIN 6.7 g/dL (6.3-8.2)
--- NOTE | 2018-10-23 11:37 | RADIOLOGY REPORT (SQ) ---
EXAM DESCRIPTION: CHEST PA/LATERAL COMPLETED DATE/TIME: 10/23/2018 11:23 am REASON FOR STUDY: PRE-OP COMPARISON: 04/01/2018 EXAM PARAMETERS: NUMBER OF VIEWS: two views TECHNIQUE: Digital Frontal and Lateral radiographic views of the chest acquired. RADIATION DOSE: NA LIMITATIONS: none FINDINGS: LUNGS AND PLEURA: No opacities, masses or pneumothorax. No pleural effusion. MEDIASTINUM AND HILAR STRUCTURES: No masses or contour abnormalities. HEART AND VASCULAR STRUCTURES: Stable appearance. No evidence for failure. BONES: No acute findings. HARDWARE: None in the chest. OTHER: No other significant finding. IMPRESSION: 1. No significant interval changes since the prior study dated 04/01/2018. No acute fi ndings. TECHNICAL DOCUMENTATION: JOB ID: [id number] [employer]- All Rights Reserved Reading location - IP/workstation name: [email or web address]
--- NOTE | 2018-10-23 13:00 | EKG REPORT ---
SEVERITY:- ABNORMAL ECG - SINUS BRADYCARDIA LEFT VENTRICULAR HYPERTROPHY : Confirmed by: Chavo Collins MD 23-Oct-2018 13:00:09
[~2018-10-27] MED LIST changes: +BUPIVACAINE HCL 0.25 % INJ/PF (2.5 MG/1 ML) 30 ML VIAL ONE; +CEFOXITIN SODIUM 2 GM in DEXTROSE 5%-WATER 100 ML IV PRN; -CHONDR SU A NA/HYALUR INTRAOC KIT (SURGICARE) ONE; -EPINEPHRINE INJ/PF 1 MG/1 ML AMPULE ONE; +IBUPROFEN 800 MG in NORMAL SALINE 250 ML IV PRN; -KETOROLAC TROMETHAMINE 0.45% 4 DROP/0.4 ML DROPERETTE OD PRN; +LACTATED RINGERS 1000 ML IV PRN; +LIDOCAINE 0.5% INJ-PF (5 MG/ML) 50 ML SDV SUBCUT PRN; -LIDOCAINE 1% INJ-PF (10 MG/ML) 30 ML SDV ONE; +MECLIZINE HCL 25 MG TABLET PO PRN; +PREGABALIN 50 MG CAPSULE PO PRN
[2018-10-27 13:44] VITALS: BP 158/80
[2018-10-27 14:11] LABS: INTERNATIONAL RATION (INR) 1.43; PROTHROMBIN TIME 18.2 SEC (11.4-15.4)
[2018-10-27 14:48] LABS: PARTIAL THROMBOPLASTIN TIME 37.8 SEC (23.5-35.8)
== END ==
LOC: OROUT 13:01
PROVIDERS: ATTEND Surgery
DX: K80.20 Calculus of gallbladder without cholecystitis without obstruction (principal); Z01.818 Encounter for other preprocedural examination; I63.9 Cerebral infarction, unspecified; I21.9 Acute myocardial infarction, unspecified; G47.30 Sleep apnea, unspecified; I48.91 Unspecified atrial fibrillation; R73.03 Prediabetes; I82.409 Acute embolism and thrombosis of unspecified deep veins of unspecified lower extremity; I10 Essential (primary) hypertension; E01.1 Iodine-deficiency related multinodular (endemic) goiter
CPT/HCPCS: 93005; 36415 ×2; 84132; 85027; 85610; 85730; 80053; 71046; 93010; J0694; J7060; J1741; J7050

== ENCOUNTER 2018-11-12 08:37 | Emergency (ER) | payer MEDICARE ==
--- NOTE | 2018-11-12 09:16 | ER Document Report ---
ED General - General Chief Complaint: Shortness Of Breath Stated Complaint: RESPIRATORY DISTRESS Time Seen by Provider: 11/12/18 08:46 Primary Care Provider: SETPHANIE BARAHONA MD [Primary Care Provider] - Follow up as needed Notes: 73-year-old female that presents today stating the onset around 3 days ago runny nose, congestion, cough, low-grade fevers of 99.4, nausea without vomiting, diarrhea x3. She states yesterday some chest pain with coughing. She denies any calf pain or leg swelling. Patient has an albuterol inhaler at home but denies any COPD or asthma. She denies a long history of smoking. Patient does have a history of atrial fibrillation and is followed by the manager talent Dr. Huertas. Patient has been taking Xarelto for the last 2 years as well as sotalol. Patient was recently discharged here Tuesday of last week. She came in on the for gallbladder surgery was found to have a low heart rate. Patient currently denies any and all abdominal pain. TRAVEL OUTSIDE OF THE [place] IN LAST 30 DAYS: No - Related Data Allergies/Adverse Reactions: No Known Allergies Allergy (Verified 10/27/18 13:14) Past Medical History - Social History Smoking Status: Never Smoker Family History: Hypertension - Past Medical History Cardiac Medical History: Reports: Hx Atrial Fibrillation, Hx Congestive Heart Failure - Diastolic, Hx Heart Attack, Hx Hypercholesterolemia, Hx Hypertension Denies: Hx Coronary Artery Disease, Hx DVT, Hx Pulmonary Embolism Pulmonary Medical History: Reports: Hx Bronchitis, Hx Sleep Apnea - Has has home machine; uncertain settings. No home oxygen. Denies: Hx Asthma, Hx COPD, Hx Pneumonia Neurological Medical History: Reports: Hx Cerebrovascular Accident - 1984, NO LASTING DEFICITS. Denies: Hx Seizures Endocrine Medical History: Denies: Hx Diabetes Mellitus Type 1, Hx Diabetes Fidelina itus Type 2, Hx Hyperthyroidism, Hx Hypothyroidism Renal/ Medical History: Denies: Hx Peritoneal Dialysis GI Medical History: Reports: Hx Gastroesophageal Reflux Disease. Denies: Hx Cirrhosis, Hx Hepatitis, Hx Hiatal Hernia. Comment Only: Hx Ulcer - DIVERTICULITIS Musculoskeletal Medical History: Denies Hx Arthritis, Denies Hx Multiple Sclerosis Psychiatric Medical History: Denies: Hx Depression Infectious Medical History: Denies: Hx Hepatitis, Hx MRSA, Hx VRE Past Surgical History: Reports: Hx Abdominal Surgery - hernia repair, Hx Cardiac Catheterization - x3, Hx Hysterectomy, Hx Tonsillectomy. Denies: Hx Mastectomy, Hx Open Heart Surgery, Hx Pacemaker - Immunizations Immunizations up to date: Yes Hx Diphtheria, Pertussis, Tetanus Vaccination: Yes Review of Systems - Review of Systems Constitutional: denies: Fever EENT: Nose congestion, Nose discharge. denies: Eye discharge Cardiovascular: denies: Dyspnea, Dizziness, Lightheaded Respiratory: denies: Short of breath Gastrointestinal: denies: Vomiting Genitourinary: denies: Dysuria Musculoskeletal: denies: Leg swelling Skin: Other - no hives. denies: Rash Neurological/Psychological: Other - no slurred speech -: Yes All other systems reviewed and negative Physical Exam - Vital signs Vitals: Temp 98.2 F 11/12/18 08:50 Notes: Reviewed vital signs and nursing note as charted by RN. CONSTITUTIONAL: Alert and oriented and responds appropriately to questions. Well-appearing; well-nourished HEAD: Normocephalic; atraumatic EYES: PERRL; Conjunctivae clear, sclerae non-icteric ENT: Normal nose; bilateral nonpurulent nasal rhinorrhea; moist mucous membranes; pharynx without lesions noted NECK: Supple without meningismus; non-tender; no cervical lymphadenopathy, no masses CARD: Irregularly irregular with a heart rate around 65; no murmurs; symmetric distal pulses RESP: Normal chest excursion without splinting or tachypnea; breath sounds clear and equal bilaterally; very scant minimal bilateral end expiratory wheezing with no rhonchi or rales present ABD/GI: Normal bowel sounds; non-distended; soft, non-tender; no palpable organomegaly or masses BACK: The back appears normal and is non-tender to palpation EXT: Normal ROM in all joints; non-tender to palpation; no edema SKIN: No acute lesions noted NEURO: CN 2-12 intact; 5/5 bilateral upper and lower extremity strength with sensation intact to light touch PSYCH: The patient's mood and manner are appropriate. Grooming and personal hygiene are appropriate. Course - Re-evaluation Re-evalutation: 11/12/18 09:16 Given the history and physical examination, with runny nose, congestion, coughing, with much relief with the Solu-Medrol and duo nebulizer provided by EMS, I will obtain an x-ray of the chest, EKG, cardiac panel, BNP, and reassess. No calf pain or leg swelling. Patient has chest pain only with coughing. Room air oxygen saturation is currently 100%. Patient has been taking Xarelto. I do believe pulmonary embolism, dissection, ACS, all to be unlikely at this time. 11/12/18 09:25 EKG shows a heart of 61, normal sinus rhythm, normal axis, no ST elevation or depression. Flattening T waves in leads I, 2, 3, aVF, V6. Compared to the previous EKG on October 27 I see no appreciable change. 11/12/18 09:28 Reviewing the patient's previous charting it does appear that the patient was admitted on the . She had a stress test by the manager talent here that was unremarkable. Patient was bradycardic. Consulting with the patient's manager talent the patient was not supposed to be on sotalol and Cardizem. The Cardizem and nifedipine were held and the patient did follow-up with the manager talent. The sotalol was decreased. Heart rate as recorded here. 11/12/18 10:18 Labs and troponin as recorded. Normal BNP. Chest x-ray shows normal heart, normal mediastinum, no fractures, normal lung vo, no pneumothorax. Patient's breathing is still improved. Good oxygen saturation. No obvious pneumonia on x-ray. 11/12/18 10:26 Patient still has good oxygen saturation. She denies any pain. Very minimal scant wheezing. We will provide 1 more duo nebulizer. Patient has an albuterol inhaler at home. No history of diabetes. Patient did follow-up with the manager talent with a decrease in the sotalol. Given the above history, physical, x-ray, labs, BNP, troponin, EKG, Patient will be discharged home with strict return precautions and follow-up with the primary care physician with a short course of steroids and instructions regarding the albuterol inhaler. Patient is very comfortable with this plan. - Vital Signs Vital signs: Temp Pulse Resp BP Pulse Ox 98.2 F 21 H 130/75 H 93 11/12/18 08:50 11/12/18 10:01 11/12/18 10:00 11/12/18 10:01 - Laboratory Result Diagrams: 11/12/18 08:56 11/12/18 08:56 Laboratory results interpreted by me: 11/12/18 08:56 Glucose 151 H Discharge - Discharge Clinical Impression: Nasal congestion, Cough, Wheezing Condition: Good Disposition: HOME, SELF-CARE Additional Instructions: Come back immediately for any worsening cough, wheezing, chest pain, leg swelling, fever, or any other acute problems. Please take 2 puffs of the albuterol inhaler every 4 hours for the next 48 hours then every 6 hours as needed after that. Please complete the course of steroids we have prescribed. Please follow-up with the primary care physician as discussed. Prescriptions: Prednisone [Deltasone 20 mg Tablet] 3 tab PO DAILY 4 Days #12 tablet Referrals: STEPHANIE BARAHONA MD [Primary Care Provider] - Follow up as needed
--- NOTE | 2018-11-12 09:30 | EKG REPORT ---
SEVERITY:- ABNORMAL ECG - SINUS RHYTHM MULTIPLE ATRIAL PREMATURE COMPLEXES BORDERLINE T WAVE ABNORMALITIES : Confirmed by: Chandni Zavala MD 12-Nov-2018 09:29:03
[2018-11-12 09:40] LABS: ANION GAP 7 (5-19); BLOOD UREA NITROGEN 11 mg/dL (7-20); CALCIUM 9.2 mg/dL (8.4-10.2); CARBON DIOXIDE 29 mmol/L (22-30); CHLORIDE 107 mmol/L (98-107); GLUCOSE 151 mg/dL (75-110); POTASSIUM 3.6 mmol/L (3.6-5.0); SODIUM 142.6 mmol/L (137-145)
[2018-11-12 09:44] LABS: ABSOLUTE BASOPHILS # (AUTO) 0.1 10^3/uL (0.0-0.2); ABSOLUTE EOSINOPHILS # (AUTO) 0.4 10^3/uL (0.0-0.6); ABSOLUTE LYMPHOCYTES (AUTO) 2.7 10^3/uL (0.5-4.7); ABSOLUTE MONOCYTES (AUTO) 0.9 10^3/uL (0.1-1.4); ABSOLUTE NEUT (AUTO) 4.9 10^3/uL (1.7-8.2); BASOPHILS % (AUTO) 0.8 % (0-2); EOSINOPHILS % (AUTO) 4.1 % (0-6); HEMATOCRIT 36.1 % (36.0-47.0); LYMPHOCYTES % (AUTO) 29.9 % (13-45); MEAN CORPUSCULAR HEMOGLOBIN 29.9 pg (27.0-33.4); MEAN CORPUSCULAR HGB CONC 33.2 g/dL (32.0-36.0); MEAN CORPUSCULAR VOLUME 90 fl (80-97); MONOCYTES % (AUTO) 10.4 % (3-13); PLATELET COUNT 202 10^3/uL (150-450); RED BLOOD COUNT 4.01 10^6/uL (3.72-5.28); RED CELL DISTRIBUTION WIDTH 13.7 % (11.5-14.0); SEGMENTED NEUTROPHILS % (AUTO) 54.8 % (42-78); TOTAL CELLS COUNTED % (AUTO) 100 %; WHITE BLOOD COUNT 8.9 10^3/uL (4.0-10.5)
[2018-11-12 09:52] LABS: NT PRO BNP 308 pg/mL (5-900)
[2018-11-12 09:53] LABS: TROPONIN I < 0.012 ng/mL
--- NOTE | 2018-11-12 09:58 | RADIOLOGY REPORT (SQ) ---
EXAM DESCRIPTION: CHEST 2 VIEWS COMPLETED DATE/TIME: 11/12/2018 9:50 am REASON FOR STUDY: 21, cough and shortness of breath COMPARISON: 10/27/2018 EXAM PARAMETERS: NUMBER OF VIEWS: two views TECHNIQUE: Digital Frontal and Lateral radiographic views of the chest acquired. RADIATION DOSE: NA LIMITATIONS: none FINDINGS: LUNGS AND PLEURA: No opacities, masses or pneumothorax. No pleural effusion. MEDIASTINUM AND HILAR STRUCTURES: No masses or contour abnormalities. HEART AND VASCULAR STRUCTURES: Normal size heart. Marked aortic ectasia. BONES: No acute findings. HARDWARE: None in the chest. OTHER: No other significant finding. IMPRESSION: NO ACUTE RADIOGRAPHIC FINDING IN THE CHEST. TECHNICAL DOCUMENTATION: JOB ID: [id number] [employer]- All Rights Reserved Reading location - IP/workstation name: [email or web address]
[2018-11-12] MEDS ORDERED: IPRATROPIUM/ALBUTEROL 0.5-2.5 MG/3 ML AMPUL NEB SCH (10:45)
[2018-11-12] MEDS ORDERED: ALBUTEROL SULFATE HFA (90 MCG/PUFF) 8 GM MDI (1 MDI/ER DISP) IH PRN (10:45)
[2018-11-12 10:46] VITALS: BP 126/67
== END 2018-11-12 10:59 | disposition home or self-care (01) ==
LOC: ER 08:37
DX: R06.2 Wheezing (principal); R05 Cough; R09.81 Nasal congestion; I48.91 Unspecified atrial fibrillation; I50.9 Heart failure, unspecified; E78.00 Pure hypercholesterolemia, unspecified; I11.0 Hypertensive heart disease with heart failure; I25.2 Old myocardial infarction; Z90.710 Acquired absence of both cervix and uterus
CPT/HCPCS: 93005; 94640; 99285; 36415; 85025; 80048; 84484; 83880; 71046; 93010; J3490; A9270; J7620

== ENCOUNTER 2019-04-17 17:30 | Inpatient (IN) | payer MEDICARE, MEDICAID ==
--- NOTE | 2019-04-17 18:03 | ER Document Report ---
ED Medical Screen (RME) - General Chief Complaint: Chest Pain Stated Complaint: CHEST PAIN Time Seen by Provider: 04/17/19 18:00 Primary Care Provider: STEPHANIE BARAHONA MD [Primary Care Provider] - Follow up as needed Mode of Arrival: Wheelchair Information source: Patient Notes: Patient presents complaining of midsternal chest pain that radiates to bilateral arms and the neck that started yesterday. Patient does report nausea with cough and shortness of breath. Patient does report lightheadedness as well. Patient also reports that she lost her son 2 weeks ago. Patient does have a history of diabetes A. fib, hypertension CVA and AK. Patient is currently on Xarelto for A. fib. I have greeted and performed a rapid initial assessment of this patient. A c omprehensive ED assessment and evaluation of the patient, analysis of test results and completion of the medical decision making process will be conducted by additional ED providers. TRAVEL OUTSIDE OF THE [place] IN LAST 30 DAYS: No - Related Data Allergies/Adverse Reactions: No Known Allergies Allergy (Verified 10/27/18 13:14) Past Medical History - Social History Family history: Reviewed & Not Pertinent - Past Medical History Cardiac Medical History: Reports: Hx Atrial Fibrillation, Hx Congestive Heart Failure - Diastolic, Hx Heart Attack, Hx Hypercholesterolemia, Hx Hypertension Denies: Hx Coronary Artery Disease, Hx DVT, Hx Pulmonary Embolism Pulmonary Medical History: Reports: Hx Bronchitis, Hx Sleep Apnea - Has has home machine; uncertain settings. No home oxygen. Denies: Hx Asthma, Hx COPD, Hx Pneumonia Neurological Medical History: Reports: Hx Cerebrovascular Accident - 1984, NO LASTING DEFICITS. Denies: Hx Seizures, Hx Parkinson's Disease Endocrine Medical History: Denies: Hx Diabetes Mellitus Type 1, Hx Diabetes Mellitus Type 2, Hx Hyperthyroidism, Hx Hypothyroidism Renal/ Medical History: Denies: Hx Peritoneal Dialysis GI Medical History: Reports: Hx Gastroesophageal Reflux Disease. Denies: Hx Cirrhosis, Hx Hepatitis, Hx Hiatal Hernia. Comment Only: Hx Ulcer - D IVERTICULITIS Musculoskeltal Medical History: Denies Hx Arthritis, Denies Hx Multiple Sclerosis Psychiatric Medical History: Denies: Hx Depression Infectious Medical History: Denies: Hx Hepatitis, Hx MRSA, Hx VRE Past Surgical History: Reports: Hx Abdominal Surgery - hernia repair, Hx Cardiac Catheterization - x3, Hx Hysterectomy, Hx Tonsillectomy. Denies: Hx Mastectomy, Hx Open Heart Surgery, Hx Pacemaker - Immunizations Immunizations up to date: Yes Hx Diphtheria, Pertussis, Tetanus Vaccination: Yes Physical Exam - Respiratory Respiratory status: No respiratory distress Chest status: Tender Chest palpation: Tender - Cardiovascular Rhythm: Irregularly irregular Heart sounds: S1 appreciated, S2 appreciated Doctor's Discharge - Discharge Referrals: STEPHANIE BARAHONA MD [Primary Care Provider] - Follow up as needed
--- NOTE | 2019-04-17 18:57 | RADIOLOGY REPORT (SQ) ---
EXAM DESCRIPTION: CERV SP 4 OR 5 VIEWS COMPLETED DATE/TIME: 04/17/2019 6:26 pm REASON FOR STUDY: neck pain COMPARISON: None. NUMBER OF VIEWS: Five views. TECHNIQUE: AP, lateral, obliques and odontoid radiographic images acquired of the cervical spine. LIMITATIONS: None. FINDINGS: MINERALIZATION: Normal. ALIGNMENT: Anatomic. VERTEBRAE: Vertebral bodies of normal height. DISCS: There is disc narrowing at C5-6 and C6-7. FORAMINA: There is mild left foraminal narrowing at C5-6 and C6-7 secondary to uncovertebral osteophy hugo. LATERAL AND POSTERIOR ELEMENTS: Facets, lateral masses and spinous processes without significant find ings. HARDWARE: None in the spine. SOFT TISSUES: No masses or calcifications. Lung apices clear. OTHER: No other significant finding. IMPRESSION: Degenerative disc disease and spondylosis. TECHNICAL DOCUMENTATION: JOB ID: [id number] [employer]- All Rights Reserved Reading location - IP/workstation name: [email or web address]
--- NOTE | 2019-04-17 18:58 | RADIOLOGY REPORT (SQ) ---
EXAM DESCRIPTION: CHEST 2 VIEWS COMPLETED DATE/TIME: 04/17/2019 6:26 pm REASON FOR STUDY: cp COMPARISON: 11/12/2018 EXAM PARAMETERS: NUMBER OF VIEWS: two views TECHNIQUE: Digital Frontal and Lateral radiographic views of the chest acquired. RADIATION DOSE: NA LIMITATIONS: none FINDINGS: LUNGS AND PLEURA: No opacities, masses or pneumothorax. No pleural effusion. MEDIASTINUM AND HILAR STRUCTURES: No masses or contour abnormalities. HEART AND VASCULAR STRUCTURES: Heart size is borderline. No pulmonary edema. BONES: No acute findings. HARDWARE: None in the chest. OTHER: No other significant finding. IMPRESSION: Borderline cardiomegaly without pulmonary edema. TECHNICAL DOCUMENTATION: JOB ID: [id number] [employer]- All Rights Reserved Reading location - IP/workstation name: [email or web address]
[2019-04-17 19:00] LABS: ABSOLUTE BASOPHILS # (AUTO) 0.1 10^3/uL (0.0-0.2); ABSOLUTE EOSINOPHILS # (AUTO) 0.1 10^3/uL (0.0-0.6); ABSOLUTE LYMPHOCYTES (AUTO) 3.7 10^3/uL (0.5-4.7); ABSOLUTE MONOCYTES (AUTO) 0.6 10^3/uL (0.1-1.4); BASOPHILS % (AUTO) 1.2 % (0-2); EOSINOPHILS % (AUTO) 2.2 % (0-6); HEMATOCRIT 44.4 % (36.0-47.0); HEMOGLOBIN 14.5 g/dL (12.0-15.5); LYMPHOCYTES % (AUTO) 56.3 % (13-45); MEAN CORPUSCULAR HEMOGLOBIN 29.5 pg (27.0-33.4); MEAN CORPUSCULAR HGB CONC 32.7 g/dL (32.0-36.0); MEAN CORPUSCULAR VOLUME 90 fl (80-97); MONOCYTES % (AUTO) 9.6 % (3-13); PLATELET COUNT 250 10^3/uL (150-450); RED BLOOD COUNT 4.92 10^6/uL (3.72-5.28); RED CELL DISTRIBUTION WIDTH 14.5 % (11.5-14.0); SEGMENTED NEUTROPHILS % (AUTO) 30.7 % (42-78); TOTAL CELLS COUNTED % (AUTO) 100 %; WHITE BLOOD COUNT 6.5 10^3/uL (4.0-10.5)
[2019-04-17 19:14] LABS: ALBUMIN 3.9 g/dL (3.5-5.0); ALKALINE PHOSPHATASE 94 U/L (38-126); ANION GAP 8 (5-19); ASPARTATE AMINO TRANSFERASE 36 U/L (14-36); BILIRUBIN,DIRECT 0.1 mg/dL (0.0-0.4); BILIRUBIN,TOTAL 0.3 mg/dL (0.2-1.3); BLOOD UREA NITROGEN 17 mg/dL (7-20); CALCIUM 9.7 mg/dL (8.4-10.2); CARBON DIOXIDE 27 mmol/L (22-30); CHLORIDE 106 mmol/L (98-107); GLUCOSE 276 mg/dL (75-110); TOTAL PROTEIN 7.2 g/dL (6.3-8.2)
[2019-04-17 19:24] LABS: TROPONIN I 0.013 ng/mL
[2019-04-17] MEDS ORDERED: NORMAL SALINE 250 ML IV ONE (20:53)
--- NOTE | 2019-04-17 20:59 | ER Document Report ---
ED General - General Chief Complaint: Chest Pain Stated Complaint: CHEST PAIN Time Seen by Provider: 04/17/19 18:00 Primary Care Provider: STEPHANIE BARAHONA MD [Primary Care Provider] - Follow up as needed Mode of Arrival: Wheelchair Notes: 73 year old female presents to the ED complaining of midsternal chest pain radiating to her bilateral arms that worsens with exertion and improves with r est. Pain started yesterday. Its associated with lightheadedness and a fluttering feeling in her chest. Patient has a history of atrial fibrillation. Has not recently had any change in her medications. Patient also complains of nausea without vomiting. Patient does note that her son 2 weeks ago, she is been having trouble sleeping then since then and states she really has not slept. Patient had a heart attack in 1991, stroke in 1984, her last heart catheterization was in 2013 at [facility]. Primary care physician is Dr. 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 TRAVEL OUTSIDE OF THE [place] IN LAST 30 DAYS: No - Related Data Allergies/Adverse Reactions: No Known Allergies Allergy (Verified 10/27/18 13:14) Past Medical History - General Information source: Patient - Social History Smoking Status: Former Smoker Chew tobacco use (# tins/day): No Frequency of alcohol use: None Drug Abuse: None Family History: CAD - Father's first [place] was at 78, mother had her first heart attack at 72 and brother had his first attack at 69., Hypertension Patient has suicidal ideation: No Patient has homicidal ideation: No - Past Medical History Cardiac Medical History: Reports: Hx Atrial Fibrillation, Hx Congestive Heart Failure - Diastolic, Hx Heart Attack, Hx Hypercholesterolemia, Hx Hypertension Denies: Hx Coronary Artery Disease, Hx DVT, Hx Pulmonary Embolism Pulmonary Medical History: Reports: Hx Bronchitis, Hx Sleep Apnea - Has has home machine; uncertain settings. No home oxygen. Denies: Hx Asthma, Hx COPD, Hx Pneumonia Neurological Medical History: Reports: Hx Cerebrovascular Accident - 1984, NO LASTING DEFICITS. Denies: Hx Seizures, Hx Parkinson's Disease Endocrine Medical History: Denies: Hx Diabetes Mellitus Type 1, Hx Diabetes Mellitus Type 2, Hx Hyperthyroidism, Hx Hypothyroidism Renal/ Medical History: Denies: Hx Peritoneal Dialysis GI Medical History: Reports: Hx Gastroesophageal Reflux Disease. Denies: Hx Cirrhosis, Hx Hepatitis, Hx Hiatal Hernia. Comment Only: Hx Ulcer - DIVERTICULITIS Musculoskeletal Medical History: Denies Hx Arthritis, Denies Hx Multiple Sclerosis Psychiatric Medical History: Denies: Hx Depression Infectious Medical History: Denies: Hx Hepatitis, Hx MRSA, Hx VRE Past Surgical History: Reports: Hx Abdominal Surgery - hernia repair, Hx Cardiac Catheterization - x3, Hx Hysterectomy, Hx Tonsillectomy. Denies: Hx Mastectomy, Hx Open Heart Surgery, Hx Pacemaker - Immunizations Immunizations up to date: Yes Hx Diphtheria, Pertussis, Tetanus Vaccination: Yes Review of Systems - Review of Systems Constitutional: See HPI - Insomnia EENT: No symptoms reported Cardiovascular: See HPI Respiratory: No symptoms reported Gastrointestinal: See HPI Neurological/Psychological: See HPI - Insomnia and depression. -: Yes All other systems reviewed and negative Physical Exam - Vital signs Vitals: Temp Pulse Resp BP Pulse Ox 98.1 F 102 H 18 132/64 H 96 04/17/19 18:02 04/17/19 18:02 04/17/19 18:02 04/17/19 18:02 04/17/19 18:02 Interpretation: Tachycardic - Notes Notes: GENERAL: Alert, interacts well. Appears mildly short of breath with minimal movement, has dizziness on sitting up. HEAD: Normocephalic, atraumatic EYES: Pupils equal, round and reactive to light, extraocular movements intact. ENT: Oral mucosa moist, tongue midline. NECK: Full range of motion, supple, trachea midline. LUNGS: Trace inspiratory crackles, appears short of breath with minimal movement, no hypoxia. HEART: Irregularly irregular rhythm, rate is controlled while laying down, becomes tachycardic into the 120s upon sitting up, trace systolic murmur approximately 1 out of 6, no gallops or rubs. ABDOMEN: Soft, mild epigastric tenderness palpation nondistended, bowel sounds present in all 4 quadrants. EXTREMITIES: Moves all 4 extremities spontaneously, 1+ pitting edema at the ankles, radial and dorsalis pedis pulses 2/4 bilaterally. No cyanosis. NEUROLOGICAL: Alert and oriented x3, normal speech, biceps and patellar DTRs 2+ bilaterally. PSYCH: Normal mood, normal affect. SKIN: Warm, Dry, normal turgor, no rashes or lesions noted. Course - Re-evaluation Re-evalutation: 04/17/19 21:05 CBC unremarkable, CMP shows elevated glucose at 276, patient is not known to be a diabetic, troponin is detectable but negative at 0.013, proBNP slightly elevated at 1070, chest x-ray shows no acute process, C-spine x-ray ordered from triage also shows no acute process, there are chronic changes, EKG has LVH with secondary repolarization abnormality, no specific ischemia. Chest pain has improved while resting in the emergency department. Given the dizziness and symptomatic tachycardia on changing from laying to sitting position as well as her hypotension patient will be given a small bolus of fluid 250 mL's of normal saline. Discussed case with Dr. Wen who agrees to accept the patient to his service on the [facility]. - Vital Signs Vital signs: Temp Pulse Resp BP Pulse Ox 98.1 F 102 H 18 132/64 H 99 04/17/19 18:02 04/17/19 18:02 04/17/19 18:02 04/17/19 18:02 04/17/19 18:36 - Laboratory Result Diagrams: 04/17/19 18:35 04/17/19 18:35 Laboratory results interpreted by me: 04/17/19 04/17/19 04/17/19 18:35 18:35 18:35 RDW 14.5 H Lymph % (Auto) 56.3 H Seg Neutrophils % 30.7 L Glucose 276 H NT-Pro-B Natriuret Pep 1070 H - EKG Interpretation by Me Additional EKG results interpreted by me: 04/17/19 21:06 EKG shows atrial fibrillation at a rate of 113, ventricular rate ranges from 5-1 46, left axis deviation, borderline QT interval prolongation, poor R wave progression, no ST segment elevations or depressions, LVH, no T wave inversions per my interpretation. Discharge - Discharge Clinical Impression: Chest pain, rule out acute myocardial infarction, Atrial fibrillation with controlled ventricular rate, Orthostatic hypotension Obesity Qualifiers: Obesity type: unspecified obesity type Obesity classification: adult class 3 (BMI >= 40) Serious obesity comorbidity presence: with serious comorbidity Body mass index: unspecified BMI Qualified Code(s): E66.01 - Morbid (severe) obesity due to excess calories Congestive heart failure Qualifiers: Heart failure type: diastolic Heart failure chronicity: acute on chronic Qualified Code(s): I50.33 - Acute on chronic diastolic (congestive) heart failure Condition: Fair Disposition: ADMITTED INPATIENT Admitting Provider: Bettye (Hospitalist) Unit Admitted: IMCU Referrals: STEPHANIE BARAHONA MD [Primary Care Provider] - Follow up as needed
[2019-04-17] MEDS ORDERED: MAGNESIUM HYDROXIDE SUSP 30 ML UDCUP PO PRN (21:34)
[2019-04-17] MEDS ORDERED: TEMAZEPAM 7.5 MG CAPSULE PO PRN (21:34)
[2019-04-17] MEDS ORDERED: MAG HYDROX/AL HYDROX/SIMETH SUSP 30 ML UDCUP PO PRN (21:34)
[2019-04-17] MEDS ORDERED: LEVALBUTEROL HCL NEB 0.63 MG/3 ML AMPUL NEB PRN (21:34)
[2019-04-17] MEDS ORDERED: MORPHINE SULFATE 10 MG/ML INJ IV PRN ×3 (21:40)
[2019-04-17] MEDS ORDERED: ACETAMINOPHEN 325 MG TABLET PO PRN (21:40)
[2019-04-17 21:57] LABS: APPEARANCE,URINE CLEAR; BILIRUBIN,URINE NEGATIVE (NEGATIVE); COLOR,URINE YELLOW; GLUCOSE, URINE NEGATIVE (NEGATIVE); KETONES,URINE NEGATIVE (NEGATIVE); LEUKOCYTE ESTERASE,URINE NEGATIVE (NEGATIVE); NITRITE,URINE NEGATIVE (NEGATIVE); PROTEIN,URINE NEGATIVE (NEGATIVE); URINE SPECIFIC GRAVITY 1.012; UROBILINOGEN,URINE NEGATIVE mg/dL (<2.0)
[2019-04-17] MEDS: FAMOTIDINE 20 MG TABLET PO SCH (22:32)
[2019-04-17] MEDS ORDERED: SOTALOL HCL 80 MG TABLET PO ONE (23:00)
[2019-04-17 23:13] LABS: CREATINE KINASE MB 1.16 ng/mL (<4.55)
[2019-04-17 23:18] LABS: TROPONIN I < 0.012 ng/mL
--- NOTE | 2019-04-18 00:09 | PDOC H&P ---
History of Present Illness Admission Date/PCP: 04/17/19 21:10 STEPHANIE BARAHONA MD Patient complains of: Chest pain History of Present Illness: GERARDO WILLIAMSON is a 73 year old female who presented to the emergency room with a 1 day history of chest pain. Patient admits intermittent 1 to 3-hour episodes of moderately intense substernal chest pressure with radiation to both arms, worsened by exertion and reduced by rest. Her chest pressure has been accompanied by nausea and associated with lightheadedness and fluttering palpitations. She denies other associated or accompanying signs and symptoms. She further admits that she has not been sleeping well for the last 2 weeks due to the recent of her son. She admits prior similar episodes with various heart problems in the past. She denies identification of any additional aggravating or ameliorating factors for her chest pressure. In the emergency room she was found to have chronic atrial fibrillation with an initial EKG sh owing no evidence of myocardial ischemia or injury. Initial troponin was 0.013. Patient was noted to have mild hypotension with a systolic pressure in the 90s while recumbent and she became orthostatic with a pulse rate in the 120s with sitting up or standing. She was subsequently admitted to [facility] for further evaluation and treatment. Past Medical History Cardiac Medical History: Reports: Atrial Fibrillation, Congestive Heart Failure - Diastolic, Myocardial Infarction, Hyperlipidema, Hypertension Denies: Coronary Artery Disease, DVT, Pulmonary Embolism Pulmonary Medical History: Reports: Bronchitis, Sleep Apnea - Has has home CPAP. Denies: Asthma, Chronic Obstructive Pulmonary Disease (COPD), Pneumonia EENT Medical History: Denies: Cataracts, Ears - Hearing aids Neurological Medical History: Denies: Hemorrhagic CVA, Ischemic CVA, Seizures Endocrine Medical History: Reports: Obesity Denies: Diabetes Mellitus Type 1, Diabetes Mellitus Type 2, Hyperthyroidism, Hypothyroidism Renal/ Medical History: Denies: Chronic Kidney Disease, Nephrolithiasis Malignancy Medical History: Reports: None GI Medical History: Reports: Gastroesophageal Reflux Disease Denies: Cirrhosis, Crohn's Disease, Hepatitis, Hiatal Hernia, Peptic Ulcer Disease, Ulcerative Colitis Musculoskeltal Medical History: Denies: Arthritis, Gout Skin Medical History: Denies: Eczema, Psoriasis Psychiatric Medical History: Denies: Alcohol Dependency, Depression, Substance Abuse, Tobacco Dependency Traumatic Medical History: Reports: None Hematology: Denies: Anemia, Bleeding Tendencies Infectious Medical History: Reports: None Past Surgical History Past Surgical History: Reports: Cardiac Catheterization - x3 with balloon angioplasty x1, Hysterectomy, Tonsillectomy Social History Information Source: Patient Lives with: Alone Smoking Status: Former Smoker Electronic Cigarette use?: No Frequency of Alcohol Use: None Hx Recreational Drug Use: No Drugs: None Hx Prescription Drug Abuse: No - Advance Directive Resuscitation Status: Full Code Surrogate healthcare decision maker:: Sloan Cazares Family History Family History: CAD - Father's first [place] was at 78, mother had her first heart attack at 72 and brother had his first attack at 69., Hypertension. denies: DM, Malignancy Parental Family History Reviewed: Yes Children Family History Reviewed: No Sibling(s) Family History Reviewed.: Yes Medication/Allergy Allergies/Adverse Reactions: No Known Allergies Allergy (Verified 10/27/18 13:14) Review of Systems Constitutional: ABSENT: chills, fever(s) Eyes: ABSENT: visual disturbances, other - Eye pain Ears: ABSENT: hearing changes, other - Ear pain Nose, Mouth, and Throat: ABSENT: headache(s), mouth pain, sore throat Cardiovascular: PRESENT: as per HPI, chest pain, palpitations. ABSENT: dyspnea on exertion, edema, orthropnea Respiratory: ABSENT: cough, dyspnea Gastrointestinal: PRESENT: as per HPI, nausea. ABSENT: abdominal pain, constipation, diarrhea, vomiting Genitourinary: ABSENT: dysuria, hematuria Musculoskeletal: ABSENT: back pain, joint swelling, muscle weakness Integumentary: ABSENT: pruritus, rash Neurological: PRESENT: as per HPI, other - Lightheadedness. ABSENT: confusion, convulsions, focal weakness, memory loss, syncope Psychiatric: PRESENT: depression - Situational regarding loss of her son 2 weeks ago. ABSENT: anxiety Endocrine: ABSENT: cold intolerance, heat intolerance Hematologic/Lymphatic: ABSENT: easy bleeding, easy bruising Allergic/Immunologic: ABSENT: seasonal rhinorrhea Physical Exam Vital Signs: Temp Pulse Resp BP Pulse Ox 98.1 F 102 H 18 132/64 H 99 04/17/19 18:02 04/17/19 18:02 04/17/19 18:02 04/17/19 18:02 04/17/19 18:36 Intake & Output 04/15/19 04/16/19 04/17/19 23:59 23:59 23:59 Weight 109.769 kg General appearance: PRESENT: no acute distress, cooperative Head exam: PRESENT: atraumatic, normocephalic Eye exam: PRESENT: conjunctiva pink. ABSENT: conjunctival injection, scleral icterus Ear exam: PRESENT: normal external ear exam. ABSENT: bleeding, drainage Mouth exam: PRESENT: dry mucosa, neck supple Neck exam: ABSENT: JVD, thyromegaly, tracheal deviation Respiratory exam: PRESENT: rales - Minimal bibasilar fine rales, symmetrical, unlabored Cardiovascular exam: PRESENT: irregular rhythm - Irregularly irregular rate and rhythm. ABSENT: clicks, gallop, rubs Pulses: PRESENT: normal radial pulses, normal dorsalis pedis pul Vascular exam: PRESENT: normal capillary refill. ABSENT: pallor GI/Abdominal exam: PRESENT: normal bowel sounds, soft Rectal exam: PRESENT: deferred Extremities exam: ABSENT: joint swelling, pedal edema Musculoskeletal exam: ABSENT: deformity, dislocation Neurological exam: PRESENT: alert, oriented to person, oriented to place, oriented to time, oriented to situation, CN II-XII grossly intact. ABSENT: motor sensory deficit Psychiatric exam: PRESENT: appropriate affect, normal mood Skin exam: PRESENT: dry, intact, warm. ABSENT: jaundice, rash, urticaria Results Laboratory Results: 04/17/19 18:35 04/17/19 18:35 04/17/19 04/17/19 18:35 18:35 WBC 6.5 RBC 4.92 Hgb 14.5 Hct 44.4 MCV 90 MCH 29.5 MCHC 32.7 RDW 14.5 H Plt Count 250 Seg Neutrophils % 30.7 L Sodium 141.1 Potassium 4.0 Chloride 106 Carbon Dioxide 27 Anion Gap 8 BUN 17 Creatinine 0.82 Est GFR ( Amer) > 60 Glucose 276 H Calcium 9.7 Total Bilirubin 0.3 AST 36 Alkaline Phosphatase 94 Total Protein 7.2 Albumin 3.9 04/17/19 18:35 Troponin I 0.013 NT-Pro-B Natriuret Pep 1070 H Impressions: Cervical Spine X-Ray 04/17/19 18:01 IMPRESSION: Degenerative disc disease and spondylosis. Chest X-Ray 04/17/19 18:01 IMPRESSION: Borderline cardiomegaly without pulmonary edema. Assessment and Plan - Diagnosis (1) Precordial chest pain Is this a current diagnosis for this admission?: Yes (2) Palpitations Is this a current diagnosis for this admission?: Yes (3) Atrial fibrillation with controlled ventricular rate Is this a current diagnosis for this admission?: Yes (4) KESHAWN (obstructive sleep apnea) Is this a current diagnosis for this admission?: Yes (5) Chronic diastolic congestive heart failure Is this a current diagnosis for this admission?: Yes (6) HLD (hyperlipidemia) Qualifiers: Hyperlipidemia type: unspecified Qualified Code(s): E78.5 - Hyperlipidemia, unspecified Is this a current diagnosis for this admission?: Yes (7) Obesity Qualifiers: Obesity type: due to excess calories Obesity classification: adult class 3 (BMI >= 40) Serious obesity comorbidity presence: with serious comorbidity Body mass index: unspecified BMI Qualified Code(s): E66.01 - Morbid (severe) obesity due to excess calories Is this a current diagnosis for this admission?: Yes - Plan Summary Summary: Patient will be admitted to [facility] with serial cardiac enzymes performed. She will be monitored via telemetry and frequent assessments of her vital signs will be obtained. 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 She will be continued on her usual medications for her chronic medical illnesses. She received a fluid bolus in the ER and orthostatic vital signs will be obtained every 4 hours. Chest pressure will be treated with morphine sulfate 2 to 4 mg IV every 2 hours on an as-needed basis utilizing a sliding scale for pain. Further evaluation and treatment will be based upon the results and findings of her initial evaluation. - Time Time Spent with patient: 25-34 minutes Medications reviewed and adjusted accordingly: Yes Anticipated discharge: Home - Inpatient Certification Based on my medical assessment, after consideration of the patient's comorbidities, presenting symptoms, or acuity I expect that the services needed warrant INPATIENT care.: Yes I certify that my determination is in accordance with my understanding of Medicare's requirements for reasonable and necessary INPATIENT services [42 CFR 412.3e].: Yes Medical Necessity: Significant Comorbidiites Make Outpatient Treatment Too Risky, Need Close Monitoring Due to Risk of Patient Decompensation, Need For IV Fluids, Need For Continuous Telemetry Monitoring, Risk of Complication if Not Cared For in Hospital, Risk of Diagnosis Which Will Require Inpatient Eval/Care/Monitoring
[2019-04-18 05:22] LABS: HEMATOCRIT 42.2 % (36.0-47.0); HEMOGLOBIN 13.7 g/dL (12.0-15.5); MEAN CORPUSCULAR HEMOGLOBIN 29.6 pg (27.0-33.4); MEAN CORPUSCULAR HGB CONC 32.4 g/dL (32.0-36.0); MEAN CORPUSCULAR VOLUME 91 fl (80-97); PLATELET COUNT 197 10^3/uL (150-450); RED BLOOD COUNT 4.63 10^6/uL (3.72-5.28); RED CELL DISTRIBUTION WIDTH 14.5 % (11.5-14.0); WHITE BLOOD COUNT 6.9 10^3/uL (4.0-10.5)
[2019-04-18 05:37] LABS: ANION GAP 8 (5-19); BLOOD UREA NITROGEN 17 mg/dL (7-20); CALCIUM 9.1 mg/dL (8.4-10.2); CARBON DIOXIDE 26 mmol/L (22-30); CHLORIDE 107 mmol/L (98-107); CHOLESTEROL 191.28 mg/dL (0-200); GLUCOSE 140 mg/dL (75-110); POTASSIUM 3.8 mmol/L (3.6-5.0); TRIGLYCERIDES 183 mg/dL (<150)
[2019-04-18 05:48] LABS: DIRECT LDL 137 mg/dL (<100)
[2019-04-18 05:49] LABS: VLDL CHOLESTEROL 36.6 mg/dL (10-31)
[2019-04-18 06:01] LABS: CREATINE KINASE MB 1.36 ng/mL (<4.55)
[2019-04-18 06:02] LABS: TROPONIN I < 0.012 ng/mL
--- NOTE | 2019-04-18 08:40 | PDOC PROGRESS REPORT ---
Subjective Progress Note for:: 04/18/19 Subjective:: 04/18/2019-complains of abdominal pain that radiates to her shoulder blades and into her substernal chest. Reason For Visit: CHEST PRESSURE,CHRONIC AFIB,ORTHOSTATIC POSITIVE Physical Exam Vital Signs: Temp Pulse Resp BP Pulse Ox 97.5 F 86 18 119/87 H 100 04/18/19 08:00 04/18/19 08:00 04/18/19 08:00 04/18/19 08:00 04/18/19 08:00 Intake & Output 04/17/19 04/18/19 04/19/19 06:59 06:59 06:59 Intake Total 250 Balance 250 Weight 111.1 kg General appearance: PRESENT: no acute distress, well-developed, well-nourished Neck exam: ABSENT: carotid bruit, JVD, lymphadenopathy, thyromegaly Respiratory exam: PRESENT: clear to auscultation [place]. ABSENT: rales, rhonchi, wheezes Cardiovascular exam: PRESENT: irregular rhythm, +S1, +S2 Pulses: PRESENT: +1 pedal pulses bilateral Vascular exam: PRESENT: normal capillary refill GI/Abdominal exam: PRESENT: hypoactive bowel sounds, tenderness, other - Tenderness right upper quadrant Extremities exam: PRESENT: full ROM. ABSENT: calf tenderness, clubbing, pedal edema Neurological exam: PRESENT: alert, awake, oriented to person, oriented to place, oriented to time, oriented to situation, CN II-XII grossly intact. ABSENT: motor sensory deficit Psychiatric exam: PRESENT: appropriate affect, normal mood. ABSENT: homicidal ideation, suicidal ideation Skin exam: PRESENT: dry, intact, warm. ABSENT: cyanosis, rash Results Laboratory Results: 04/18/19 04:35 04/18/19 04:35 04/17/19 04/17/19 04/17/19 18:35 18:35 21:10 WBC 6.5 RBC 4.92 Hgb 14.5 Hct 44.4 MCV 90 MCH 29.5 MCHC 32.7 RDW 14.5 H Plt Count 250 Seg Neutrophils % 30.7 L Sodium 141.1 Potassium 4.0 Chloride 106 Carbon Dioxide 27 Anion Gap 8 BUN 17 Creatinine 0.82 Est GFR ( Amer) > 60 Glucose 276 H Calcium 9.7 Magnesium Total Bilirubin 0.3 AST 36 Alkaline Phosphatase 94 Total Protein 7.2 Albumin 3.9 Triglycerides Cholesterol LDL Cholesterol Direct VLDL Cholesterol HDL Cholesterol TSH Urine Color YELLOW Urine Appearance CLEAR Urine pH 5.0 Ur Specific [place] 1.012 Urine Protein NEGATIVE Urine Glucose (UA) NEGATIVE Urine Ketones NEGATIVE Urine Blood NEGATIVE Urine Nitrite NEGATIVE Ur Leukocyte Esterase NEGATIVE Urine WBC (Auto) 0 Urine RBC (Auto) 1 04/18/19 04/18/19 04/18/19 04:35 04:35 04:35 WBC 6.9 RBC 4.63 Hgb 13.7 Hct 42.2 MCV 91 MCH 29.6 MCHC 32.4 RDW 14.5 H Plt Count 197 Seg Neutrophils % Sodium 141.4 Potassium 3.8 Chloride 107 Carbon Dioxide 26 Anion Gap 8 BUN 17 Creatinine 0.67 Est GFR ( Amer) > 60 Glucose 140 H Calcium 9.1 Magnesium 1.8 Total Bilirubin AST Alkaline Phosphatase Total Protein Albumin Triglycerides 183 H Cholesterol 191.28 LDL Cholesterol Direct 137 H VLDL Cholesterol 36.6 H HDL Cholesterol 29 L TSH 0.82 Urine Color Urine Appearance Urine pH Ur Specific [place] Urine Protein Urine Glucose (UA) Urine Ketones Urine Blood Urine Nitrite Ur Leukocyte Esterase Urine WBC (Auto) Urine RBC (Auto) 04/17/19 04/17/19 04/17/19 18:35 22:06 22:06 Creatine Kinase 66 CK-MB (CK-2) 1.16 Troponin I 0.013 < 0.012 NT-Pro-B Natriuret Pep 1070 H 04/18/19 04/18/19 04:00 04:35 Creatine Kinase 60 CK-MB (CK-2) 1.36 Troponin I < 0.012 NT-Pro-B Natriuret Pep Impressions: Cervical Spine X-Ray 04/17/19 18:01 IMPRESSION: Degenerative disc disease and spondylosis. Chest X-Ray 04/17/19 18:01 IMPRESSION: Borderline cardiomegaly without pulmonary edema. Assessment and Plan - Diagnosis (1) Atrial fibrillation with controlled ventricular rate Is this a current diagnosis for this admission?: Yes (2) Chronic diastolic congestive heart failure Is this a current diagnosis for this admission?: Yes (3) Obesity Qualifiers: Obesity type: due to excess calories Obesity classification: adult class 3 (BMI >= 40) Serious obesity comorbidity presence: with serious comorbidity Body mass index: unspecified BMI Qualified Code(s): E66.01 - Morbid (severe) obesity due to excess calories Is this a current diagnosis for this admission?: Yes (4) Palpitations Is this a current diagnosis for this admission?: Yes (5) Precordial chest pain Is this a current diagnosis for this admission?: Yes (6) HLD (hyperlipidemia) Qualifiers: Hyperlipidemia type: unspecified Qualified Code(s): E78.5 - Hyperlipidemia, unspecified Is this a current diagnosis for this admission?: Yes (7) KESHAWN (obstructive sleep apnea) Is this a current diagnosis for this admission?: Yes - Plan Summary Summary: Patient will be admitted to [facility] with serial cardiac enzymes performed. She will be monitored via telemetry and frequent assessments of her vital signs will be obtained. 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 She will be continued on her usual medications for her chronic medical illnesses. She received a fluid bolus in the ER and orthostatic vital signs will be obtained every 4 hours. Chest pressure will be treated with morphine sulfate 2 to 4 mg IV every 2 hours on an as-needed basis utilizing a sliding scale for pain. Further evaluation and treatment will be based upon the results and findings of her initial evaluation. 04/18/2019 Precordial chest pain-this sounds more like gallbladder disease at this time. Patient will continue current work-up for cardiac disease and I will add a ultrasound of her right upper quadrant to ensure this is not gallbladder related. Palpitations-stable at this time continue to follow Atrial fibrillation with controlled ventricular rate-stable at this time continue to follow. Obstructive sleep apnea continue CPAP at night Chronic diastolic congestive heart failure-no acute exacerbation stable continue to follow Hyperlipidemia-I have added Lipitor 40 mill grams p.o. daily Obesity-continue educated about dietary modifications - Time Time Spent with patient: 15-24 minutes - Inpatient Certification Based on my medical assessment, after consideration of the patient's comorbidities, presenting symptoms, or acuity I expect that the services needed warrant INPATIENT care.: Yes I certify that my determination is in accordance with my understanding of Medicare's requirements for reasonable and necessary INPATIENT services [42 CFR 412.3e].: Yes Medical Necessity: Need for Pain Control, Other - Possible surgical candidate
[2019-04-18] MEDS ORDERED: TORSEMIDE 20 MG TABLET PO SCH (10:00)
--- NOTE | 2019-04-18 10:11 | RADIOLOGY REPORT (SQ) ---
EXAM DESCRIPTION: U/S ABDOMEN LIMITED W/O DOP COMPLETED DATE/TIME: 04/18/2019 9:19 am REASON FOR STUDY: abdominal pain RUQ COMPARISON: None. TECHNIQUE: Dynamic and static grayscale images acquired of the abdomen and recorded on PACS. Additio nal selected color Doppler and spectral images recorded. LIMITATIONS: None. FINDINGS: PANCREAS: The visualized portions of the pancreas appear normal. LIVER: Heterogeneous echotexture. LIVER VASCULATURE: Normal directional flow of the main portal vein and hepatic veins. GALLBLADDER: There are echogenic calculi within the gallbladder lumen. The gallbladder wall measures 2.1 mm in thickness. There is no pericholecystic fluid. ULTRASOUND-DETECTED HERNANDEZ'S SIGN: Negative. INTRAHEPATIC DUCTS AND COMMON DUCT: The CBD measures 5.6 mm in diameter. There is no dilatation of t he intrahepatic biliary ducts. INFERIOR VENA CAVA: Normal flow. AORTA: No aneurysm. RIGHT KIDNEY: The right kidney measures 10.7 cm in length. There is no hydronephrosis. PERITONEAL AND RIGHT PLEURAL SPACE: No ascites or effusions. OTHER: No other findings. IMPRESSION: 1. Hepatic steatosis. 2. Cholelithiasis without other associated ancillary findings to indicate an acute cholecystitis. TECHNICAL DOCUMENTATION: JOB ID: [id number] [employer]- All Rights Reserved Reading location - IP/workstation name: [email or web address]
[2019-04-18] MEDS: FAMOTIDINE 20 MG TABLET PO SCH ×2 (10:15→21:25)
[2019-04-18] MEDS: DOCUSATE SODIUM 100 MG CAPSULE PO SCH ×2 (10:15→18:16)
[2019-04-18] MEDS: SOTALOL HCL 80 MG TABLET PO SCH ×2 (10:15→21:25)
[2019-04-18] MEDS: LOSARTAN POTASSIUM 50 MG TABLET PO SCH (10:15)
[2019-04-18] MEDS: TORSEMIDE 20 MG TABLET PO SCH (10:16)
[2019-04-18] MEDS: ONDANSETRON HCL INJ/PF 4 MG/2 ML SDV IV PRN ×2 (10:32→16:18)
[2019-04-18 11:20] LABS: CREATINE KINASE MB 1.19 ng/mL (<4.55)
[2019-04-18 11:24] LABS: TROPONIN I < 0.012 ng/mL
[2019-04-18] MEDS ORDERED: RIVAROXABAN 10 MG TABLET PO SCH (17:00)
[2019-04-18] MEDS ORDERED: ATORVASTATIN CALCIUM 40 MG TABLET PO SCH (22:00)
--- NOTE | 2019-04-18 23:33 | EKG REPORT ---
SEVERITY:- ABNORMAL ECG - ATRIAL FIBRILLATION, V-RATE 95-146 LVH WITH SECONDARY REPOLARIZATION ABNORMALITY BORDERLINE PROLONGED QT INTERVAL : Confirmed by: Bryce Hernandez 18-Apr-2019 23:33:17
[2019-04-19 05:37] LABS: HEMATOCRIT 41.4 % (36.0-47.0); HEMOGLOBIN 13.6 g/dL (12.0-15.5); MEAN CORPUSCULAR HEMOGLOBIN 29.5 pg (27.0-33.4); MEAN CORPUSCULAR VOLUME 90 fl (80-97); PLATELET COUNT 207 10^3/uL (150-450); RED BLOOD COUNT 4.62 10^6/uL (3.72-5.28); RED CELL DISTRIBUTION WIDTH 14.1 % (11.5-14.0); WHITE BLOOD COUNT 6.1 10^3/uL (4.0-10.5)
[2019-04-19 05:51] LABS: ANION GAP 6 (5-19); BLOOD UREA NITROGEN 14 mg/dL (7-20); CALCIUM 8.9 mg/dL (8.4-10.2); CARBON DIOXIDE 30 mmol/L (22-30); CHLORIDE 103 mmol/L (98-107); GLUCOSE 181 mg/dL (75-110); POTASSIUM 3.9 mmol/L (3.6-5.0)
--- NOTE | 2019-04-19 08:04 | PDOC DISCHARGE SUMMARY ---
Impression - Admit/DC Date/PCP Admission Date/Primary Care Provider: 04/17/19 21:10 STEPHANIE BARAHONA MD Discharge Date: 04/19/19 - Discharge Diagnosis (1) Atrial fibrillation with controlled ventricular rate Is this a current diagnosis for this admission?: Yes (2) Chronic diastolic congestive heart failure Is this a current diagnosis for this admission?: Yes (3) Obesity Is this a current diagnosis for this admission?: Yes (4) Palpitations Is this a current diagnosis for this admission?: Yes (5) Precordial chest pain Is this a current diagnosis for this admission?: Yes (6) HLD (hyperlipidemia) Is this a current diagnosis for this admission?: Yes (7) KESHAWN (obstructive sleep apnea) Is this a current diagnosis for this admission?: Yes - Assessment Summary: Patient will be admitted to [facility] with serial cardiac enzymes performed. She will be monitored via telemetry and frequent assessments of her vital signs will be obtained. She sees Dr. Huertas as her clicker operator and further follow-up can be accomplished on an outpatient basis after discharge. She will be continued on her usual medications for her chronic medical illnesses. She received a fluid bolus in the ER and orthostatic vital signs will be obtained every 4 hours. Chest pressure will be treated with morphine sulfate 2 to 4 mg IV every 2 hours on an as-needed basis utilizing a sliding scale for pain. Further evaluation and treatment will be based upon the results and findings of her initial evaluation. 04/18/2019 Precordial chest pain-this sounds more like gallbladder disease at this time. Patient will continue current work-up for cardiac disease and I will add a ultrasound of her right upper quadrant to ensure this is not gallbladder related. Palpitations-stable at this time continue to follow Atrial fibrillation with controlled ventricular rate-stable at this time continue to follow. Obstructive sleep apnea continue CPAP at night Chronic diastolic congestive heart failure-no acute exacerbation stable continue to follow Hyperlipidemia-I have added Lipitor 40 mill grams p.o. daily Obesity-continue educated about dietary modifications - Additional Information Resuscitation Status: Full Code Discharge Diet: As Tolerated Discharge Activity: Activity As Tolerated Referrals: STEPHANIE BARAHONA MD [Primary Care Provider] - Follow up as needed Home Medications: Albuterol Sulfate [Proair HFA Inhalation Aerosol 8.5 gm MDI] 2 puff IH Q6HP PRN 04/18/19 Ascorbic Acid [Vitamin C 500 mg Tablet] 500 mg PO DAILY 04/18/19 Cetirizine HCl [Zyrtec 10 mg Tablet] 10 mg PO DAILY 04/18/19 Fluticasone Propionate [Flonase Nasal [place] 50 Mcg/[place] 16 gm] 2 spray NASL DAILY 04/18/19 Furosemide [Lasix 80 mg Tablet] 80 mg PO DAILY 04/18/19 Ibuprofen [Motrin 800 mg Tablet] 800 mg PO Q12HP PRN 04/18/19 Isosorbide Mononitrate [Imdur 30 mg Tablet.er] 15 mg PO DAILY 04/18/19 Losartan Potassium [Cozaar 50 mg Tablet] 50 mg PO BID 04/18/19 Nifedipine [Nifedipine ER] 60 mg PO BID 04/18/19 [place]-3 Fatty Acids [[place]-3] 1,000 mg PO DAILY 04/18/19 Omeprazole 20 mg PO DAILY 04/18/19 Potassium Chloride [Klor-Con M10] 10 meq PO BID MDD TAKE WITH LASIX 04/18/19 Rivaroxaban [Xarelto] 20 mg PO DAILY 04/18/19 Sertraline HCl [Zoloft] 100 mg PO DAILY 04/18/19 Simethicone [Gas-X] 125 mg PO MEALS PRN 04/18/19 Sotalol HCl [Betapace 80 mg Tablet] 80 mg PO Q12 04/18/19 Tramadol HCl [Ultram 50 mg Tablet] 50 mg PO Q6HP PRN 04/18/19 History of Present Illiness History of Present Illness: GERARDO WILLIAMSON is a 73 year old female who presented to ER with chest pain Hospital Course Hospital Course: Patient presented to the ER with chest pain for 1 day duration. Patient admits to having a history of gallbladder disease and was supposed to have her gallbladder taken out previously unfortunately was unable to secondary to hypotension. Patient admitted to a 1 to 3-hour episode of moderately intense s ubsternal chest pain radiation both arms and to her shoulder blades. Is currently with nausea and lightheadedness with fluttering palpitations. Patient was admitted to [facility] had serial troponins which were negative. I did ultrasound her gallbladder showing cholelithiasis. Troponins have been negative throughout her stay she will be discharged today and follow-up with her clicker operator Dr. Huertas for outpatient stress test and need to follow-up for outpatient evaluation for cholecystectomy. Patient is agrees with plan of care. Physical Exam Vital Signs: Temp Pulse Resp BP Pulse Ox 97.6 F 83 20 117/76 98 04/19/19 03:43 04/19/19 07:00 04/19/19 03:43 04/19/19 03:43 04/19/19 03:43 Intake & Output 04/18/19 04/19/19 04/20/19 06:59 06:59 06:59 Intake Total 250 702 Output Total 2600 Balance 250 -1898 Weight 111.1 kg 111.8 kg General appearance: PRESENT: no acute distress, well-developed, well-nourished Head exam: PRESENT: atraumatic, normocephalic Eye exam: PRESENT: conjunctiva pink, EOMI, PERRLA. ABSENT: scleral icterus Ear exam: PRESENT: normal external ear exam Mouth exam: PRESENT: moist, tongue midline Neck exam: ABSENT: carotid bruit, JVD, lymphadenopathy, thyromegaly Respiratory exam: PRESENT: clear to auscultation kayleigh. ABSENT: rales, rhonchi, wheezes Cardiovascular exam: PRESENT: RRR. ABSENT: diastolic murmur, rubs, systolic murmur Pulses: PRESENT: normal dorsalis pedis pul Vascular exam: PRESENT: normal capillary refill GI/Abdominal exam: PRESENT: normal bowel sounds, soft. ABSENT: distended, guarding, mass, organolmegaly, rebound, tenderness Rectal exam: PRESENT: deferred Extremities exam: PRESENT: full ROM. ABSENT: calf tenderness, clubbing, pedal edema Neurological exam: PRESENT: alert, awake, oriented to person, oriented to place, oriented to time, oriented to situation, CN II-XII grossly intact. ABSENT: motor sensory deficit Psychiatric exam: PRESENT: appropriate affect, normal mood. ABSENT: homicidal ideation, suicidal ideation Skin exam: PRESENT: dry, intact, warm. ABSENT: cyanosis, rash Results Laboratory Results: WBC 6.1 10^3/uL (4.0-10.5) 04/19/19 05:15 RBC 4.62 10^6/uL (3.72-5.28) 04/19/19 05:15 Hgb 13.6 g/dL (12.0-15.5) 04/19/19 05:15 Hct 41.4 % (36.0-47.0) 04/19/19 05:15 MCV 90 fl (80-97) 04/19/19 05:15 MCH 29.5 pg (27.0-33.4) 04/19/19 05:15 MCHC 33.0 g/dL (32.0-36.0) 04/19/19 05:15 RDW 14.1 % (11.5-14.0) H 04/19/19 05:15 Plt Count 207 10^3/uL (150-450) 04/19/19 05:15 Lymph % (Auto) 56.3 % (13-45) H 04/17/19 18:35 [place] % (Auto) 9.6 % (3-13) 04/17/19 18:35 Eos % (Auto) 2.2 % (0-6) 04/17/19 18:35 Baso % (Auto) 1.2 % (0-2) 04/17/19 18:35 Absolute Neuts (auto) 2.0 10^3/uL (1.7-8.2) 04/17/19 18:35 Absolute Lymphs (auto) 3.7 10^3/uL (0.5-4.7) 04/17/19 18:35 Absolute Monos (auto) 0.6 10^3/uL (0.1-1.4) 04/17/19 18:35 Absolute Eos (auto) 0.1 10^3/uL (0.0-0.6) 04/17/19 18:35 Absolute Basos (auto) 0.1 10^3/uL (0.0-0.2) 04/17/19 18:35 Seg Neutrophils % 30.7 % (42-78) L 04/17/19 18:35 Sodium 139.4 mmol/L (137-145) 04/19/19 05:15 Potassium 3.9 mmol/L (3.6-5.0) 04/19/19 05:15 Chloride 103 mmol/L (98-107) 04/19/19 05:15 Carbon Dioxide 30 mmol/L (22-30) 04/19/19 05:15 Anion Gap 6 (5-19) 04/19/19 05:15 BUN 14 mg/dL (7-20) 04/19/19 05:15 Creatinine 0.81 mg/dL (0.52-1.25) 04/19/19 05:15 Est GFR ( Amer) > 60 (>60) 04/19/19 05:15 Est GFR (MDRD) Non-Af > 60 (>60) 04/19/19 05:15 Glucose 181 mg/dL (75-110) H 04/19/19 05:15 Hemoglobin A1c % 7.5 % (4.7-6.0) H 04/18/19 04:35 Calcium 8.9 mg/dL (8.4-10.2) 04/19/19 05:15 Magnesium 1.8 mg/dL (1.6-2.3) 04/18/19 04:35 Total Bilirubin 0.3 mg/dL (0.2-1.3) 04/17/19 18:35 Direct Bilirubin 0.1 mg/dL (0.0-0.4) 04/17/19 18:35 Neonat Total Bilirubin Not Reportable 04/17/19 18:35 Neonat Direct Bilirubin Not Reportable 04/17/19 18:35 Neonat Indirect Bili Not Reportable 04/17/19 18:35 AST 36 U/L (14-36) 04/17/19 18:35 ALT 34 U/L (<35) 04/17/19 18:35 Alkaline Phosphatase 94 U/L (38-126) 04/17/19 18:35 Creatine Kinase 64 U/L (30-135) 04/18/19 10:15 CK-MB (CK-2) 1.19 ng/mL (<4.55) 04/18/19 10:15 Troponin I < 0.012 ng/mL 04/18/19 10:15 NT-Pro-B Natriuret Pep 1070 pg/mL (<125) H 04/17/19 18:35 Total Protein 7.2 g/dL (6.3-8.2) 04/17/19 18:35 Albumin 3.9 g/dL (3.5-5.0) 04/17/19 18:35 Triglycerides 183 mg/dL (<150) H 04/18/19 04:35 Cholesterol 191.28 mg/dL (0-200) 04/18/19 04:35 LDL Cholesterol Direct 137 mg/dL (<100) H 04/18/19 04:35 VLDL Cholesterol 36.6 mg/dL (10-31) H 04/18/19 04:35 HDL Cholesterol 29 mg/dL (>40) L 04/18/19 04:35 TSH 0.82 uIU/mL (0.47-4.68) 04/18/19 04:35 Urine Color YELLOW 04/17/19 21:10 Urine Appearance CLEAR 04/17/19 21:10 Urine pH 5.0 (5.0-9.0) 04/17/19 21:10 Ur Specific [place] 1.012 04/17/19 21:10 Urine Protein NEGATIVE mg/dL (NEGATIVE) 04/17/19 21:10 Urine Glucose (UA) NEGATIVE mg/dL (NEGATIVE) 04/17/19 21:10 Urine Ketones NEGATIVE mg/dL (NEGATIVE) 04/17/19 21:10 Urine Blood NEGATIVE (NEGATIVE) 04/17/19 21:10 Urine Nitrite NEGATIVE (NEGATIVE) 04/17/19 21:10 Urine Bilirubin NEGATIVE (NEGATIVE) 04/17/19 21:10 Urine Urobilinogen NEGATIVE mg/dL (<2.0) 04/17/19 21:10 Ur Leukocyte Esterase NEGATIVE (NEGATIVE) 04/17/19 21:10 Urine WBC (Auto) 0 /HPF 04/17/19 21:10 Urine RBC (Auto) 1 /HPF 04/17/19 21:10 U Hyaline Cast (Auto) 37 /LPF 04/17/19 21:10 Urine Bacteria (Auto) TRACE /HPF 04/17/19 21:10 Squamous Epi Cells Auto 3 /HPF 04/17/19 21:10 Urine Mucus (Auto) RARE /LPF 04/17/19 21:10 Urine Ascorbic Acid 40 (NEGATIVE) H 04/17/19 21:10 04/17/19 04/17/19 04/18/19 18:35 22:06 04:35 CK-MB (CK-2) 1.16 1.36 Troponin I 0.013 < 0.012 < 0.012 NT-Pro-B Natriuret Pep 1070 H 04/18/19 10:15 CK-MB (CK-2) 1.19 Troponin I < 0.012 NT-Pro-B Natriuret Pep Impressions: Cervical Spine X-Ray 04/17/19 18:01 IMPRESSION: Degenerative disc disease and spondylosis. Chest X-Ray 04/17/19 18:01 IMPRESSION: Borderline cardiomegaly without pulmonary edema. Abdomen Ultrasound 04/18/19 08:30 IMPRESSION: 1. Hepatic steatosis. 2. Cholelithiasis without other associated ancillary findings to indicate an acute cholecystitis. Plan Time Spent: Greater than 30 Minutes Stroke Is this a Stroke Patient?: No Acute Heart Failure - Is this a Heart Failure Patient?: No
[2019-04-19] MEDS: DOCUSATE SODIUM 100 MG CAPSULE PO SCH (10:20)
[2019-04-19] MEDS: FAMOTIDINE 20 MG TABLET PO SCH (10:20)
[2019-04-19] MEDS: SOTALOL HCL 80 MG TABLET PO SCH (10:21)
[2019-04-19] MEDS: TORSEMIDE 20 MG TABLET PO SCH (10:21)
[2019-04-19] MEDS: LOSARTAN POTASSIUM 50 MG TABLET PO SCH (10:21)
[2019-04-19 11:53] VITALS: BP 90/63
== END 2019-04-19 13:15 | disposition home or self-care (01) | DRG 313 ==
LOC: ER 17:30 → EH 21:10 → 3S 23:16
PROVIDERS: ADMIT Emergency Medicine; ATTEND Emergency Medicine
DX: R07.2 Precordial pain (principal); I50.32 Chronic diastolic (congestive) heart failure; Z68.41 Body mass index [BMI] 40.0-44.9, adult; I48.20 Chronic atrial fibrillation, unspecified; K80.20 Calculus of gallbladder without cholecystitis without obstruction; I11.0 Hypertensive heart disease with heart failure; E78.5 Hyperlipidemia, unspecified; E66.01 Morbid (severe) obesity due to excess calories; K21.9 Gastro-esophageal reflux disease without esophagitis; I95.1 Orthostatic hypotension; G47.33 Obstructive sleep apnea (adult) (pediatric); Z79.51 Long term (current) use of inhaled steroids; Z79.899 Other long term (current) drug therapy; I25.2 Old myocardial infarction; Z87.891 Personal history of nicotine dependence; Z86.73 Personal history of transient ischemic attack (TIA), and cerebral infarction without residual deficits; Z82.49 Family history of ischemic heart disease and other diseases of the circulatory system
CPT/HCPCS: 36415; 71046; 72050; 76705; 80048; 80053; 80061; 81001; 82550; 82553; 83036; 83735; 83880; 84443; 84484; 85025; 85027; 93005; 93010; 94660; 99285; J2270; J2405; J3490; J7050

== ENCOUNTER 2019-05-14 15:38 | Inpatient (IN) | payer MEDICARE, MEDICAID ==
[2019-05-14 16:17] LABS: ABSOLUTE EOSINOPHILS # (AUTO) 0.1 10^3/uL (0.0-0.6); ABSOLUTE LYMPHOCYTES (AUTO) 1.4 10^3/uL (0.5-4.7); ABSOLUTE MONOCYTES (AUTO) 0.9 10^3/uL (0.1-1.4); ABSOLUTE NEUT (AUTO) 3.3 10^3/uL (1.7-8.2); BASOPHILS % (AUTO) 0.8 % (0-2); EOSINOPHILS % (AUTO) 1.1 % (0-6); HEMOGLOBIN 12.7 g/dL (12.0-15.5); LYMPHOCYTES % (AUTO) 24.2 % (13-45); MEAN CORPUSCULAR HEMOGLOBIN 29.8 pg (27.0-33.4); MEAN CORPUSCULAR HGB CONC 33.5 g/dL (32.0-36.0); MEAN CORPUSCULAR VOLUME 89 fl (80-97); MONOCYTES % (AUTO) 16.2 % (3-13); PLATELET COUNT 157 10^3/uL (150-450); RED BLOOD COUNT 4.28 10^6/uL (3.72-5.28); RED CELL DISTRIBUTION WIDTH 14.4 % (11.5-14.0); SEGMENTED NEUTROPHILS % (AUTO) 57.7 % (42-78); TOTAL CELLS COUNTED % (AUTO) 100 %; WHITE BLOOD COUNT 5.7 10^3/uL (4.0-10.5)
--- NOTE | 2019-05-14 16:28 | RADIOLOGY REPORT (SQ) ---
EXAM DESCRIPTION: CHEST SINGLE VIEW COMPLETED DATE/TIME: 05/14/2019 4:00 pm REASON FOR STUDY: SOB COMPARISON: Chest films 04/17/2019, 11/12/2018, 10/23/2018 EXAM PARAMETERS: NUMBER OF VIEWS: One view. TECHNIQUE: Single frontal radiographic view of the chest acquired. RADIATION DOSE: NA LIMITATIONS: Obese patient, AP portable technique FINDINGS: LUNGS AND PLEURA: No opacities, masses or pneumothorax. No pleural effusion. MEDIASTINUM AND HILAR STRUCTURES: No masses. Contour normal. HEART AND VASCULAR STRUCTURES: Moderate cardiomegaly BONES: No acute findings. HARDWARE: None in the chest. OTHER: No other significant finding. IMPRESSION: No acute findings TECHNICAL DOCUMENTATION: JOB ID: [id number] [employer]- All Rights Reserved Reading location - IP/workstation name: [email or web address]
[2019-05-14 16:48] LABS: ALBUMIN 3.6 g/dL (3.5-5.0); ALKALINE PHOSPHATASE 71 U/L (38-126); ANION GAP 11 (5-19); ASPARTATE AMINO TRANSFERASE 87 U/L (14-36); BILIRUBIN,DIRECT 0.2 mg/dL (0.0-0.4); BILIRUBIN,TOTAL 0.5 mg/dL (0.2-1.3); BLOOD UREA NITROGEN 9 mg/dL (7-20); CALCIUM 8.8 mg/dL (8.4-10.2); CARBON DIOXIDE 25 mmol/L (22-30); CHLORIDE 103 mmol/L (98-107); GLUCOSE 152 mg/dL (75-110); TOTAL PROTEIN 6.5 g/dL (6.3-8.2)
[2019-05-14] MEDS ORDERED: IPRATROPIUM/ALBUTEROL 0.5-2.5 MG/3 ML AMPUL NEB ONE ×2 (17:11→19:02)
[2019-05-14] MEDS ORDERED: METHYLPREDNISOLONE INJ 125 MG/2 ML SDV IV ONE (17:11)
[2019-05-14 17:42] LABS: A TYPE INFLUENZA AG NEGATIVE (NEGATIVE); B INFLUENZA AG POSITIVE (NEGATIVE)
[2019-05-14 17:46] LABS: ARTERIAL BLOOD BASE EXCESS 1.7 mmol/L; ARTERIAL BLOOD H2CO3 1.29 mmol/L (1.05-1.35); ARTERIAL BLOOD HCO3 26.6 mmol/L (20-24); ARTERIAL BLOOD O2 SATURATION 81.3 % (94-98); ARTERIAL BLOOD PCO2 42.8 mmHg (35-45); ARTERIAL BLOOD PH 7.41 (7.35-7.45); ARTERIAL BLOOD PO2 44.9 mmHg (80-100); ARTERIAL BLOOD TOTAL CO2 27.9 mmol/L (21-25)
[2019-05-14 17:50] LABS: ARTERIAL BLOOD FIO2 ROOM AIR
[2019-05-14] MEDS ORDERED: ALBUTEROL SULFATE 0.083% NEB 2.5 MG/3 ML AMPUL NEB ONE (17:52)
[2019-05-14] MEDS ORDERED: NORMAL SALINE 500 ML IV ONE (17:52)
--- NOTE | 2019-05-14 17:54 | ER Document Report ---
ED General - General Chief Complaint: Shortness Of Breath Stated Complaint: TROUBLE BREATHING Time Seen by Provider: 05/14/19 17:02 Primary Care Provider: STEPHANIE BARAHONA MD [Primary Care Provider] - Follow up as needed TRAVEL OUTSIDE OF THE [place] IN LAST 30 DAYS: No - HPI Notes: 73-year-old female with history of CHF and hypertension to the emergency department with complaints of progressively worsening shortness of breath since Tuesday. She states that she is been feeling pretty poorly and had body aches as well as nasal congestion and cough. She states that she began to wheeze over the weekend. She states this feels a little bit like her congestive heart failure but denies any leg swelling. She states that she has been taking her furosemide without fail. She also states that she has left lower abdominal pain and been having diarrhea for almost a week. She states she is concerned that maybe she has diverticulitis. She has had that in the past. She admits to some vomiting as well. She denies any urinary symptoms. She does not have a history of asthma. She is a former smoker but quit back in 1996. She denies any chest pain. - Related Data Allergies/Adverse Reactions: No Known Allergies Allergy (Verified 10/27/18 13:14) Past Medical History - General Information source: Patient, Emergency Med Personnel - Social History Smoking Status: Former Smoker Frequency of alcohol use: None Drug Abuse: None Family History: CAD - Father's first CT was at 78, mother had her first heart attack at 72 and brother had his first attack at 69., Hypertension. denies: DM, Malignancy Patient has suicidal ideation: No Patient has homicidal ideation: No - Past Medical History Cardiac Medical History: Reports: Hx Atrial Fibrillation, Hx Congestive Heart Failure - Diastolic, Hx Heart Attack, Hx Hypercholesterolemia, Hx Hypertension Denies: Hx Coronary Artery Disease, Hx DVT, Hx Pulmonary Embolism Pulmonary Medical History: Reports: Hx Bronchitis, Hx Sleep Apnea - Has has home CPAP. Denies: Hx Asthma, Hx COPD, Hx Pneumonia Neurological Medical History: Reports: Hx Cerebrovascular Accident - 1984, NO LASTING DEFICITS. Denies: Hx Seizures, Hx Parkinson's Disease Endocrine Medical History: Denies: Hx Diabetes Mellitus Type 1, Hx Diabetes Mellitus Type 2, Hx Hyperthyroidism, Hx Hypothyroidism Renal/ Medical History: Denies: Hx Peritoneal Dialysis GI Medical History: Reports: Hx Gastroesophageal Reflux Disease. Denies: Hx Cirrhosis, Hx Crohn's Disease, Hx Hepatitis, Hx Hiatal Hernia, Hx Ulcerative Colitis. Comment Only: Hx Ulcer - DIVERTICULITIS Musculoskeletal Medical History: Denies Hx Arthritis, Denies Hx Gout, Denies Hx Multiple Sclerosis Skin Medical History: Denies Hx Eczema, Denies Hx Psoriasis Psychiatric Medical History: Denies: Hx Depression Infectious Medical History: Denies: Hx Hepatitis, Hx MRSA, Hx VRE Past Surgical History: Reports: Hx Abdominal Surgery - hernia repair, Hx Cardiac Catheterization - x3 with balloon angioplasty x1, Hx Hysterectomy, Hx Tonsill ectomy. Denies: Hx Mastectomy, Hx Open Heart Surgery, Hx Pacemaker - Immunizations Immunizations up to date: Yes Hx Diphtheria, Pertussis, Tetanus Vaccination: Yes Review of Systems - Review of Systems Constitutional: Chills, Fever, Malaise EENT: Nose congestion Cardiovascular: denies: Chest pain, Palpitations, Syncope, Dizziness, Lightheaded Respiratory: See HPI, Cough, Short of breath, Wheezing Gastrointestinal: See HPI, Abdominal pain, Diarrhea, Nausea, Vomiting Genitourinary: No symptoms reported Female Genitourinary: No symptoms reported Musculoskeletal: No symptoms reported Skin: No symptoms reported Hematologic/Lymphatic: No symptoms reported Neurological/Psychological: No symptoms reported -: Yes All other systems reviewed and negative Physical Exam - Vital signs Vitals: Temp Pulse Resp BP Pulse Ox 103.1 F H 130 H 27 H 136/90 H 95 05/14/19 15:39 05/14/19 15:39 05/14/19 15:39 05/14/19 15:39 05/14/19 15:39 Interpretation: Normal - General General appearance: Alert In distress: Mild Notes: Mild respiratory distress. Patient is audibly wheezing. No accessory muscle use. - HEENT Head: Normocephalic, Atraumatic Eyes: Normal Pupils: PERRL Ears: Normal External canal: Normal Tympanic membrane: Normal Sinus: Normal Nasal: Normal Mouth/Lips: Normal Mucous membranes: Normal Pharynx: Normal, Potential airway comprom. Neck: Normal, Supple. No: Lymphadenopathy, Meningismus - Respiratory Respiratory status: No: Pursed lip breathing, Retractions, Tripod position Chest status: Nontender. No: Accessory muscle use Breath sounds: Decreased air movement, Wheezing - Grossly audible wheezing. On auscultation she has diffuse inspiratory and expiratory wheezing. She is not using accessory muscles. But she is breathy when she is speaking to me. She can speak in about 3-4 words at a time. She is not tripoding and she does not have retractions. Chest palpation: Normal - Cardiovascular Rhythm: Regular Heart sounds: Normal auscultation Murmur: No - Abdominal Inspection: Normal Distension: No distension Bowel sounds: Normal Tenderness: Tender - Tenderness to palpation in the left lower quadrant Organomegaly: No organomegaly - Back Back: Normal, Nontender. No: CVA tenderness - Neurological Neuro grossly intact: Yes Cognition: Normal Orientation: AAOx4 [place] Coma Scale Eye Opening: Spontaneous [place] Coma Scale Verbal: Oriented Andi Coma Scale Motor: Obeys Commands [place] Coma Scale Total: 15 Speech: Normal Motor strength normal: LUE, RUE, LLE, RLE Additional motor exam normals: Equal flatwork tier. No: Pronator drift Sensory: Normal - Psychological Associated symptoms: Normal affect, Normal mood - Skin Skin Temperature: Warm Skin Moisture: Dry Skin Color: Normal Course - Re-evaluation Re-evalutation: 05/14/[address] Ta, ER attending. We agree that given the patient's concurrent shortness of breath with wheezing in the setting of flu as well as the diverticulitis that she will need admission. Dr. Juarez went and saw patient. Gone ahead and started her on Tamiflu and also started on Cipro and Flagyl. Patient is gotten 3 breathing treatments, Solu-Medrol and is still audibly wheezing. Dr. Ta went and saw the patient as well and she agrees she needs admission. Paged hospitalist. 05/14/19 20:32 Dr. Cardona called back and I was in a room with another patient to Dr. Ta explained to him what was going on with the patient. Dr. Ta requested a telemetry bed. Patient to be admitted to the hospitalist service Impression: Influenza B with wheezing, diverticulitis. Patient has high risk for getting worse so we will admit to the hospital. Gave Tamiflu as well as Cipro and Flagyl. Patient is aware the plan and agrees. - Vital Signs Vital signs: Temp Pulse Resp BP Pulse Ox 100.2 F 130 H 24 H 151/84 H 95 05/14/19 18:55 05/14/19 15:39 05/14/19 19:01 05/14/19 19:00 05/14/19 19:01 - Laboratory Result Diagrams: 05/14/19 16:00 05/14/19 16:00 Laboratory results interpreted by me: 05/14/19 05/14/19 05/14/19 16:00 16:00 16:00 RDW 14.4 H [place] % (Auto) 16.2 H ABG pO2 ABG HCO3 ABG Total CO2 ABG O2 Saturation Potassium 3.0 L* Glucose 152 H AST 87 H NT-Pro-B Natriuret Pep 747 H 05/14/19 17:25 RDW [place] % (Auto) ABG pO2 44.9 L ABG HCO3 26.6 H ABG Total CO2 27.9 H ABG O2 Saturation 81.3 L Potassium Glucose AST NT-Pro-B Natriuret Pep - Diagnostic Test Radiology reviewed: Image reviewed, Reports reviewed Discharge - Discharge Clinical Impression: Influenza B, Diverticulitis, Vomiting Atrial fibrillation Qualifiers: Atrial fibrillation type: unspecified Qualified Code(s): I48.91 - Unspecified atrial fibrillation Dyspnea Qualifiers: Dyspnea type: shortness of breath Qualified Code(s): R06.02 - Shortness of breath Condition: Stable Disposition: ADMITTED INPATIENT Admitting Provider: Brendan (Hospitalist) Unit Admitted: Telemetry Referrals: STEPHANIE BARAHONA MD [Primary Care Provider] - Follow up as needed
[2019-05-14] MEDS: POTASSIUM CHLORIDE 10 MEQ TABLET.ER PO ONE ×2 (18:00→18:01)
[2019-05-14] MEDS ORDERED: ONDANSETRON HCL INJ/PF 4 MG/2 ML SDV IV ONE (18:04)
[2019-05-14 18:07] LABS: TROPONIN I 0.015 ng/mL
--- NOTE | 2019-05-14 18:55 | RADIOLOGY REPORT (SQ) ---
EXAM DESCRIPTION: CT ABD/PELVIS WITH IV ONLY COMPLETED DATE/TIME: 05/14/2019 6:28 pm REASON FOR STUDY: LLq abd pain, fever, hx of diverticulitis COMPARISON: None. TECHNIQUE: CT scan of the abdomen and pelvis performed using helical scanning technique with dynamic intravenous contrast injection. No oral contrast. Images reviewed with lung, soft tissue, and bone windows. Reconstructed coronal and sagittal MPR images reviewed. Delayed images for evaluation of the urinary system also acquired. All images stored on PACS. All CT scanners at this facility use dose modulation, iterative reconstruction, and/or weight based d osing when appropriate to reduce radiation dose to as low as reasonably achievable (ALARA). [facility]: Dose Right [facility]: CareDose [facility]: Dose Right [facility]: Teradose 4D [facility]: [employer] Systems CONTRAST TYPE AND DOSE: contrast/concentration: Isovue 350.00 mg/ml; Total Contrast Delivered: 94.0 ml; Total Saline Delivered: 72.0 ml RENAL FUNCTION: BUN 9 creatinine 0.79 RADIATION DOSE: CT Rad equipment meets quality standard of care and radiation dose reduction techniq ues were employed. CTDIvol: 20.9 - 21.1 mGy. DLP: 2360 mGy-cm.. LIMITATIONS: None. FINDINGS: LOWER CHEST: No significant findings. No nodules or infiltrates. LIVER: Normal size. No masses. No dilated ducts. SPLEEN: Normal size. No focal lesions. PANCREAS: No masses. No significant calcifications. No adjacent inflammation or peripancreatic fluid collections. Pancreatic duct not dilated. GALLBLADDER: Small gallstones are present. ADRENAL GLANDS: 21 mm relatively hyperdense left adrenal nodule. RIGHT KIDNEY AND URETER: No solid masses. No significant calcifications. No hydronephrosis or hyd roureter. LEFT KIDNEY AND URETER: No solid masses. No significant calcifications. No hydronephrosis or hydr oureter. AORTA AND VESSELS: No aneurysm. No dissection. Renal arteries, SMA, celiac without stenosis. RETROPERITONEUM: No retroperitoneal adenopathy, hemorrhage or masses. BOWEL AND PERITONEAL CAVITY: Extensive sigmoid diverticulosis with minimal associated inflammatory ch anges. No abscess. No perforation. No obvious bowel mass. APPENDIX: Normal. PELVIS: No mass. No free fluid. Normal bladder. ABDOMINAL WALL: No masses. No hernias. BONES: No significant or acute findings. OTHER: No other significant finding. IMPRESSION: 1. Sigmoid diverticulosis with mild diverticulitis. 2. 21 mm slightly heterogeneous, relatively hyperdense left adrenal mass. Recommend MRI with adrena l protocol. Recommend lab evaluation for pheochromocytoma. TECHNICAL DOCUMENTATION: JOB ID: [id number] Quality ID # [id number]: Final reports with documentation of one or more dose reduction techniques (e.g., Au tomated exposure control, adjustment of the mA and/or kV according to patient size, use of iterative reconstruction technique) 2010 [employer]- All Rights Reserved Reading location - IP/workstation name: [email or web address]
[2019-05-14] MEDS ORDERED: OSELTAMIVIR PHOSPHATE 75 MG CAPSULE PO ONE (19:14)
[2019-05-14] MEDS ORDERED: CIPROFLOXACIN 400 MG/D5W RTU 400 MG/200 ML RTUPB IV ONE (19:18)
[2019-05-14] MEDS ORDERED: METRONIDAZOLE 500 MG/NS RTU 500 MG in CONTAINER,EMPTY 1 EACH IV ONE (19:18)
[2019-05-14] MEDS ORDERED: METOPROLOL TARTRATE PF/INJ 5 MG/5 ML SDV IV ONE (20:08)
[2019-05-14] MEDS ORDERED: ACETAMINOPHEN 325 MG TABLET PO PRN (20:10)
[2019-05-14] MEDS ORDERED: MAG HYDROX/AL HYDROX/SIMETH SUSP 30 ML UDCUP PO PRN (20:10)
[2019-05-14] MEDS ORDERED: HYDRALAZINE HCL INJ/PF 20 MG/1 ML SDV IV PRN (20:17)
[2019-05-14] MEDS ORDERED: HYDROCODONE BIT/HOMATROPINE SYRUP 5 ML UDCUP PO PRN (20:17)
[2019-05-14] MEDS ORDERED: IPRATROPIUM BROMIDE 0.02% NEB 0.5 MG/2.5 ML AMPUL NEB PRN (20:18)
[2019-05-14] MEDS ORDERED: LEVALBUTEROL HCL NEB 1.25 MG/3 ML AMPUL NEB PRN (20:18)
[2019-05-14] MEDS ORDERED: METRONIDAZOLE 500 MG/NS RTU 500 MG/100 ML RTUPB IV ONE (20:30)
[2019-05-14] MEDS: METRONIDAZOLE 500 MG TABLET PO SCH (21:56)
--- NOTE | 2019-05-14 22:28 | EKG REPORT ---
SEVERITY:- ABNORMAL ECG - ATRIAL FIBRILLATION PROBABLE LVH WITH SECONDARY REPOL ABNRM BORDERLINE PROLONGED QT INTERVAL : Confirmed by: Chandni Zavala MD 14-May-2019 22:27:59
[2019-05-14] MEDS: CIPROFLOXACIN 400 MG/D5W RTU 400 MG/200 ML RTUPB IV SCH (23:29)
[2019-05-14] MEDS: OSELTAMIVIR PHOSPHATE 75 MG CAPSULE PO SCH (23:55)
[2019-05-14] MEDS: METOPROLOL TARTRATE 50 MG TABLET PO SCH (23:58)
[2019-05-15] MEDS: IPRATROPIUM BROMIDE 0.02% NEB 0.5 MG/2.5 ML AMPUL NEB SCH ×3 (00:20→17:11)
[2019-05-15] MEDS: LEVALBUTEROL HCL NEB 1.25 MG/3 ML AMPUL NEB SCH ×3 (00:20→17:11)
[2019-05-15] MEDS: METRONIDAZOLE 500 MG TABLET PO SCH ×4 (00:24→17:55)
[2019-05-15] MEDS ORDERED: INFLUENZA QUAD (6MOS+) 2019-20 VAC 0.5 ML SYR IM ONE (00:44)
[2019-05-15] MEDS: POTASSI CL 20 MEQ/50 ML RIDER 20 MEQ/50 ML RTUPB IV SCH ×3 (01:07→04:58)
--- NOTE | 2019-05-15 04:58 | PDOC H&P ---
History of Present Illness Admission Date/PCP: 05/14/19 20:17 STEPHANIE BARAHONA MD Patient complains of: Shortness of breath and left lower quadrant pain History of Present Illness: GERARDO WILLIAMSON is a 73 year old female with an extensive past medical history of morbid obesity, obstructive sleep apnea, congestive heart failure, diverticulitis, atrial fibrillation and diabetes. She presents with several days of cough congestion and subjective fever as well as left lower quadrant pain and diarrhea. In the emergency room she is found to have fever, nausea, i nfluenza B positive, acute diverticulitis by CT and left adrenal incidentaloma. She started on empiric antibiotics and referred to the hospitalist for admission. Medication compliance is unclear. At bedside the patient is found obtunded unable to provide history, arousable only briefly falling back to sleep. She is placed on BiPAP with follow-up ABG. Past Medical History Cardiac Medical History: Reports: Atrial Fibrillation, Congestive Heart Failure - Diastolic, Myocardial Infarction, Hyperlipidema, Hypertension Denies: Coronary Artery Disease, DVT, Pulmonary Embolism Pulmonary Medical History: Reports: Bronchitis, Sleep Apnea - Has has home CPAP. Denies: Asthma, Chronic Obstructive Pulmonary Disease (COPD), Pneumonia Neurological Medical History: Denies: Seizures Endocrine Medical History: Denies: Diabetes Mellitus Type 1, Diabetes Mellitus Type 2, Hyperthyroidism, Hypothyroidism GI Medical History: Reports: Gastroesophageal Reflux Disease Denies: Cirrhosis, Crohn's Disease, Hepatitis, Hiatal Hernia, Ulcerative Colitis Musculoskeltal Medical History: Denies: Arthritis, Gout Skin Medical History: Denies: Eczema, Psoriasis Psychiatric Medical History: Denies: Depression Hematology: Denies: Anemia, Sickle Cell Disease, Bleeding Tendencies Infectious Medical History: Denies: Methicillin-Resistant Staph Aureus, Vancomycin-Resistant Enterococci Past Surgical History Past Surgical History: Reports: Cardiac Catheterization - x3 with balloon angioplasty x1, Hysterectomy, Tonsillectomy Denies: Amputation, Mastectomy, Pacemaker Social History Smoking Status: Former Smoker Electronic Cigarette use?: No Last Time Smoked: 1996 Frequency of Alcohol Use: Rare Hx Recreational Drug Use: No Drugs: None Hx Prescription Drug Abuse: No Family History Family History: CAD - Father's first WA was at 78, mother had her first heart attack at 72 and brother had his first attack at 69., Hypertension. denies: DM, Malignancy Parental Family History Reviewed: No - Unobtainable Children Family History Reviewed: No - Unobtainable Sibling(s) Family History Reviewed.: No - Unobtainable Medication/Allergy Home Medications: Albuterol Sulfate [Proair Hfa Inhalation Aerosol 8.5 gm Mdi] 1 puff IH Q4 PRN 05/14/19 Furosemide [Lasix 80 mg Tablet] 80 mg PO DAILY 05/14/19 Ibuprofen [Ibu] 800 mg PO BID 05/14/19 Isosorbide Mononitrate [Imdur 30 mg Tablet.er] 15 mg PO DAILY 05/14/19 Losartan Potassium [Cozaar 50 mg Tablet] 50 mg PO DAILY 05/14/19 Omeprazole 20 mg PO DAILY 05/14/19 Rivaroxaban [Xarelto] 20 mg PO DAILY 05/14/19 Sertraline HCl [Zoloft] 100 mg PO DAILY 05/14/19 Sotalol HCl [Betapace 80 mg Tablet] 1 tab PO BID 05/14/19 Allergies/Adverse Reactions: No Known Allergies Allergy (Verified 10/27/18 13:14) Review of Systems ROS unobtainable: Due to mental status Physical Exam Vital Signs: Temp Pulse Resp BP Pulse Ox 97.5 F 98 20 110/65 95 05/14/19 23:57 05/15/19 00:20 05/15/19 00:20 05/14/19 23:57 05/15/19 00:20 Intake & Output 05/13/19 05/14/19 05/15/19 11:59 11:59 11:59 Intake Total 1025 Output Total 0 Balance 1025 Weight 104.6 kg General appearance: PRESENT: cooperative, mild distress, morbidly obese, well- developed, well-nourished Head exam: PRESENT: atraumatic, normocephalic Eye exam: PRESENT: conjunctiva pink, EOMI, PERRLA. ABSENT: scleral icterus Ear exam: PRESENT: normal external ear exam Mouth exam: PRESENT: moist, tongue midline Neck exam: ABSENT: carotid bruit, JVD, lymphadenopathy, thyromegaly Respiratory exam: PRESENT: accessory muscle use, clear to auscultation kayleigh, prolonged expiratory phas. ABSENT: rales, rhonchi, tachypnea, wheezes Cardiovascular exam: PRESENT: +S2, systolic murmur, tachycardia. ABSENT: RRR Pulses: PRESENT: normal dorsalis pedis pul Vascular exam: PRESENT: normal capillary refill GI/Abdominal exam: PRESENT: hyperactive bowel sounds, normal bowel sounds, soft. ABSENT: distended, guarding, mass, organolmegaly, rebound, tenderness Rectal exam: PRESENT: deferred Extremities exam: PRESENT: full ROM. ABSENT: calf tenderness, clubbing, pedal edema Neurological exam: PRESENT: alert, awake, oriented to person, oriented to place, oriented to time, oriented to situation, CN II-XII grossly intact. ABSENT: maddison r sensory deficit Psychiatric exam: PRESENT: appropriate affect, normal mood. ABSENT: homicidal ideation, suicidal ideation Skin exam: PRESENT: dry, intact, warm. ABSENT: cyanosis, rash Results Laboratory Results: 05/14/19 16:00 05/14/19 16:00 05/14/19 05/14/19 05/14/19 16:00 16:00 16:00 WBC 5.7 RBC 4.28 Hgb 12.7 Hct 38.0 MCV 89 MCH 29.8 MCHC 33.5 RDW 14.4 H Plt Count 157 Seg Neutrophils % 57.7 Carbonic Acid HCO3/H2CO3 Ratio ABG pH ABG pCO2 ABG pO2 ABG HCO3 ABG O2 Saturation ABG Base Excess FiO2 Sodium 139.1 Potassium 3.0 L* Chloride 103 Carbon Dioxide 25 Anion Gap 11 BUN 9 Creatinine 0.79 Est GFR ( Amer) > 60 Glucose 152 H Lactic Acid Calcium 8.8 Magnesium 1.6 Total Bilirubin 0.5 AST 87 H Alkaline Phosphatase 71 Total Protein 6.5 Albumin 3.6 05/14/19 05/14/19 16:00 17:25 WBC RBC Hgb Hct MCV MCH MCHC RDW Plt Count Seg Neutrophils % Carbonic Acid 1.29 HCO3/H2CO3 Ratio 20:1 ABG pH 7.41 ABG pCO2 42.8 ABG pO2 44.9 L ABG HCO3 26.6 H ABG O2 Saturation 81.3 L ABG Base Excess 1.7 FiO2 ROOM AIR Sodium Potassium Chloride Carbon Dioxide Anion Gap BUN Creatinine Est GFR ( Amer) Glucose Lactic Acid 1.5 Calcium Magnesium Total Bilirubin AST Alkaline Phosphatase Total Protein Albumin 05/14/19 16:00 Troponin I 0.015 NT-Pro-B Natriuret Pep 747 H Impressions: Chest X-Ray 05/14/19 15:48 IMPRESSION: No acute findings Abdomen/Pelvis CT 05/14/19 17:11 IMPRESSION: 1. Sigmoid diverticulosis with mild diverticulitis. 2. 21 mm slightly heterogeneous, relatively hyperdense left adrenal mass. Recommend MRI with adrenal protocol. Recommend lab evaluation for pheochromocytoma. Assessment and Plan - Diagnosis (1) Influenza B Is this a current diagnosis for this admission?: Yes Plan: Tamiflu, albuterol and Atrovent, incentive spirometry with supplemental oxygen (2) Atrial fibrillation Qualifiers: Atrial fibrillation type: unspecified Qualified Code(s): I48.91 - Un specified atrial fibrillation Is this a current diagnosis for this admission?: Yes Plan: Lopressor, Xarelto (3) Diverticulitis Is this a current diagnosis for this admission?: Yes Plan: Clear liquids, Cipro and Flagyl, follow-up CBC and blood culture (4) Dyspnea Qualifiers: Dyspnea type: shortness of breath Qualified Code(s): R06.02 - Shortness of breath; R06.00 - Dyspnea, unspecified; R06.01 - Orthopnea Is this a current diagnosis for this admission?: Yes Plan: Secondary to #1, complicated by morbid obesity. Supplemental oxygen, incentive spirometry (5) Super obesity Is this a current diagnosis for this admission?: Yes Plan: BiPAP, follow-up ABG (6) KESHAWN (obstructive sleep apnea) Is this a current diagnosis for this admission?: Yes Plan: BiPAP, follow-up ABG (7) Adrenal mass Is this a current diagnosis for this admission?: Yes Plan: Follow-up urine metanephrine, plasma renin and plasma aldosterone - Time Time Spent with patient: 35 or more minutes - Inpatient Certification Medical Necessity: Need Close Monitoring Due to Risk of Patient Decompensation
[2019-05-15 05:49] LABS: ABSOLUTE LYMPHOCYTES (AUTO) 1.1 10^3/uL (0.5-4.7); ABSOLUTE MONOCYTES (AUTO) 0.1 10^3/uL (0.1-1.4); ABSOLUTE NEUT (AUTO) 2.8 10^3/uL (1.7-8.2); BASOPHILS % (AUTO) 0.4 % (0-2); HEMATOCRIT 40.3 % (36.0-47.0); HEMOGLOBIN 13.3 g/dL (12.0-15.5); LYMPHOCYTES % (AUTO) 28.2 % (13-45); MEAN CORPUSCULAR HEMOGLOBIN 29.8 pg (27.0-33.4); MEAN CORPUSCULAR HGB CONC 33.1 g/dL (32.0-36.0); MEAN CORPUSCULAR VOLUME 90 fl (80-97); PLATELET COUNT 169 10^3/uL (150-450); RED BLOOD COUNT 4.46 10^6/uL (3.72-5.28); RED CELL DISTRIBUTION WIDTH 14.7 % (11.5-14.0); SEGMENTED NEUTROPHILS % (AUTO) 68.4 % (42-78); TOTAL CELLS COUNTED % (AUTO) 100 %; WHITE BLOOD COUNT 4.1 10^3/uL (4.0-10.5)
[2019-05-15 06:14] LABS: ANION GAP 12 (5-19); BLOOD UREA NITROGEN 11 mg/dL (7-20); CALCIUM 8.8 mg/dL (8.4-10.2); CARBON DIOXIDE 23 mmol/L (22-30); CHLORIDE 105 mmol/L (98-107); GLUCOSE 190 mg/dL (75-110)
--- NOTE | 2019-05-15 08:23 | Progress Note ---
Provider Note Provider Note: 05/15/2019-patient admitted early a.m. I have reviewed labs medications and patient status. We will continue to follow make change plan of care as appropriate.
[2019-05-15] MEDS: SERTRALINE HCL 50 MG TABLET PO SCH (12:05)
[2019-05-15] MEDS: METOPROLOL TARTRATE 50 MG TABLET PO SCH ×2 (12:05→21:19)
[2019-05-15] MEDS: RIVAROXABAN 10 MG TABLET PO SCH (12:05)
[2019-05-15] MEDS: FLUTICASONE NASAL SPRAY 50 MCG/SPRY 120 SPRAY/16 GM NASL SCH ×2 (12:06→21:19)
[2019-05-15] MEDS: CIPROFLOXACIN 400 MG/D5W RTU 400 MG/200 ML RTUPB IV SCH ×2 (12:06→22:26)
[2019-05-15] MEDS: OSELTAMIVIR PHOSPHATE 75 MG CAPSULE PO SCH ×2 (12:06→21:19)
[2019-05-15] MEDS: DOCUSATE SODIUM 100 MG CAPSULE PO SCH ×2 (12:06→17:51)
[2019-05-16] MEDS: IPRATROPIUM BROMIDE 0.02% NEB 0.5 MG/2.5 ML AMPUL NEB SCH ×3 (00:17→16:23)
[2019-05-16] MEDS: LEVALBUTEROL HCL NEB 1.25 MG/3 ML AMPUL NEB SCH ×3 (00:17→16:24)
[2019-05-16] MEDS: METRONIDAZOLE 500 MG TABLET PO SCH ×5 (00:22→23:44)
[2019-05-16] MEDS ORDERED: GUAIFENESIN SYRP 200 MG/10 ML UDC PO PRN (05:51)
--- NOTE | 2019-05-16 08:37 | PDOC PROGRESS REPORT ---
Subjective Progress Note for:: 05/16/19 Subjective:: 05/16/2019-continue cough and wheeze Reason For Visit: AFIB, DCHF, DIVERTICULITIS, HYPOKAL Physical Exam Vital Signs: Temp Pulse Resp BP Pulse Ox 98.4 F 88 16 135/97 H 93 05/16/19 03:40 05/16/19 07:00 05/16/19 03:40 05/16/19 03:40 05/16/19 03:40 Intake & Output 05/15/19 05/16/19 05/17/19 06:59 06:59 06:59 Intake Total 1325 1140 200 Output Total 100 1100 Balance 1225 40 200 Weight 104.6 kg 107.3 kg General appearance: PRESENT: no acute distress, well-developed, well-nourished Neck exam: ABSENT: carotid bruit, JVD, lymphadenopathy, thyromegaly Respiratory exam: PRESENT: decreased breath sounds, symmetrical, tachypnea, wheezes Cardiovascular exam: PRESENT: RRR. ABSENT: diastolic murmur, rubs, systolic murmur Pulses: PRESENT: +1 pedal pulses bilateral Vascular exam: PRESENT: normal capillary refill GI/Abdominal exam: PRESENT: normal bowel sounds, soft. ABSENT: distended, guarding, mass, organolmegaly, rebound, tenderness Extremities exam: PRESENT: full ROM. ABSENT: calf tenderness, clubbing, pedal edema Neurological exam: PRESENT: alert, awake, oriented to person, oriented to place, oriented to time, oriented to situation, CN II-XII grossly intact. ABSENT: motor sensory deficit Psychiatric exam: PRESENT: appropriate affect, normal mood. ABSENT: homicidal ideation, suicidal ideation Skin exam: PRESENT: dry, intact, warm. ABSENT: cyanosis, rash Results Laboratory Results: 05/15/19 05:32 05/15/19 05:32 05/14/19 16:00 Troponin I 0.015 NT-Pro-B Natriuret Pep 747 H Impressions: Chest X-Ray 05/14/19 15:48 IMPRESSION: No acute findings Abdomen/Pelvis CT 05/14/19 17:11 IMPRESSION: 1. Sigmoid diverticulosis with mild diverticulitis. 2. 21 mm slightly heterogeneous, relatively hyperdense left adrenal mass. Recommend MRI with adrenal protocol. Recommend lab evaluation for pheochromocytoma. Assessment and Plan - Diagnosis (1) Influenza B Is this a current diagnosis for this admission?: Yes Plan: Tamiflu, albuterol and Atrovent, incentive spirometry with supplemental oxygen 05/16/2019-patient continues on Tamiflu. I believe there are some component of bronchitis along with this episode. Patient will continue with Tamiflu, bronchodilators and supplemental oxygen. I did add Solu-Medrol 40 mg IV every 8. (2) Obesity Is this a current diagnosis for this admission?: Yes Plan: 05/16/2019-continue educated about the positive health benefits associated with weight loss (3) Adrenal mass Is this a current diagnosis for this admission?: Yes Plan: Follow-up urine metanephrine, plasma renin and plasma aldosterone 05/16/2019-CT exhibited a 21 mm lesion on adrenal gland. Urine has been sent for metanephrines and catecholamines. Plasma renin and aldosterone are pending. I have placed patient on list for in a.m. CT abdomen pelvis with adrenal protocol. Will await further findings may change plan of care as appropriate (4) Atrial fibrillation Qualifiers: Atrial fibrillation type: unspecified Qualified Code(s): I48.91 - Unspecified atrial fibrillation Is this a current diagnosis for this admission?: Yes Plan: Lopressor, Xarelto 05/16/2019-chronic stable continue Lopressor and Xarelto (5) Diverticulitis Is this a current diagnosis for this admission?: Yes Plan: Clear liquids, Cipro and Flagyl, follow-up CBC and blood culture 05/16/2019-continues on clear liquids, Cipro Flagyl improving. (6) Dyspnea Qualifiers: Dyspnea type: shortness of breath Qualified Code(s): R06.02 - Shortness of breath; R06.00 - Dyspnea, unspecified; R06.01 - Orthopnea Is this a current diagnosis for this admission?: Yes Plan: Secondary to #1, complicated by morbid obesity. Supplemental oxygen, incentive spirometry 05/16/2019-most likely bronchitis in nature. I have added Solu-Medrol to patient's regimen will follow (7) KESHAWN (obstructive sleep apnea) Is this a current diagnosis for this admission?: Yes Plan: BiPAP, follow-up ABG 05/16/2019-continue BiPAP as needed - Time Time Spent with patient: 15-24 minutes - Inpatient Certification Based on my medical assessment, after consideration of the patient's comorbidities, presenting symptoms, or acuity I expect that the services needed warrant INPATIENT care.: Yes I certify that my determination is in accordance with my understanding of Medicare's requirements for reasonable and necessary INPATIENT services [42 CFR 412.3e].: Yes Medical Necessity: Significant Comorbidiites Make Outpatient Treatment Too Risky, Need Close Monitoring Due to Risk of Patient Decompensation, Need for IV Antibiotics
[2019-05-16] MEDS: RIVAROXABAN 10 MG TABLET PO SCH (09:15)
[2019-05-16] MEDS: METOPROLOL TARTRATE 50 MG TABLET PO SCH ×2 (09:16→21:01)
[2019-05-16] MEDS: METHYLPREDNISOLONE INJ 40 MG/1 ML SDV IV SCH ×3 (09:16→21:01)
[2019-05-16] MEDS: SERTRALINE HCL 50 MG TABLET PO SCH (09:16)
[2019-05-16] MEDS: DOCUSATE SODIUM 100 MG CAPSULE PO SCH ×2 (09:16→17:13)
[2019-05-16] MEDS: CIPROFLOXACIN 400 MG/D5W RTU 400 MG/200 ML RTUPB IV SCH ×2 (09:16→21:01)
[2019-05-16] MEDS: OSELTAMIVIR PHOSPHATE 75 MG CAPSULE PO SCH ×2 (09:17→21:01)
[2019-05-16] MEDS: FLUTICASONE NASAL SPRAY 50 MCG/SPRY 120 SPRAY/16 GM NASL SCH ×2 (09:18→21:00)
[2019-05-16] MEDS ORDERED: PROMETHAZINE HCL INJ 25 MG/1 ML VIAL ONE (23:37)
[2019-05-17] MEDS: LEVALBUTEROL HCL NEB 1.25 MG/3 ML AMPUL NEB SCH ×4 (00:18→23:36)
[2019-05-17] MEDS: IPRATROPIUM BROMIDE 0.02% NEB 0.5 MG/2.5 ML AMPUL NEB SCH ×4 (00:18→23:36)
[2019-05-17 04:00] LABS: APPEARANCE,URINE CLEAR; BILIRUBIN,URINE NEGATIVE (NEGATIVE); COLOR,URINE STRAW; GLUCOSE, URINE NEGATIVE (NEGATIVE); KETONES,URINE NEGATIVE (NEGATIVE); LEUKOCYTE ESTERASE,URINE NEGATIVE (NEGATIVE); NITRITE,URINE NEGATIVE (NEGATIVE); PROTEIN,URINE NEGATIVE (NEGATIVE); URINE SPECIFIC GRAVITY 1.003; UROBILINOGEN,URINE NEGATIVE mg/dL (<2.0)
[2019-05-17 05:24] LABS: HEMATOCRIT 42.2 % (36.0-47.0); HEMOGLOBIN 13.9 g/dL (12.0-15.5); MEAN CORPUSCULAR HEMOGLOBIN 29.9 pg (27.0-33.4); MEAN CORPUSCULAR VOLUME 91 fl (80-97); PLATELET COUNT 191 10^3/uL (150-450); RED BLOOD COUNT 4.66 10^6/uL (3.72-5.28); RED CELL DISTRIBUTION WIDTH 14.2 % (11.5-14.0); WHITE BLOOD COUNT 4.4 10^3/uL (4.0-10.5)
[2019-05-17 05:53] LABS: ANION GAP 12 (5-19); BLOOD UREA NITROGEN 16 mg/dL (7-20); CALCIUM 9.3 mg/dL (8.4-10.2); CARBON DIOXIDE 24 mmol/L (22-30); CHLORIDE 105 mmol/L (98-107); GLUCOSE 160 mg/dL (75-110); POTASSIUM 4.2 mmol/L (3.6-5.0)
[2019-05-17] MEDS: METHYLPREDNISOLONE INJ 40 MG/1 ML SDV IV SCH ×3 (05:53→21:20)
[2019-05-17] MEDS: PROMETHAZINE HCL INJ 25 MG/1 ML VIAL IV PRN (05:53)
[2019-05-17] MEDS: METRONIDAZOLE 500 MG TABLET PO SCH ×3 (05:53→17:19)
--- NOTE | 2019-05-17 08:25 | PDOC PROGRESS REPORT ---
Subjective Progress Note for:: 05/17/19 Subjective:: 05/16/2019-continue cough and wheeze 05/17/2019-continued wheeze Reason For Visit: AFIB, DCHF, DIVERTICULITIS, HYPOKAL Physical Exam Vital Signs: Temp Pulse Resp BP Pulse Ox 98.8 F 84 18 146/90 H 99 05/17/19 03:48 05/17/19 07:44 05/17/19 07:44 05/17/19 03:48 05/17/19 07:44 Intake & Output 05/16/19 05/17/19 05/18/19 06:59 06:59 06:59 Intake Total 1140 1380 Output Total 1100 850 Balance 40 530 Weight 107.3 kg 109.2 kg General appearance: PRESENT: no acute distress, well-developed, well-nourished Neck exam: ABSENT: carotid bruit, JVD, lymphadenopathy, thyromegaly Respiratory exam: PRESENT: decreased breath sounds, symmetrical, unlabored, wheezes Cardiovascular exam: PRESENT: irregular rhythm, +S1, +S2. ABSENT: diastolic murmur, rubs, systolic murmur Pulses: PRESENT: +1 pedal pulses bilateral Vascular exam: PRESENT: normal capillary refill GI/Abdominal exam: PRESENT: normal bowel sounds, soft. ABSENT: distended, guarding, mass, organolmegaly, rebound, tenderness Extremities exam: PRESENT: full ROM. ABSENT: calf tenderness, clubbing, pedal edema Neurological exam: PRESENT: alert, awake, oriented to person, oriented to place, oriented to time, oriented to situation, CN II-XII grossly intact. ABSENT: motor sensory deficit Psychiatric exam: PRESENT: appropriate affect, normal mood. ABSENT: homicidal ideation, suicidal ideation Skin exam: PRESENT: dry, intact, warm. ABSENT: cyanosis, rash Results Laboratory Results: 05/17/19 04:32 05/17/19 04:32 05/17/19 05/17/19 05/17/19 03:40 04:32 04:32 WBC 4.4 RBC 4.66 Hgb 13.9 Hct 42.2 MCV 91 MCH 29.9 MCHC 33.0 RDW 14.2 H Plt Count 191 Sodium 140.7 Potassium 4.2 Chloride 105 Carbon Dioxide 24 Anion Gap 12 BUN 16 Creatinine 0.74 Est GFR ( Amer) > 60 Glucose 160 H Calcium 9.3 Urine Color STRAW Urine Appearance CLEAR Urine pH 6.0 Ur Specific Hyde 1.003 Urine Protein NEGATIVE Urine Glucose (UA) NEGATIVE Urine Ketones NEGATIVE Urine Blood SMALL H Urine Nitrite NEGATIVE Ur Leukocyte Esterase NEGATIVE Urine WBC (Auto) 1 05/14/19 16:00 Troponin I 0.015 NT-Pro-B Natriuret Pep 747 H Impressions: Chest X-Ray 05/14/19 15:48 IMPRESSION: No acute findings Abdomen/Pelvis CT 05/14/19 17:11 IMPRESSION: 1. Sigmoid diverticulosis with mild diverticulitis. 2. 21 mm slightly heterogeneous, relatively hyperdense left adrenal mass. Recommend MRI with adrenal protocol. Recommend lab evaluation for pheochromocytoma. Assessment and Plan - Diagnosis (1) Influenza B Is this a current diagnosis for this admission?: Yes Plan: Tamiflu, albuterol and Atrovent, incentive spirometry with supplemental oxygen 05/16/2019-patient continues on Tamiflu. I believe there are some component of bronchitis along with this episode. Patient will continue with Tamiflu, bronchodilators and supplemental oxygen. I did add Solu-Medrol 40 mg IV every 8. 05/17/2019 Tamiflu continues (2) Obesity Is this a current diagnosis for this admission?: Yes Plan: 05/16/2019-continue educated about the positive health benefits associated with weight loss 05/17/2019-continue dietary modification education (3) Adrenal mass Is this a current diagnosis for this admission?: Yes Plan: Follow-up urine metanephrine, plasma renin and plasma aldosterone 05/16/2019-CT exhibited a 21 mm lesion on adrenal gland. Urine has been sent for metanephrines and catecholamines. Plasma renin and aldosterone are pending. I have placed patient on list for in a.m. CT abdomen pelvis with adrenal protocol. Will await further findings may change plan of care as appropriate 05/17/2019-patient undergo adrenal protocol MRI this a.m. Awaiting urine for metanephrines and catecholamines. (4) Atrial fibrillation Qualifiers: Atrial fibrillation type: unspecified Qualified Code(s): I48.91 - Unspecified atrial fibrillation Is this a current diagnosis for this admission?: Yes Plan: Lopressor, Xarelto 05/16/2019-chronic stable continue Lopressor and Xarelto 05/17/2019-stable at this time continues Lopressor and Xarelto. (5) Diverticulitis Is this a current diagnosis for this admission?: Yes Plan: Clear liquids, Cipro and Flagyl, follow-up CBC and blood culture 05/16/2019-continues on clear liquids, Cipro Flagyl improving. 05/17/2019-improved. Patient diet advanced yesterday. Cipro and Flagyl continue (6) Dyspnea Qualifiers: Dyspnea type: shortness of breath Qualified Code(s): R06.02 - Shortness of breath; R06.00 - Dyspnea, unspecified; R06.01 - Orthopnea Is this a current diagnosis for this admission?: Yes Plan: Secondary to #1, complicated by morbid obesity. Supplemental oxygen, incentive spirometry 05/16/2019-most likely bronchitis in nature. I have added Solu-Medrol to patient's regimen will follow 05/17/2019-improved. Patient remains with scattered wheeze. Although improved we will continue Solu-Medrol at this time. (7) KESHAWN (obstructive sleep apnea) Is this a current diagnosis for this admission?: Yes Plan: BiPAP, follow-up ABG 05/16/2019-continue BiPAP as needed 05/17/2019-BiPAP PRN - Time Time Spent with patient: 15-24 minutes - Inpatient Certification Based on my medical assessment, after consideration of the patient's comorbidities, presenting symptoms, or acuity I expect that the services needed warrant INPATIENT care.: Yes I certify that my determination is in accordance with my understanding of Medicare's requirements for reasonable and necessary INPATIENT services [42 CFR 412.3e].: Yes Medical Necessity: Significant Comorbidiites Make Outpatient Treatment Too Risky, Need Close Monitoring Due to Risk of Patient Decompensation, Need For Continuous Telemetry Monitoring, Need for IV Antibiotics
[2019-05-17] MEDS: OSELTAMIVIR PHOSPHATE 75 MG CAPSULE PO SCH ×2 (09:27→21:20)
[2019-05-17] MEDS: RIVAROXABAN 10 MG TABLET PO SCH (09:27)
[2019-05-17] MEDS: SERTRALINE HCL 50 MG TABLET PO SCH (09:27)
[2019-05-17] MEDS: FLUTICASONE NASAL SPRAY 50 MCG/SPRY 120 SPRAY/16 GM NASL SCH ×2 (09:28→21:20)
[2019-05-17] MEDS: METOPROLOL TARTRATE 50 MG TABLET PO SCH ×2 (09:28→21:20)
[2019-05-17] MEDS: CIPROFLOXACIN 400 MG/D5W RTU 400 MG/200 ML RTUPB IV SCH ×2 (09:28→21:20)
[2019-05-17] MEDS: DOCUSATE SODIUM 100 MG CAPSULE PO SCH ×2 (09:29→17:19)
--- NOTE | 2019-05-17 15:37 | RADIOLOGY REPORT (SQ) ---
EXAM DESCRIPTION: MRI ABDOMEN COMBO COMPLETED DATE/TIME: 05/17/2019 1:43 pm REASON FOR STUDY: adrenal mass - Adrenal protocol COMPARISON: CT dated 05/14/2019, CT chest dated 10/26/2016 TECHNIQUE: Multiplanar multisequence imaging performed without and with contrast including sagittal, axial and coronal T2, axial T1, axial gradient fat sat T1, axial, sagittal and coronal fat sat T1 po st contrast. CONTRAST TYPE AND DOSE: 20 mL mL Dotarem. RENAL FUNCTION: Not indicated. ACR Type II contrast agent associated with few, if any, unconfounded cases of NSF LIMITATIONS: None. FINDINGS: LIVER: Normal size. No masses. No dilated ducts. CBD normal. SPLEEN: Normal size. No focal lesions. PANCREAS: No masses. No adjacent inflammation or peripancreatic fluid collections. Pancreatic duct no t dilated. GALLBLADDER: Gallstones are noted. ADRENAL GLANDS: 21 mm left adrenal mass is noted. The lesion demonstrates enhancement. There is sean e dropout of signal on out of phase sequences. The lesion does contain some fat. The lesion has bee n stable dating back to 10/26/2016. Malignancy is unlikely. RIGHT KIDNEY AND URETER: No masses. No hydronephrosis. LEFT KIDNEY AND URETER: No masses. No hydronephrosis. AORTA AND VESSELS: No aneurysm. No dissection. Renal arteries, SMA, celiac without stenosis. RETROPERITONEUM: No retroperitoneal adenopathy, hemorrhage or masses. BOWEL: No visualized masses. No inflammation. No significant dilatation. ABDOMINAL WALL AND PERITONEUM: No hernias. No free fluid. BONES: No acute or significant findings. OTHER: No other significant finding. IMPRESSION: The left adrenal lesion by strict MRI criteria is indeterminate. There is evidence of t he lesion containing some fat with some areas of signal dropout on out of phase sequences. The lesio n has been stable dating back to 10/26/2016 which highly suggest benign process. TECHNICAL DOCUMENTATION: JOB ID: [id number] [employer]- All Rights Reserved Reading location - IP/workstation name: [email or web address]
[2019-05-18] MEDS: METRONIDAZOLE 500 MG TABLET PO SCH ×4 (00:29→23:13)
[2019-05-18] MEDS: PROMETHAZINE HCL INJ 25 MG/1 ML VIAL IV PRN ×2 (00:29→06:02)
[2019-05-18 05:14] LABS: HEMATOCRIT 43.3 % (36.0-47.0); HEMOGLOBIN 14.3 g/dL (12.0-15.5); MEAN CORPUSCULAR HEMOGLOBIN 29.6 pg (27.0-33.4); MEAN CORPUSCULAR HGB CONC 32.9 g/dL (32.0-36.0); MEAN CORPUSCULAR VOLUME 90 fl (80-97); PLATELET COUNT 193 10^3/uL (150-450); RED BLOOD COUNT 4.82 10^6/uL (3.72-5.28); RED CELL DISTRIBUTION WIDTH 14.6 % (11.5-14.0); WHITE BLOOD COUNT 6.1 10^3/uL (4.0-10.5)
[2019-05-18 05:37] LABS: ANION GAP 9 (5-19); BLOOD UREA NITROGEN 17 mg/dL (7-20); CARBON DIOXIDE 25 mmol/L (22-30); CHLORIDE 107 mmol/L (98-107); GLUCOSE 165 mg/dL (75-110); POTASSIUM 4.4 mmol/L (3.6-5.0)
[2019-05-18] MEDS: METHYLPREDNISOLONE INJ 40 MG/1 ML SDV IV SCH ×3 (06:02→23:13)
[2019-05-18] MEDS: LEVALBUTEROL HCL NEB 1.25 MG/3 ML AMPUL NEB SCH ×2 (07:47→16:28)
[2019-05-18] MEDS: IPRATROPIUM BROMIDE 0.02% NEB 0.5 MG/2.5 ML AMPUL NEB SCH ×2 (07:47→16:28)
--- NOTE | 2019-05-18 08:39 | PDOC PROGRESS REPORT ---
Subjective Progress Note for:: 05/18/19 Subjective:: 05/16/2019-continue cough and wheeze 05/17/2019-continued wheeze 05/18/2019-patient states she feels better this a.m. continues with wheeze. Reason For Visit: AFIB, DCHF, DIVERTICULITIS, HYPOKAL Physical Exam Vital Signs: Temp Pulse Resp BP Pulse Ox 98.5 F 76 20 139/92 H 98 05/18/19 08:04 05/18/19 08:04 05/18/19 08:04 05/18/19 08:04 05/18/19 08:04 Intake & Output 05/17/19 05/18/19 05/19/19 06:59 06:59 06:59 Intake Total 1380 933 Output Total 850 900 Balance 530 33 Weight 109.2 kg 108.6 kg General appearance: PRESENT: no acute distress, well-developed, well-nourished Neck exam: ABSENT: carotid bruit, JVD, lymphadenopathy, thyromegaly Respiratory exam: PRESENT: decreased breath sounds, symmetrical, unlabored, wheezes Cardiovascular exam: PRESENT: irregular rhythm, +S1, +S2. ABSENT: diastolic murmur, rubs, systolic murmur Pulses: PRESENT: +1 pedal pulses bilateral Vascular exam: PRESENT: normal capillary refill GI/Abdominal exam: PRESENT: normal bowel sounds, soft. ABSENT: distended, guarding, mass, organolmegaly, rebound, tenderness Extremities exam: PRESENT: full ROM. ABSENT: calf tenderness, clubbing, pedal edema Neurological exam: PRESENT: alert, awake, oriented to person, oriented to place, oriented to time, oriented to situation, CN II-XII grossly intact. ABSENT: motor sensory deficit Psychiatric exam: PRESENT: appropriate affect, normal mood. ABSENT: homicidal ideation, suicidal ideation Skin exam: PRESENT: dry, intact, warm. ABSENT: cyanosis, rash Results Laboratory Results: 05/18/19 04:38 05/18/19 04:38 05/16/19 05/18/19 05/18/19 16:00 04:38 04:38 WBC 6.1 RBC 4.82 Hgb 14.3 Hct 43.3 MCV 90 MCH 29.6 MCHC 32.9 RDW 14.6 H Plt Count 193 Sodium 140.8 Potassium 4.4 Chloride 107 Carbon Dioxide 25 Anion Gap 9 BUN 17 Creatinine 0.72 Est GFR ( Amer) > 60 Glucose 165 H Calcium 9.0 Ur Epinephrine 24 Hr Cancelled U Norepinephrine 24 Hr Cancelled Ur Dopamine 24 Hr Cancelled 05/14/19 16:00 Troponin I 0.015 NT-Pro-B Natriuret Pep 747 H Impressions: Chest X-Ray 05/14/19 15:48 IMPRESSION: No acute findings Abdomen/Pelvis CT 05/14/19 17:11 IMPRESSION: 1. Sigmoid diverticulosis with mild diverticulitis. 2. 21 mm slightly heterogeneous, relatively hyperdense left adrenal mass. Recommend MRI with adrenal protocol. Recommend lab evaluation for pheochro mocytoma. Abdomen MRI 05/17/19 08:00 IMPRESSION: The left adrenal lesion by strict MRI criteria is indeterminate. There is evidence of the lesion containing some fat with some areas of signal dropout on out of phase sequences. The lesion has been stable dating back to 10/26/2016 which highly suggest benign process. Assessment and Plan - Diagnosis (1) Influenza B Is this a current diagnosis for this admission?: Yes Plan: Tamiflu, albuterol and Atrovent, incentive spirometry with supplemental oxygen 05/16/2019-patient continues on Tamiflu. I believe there are some component of bronchitis along with this episode. Patient will continue with Tamiflu, bronchodilators and supplemental oxygen. I did add Solu-Medrol 40 mg IV every 8. 05/17/2019 Tamiflu continues 05/18/2019-improved. Continue Tamiflu (2) Obesity Is this a current diagnosis for this admission?: Yes Plan: 05/16/2019-continue educated about the positive health benefits associated with weight loss 05/17/2019-continue dietary modification education 05/18/2019 dietary modification education (3) Adrenal mass Is this a current diagnosis for this admission?: Yes Plan: Follow-up urine metanephrine, plasma renin and plasma aldosterone 05/16/2019-CT exhibited a 21 mm lesion on adrenal gland. Urine has been sent for metanephrines and catecholamines. Plasma renin and aldosterone are pending. I have placed patient on list for in a.m. CT abdomen pelvis with adrenal protocol. Will await further findings may change plan of care as appropriate 05/17/2019-patient undergo adrenal protocol MRI this a.m. Awaiting urine for metanephrines and catecholamines. 05/18/2019-adrenal protocol MRI showing most likely benign process this is been stable since 2017. Await metanephrine and catecholamines (4) Atrial fibrillation Qualifiers: Atrial fibrillation type: unspecified Qualified Code(s): I48.91 - Unspecified atrial fibrillation Is this a current diagnosis for this admission?: Yes Plan: Lopressor, Xarelto 05/16/2019-chronic stable continue Lopressor and Xarelto 05/17/2019-stable at this time continues Lopressor and Xarelto. 05/18/2019-stable continue Lopressor and Xarelto (5) Diverticulitis Is this a current diagnosis for this admission?: Yes Plan: Clear liquids, Cipro and Flagyl, follow-up CBC and blood culture 05/16/2019-continues on clear liquids, Cipro Flagyl improving. 05/17/2019-improved. Patient diet advanced yesterday. Cipro and Flagyl continue 05/18/2019-continues to improve. Diet discontinued be advanced. Switch Cipro Flagyl to p.o. dosing (6) Dyspnea Qualifiers: Dyspnea type: shortness of breath Qualified Code(s): R06.02 - Shortness of breath; R06.00 - Dyspnea, unspecified; R06.01 - Orthopnea Is this a current diagnosis for this admission?: Yes Plan: Secondary to #1, complicated by morbid obesity. Supplemental oxygen, incentive spirometry 05/16/2019-most likely bronchitis in nature. I have added Solu-Medrol to patient's regimen will follow 05/17/2019-improved. Patient remains with scattered wheeze. Although improved we will continue Solu-Medrol at this time. 05/18/2019-improved. Patient remains with scattered wheezing throughout. We will continue to follow continue Solu-Medrol at this time anticipate discharge home in the a.m. (7) KESHAWN (obstructive sleep apnea) Is this a current diagnosis for this admission?: Yes Plan: BiPAP, follow-up ABG 05/16/2019-continue BiPAP as needed 05/17/2019-BiPAP PRN 05/18/2019-BiPAP as needed - Time Time Spent with patient: 15-24 minutes - Inpatient Certification Based on my medical assessment, after consideration of the patient's comorbidities, presenting symptoms, or acuity I expect that the services needed warrant INPATIENT care.: Yes I certify that my determination is in accordance with my understanding of Medicare's requirements for reasonable and necessary INPATIENT services [42 CFR 412.3e].: Yes Medical Necessity: Significant Comorbidiites Make Outpatient Treatment Too Risky, Need Close Monitoring Due to Risk of Patient Decompensation
[2019-05-18] MEDS: DOCUSATE SODIUM 100 MG CAPSULE PO SCH ×2 (09:19→17:05)
[2019-05-18] MEDS: RIVAROXABAN 10 MG TABLET PO SCH (09:19)
[2019-05-18] MEDS: CIPROFLOXACIN HCL 500 MG TABLET PO SCH ×2 (09:19→23:13)
[2019-05-18] MEDS: OSELTAMIVIR PHOSPHATE 75 MG CAPSULE PO SCH ×2 (09:19→23:13)
[2019-05-18] MEDS: SERTRALINE HCL 50 MG TABLET PO SCH (09:19)
[2019-05-18] MEDS: METOPROLOL TARTRATE 50 MG TABLET PO SCH ×2 (09:19→23:14)
[2019-05-18] MEDS: FLUTICASONE NASAL SPRAY 50 MCG/SPRY 120 SPRAY/16 GM NASL SCH ×2 (09:19→23:15)
[2019-05-19] MEDS: IPRATROPIUM BROMIDE 0.02% NEB 0.5 MG/2.5 ML AMPUL NEB SCH ×4 (00:40→23:49)
[2019-05-19] MEDS: LEVALBUTEROL HCL NEB 1.25 MG/3 ML AMPUL NEB SCH ×4 (00:40→23:49)
[2019-05-19] MEDS: METHYLPREDNISOLONE INJ 40 MG/1 ML SDV IV SCH (05:43)
[2019-05-19] MEDS: METRONIDAZOLE 500 MG TABLET PO SCH ×3 (05:44→21:36)
[2019-05-19] MEDS: FLUTICASONE NASAL SPRAY 50 MCG/SPRY 120 SPRAY/16 GM NASL SCH ×2 (09:07→21:35)
[2019-05-19] MEDS: OSELTAMIVIR PHOSPHATE 75 MG CAPSULE PO SCH ×2 (09:07→21:35)
[2019-05-19] MEDS: SERTRALINE HCL 50 MG TABLET PO SCH (09:07)
[2019-05-19] MEDS: CIPROFLOXACIN HCL 500 MG TABLET PO SCH ×2 (09:07→21:36)
[2019-05-19] MEDS: METOPROLOL TARTRATE 50 MG TABLET PO SCH ×2 (09:07→21:36)
[2019-05-19] MEDS: RIVAROXABAN 10 MG TABLET PO SCH (09:07)
[2019-05-19] MEDS: DOCUSATE SODIUM 100 MG CAPSULE PO SCH ×2 (09:09→17:40)
--- NOTE | 2019-05-19 10:09 | PDOC PROGRESS REPORT ---
Subjective Progress Note for:: 05/19/19 Subjective:: 05/16/2019-continue cough and wheeze 05/17/2019-continued wheeze 05/18/2019-patient states she feels better this a.m. continues with wheeze. 05/19/2019-no complaints Reason For Visit: AFIB, DCHF, DIVERTICULITIS, HYPOKAL Physical Exam Vital Signs: Temp Pulse Resp BP Pulse Ox 98.4 F 83 20 154/88 H 95 05/19/19 06:58 05/19/19 07:00 05/19/19 06:58 05/19/19 06:58 05/19/19 06:58 Intake & Output 05/18/19 05/19/19 05/20/19 06:59 06:59 06:59 Intake Total 933 1420 Output Total 900 550 Balance 33 870 Weight 108.6 kg 112.2 kg General appearance: PRESENT: no acute distress, well-developed, well-nourished Neck exam: ABSENT: carotid bruit, JVD, lymphadenopathy, thyromegaly Respiratory exam: PRESENT: decreased breath sounds, symmetrical, tachypnea, unlabored, wheezes Cardiovascular exam: PRESENT: irregular rhythm, +S1, +S2 Pulses: PRESENT: +1 pedal pulses bilateral Vascular exam: PRESENT: normal capillary refill GI/Abdominal exam: PRESENT: normal bowel sounds, soft. ABSENT: distended, guarding, mass, organolmegaly, rebound, tenderness Extremities exam: PRESENT: full ROM. ABSENT: calf tenderness, clubbing, pedal edema Neurological exam: PRESENT: alert, awake, oriented to person, oriented to place, oriented to time, oriented to situation, CN II-XII grossly intact. ABSENT: motor sensory deficit Psychiatric exam: PRESENT: appropriate affect, normal mood. ABSENT: homicidal ideation, suicidal ideation Skin exam: PRESENT: dry, intact, warm. ABSENT: cyanosis, rash Results Laboratory Results: 05/18/19 04:38 05/18/19 04:38 05/14/19 16:00 Troponin I 0.015 NT-Pro-B Natriuret Pep 747 H Impressions: Chest X-Ray 05/14/19 15:48 IMPRESSION: No acute findings Abdomen/Pelvis CT 05/14/19 17:11 IMPRESSION: 1. Sigmoid diverticulosis with mild diverticulitis. 2. 21 mm slightly heterogeneous, relatively hyperdense left adrenal mass. Recommend MRI with adrenal protocol. Recommend lab evaluation for pheochromocytoma. Abdomen MRI 05/17/19 08:00 IMPRESSION: The left adrenal lesion by strict MRI criteria is indeterminate. There is evidence of the lesion containing some fat with some areas of signal dropout on out of phase sequences. The lesion has been stable dating back to 10/26/2016 which highly suggest benign process. Assessment and Plan - Diagnosis (1) Influenza B Is this a current diagnosis for this admission?: Yes Plan: Tamiflu, albuterol and Atrovent, incentive spirometry with supplemental oxygen 05/16/2019-patient continues on Tamiflu. I believe there are some component of bronchitis along with this episode. Patient will continue with Tamiflu, bronchodilators and supplemental oxygen. I did add Solu-Medrol 40 mg IV every 8. 05/17/2019 Tamiflu continues 05/18/2019-improved. Continue Tamiflu 05/19/2019-Tamiflu continues (2) Obesity Is this a current diagnosis for this admission?: Yes Plan: 05/16/2019-continue educated about the positive health benefits associated with weight loss 05/17/2019-continue dietary modification education 05/18/2019 dietary modification education 05/11/2019-continue dietary modification education (3) Adrenal mass Is this a current diagnosis for this admission?: Yes Plan: Follow-up urine metanephrine, plasma renin and plasma aldosterone 05/16/2019-CT exhibited a 21 mm lesion on adrenal gland. Urine has been sent for metanephrines and catecholamines. Plasma renin and aldosterone are pending. I have placed patient on list for in a.m. CT abdomen pelvis with adrenal protocol. Will await further findings may change plan of care as appropriate 05/17/2019-patient undergo adrenal protocol MRI this a.m. Awaiting urine for metanephrines and catecholamines. 05/18/2019-adrenal protocol MRI showing most likely benign process this is been stable since 2017. Await metanephrine and catecholamines 05/19/2019-continue to wait 24-hour urine for metanephrines and catecholamines (4) Atrial fibrillation Qualifiers: Atrial fibrillation type: unspecified Qualified Code(s): I48.91 - Unspecified atrial fibrillation Is this a current diagnosis for this admission?: Yes Plan: Lopressor, Xarelto 05/16/2019-chronic stable continue Lopressor and Xarelto 05/17/2019-stable at this time continues Lopressor and Xarelto. 05/18/2019-stable continue Lopressor and Xarelto 05/19/2019-stable at this time patient continues on Xarelto and Lopressor (5) Diverticulitis Is this a current diagnosis for this admission?: Yes Plan: Clear liquids, Cipro and Flagyl, follow-up CBC and blood culture 05/16/2019-continues on clear liquids, Cipro Flagyl improving. 05/17/2019-improved. Patient diet advanced yesterday. Cipro and Flagyl continue 05/18/2019-continues to improve. Diet discontinued be advanced. Switch Cipro Flagyl to p.o. dosing 05/19/2019-stable. Patient continues on p.o. Cipro and Flagyl. Diet continues advancement (6) Dyspnea Qualifiers: Dyspnea type: shortness of breath Qualified Code(s): R06.02 - Shortness of breath; R06.00 - Dyspnea, unspecified; R06.01 - Orthopnea Is this a current diagnosis for this admission?: Yes Plan: Secondary to #1, complicated by morbid obesity. Supplemental oxygen, incentive spirometry 05/16/2019-most likely bronchitis in nature. I have added Solu-Medrol to patient's regimen will follow 05/17/2019-improved. Patient remains with scattered wheeze. Although improved we will continue Solu-Medrol at this time. 05/18/2019-improved. Patient remains with scattered wheezing throughout. We will continue to follow continue Solu-Medrol at this time anticipate discharge home in the a.m. 05/19/2019-improved. I have switched from Solu-Medrol to prednisone 60 mg p.o. daily. As patient still has multiple wheeze and awaiting metanephrines and catecholamines will anticipate discharge in the next 2 days. (7) KESHAWN (obstructive sleep apnea) Is this a current diagnosis for this admission?: Yes Plan: BiPAP, follow-up ABG 05/16/2019-continue BiPAP as needed 05/17/2019-BiPAP PRN 05/18/2019-BiPAP as needed 05/19/2019-BiPAP as needed - Time Time Spent with patient: 15-24 minutes - Inpatient Certification Based on my medical assessment, after consideration of the patient's comorbid ities, presenting symptoms, or acuity I expect that the services needed warrant INPATIENT care.: Yes I certify that my determination is in accordance with my understanding of Medicare's requirements for reasonable and necessary INPATIENT services [42 CFR 412.3e].: Yes Medical Necessity: Significant Comorbidiites Make Outpatient Treatment Too Risky, Need Close Monitoring Due to Risk of Patient Decompensation
[2019-05-19] MEDS ORDERED: SOTALOL HCL 80 MG TABLET PO SCH (18:00)
[2019-05-20] MEDS: METRONIDAZOLE 500 MG TABLET PO SCH ×3 (06:22→21:41)
[2019-05-20] MEDS: IPRATROPIUM BROMIDE 0.02% NEB 0.5 MG/2.5 ML AMPUL NEB SCH ×2 (08:51→16:35)
[2019-05-20] MEDS: LEVALBUTEROL HCL NEB 1.25 MG/3 ML AMPUL NEB SCH ×2 (08:51→16:35)
[2019-05-20] MEDS: CIPROFLOXACIN HCL 500 MG TABLET PO SCH ×2 (09:02→21:41)
[2019-05-20] MEDS: OSELTAMIVIR PHOSPHATE 75 MG CAPSULE PO SCH ×2 (09:02→21:41)
[2019-05-20] MEDS: RIVAROXABAN 10 MG TABLET PO SCH (09:03)
[2019-05-20] MEDS: PREDNISONE 20 MG TABLET PO SCH (09:03)
[2019-05-20] MEDS: LOSARTAN POTASSIUM 50 MG TABLET PO SCH (09:03)
[2019-05-20] MEDS: DOCUSATE SODIUM 100 MG CAPSULE PO SCH ×2 (09:03→17:00)
[2019-05-20] MEDS: SERTRALINE HCL 50 MG TABLET PO SCH (09:03)
[2019-05-20] MEDS: METOPROLOL TARTRATE 50 MG TABLET PO SCH ×2 (09:03→21:41)
[2019-05-20] MEDS: ISOSORBIDE MONONITRATE 30 MG TAB.ER.24H PO SCH (09:03)
[2019-05-20] MEDS: FLUTICASONE NASAL SPRAY 50 MCG/SPRY 120 SPRAY/16 GM NASL SCH ×2 (09:04→21:43)
--- NOTE | 2019-05-20 09:15 | PDOC PROGRESS REPORT ---
Subjective Progress Note for:: 05/20/19 Subjective:: The patient is resting in the chair. She just had breakfast. She is on room air. She exhibits intermittent coughing. She reports some dyspnea on exertion. She only feels about 50% back to her baseline. Reason For Visit: AFIB, DCHF, DIVERTICULITIS, HYPOKAL Physical Exam Vital Signs: Temp Pulse Resp BP Pulse Ox 97.9 F 79 18 142/97 H 99 05/20/19 08:06 05/20/19 08:06 05/20/19 08:06 05/20/19 08:06 05/20/19 08:06 Intake & Output 05/19/19 05/20/19 05/21/19 06:59 06:59 06:59 Intake Total 1420 1895 Output Total 550 Balance 870 1895 Weight 112.2 kg 112.4 kg General appearance: PRESENT: cooperative, mild distress, morbidly obese, well- developed Head exam: PRESENT: atraumatic, normocephalic Respiratory exam: PRESENT: symmetrical, wheezes - Bilateral expiratory wheezes. ABSENT: accessory muscle use, rales, rhonchi, tachypnea Cardiovascular exam: PRESENT: RRR, +S1, +S2 GI/Abdominal exam: PRESENT: normal bowel sounds, soft, other - Protuberant abdomen. ABSENT: tenderness Rectal exam: PRESENT: deferred Gentrourinary exam: ABSENT: indwelling catheter Extremities exam: ABSENT: pedal edema Musculoskeletal exam: PRESENT: ambulatory, normal inspection. ABSENT: deformity Neurological exam: PRESENT: alert, awake, oriented to person, oriented to place, oriented to time, oriented to situation, CN II-XII grossly intact Psychiatric exam: PRESENT: appropriate affect. ABSENT: agitated, anxious Results Laboratory Results: 05/18/19 04:38 05/18/19 04:38 05/14/19 20:45 Blood Blood Culture - Final NO GROWTH IN 5 DAYS 05/14/19 16:00 Blood Blood Culture - Final NO GROWTH IN 5 DAYS 05/14/19 16:00 Troponin I 0.015 NT-Pro-B Natriuret Pep 747 H Impressions: Chest X-Ray 05/14/19 15:48 IMPRESSION: No acute findings Abdomen/Pelvis CT 05/14/19 17:11 IMPRESSION: 1. Sigmoid diverticulosis with mild diverticulitis. 2. 21 mm slightly heterogeneous, relatively hyperdense left adrenal mass. Recommend MRI with adrenal protocol. Recommend lab evaluation for pheochromocytoma. Abdomen MRI 05/17/19 08:00 IMPRESSION: The left adrenal lesion by strict MRI criteria is indeterminate. There is evidence of the lesion containing some fat with some areas of signal dropout on out of phase sequences. The lesion has been stable dating back to 10/26/2016 which highly suggest benign process. Assessment and Plan - Diagnosis (1) Influenza B Is this a current diagnosis for this admission?: Yes Plan: 05/20/2019-continue Tamiflu. Patient is slightly wheezy today. I will resume her diuretic therapy. (2) Obesity Qualifiers: Obesity type: unspecified obesity type Obesity classification: adult class 3 (BMI >= 40) Serious obesity comorbidity presence: with serious comorbidity Body mass index: BMI 40.0-44.9 Qualified Code(s): E66.01 - Morbid (severe) obesity due to excess calories; Z68.41 - Body mass index (BMI) 40.0-44.9, adult Is this a current diagnosis for this admission?: Yes Plan: 05/20/2019-the patient has morbid obesity. This is likely contributing to her health. It is certainly contributing to obstructive sleep apnea. It plays a role in her hypertension and heart disease. Encourage aggressive dietary management for weight loss. (3) Adrenal mass Is this a current diagnosis for this admission?: Yes Plan: 05/20/2019-studies for pheochromocytoma are pending. It is unlikely since the patient would have difficult to control blood pressure and tachycardia. (4) Atrial fibrillation Qualifiers: Atrial fibrillation type: longstanding persistent Qualified Code(s): I48.11 - Longstanding persistent atrial fibrillation Is this a current diagnosis for this admission?: Yes Plan: 05/20/2019-continue metoprolol as well as apixaban for anticoagulation (5) Diverticulitis Is this a current diagnosis for this admission?: Yes Plan: 05/20/2019-complete course of Flagyl. (6) Dyspnea Qualifiers: Dyspnea type: shortness of breath Qualified Code(s): R06.02 - Shortness of breath; R06.00 - Dyspnea, unspecified; R06.01 - Orthopnea Is this a current diagnosis for this admission?: Yes Plan: 05/20/2019-the patient has congestive heart failure. She has morbid obesity. She has grade II diastolic congestive heart failure. We will continue nebulizers. Her furosemide was on hold and this is been resumed. (7) KESHAWN (obstructive sleep apnea) Is this a current diagnosis for this admission?: Yes Plan: 05/20/2019-BiPAP as needed (8) Chronic diastolic congestive heart failure Is this a current diagnosis for this admission?: Yes Plan: 05/20/2019-try to maintain a negative fluid balance. Continue current regimen. Furosemide has been restarted. - Time Time Spent with patient: Less than 15 minutes Medications reviewed and adjusted accordingly: Yes Anticipated discharge: Home Within: within 24 hours
[2019-05-20] MEDS ORDERED: GUAIFENESIN/D-METHORPHAN (200-20 MG) SYRUP 10 ML PO PRN (09:16)
[2019-05-20] MEDS: GUAIFENESIN 600 MG TABLET.SA PO SCH ×2 (09:38→21:41)
[2019-05-21] MEDS: IPRATROPIUM BROMIDE 0.02% NEB 0.5 MG/2.5 ML AMPUL NEB SCH ×2 (00:18→07:55)
[2019-05-21] MEDS: LEVALBUTEROL HCL NEB 1.25 MG/3 ML AMPUL NEB SCH ×2 (00:18→07:55)
[2019-05-21] MEDS: METRONIDAZOLE 500 MG TABLET PO SCH (06:07)
[2019-05-21] MEDS: SERTRALINE HCL 50 MG TABLET PO SCH (09:02)
[2019-05-21] MEDS: ISOSORBIDE MONONITRATE 30 MG TAB.ER.24H PO SCH (09:02)
[2019-05-21] MEDS: GUAIFENESIN 600 MG TABLET.SA PO SCH (09:02)
[2019-05-21] MEDS: LOSARTAN POTASSIUM 50 MG TABLET PO SCH (09:02)
[2019-05-21] MEDS: METOPROLOL TARTRATE 50 MG TABLET PO SCH (09:02)
[2019-05-21] MEDS: RIVAROXABAN 10 MG TABLET PO SCH (09:02)
[2019-05-21] MEDS: PREDNISONE 20 MG TABLET PO SCH (09:02)
[2019-05-21] MEDS: OSELTAMIVIR PHOSPHATE 75 MG CAPSULE PO SCH (09:03)
[2019-05-21] MEDS: CIPROFLOXACIN HCL 500 MG TABLET PO SCH (09:03)
[2019-05-21] MEDS: FLUTICASONE NASAL SPRAY 50 MCG/SPRY 120 SPRAY/16 GM NASL SCH (09:03)
[2019-05-21] MEDS: DOCUSATE SODIUM 100 MG CAPSULE PO SCH (09:03)
[2019-05-21] MEDS ORDERED: FUROSEMIDE 80 MG TABLET PO SCH (10:00)
[2019-05-21 12:02] VITALS: BP 125/89
--- NOTE | 2019-05-21 12:06 | PDOC DISCHARGE SUMMARY ---
Impression - Admit/DC Date/PCP Admission Date/Primary Care Provider: 05/14/19 20:17 STEPHANIE BARAHONA MD Discharge Date: 05/21/19 - Discharge Diagnosis (1) Acute diverticulitis Is this a current diagnosis for this admission?: Yes (2) Persistent atrial fibrillation Is this a current diagnosis for this admission?: Yes (3) Influenza B Is this a current diagnosis for this admission?: Yes (4) Chronic diastolic congestive heart failure Is this a current diagnosis for this admission?: Yes (5) Morbid obesity with BMI of 40.0-44.9, adult Is this a current diagnosis for this admission?: Yes (6) KESHAWN (obstructive sleep apnea) Is this a current diagnosis for this admission?: Yes (7) Adrenal mass Is this a current diagnosis for this admission?: Yes - Assessment Summary: Patient was admitted for shortness of breath. At that time patient also complained of left abdominal pain in the lower quadrant. Abdominal CT was done which showed evidence of diverticulitis. Patient was started on antibiotics with ciprofloxacin and Flagyl. Patient was also noted to have been wheezing on time of admission. Patient was started on breathing treatments. Nasopharyngeal swab revealed positive influenza B. Patient was started on Tamiflu. Patient denies any history of COPD or emphysema. Of note patient was never documented to be hypoxic during this visit on chart review. Patient shortness of breath is likely secondary to her influenza B with some reactive airway disease causing bronchospasms and wheezing if patient truly does not have a diagnosis of COPD. Patient was given some prednisone for 3 more days and her albuterol inhaler was refilled. Patient was discharged on ciprofloxacin and Flagyl for 4 more days to complete a day therapy for her diverticulitis. Lasix was continued for patient's chronic diastolic heart failure and patient continued on beta-geno and Eliquis for her atrial fibrillation. 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 Urine 24-hour metanephrines were negative. A.m. cortisol was also normal but 24-hour urine cortisol is pending further results. Patient has been given strict instructions to follow-up with her primary care physician for serial imaging and further evaluation. Patient is being discharged in stable condition to follow-up with your primary care physician and is being sent home with home health. - Additional Information Discharge Diet: Regular Discharge Activity: Activity As Tolerated Referrals: STEPHANIE BARAHONA MD [Primary Care Provider] - 05/24/19 9:45 am Prescriptions: Ciprofloxacin HCl [Cipro 500 mg Tablet] 500 mg PO Q12 4 Days #8 tablet Prednisone [Deltasone 20 mg Tablet] 40 mg PO DAILY #3 tablet Metronidazole [Flagyl 500 mg Tablet] 500 mg PO Q8 #12 tablet Albuterol Sulfate [Proair HFA Inhalation Aerosol 8.5 gm MDI] 1 puff IH Q4 PRN #1 inhaler PRN Reason: Home Medications: Furosemide [Lasix 80 mg Tablet] 80 mg PO DAILY 05/14/19 Ibuprofen [Ibu] 800 mg PO BID 05/14/19 Isosorbide Mononitrate [Imdur 30 mg Tablet.er] 15 mg PO DAILY 05/14/19 Losartan Potassium [Cozaar 50 mg Tablet] 50 mg PO DAILY 05/14/19 Omeprazole 20 mg PO DAILY 05/14/19 Rivaroxaban [Xarelto] 20 mg PO DAILY 05/14/19 Sertraline HCl [Zoloft] 100 mg PO DAILY 05/14/19 Sotalol HCl [Betapace 80 mg Tablet] 1 tab PO BID 05/14/19 Albuterol Sulfate [Proair HFA Inhalation Aerosol 8.5 gm MDI] 1 puff IH Q4 PRN #1 inhaler 05/21/19 Ciprofloxacin HCl [Cipro 500 mg Tablet] 500 mg PO Q12 4 Days #8 tablet 05/21/19 Metronidazole [Flagyl 500 mg Tablet] 500 mg PO Q8 #12 tablet 05/21/19 Prednisone [Deltasone 20 mg Tablet] 40 mg PO DAILY #3 tablet 05/21/19 History of Present Illiness History of Present Illness: GERARDO WILLIAMSON is a 73 year old female with an extensive past medical history of morbid obesity, obstructive sleep apnea, congestive heart failure, diverticulitis, atrial fibrillation and diabetes. She presents with several days of cough congestion and subjective fever as well as left lower quadrant pain and diarrhea. In the emergency room she is found to have fever, nausea, influenza B positive, acute diverticulitis by CT and left adrenal incidentaloma. She started on empiric antibiotics and referred to the hospitalist for admission. Medication compliance is unclear. At bedside the patient is found obtunded unable to provide history, arousable only briefly falling back to sleep. She is placed on BiPAP with follow-up ABG. Physical Exam Vital Signs: Temp Pulse Resp BP Pulse Ox 98.4 F 89 18 143/94 H 97 05/21/19 06:57 05/21/19 07:57 05/21/19 07:57 05/21/19 06:57 05/21/19 07:57 Intake & Output 05/20/19 05/21/19 05/22/19 06:59 06:59 06:59 Intake Total 1895 1360 Output Total 1450 Balance 1895 -90 Weight 112.4 kg 110.7 kg General appearance: PRESENT: no acute distress, cooperative Respiratory exam: PRESENT: wheezes Cardiovascular exam: PRESENT: +S1, +S2 Musculoskeletal exam: PRESENT: ambulatory Neurological exam: PRESENT: alert, awake, oriented to person, oriented to place, oriented to time Results Laboratory Results: WBC 6.1 10^3/uL (4.0-10.5) 05/18/19 04:38 RBC 4.82 10^6/uL (3.72-5.28) 05/18/19 04:38 Hgb 14.3 g/dL (12.0-15.5) 05/18/19 04:38 Hct 43.3 % (36.0-47.0) 05/18/19 04:38 MCV 90 fl (80-97) 05/18/19 04:38 MCH 29.6 pg (27.0-33.4) 05/18/19 04:38 MCHC 32.9 g/dL (32.0-36.0) 05/18/19 04:38 RDW 14.6 % (11.5-14.0) H 05/18/19 04:38 Plt Count 193 10^3/uL (150-450) 05/18/19 04:38 Lymph % (Auto) 28.2 % (13-45) 05/15/19 05:32 [place] % (Auto) 3.0 % (3-13) 05/15/19 05:32 Eos % (Auto) 0.0 % (0-6) 05/15/19 05:32 Baso % (Auto) 0.4 % (0-2) 05/15/19 05:32 Absolute Neuts (auto) 2.8 10^3/uL (1.7-8.2) 05/15/19 05:32 Absolute Lymphs (auto) 1.1 10^3/uL (0.5-4.7) 05/15/19 05:32 Absolute Monos (auto) 0.1 10^3/uL (0.1-1.4) 05/15/19 05:32 Absolute Eos (auto) 0.0 10^3/uL (0.0-0.6) 05/15/19 05:32 Absolute Basos (auto) 0.0 10^3/uL (0.0-0.2) 05/15/19 05:32 Seg Neutrophils % 68.4 % (42-78) 05/15/19 05:32 Carbonic Acid 1.29 mmol/L (1.05-1.35) 05/14/19 17:25 HCO3/H2CO3 Ratio 20:1 05/14/19 17:25 ABG pH 7.41 (7.35-7.45) 05/14/19 17:25 ABG pCO2 42.8 mmHg (35-45) 05/14/19 17:25 ABG pO2 44.9 mmHg (80-100) L 05/14/19 17:25 ABG HCO3 26.6 mmol/L (20-24) H 05/14/19 17:25 ABG Total CO2 27.9 mmol/L (21-25) H 05/14/19 17:25 ABG O2 Saturation 81.3 % (94-98) L 05/14/19 17:25 ABG Base Excess 1.7 mmol/L 05/14/19 17:25 FiO2 ROOM AIR 05/14/19 17:25 Sodium 140.8 mmol/L (137-145) 05/18/19 04:38 Potassium 4.4 mmol/L (3.6-5.0) 05/18/19 04:38 Chloride 107 mmol/L (98-107) 05/18/19 04:38 Carbon Dioxide 25 mmol/L (22-30) 05/18/19 04:38 Anion Gap 9 (5-19) 05/18/19 04:38 BUN 17 mg/dL (7-20) 05/18/19 04:38 Creatinine 0.72 mg/dL (0.52-1.25) 05/18/19 04:38 Est GFR ( Amer) > 60 (>60) 05/18/19 04:38 Est GFR (MDRD) Non-Af > 60 (>60) 05/18/19 04:38 Glucose 165 mg/dL (75-110) H 05/18/19 04:38 Hemoglobin A1c % 7.1 % (4.7-6.0) H 05/15/19 05:32 Lactic Acid 1.5 mmol/L (0.7-2.1) 05/14/19 16:00 Calcium 9.0 mg/dL (8.4-10.2) 05/18/19 04:38 Magnesium 1.8 mg/dL (1.6-2.3) 05/15/19 05:32 Total Bilirubin 0.5 mg/dL (0.2-1.3) 05/14/19 16:00 Direct Bilirubin 0.2 mg/dL (0.0-0.4) 05/14/19 16:00 Neonat Total Bilirubin Not Reportable 05/14/19 16:00 Neonat Direct Bilirubin Not Reportable 05/14/19 16:00 Neonat Indirect Bili Not Reportable 05/14/19 16:00 AST 87 U/L (14-36) H 05/14/19 16:00 ALT 50 U/L (<35) 05/14/19 16:00 Alkaline Phosphatase 71 U/L (38-126) 05/14/19 16:00 Troponin I 0.015 ng/mL 05/14/19 16:00 NT-Pro-B Natriuret Pep 747 pg/mL (<125) H 05/14/19 16:00 Total Protein 6.5 g/dL (6.3-8.2) 05/14/19 16:00 Albumin 3.6 g/dL (3.5-5.0) 05/14/19 16:00 Cortisol AM Sample 4.71 ug/dL (4.46-22.7) 05/15/19 05:32 Urine Color STRAW 05/17/19 03:40 Urine Appearance CLEAR 05/17/19 03:40 Urine pH 6.0 (5.0-9.0) 05/17/19 03:40 Ur Specific [place] 1.003 05/17/19 03:40 Urine Protein NEGATIVE mg/dL (NEGATIVE) 05/17/19 03:40 Urine Glucose (UA) NEGATIVE mg/dL (NEGATIVE) 05/17/19 03:40 Urine Ketones NEGATIVE mg/dL (NEGATIVE) 05/17/19 03:40 Urine Blood SMALL (NEGATIVE) H 05/17/19 03:40 Urine Nitrite NEGATIVE (NEGATIVE) 05/17/19 03:40 Urine Bilirubin NEGATIVE (NEGATIVE) 05/17/19 03:40 Urine Urobilinogen NEGATIVE mg/dL (<2.0) 05/17/19 03:40 Ur Leukocyte Esterase NEGATIVE (NEGATIVE) 05/17/19 03:40 Urine WBC (Auto) 1 /HPF 05/17/19 03:40 Squamous Epi Cells Auto <1 /HPF 05/17/19 03:40 Urine Mucus (Auto) RARE /LPF 05/17/19 03:40 Urine Ascorbic Acid NEGATIVE (NEGATIVE) 05/17/19 03:40 Urine Epinephrine Cancelled 05/16/19 16:00 Ur Epinephrine 24 Hr Cancelled 05/16/19 16:00 Urine Norepinephrine Cancelled 05/16/19 16:00 U Norepinephrine 24 Hr Cancelled 05/16/19 16:00 U Metanephrines 24 Hr 109 ug/24 hr (45-290) 05/16/19 16:00 U Normetanephrine 24h 428 ug/24 hr (82-500) 05/16/19 16:00 Urine Dopamine Cancelled 05/16/19 16:00 Ur Dopamine 24 Hr Cancelled 05/16/19 16:00 Influenza A (Rapid) NEGATIVE (NEGATIVE) 05/14/19 17:12 Influenza B (Rapid) POSITIVE (NEGATIVE) 05/14/19 17:12 05/14/19 16:00 Troponin I 0.015 NT-Pro-B Natriuret Pep 747 H Impressions: Chest X-Ray 05/14/19 15:48 IMPRESSION: No acute findings Abdomen/Pelvis CT 05/14/19 17:11 IMPRESSION: 1. Sigmoid diverticulosis with mild diverticulitis. 2. 21 mm slightly heterogeneous, relatively hyperdense left adrenal mass. Recommend MRI with adrenal protocol. Recommend lab evaluation for pheochromocytoma. Abdomen MRI 05/17/19 08:00 IMPRESSION: The left adrenal lesion by strict MRI criteria is indeterminate. There is evidence of the lesion containing some fat with some areas of signal dropout on out of phase sequences. The lesion has been stable dating back to 10/26/2016 which highly suggest benign process. Plan Time Spent: Less than 30 Minutes Stroke Is this a Stroke Patient?: No Acute Heart Failure - Is this a Heart Failure Patient?: Yes Documentation of LVEF assessment?: Yes LVEF < 40%?: No- if no continue to question #3 3. Anticoagulant therapy for permanect/persistent/paraoxysmal Afib or Aflutter: Yes
[2019-05-23 14:04] LABS: CORTISOL FREE URINE 26 ug/L (Undefined); CORTISOL FREE URINE 24 HR 2 22 ug/24 hr (6-42)
== END 2019-05-21 13:40 | disposition home health service (06) | DRG 392 ==
LOC: ER 15:38 → EH 20:17 → 3N 22:21
PROVIDERS: ADMIT Internal Medicine; ATTEND Internal Medicine
DX: K57.92 Diverticulitis of intestine, part unspecified, without perforation or abscess without bleeding (principal); I50.32 Chronic diastolic (congestive) heart failure; I48.19 Other persistent atrial fibrillation; Z68.41 Body mass index [BMI] 40.0-44.9, adult; J11.1 Influenza due to unidentified influenza virus with other respiratory manifestations; E27.9 Disorder of adrenal gland, unspecified; I11.0 Hypertensive heart disease with heart failure; E78.00 Pure hypercholesterolemia, unspecified; K21.9 Gastro-esophageal reflux disease without esophagitis; G47.33 Obstructive sleep apnea (adult) (pediatric); E66.01 Morbid (severe) obesity due to excess calories; Z86.73 Personal history of transient ischemic attack (TIA), and cerebral infarction without residual deficits; Z79.01 Long term (current) use of anticoagulants; Z79.51 Long term (current) use of inhaled steroids; Z79.899 Other long term (current) drug therapy
CPT/HCPCS: 36415; 71045; 74177; 74183; 80048; 80053; 81001; 82088; 82530; 82533; 82570; 82803; 83036; 83605; 83735; 83880; 84244; 84484; 85025; 85027; 87040; 87804; 93005; 93010; 94640; 94660; 94667; 94668; 94799; 96361; 96365; 96375; 99285; A9576; J0744; J2405; J2550; J2920; J2930; J3480; J3490; J7040; J7512; J7620

== ENCOUNTER → 2020-01-03 | Outpatient (CLI) | payer MEDICARE, MEDICAID ==
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
== END ==
LOC: WI 07:57
PROVIDERS: ATTEND Internal Medicine Gastroenterology
DX: K80.20 Calculus of gallbladder without cholecystitis without obstruction (principal); R10.11 Right upper quadrant pain; K76.0 Fatty (change of) liver, not elsewhere classified
CPT/HCPCS: 76705

== ENCOUNTER 2020-02-19 09:35 | Emergency (ER) | payer OTHER, MEDICARE, MEDICAID ==
[2020-02-19] MEDS ORDERED: ACETAMINOPHEN 325 MG TABLET PO ONE (10:04)
[2020-02-19] MEDS ORDERED: ONDANSETRON 4 MG TAB.RAPDIS PO ONE (10:32)
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
[2020-02-19 11:37] LABS: ABSOLUTE BASOPHILS # (AUTO) 0.1 10^3/uL (0.0-0.2); ABSOLUTE EOSINOPHILS # (AUTO) 0.1 10^3/uL (0.0-0.6); ABSOLUTE LYMPHOCYTES (AUTO) 2.9 10^3/uL (0.5-4.7); ABSOLUTE MONOCYTES (AUTO) 0.4 10^3/uL (0.1-1.4); ABSOLUTE NEUT (AUTO) 2.5 10^3/uL (1.7-8.2); BASOPHILS % (AUTO) 1.3 % (0-2); EOSINOPHILS % (AUTO) 2.2 % (0-6); HEMATOCRIT 38.9 % (36.0-47.0); HEMOGLOBIN 13.1 g/dL (12.0-15.5); LYMPHOCYTES % (AUTO) 47.9 % (13-45); MEAN CORPUSCULAR HEMOGLOBIN 29.7 pg (27.0-33.4); MEAN CORPUSCULAR HGB CONC 33.6 g/dL (32.0-36.0); MEAN CORPUSCULAR VOLUME 88 fl (80-97); MONOCYTES % (AUTO) 6.9 % (3-13); PLATELET COUNT 202 10^3/uL (150-450); RED BLOOD COUNT 4.41 10^6/uL (3.72-5.28); RED CELL DISTRIBUTION WIDTH 14.2 % (11.5-14.0); SEGMENTED NEUTROPHILS % (AUTO) 41.7 % (42-78); TOTAL CELLS COUNTED % (AUTO) 100 %
[2020-02-19 11:56] LABS: ALBUMIN 3.7 g/dL (3.5-5.0); ALKALINE PHOSPHATASE 66 U/L (38-126); ANION GAP 6 (5-19); ASPARTATE AMINO TRANSFERASE 23 U/L (14-36); BILIRUBIN,DIRECT 0.2 mg/dL (0.0-0.4); BILIRUBIN,TOTAL 0.6 mg/dL (0.2-1.3); BLOOD UREA NITROGEN 13 mg/dL (7-20); CALCIUM 9.4 mg/dL (8.4-10.2); CARBON DIOXIDE 27 mmol/L (22-30); CHLORIDE 106 mmol/L (98-107); GLUCOSE 148 mg/dL (75-110); POTASSIUM 4.4 mmol/L (3.6-5.0); TOTAL PROTEIN 6.5 g/dL (6.3-8.2)
[2020-02-19] MEDS ORDERED: BUTALB/ACETAMINOPHEN/CAFFEINE 1 TAB EACH PO ONE (12:53)
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
[2020-02-19 15:58] VITALS: BP 139/88
--- NOTE | 2020-02-19 18:52 | EKG REPORT ---
SEVERITY:- ABNORMAL ECG - ATRIAL FIBRILLATION, V-RATE 67-[address] RBBB [address]-T CHANGES INFERIOR LEADS. : Confirmed by: Chavo Collins MD 19-Feb-2020 18:51:33
--- NOTE | 2020-02-19 18:53 | EKG REPORT ---
SEVERITY:- ABNORMAL ECG - ATRIAL FIBRILLATION, V-RATE 71-101 RBBB AND LAFB NONSPECIFIC INFERIOR ST-T CHANGES : Confirmed by: Chavo Collins MD 19-Feb-2020 18:53:19
== END 2020-02-19 15:59 | disposition home or self-care (01) ==
LOC: ER 09:35
DX: S20.219A Contusion of unspecified front wall of thorax, initial encounter (principal); S30.1XXA Contusion of abdominal wall, initial encounter; S16.1XXA Strain of muscle, fascia and tendon at neck level, initial encounter; M25.561 Pain in right knee; M54.2 Cervicalgia; R51 Headache; R07.89 Other chest pain; R10.9 Unspecified abdominal pain; R10.817 Generalized abdominal tenderness; V49.40XA Driver injured in collision with unspecified motor vehicles in traffic accident, initial encounter; M17.11 Unilateral primary osteoarthritis, right knee; M81.0 Age-related osteoporosis without current pathological fracture; M47.812 Spondylosis without myelopathy or radiculopathy, cervical region; I48.91 Unspecified atrial fibrillation; I45.2 Bifascicular block; I11.0 Hypertensive heart disease with heart failure; I50.32 Chronic diastolic (congestive) heart failure; K21.9 Gastro-esophageal reflux disease without esophagitis; Z79.01 Long term (current) use of anticoagulants; Z79.899 Other long term (current) drug therapy
CPT/HCPCS: 93005; 99285; 36415; 85025; 80053; 84484; 71046; 73564; 70450; 71275; 72125; 74177; 93010; J3490; S0119

== ENCOUNTER 2020-06-13 16:10 | Inpatient (IN) | payer MEDICARE, MEDICAID ==
--- NOTE | 2020-06-13 16:19 | ER Document Report ---
ED Medical Screen (RME) - General Chief Complaint: Headache <24 hrs old Stated Complaint: POSSIBLE STROKE Time Seen by Provider: 06/13/20 16:17 Primary Care Provider: BRADLY WATERS PA-C [Primary Care Provider] - Follow up as needed Notes: Patient is a 74-year-old female, currently on Xarelto who presents emergency department with a headache to the top of her head. She was seen by her primary care provider and was told to come to the emergency department for CT of the head and work-up. Patient states that she has had her symptoms since 09 June. Exam: Slight confusion when asking what month it is. Patient states that it is September. I have greeted and performed a rapid initial assessment of this patient. A comprehensive ED assessment and evaluation of the patient, analysis of test results and completion of medical decision making process will be conducted by an additional ED providers. TRAVEL OUTSIDE OF THE [place] IN LAST 30 DAYS: No - Related Data Allergies/Adverse Reactions: No Known Allergies Allergy (Verified 10/27/18 13:14) Past Medical History - Social History Family history: Reviewed & Not Pertinent - Past Medical History Cardiac Medical History: Reports: Hx Atrial Fibrillation, Hx Congestive Heart Failure - Diastolic, Hx Heart Attack, Hx Hypercholesterolemia, Hx Hypertension Denies: Hx Coronary Artery Disease, Hx DVT, Hx Pulmonary Embolism Pulmonary Medical History: Reports: Hx Bronchitis, Hx Sleep Apnea - Has has home CPAP. Denies: Hx Asthma, Hx COPD, Hx Pneumonia Neurological Medical History: Reports: Hx Cerebrovascular Accident - 1984, NO LASTING DEFICITS. Denies: Hx Seizures, Hx Parkinson's Disease Endocrine Medical History: Denies: Hx Diabetes Mellitus Type 1, Hx Diabetes Mellitus Type 2, Hx Hyperthyroidism, Hx Hypothyroidism Renal/ Medical History: Denies: Hx Peritoneal Dialysis GI Medical History: Reports: Hx Gastroesophageal Reflux Disease. Denies: Hx Cirrhosis, Hx Crohn's Disease, Hx Hepatitis, Hx Hiatal Hernia, Hx Ulcerative Colitis. Comment Only: Hx Ulcer - DIVERTICULITIS Musculoskeltal Medical History: Denies Hx Arthritis, Denies Hx Gout, Denies Hx Multiple Sclerosis Skin Medical History: Denies Hx Eczema, Denies Hx Psoriasis Psychiatric Medical History: Denies: Hx Depression Infectious Medical History: Denies: Hx Hepatitis, Hx MRSA, Hx VRE Past Surgical History: Reports: Hx Abdominal Surgery - hernia repair, Hx Cardiac Catheterization - x3 with balloon angioplasty x1, Hx Hysterectomy, Hx Tonsillectomy. Denies: Hx Mastectomy, Hx Open Heart Surgery, Hx Pacemaker - Immunizations Immunizations up to date: Yes Hx Diphtheria, Pertussis, Tetanus Vaccination: Yes Doctor's Discharge - Discharge Referrals: BRADLY WATERS PA-C [Primary Care Provider] - Follow up as needed
--- NOTE | 2020-06-13 16:44 | RADIOLOGY REPORT (SQ) ---
EXAM DESCRIPTION: CT HEAD WITHOUT IMAGES COMPLETED DATE/TIME: 06/13/2020 4:23 pm REASON FOR STUDY: eval stroke? on xeralto COMPARISON: CT of the head without contrast from 02/19/2020. TECHNIQUE: Axial images acquired through the brain without intravenous contrast. Images reviewed wi th bone, brain and subdural windows. Additional sagittal and coronal reconstructions were generated. Images stored on PACS. All CT scanners at this facility use dose modulation, iterative reconstruction, and/or weight based d osing when appropriate to reduce radiation dose to as low as reasonably achievable (ALARA). [facility]: Dose Right [facility]: CareDose [facility]: Dose Right [facility]: Teradose 4D [facility]: [employer] RADIATION DOSE: CT Rad equipment meets quality standard of care and radiation dose reduction techniq ues were employed. CTDIvol: 53.2 mGy. DLP: 991 mGy-cm. LIMITATIONS: None. FINDINGS: There is diffuse age-appropriate cerebral and cerebellar volume loss. The caliber of the ventricles is concordant with degree of sulcation and unchanged compared to the CT from 02/19/2020. T he areas of low-attenuation in the supratentorial periventricular and subcortical white matter are al so unchanged and likely represent the sequela of chronic microvascular ischemia. There is no acute intracranial hemorrhage, vascular territorial infarct, extra-axial fluid collection , mass effect or midline shift. The lee-white matter differentiation is preserved. There is no eff acement of the cerebral sulci or basal subarachnoid cisterns. There is a chronic fracture of the medial wall of the left orbit. 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 The mastoid air cells are clear. There is no fracture of the calvariu m. IMPRESSION: No acute intracranial abnormality. EVIDENCE OF ACUTE STROKE: NO. COMMENT: Quality ID # [id number]: Final reports with documentation of one or more dose reduction techniques (e.g., Automated exposure control, adjustment of the mA and/or kV according to patient size, use of iterative reconstruction technique) TECHNICAL DOCUMENTATION: JOB ID: [id number] 2010 [employer]- All Rights Reserved Reading location - IP/workstation name: [email or web address]
--- NOTE | 2020-06-13 16:48 | RADIOLOGY REPORT (SQ) ---
EXAM DESCRIPTION: CHEST SINGLE VIEW IMAGES COMPLETED DATE/TIME: 06/13/2020 4:42 pm REASON FOR STUDY: confusion COMPARISON: PA and lateral views of the chest from 02/19/2020. EXAM PARAMETERS: NUMBER OF VIEWS: One view. TECHNIQUE: An AP view of the chest was obtained. RADIATION DOSE: NA LIMITATIONS: None. FINDINGS: LUNGS AND PLEURA: No consolidation, pleural effusion or pneumothorax. MEDIASTINUM AND HILAR STRUCTURES: No mediastinal or hilar contour abnormality. HEART AND VASCULAR STRUCTURES: The cardiac silhouette is borderline enlarged. BONES: No acute findings. HARDWARE: None in the chest. OTHER: No other finding. IMPRESSION: No acute cardiopulmonary process. TECHNICAL DOCUMENTATION: JOB ID: [id number] 2010 [employer]- All Rights Reserved Reading location - IP/workstation name: [email or web address]
[2020-06-13 16:53] LABS: ABSOLUTE BASOPHILS # (AUTO) 0.1 10^3/uL (0.0-0.2); ABSOLUTE EOSINOPHILS # (AUTO) 0.2 10^3/uL (0.0-0.6); ABSOLUTE LYMPHOCYTES (AUTO) 2.7 10^3/uL (0.5-4.7); ABSOLUTE MONOCYTES (AUTO) 0.6 10^3/uL (0.1-1.4); ABSOLUTE NEUT (AUTO) 2.9 10^3/uL (1.7-8.2); BASOPHILS % (AUTO) 0.8 % (0-2); EOSINOPHILS % (AUTO) 2.5 % (0-6); HEMATOCRIT 41.6 % (36.0-47.0); HEMOGLOBIN 13.7 g/dL (12.0-15.5); LYMPHOCYTES % (AUTO) 41.7 % (13-45); MEAN CORPUSCULAR HEMOGLOBIN 29.3 pg (27.0-33.4); MEAN CORPUSCULAR HGB CONC 32.9 g/dL (32.0-36.0); MEAN CORPUSCULAR VOLUME 89 fl (80-97); MONOCYTES % (AUTO) 9.3 % (3-13); PLATELET COUNT 214 10^3/uL (150-450); RED BLOOD COUNT 4.67 10^6/uL (3.72-5.28); RED CELL DISTRIBUTION WIDTH 13.5 % (11.5-14.0); SEGMENTED NEUTROPHILS % (AUTO) 45.7 % (42-78); TOTAL CELLS COUNTED % (AUTO) 100 %; WHITE BLOOD COUNT 6.4 10^3/uL (4.0-10.5)
[2020-06-13 17:09] LABS: ALBUMIN 3.8 g/dL (3.5-5.0); ALKALINE PHOSPHATASE 77 U/L (38-126); ASPARTATE AMINO TRANSFERASE 33 U/L (14-36); BILIRUBIN,DIRECT 0.2 mg/dL (0.0-0.4); BILIRUBIN,TOTAL 0.5 mg/dL (0.2-1.3); BLOOD UREA NITROGEN 10 mg/dL (7-20); CALCIUM 9.4 mg/dL (8.4-10.2); CARBON DIOXIDE 30 mmol/L (22-30); CHLORIDE 106 mmol/L (98-107); GLUCOSE 120 mg/dL (75-110); INTERNATIONAL RATION (INR) 0.99; POTASSIUM 3.9 mmol/L (3.6-5.0); PROTHROMBIN TIME 13.3 SEC (11.4-15.4); TOTAL PROTEIN 6.8 g/dL (6.3-8.2)
[2020-06-13 17:12] LABS: ANION GAP 3 (5-19)
[2020-06-13] MEDS ORDERED: ACETAMINOPHEN 325 MG TABLET PO ONE (17:37)
[2020-06-13 18:21] LABS: APPEARANCE,URINE CLEAR; BILIRUBIN,URINE NEGATIVE (NEGATIVE); COLOR,URINE YELLOW; GLUCOSE, URINE NEGATIVE (NEGATIVE); KETONES,URINE NEGATIVE (NEGATIVE); LEUKOCYTE ESTERASE,URINE NEGATIVE (NEGATIVE); NITRITE,URINE NEGATIVE (NEGATIVE); PROTEIN,URINE NEGATIVE (NEGATIVE); URINE SPECIFIC GRAVITY 1.013; UROBILINOGEN,URINE NEGATIVE mg/dL (<2.0)
[2020-06-13] MEDS ORDERED: LOSARTAN POTASSIUM 50 MG TABLET PO ONE (20:38)
[2020-06-13] MEDS ORDERED: SOTALOL HCL 80 MG TABLET PO ONE (20:38)
--- NOTE | 2020-06-13 21:23 | ER Document Report ---
ED General - General Chief Complaint: Headache <24 hrs old Stated Complaint: POSSIBLE STROKE Time Seen by Provider: 06/13/20 16:17 TRAVEL OUTSIDE OF THE [place] IN LAST 30 DAYS: No - HPI Notes: Patient is a 74-year-old female with a past medical history of hypertension who presents with headache, chest pain, and lightheadedness. Patient states she has had a headache to the top of her head for 3 weeks. She saw her PCP today who sent her to the ER. Patient states she feels very weak and lightheaded. She has been having difficulty ambulating. Patient also mentions she had some chest pain that felt like pressure to her chest for the past several weeks. Denies any fevers or cough. No recent illnesses. She is on Xarelto. Patient is unsure if she took her blood pressure medicine today or not. - Related Data Allergies/Adverse Reactions: No Known Allergies Allergy (Verified 10/27/18 13:14) Past Medical History - General Information source: Patient - Social History Smoking Status: Never Smoker Family History: CAD, Hypertension - Past Medical History Cardiac Medical History: Reports: Hx Atrial Fibrillation, Hx Congestive Heart Failure - Diastolic, Hx Heart Attack, Hx Hypercholesterolemia, Hx Hypertension Denies: Hx Coronary Artery Disease, Hx DVT, Hx Pulmonary Embolism Pulmonary Medical History: Reports: Hx Bronchitis, Hx Sleep Apnea - Has has home CPAP. Denies: Hx Asthma, Hx COPD, Hx Pneumonia Neurological Medical History: Reports: Hx Cerebrovascular Accident - 1984, NO LASTING DEFICITS. Denies: Hx Seizures, Hx Parkinson's Disease Endocrine Medical History: Denies: Hx Diabetes Mellitus Type 1, Hx Diabetes Mellitus Type 2, Hx Hyperthyroidism, Hx Hypothyroidism Renal/ Medical History: Denies: Hx Peritoneal Dialysis GI Medical History: Reports: Hx Gastroesophageal Reflux Disease. Denies: Hx Cirrhosis, Hx Crohn's Disease, Hx Hepatitis, Hx Hiatal Hernia, Hx Ulcerative Colitis. Comment Only: Hx Ulcer - DIVERTICULITIS Musculoskeletal Medical History: Denies Hx Arthritis, Denies Hx Gout, Denies Hx Multiple Sclerosis Skin Medical History: Denies Hx Eczema, Denies Hx Psoriasis Psychiatric Medical History: Denies: Hx Depression Infectious Medical History: Denies: Hx Hepatitis, Hx MRSA, Hx VRE Past Surgical History: Reports: Hx Abdominal Surgery - hernia repair, Hx Cardiac Catheterization - x3 with balloon angioplasty x1, Hx Hysterectomy, Hx Tonsillectomy. Denies: Hx Mastectomy, Hx Open Heart Surgery, Hx Pacemaker - Immunizations Immunizations up to date: Yes Hx Diphtheria, Pertussis, Tetanus Vaccination: Yes Review of Systems - Review of Systems Notes: CONSTITUTIONAL: No fever or weight loss. Positive for fatigue and general weakness. SKIN: No rash. HENT: No congestion, ear pain, or sore throat. EYES: Positive for blurry vision. CARDIOVASCULAR: Positive for chest pain. RESPIRATORY: No cough, shortness of breath, congestion, or wheezing. GASTROINTESTINAL: No abdominal pain, nausea, vomiting, bloody stools or diarrhea. GENITOURINARY: No dysuria. MUSCULOSKELETAL: No joint pain or swelling. LYMPHATIC: No swollen glands. NEUROLOGIC: No seizures. No focal weakness or sensory changes. Positive for headache. HEMATOLOGIC: No unusual bruising or bleeding. PSYCHIATRIC: No depression or anxiety. Physical Exam - Vital signs Vitals: Pulse Resp BP Pulse Ox 84 16 165/102 H 100 06/13/20 16:10 06/13/20 16:10 06/13/20 16:10 06/13/20 16:10 - General General appearance: Appears well In distress: None Notes: VITAL SIGNS: Within normal limits. GENERAL: No acute distress, non-toxic appearance. HEAD: Normal with no signs of head trauma. EYES: Conjunctiva normal, no discharge. EARS: Hearing grossly intact. NOSE: Normal. NECK: Normal range of motion. CHEST: Clear breath sounds bilaterally. No wheezes, rales, or rhonchi. CARDIAC: Regular rate and rhythm. VASCULAR: No Edema. ABDOMEN: Normal and soft with no tenderness, no masses or pulsatile masses. MUSCULOSKELETAL: Extremities without clubbing, cyanosis or edema. NEUROLOGICAL: Alert. No focal sensory or strength deficits. Speech normal. Follows commands appropriately. PSYCHIATRIC: Normal Affect, judgement and mood. SKIN: Normal appearance with no rashes or lesions. Course - Re-evaluation Re-evalutation: 06/13/20 23:29 Patient states her headache improved after she received her home blood pressure medication. Her blood pressure is also improved. Patient continues to states she is very lightheaded especially when she moves her head. Nurse did attempt to stand her up and get her to the bathroom and she was very unsteady and was unable to ambulate. I have ordered her meclizine but I am concerned that she may have had a stroke. I discussed with the hospitalist for admission. - Vital Signs Vital signs: Temp Pulse Resp BP Pulse Ox 87 14 150/103 H 100 06/13/20 17:50 06/13/20 22:41 06/13/20 22:41 06/13/20 22:41 - Laboratory Results Result Diagrams: 06/13/20 16:40 06/13/20 16:40 Laboratory Results Interpreted: 06/13/20 16:40 Anion Gap 3 L Glucose 120 H Critical Laboratory Results Reviewed: No Critical Results - Radiology Results Critical Radiology Results Reviewed: No Critical Results - EKG Interpretation by Me Rate: Normal Rhythm: A.Fib When compared to previous EKG there are: No significant change Additional EKG results interpreted by me: 06/14/20 01:18 Atrial fibrillation high rate of 79. Right bundle branch block. T wave inversions in lead V4, V5, V3, lead II, lead III. No significant change from previous EKG. Discharge - Discharge Clinical Impression: Lightheadedness, General weakness Headache Qualifiers: Headache type: unspecified Headache chronicity pattern: acute headache Intractability: not intractable Qualified Code(s): R51.9 - Headache, unspecified Hypertension Qualifiers: Hypertension type: unspecified Qualified Code(s): I10 - Essential (primary) hypertension Condition: Stable Disposition: ADMITTED OBSERVATION Admitting Provider: [facility] Admitted: Telemetry
[2020-06-13] MEDS ORDERED: MECLIZINE HCL 25 MG TABLET PO ONE (23:12)
[2020-06-14] MEDS ORDERED: LOSARTAN POTASSIUM 50 MG TABLET PO ONE ×2 (00:50→17:30)
--- NOTE | 2020-06-14 02:27 | PDOC H&P ---
History of Present Illness Admission Date/PCP: 06/13/20 23:40 STEPHANIE BARAHONA MD Patient complains of: Dizziness and unsteady gait History of Present Illness: GERARDO WILLIAMSON is a 74 year old female The patient has paroxysmal atrial fibrillation. She is anticoagulated with rivaroxaban. She admits short-term memory problems and at times she forgets to take her medications. She has no previous history of stroke. A few weeks ago she started noticing intermittent double vision and intermittent nausea. She was developing dizziness and unsteady gait. She had some intermittent headaches as well. She went to see her primary care provider today ,and she was sent to the emergency department for further evaluation. She had a head CT scan which was unremarkable. She was unable to walk safely, the decision was made that she needs to be admitted. When I saw her she was resting comfortable in the stretcher. She complained about intermittent double vision. No headache. She said her main complaint is unsteady gait. She said, she has significant diff iculty remembering taking her medications. Past Medical History Cardiac Medical History: Reports: Atrial Fibrillation, Congestive Heart Failure - Diastolic, Myocardial Infarction, Hyperlipidema, Hypertension Denies: Coronary Artery Disease, DVT, Pulmonary Embolism Pulmonary Medical History: Reports: Bronchitis, Sleep Apnea - Has has home CPAP. Denies: Asthma, Chronic Obstructive Pulmonary Disease (COPD), Pneumonia EENT Medical History: Denies: None, Cataracts, Eyes, Ears, Nose, Throat, Other Neurological Medical History: Denies: Hemorrhagic CVA, Ischemic CVA Endocrine Medical History: Reports: None Denies: Diabetes Mellitus Type 1, Diabetes Mellitus Type 2, Hyperthyroidism, Hypothyroidism GI Medical History: Reports: Gastroesophageal Reflux Disease Denies: Cirrhosis, Crohn's Disease, Hepatitis, Hiatal Hernia, Ulcerative Colitis Musculoskeltal Medical History: Denies: Arthritis, Gout Skin Medical History: Denies: Eczema, Psoriasis Psychiatric Medical History: Denies: Depression Hematology: Denies: Anemia, Sickle Cell Disease, Bleeding Tendencies Infectious Medical History: Reports: None Denies: Methicillin-Resistant Staph Aureus, Vancomycin-Resistant Enterococci Past Surgical History Past Surgical History: Reports: Cardiac Catheterization - x3 with balloon angioplasty x1, Hysterectomy, Tonsillectomy Denies: Amputation, Mastectomy, Pacemaker Social History Information Source: Patient Lives with: Family - With her sister Smoking Status: Never Smoker Frequency of Alcohol Use: Rare Hx Recreational Drug Use: No Drugs: None Hx Prescription Drug Abuse: No - Advance Directive Resuscitation Status: Full Code Surrogate healthcare decision maker:: Her son Family History Family History: CAD, Hypertension Parental Family History Reviewed: Yes Children Family History Reviewed: Yes Sibling(s) Family History Reviewed.: Yes Medication/Allergy Home Medications: Furosemide [Lasix 80 mg Tablet] 80 mg PO DAILY 05/14/19 Ibuprofen [Ibu] 800 mg PO BID 05/14/19 Isosorbide Mononitrate [Imdur 30 mg Tablet.er] 15 mg PO DAILY 05/14/19 Losartan Potassium [Cozaar 50 mg Tablet] 50 mg PO DAILY 05/14/19 Omeprazole 20 mg PO DAILY 05/14/19 Rivaroxaban [Xarelto] 20 mg PO DAILY 05/14/19 Sertraline HCl [Zoloft] 100 mg PO DAILY 05/14/19 Sotalol HCl [Betapace 80 mg Tablet] 1 tab PO BID 05/14/19 Albuterol Sulfate [Proair HFA Inhalation Aerosol 8.5 gm MDI] 1 puff IH Q4 PRN #1 inhaler 05/21/19 Ciprofloxacin HCl [Cipro 500 mg Tablet] 500 mg PO Q12 4 Days #8 tablet 05/21/19 Metronidazole [Flagyl 500 mg Tablet] 500 mg PO Q8 #12 tablet 05/21/19 Prednisone [Deltasone 20 mg Tablet] 40 mg PO DAILY #3 tablet 05/21/19 Butalb/Acetaminophen/Caffeine [Fioricet (50-325-40 mg) Tablet] 1 tab PO Q4H #20 tab 02/19/20 Allergies/Adverse Reactions: No Known Allergies Allergy (Verified 10/27/18 13:14) Review of Systems Constitutional: ABSENT: chills, fever(s), headache(s), weight gain, weight loss Eyes: PRESENT: other - Intermittent double vision Ears: ABSENT: hearing changes Cardiovascular: ABSENT: chest pain, dyspnea on exertion, edema, orthropnea, palpitations Respiratory: ABSENT: cough, hemoptysis Gastrointestinal: ABSENT: abdominal pain, constipation, diarrhea, hematemesis, hematochezia, nausea, vomiting Genitourinary: ABSENT: dysuria, hematuria Neurological: PRESENT: abnormal gait, dizziness Hematologic/Lymphatic: ABSENT: easy bleeding, easy bruising Physical Exam Vital Signs: Temp Pulse Resp BP Pulse Ox 87 14 150/103 H 100 06/13/20 17:50 06/13/20 22:41 06/13/20 22:41 06/13/20 22:41 Intake & Output 06/12/20 06/13/20 06/14/20 06:59 06:59 06:59 Weight 107.955 kg General appearance: PRESENT: no acute distress, cooperative Head exam: PRESENT: atraumatic, normocephalic Eye exam: PRESENT: conjunctiva pink, EOMI, PERRLA. ABSENT: scleral icterus Ear exam: PRESENT: normal external ear exam Mouth exam: PRESENT: moist, tongue midline Neck exam: ABSENT: carotid bruit, JVD, lymphadenopathy, thyromegaly Respiratory exam: PRESENT: clear to auscultation kayleigh. ABSENT: rales, rhonchi, wheezes Cardiovascular exam: PRESENT: irregular rhythm. ABSENT: gallop, systolic murmur Pulses: PRESENT: normal dorsalis pedis pul Vascular exam: PRESENT: normal capillary refill GI/Abdominal exam: PRESENT: normal bowel sounds, soft. ABSENT: distended, guarding, mass, organolmegaly, rebound, tenderness Rectal exam: PRESENT: deferred Extremities exam: ABSENT: calf tenderness, pedal edema Musculoskeletal exam: PRESENT: ambulatory Neurological exam: PRESENT: alert, awake, oriented to person, oriented to place, oriented to time, oriented to situation, ataxia, CN II-XII grossly intact, other - Right lateral gaze nystagmus. ABSENT: motor sensory deficit Results Laboratory Results: 06/13/20 16:40 06/13/20 16:40 06/13/20 06/13/20 06/13/20 16:40 16:40 17:53 WBC 6.4 RBC 4.67 Hgb 13.7 Hct 41.6 MCV 89 MCH 29.3 MCHC 32.9 RDW 13.5 Plt Count 214 Seg Neutrophils % 45.7 Sodium 138.9 Potassium 3.9 Chloride 106 Carbon Dioxide 30 Anion Gap 3 L BUN 10 Creatinine 0.63 Est GFR ( Amer) > 60 Glucose 120 H Calcium 9.4 Total Bilirubin 0.5 AST 33 Alkaline Phosphatase 77 Total Protein 6.8 Albumin 3.8 Urine Color YELLOW Urine Appearance CLEAR Urine pH 7.0 Ur Specific [place] 1.013 Urine Protein NEGATIVE Urine Glucose (UA) NEGATIVE Urine Ketones NEGATIVE Urine Blood NEGATIVE Urine Nitrite NEGATIVE Ur Leukocyte Esterase NEGATIVE Urine WBC (Auto) 1 Urine RBC (Auto) 1 06/13/20 16:40 Troponin I < 0.012 EKG Comments: Atrial fibrillation. Right bundle branch and left anterior hemiblock. Impressions: Head CT 06/13/20 16:11 IMPRESSION: No acute intracranial abnormality. EVIDENCE OF ACUTE STROKE: NO. Chest X-Ray 06/13/20 16:18 IMPRESSION: No acute cardiopulmonary process. Assessment and Plan - Diagnosis (1) Gait abnormality Is this a current diagnosis for this admission?: Yes Plan: She has gait abnormalitygait ataxia. This is going on for about 3 weeks now. She has associated intermittent double vision, intermittent headaches. CT scan of the head was unremarkable. Patient is forgetful, she is not taking her medications every time. I am suspicious the patient suffered a stroke, most likely embolic about 3 weeks ago. She is going to have an MRI of the brain in the morning. She is going to have an echocardiogram Fasting lipid panel, LDL should be less than 70. Start statin if it is higher. Hemoglobin A1c. Continue rivaroxaban. Physical and occupational therapy evaluation. (2) Atrial fibrillation Qualifiers: Atrial fibrillation type: longstanding persistent Qualified Code(s): I48.11 - Longstanding persistent atrial fibrillation Is this a current diagnosis for this admission?: Yes Plan: She is on sotalol 80 mg twice a day. It looks like sotalol is not able to jordon ntain sinus rhythm. At this point I am not sure it should be continued or not on the long run. At present I felt we should continue it. Continue anticoagulation. (3) Chronic diastolic congestive heart failure Is this a current diagnosis for this admission?: Yes Plan: He is euvolemic. Continue furosemide and potassium replacement. (4) Hypertension Qualifiers: Hypertension type: essential hypertension Qualified Code(s): I10 - Essential (primary) hypertension Is this a current diagnosis for this admission?: Yes Plan: Continue losartan. (5) KESHAWN (obstructive sleep apnea) Is this a current diagnosis for this admission?: Yes Plan: Continue nighttime CPAP. - Plan Summary Summary: Patient was paced on observation with strokelike symptoms, started about 3 weeks ago to telemetry unit. She has chronic atrial fibrillation and she is anticoagulated with rivaroxaban. She has short-term memory problems and she thinks she is not taking her medications every time. She is going to have an M RI in the morning. Physical and Occupational Therapy. - Time Time Spent with patient: 35 or more minutes Medications reviewed and adjusted accordingly: Yes Anticipated Discharge Disposition: Home, Self Care Anticipated Discharge Timeframe: within 36 hours - Inpatient Certification Based on my medical assessment, after consideration of the patient's comorbi dities, presenting symptoms, or acuity I expect that the services needed warrant INPATIENT care.: Yes I certify that my determination is in accordance with my understanding of Medicare's requirements for reasonable and necessary INPATIENT services [42 CFR 412.3e].: Yes Medical Necessity: Failure to Improve With Outpatient Therapy
[2020-06-14] MEDS: PANTOPRAZOLE SODIUM 20 MG TABLET.DR PO SCH (06:04)
[2020-06-14 06:16] LABS: ABSOLUTE EOSINOPHILS # (AUTO) 0.2 10^3/uL (0.0-0.6); ABSOLUTE LYMPHOCYTES (AUTO) 2.9 10^3/uL (0.5-4.7); ABSOLUTE MONOCYTES (AUTO) 0.6 10^3/uL (0.1-1.4); ABSOLUTE NEUT (AUTO) 2.2 10^3/uL (1.7-8.2); BASOPHILS % (AUTO) 0.7 % (0-2); EOSINOPHILS % (AUTO) 3.1 % (0-6); HEMATOCRIT 39.1 % (36.0-47.0); HEMOGLOBIN 12.9 g/dL (12.0-15.5); LYMPHOCYTES % (AUTO) 49.5 % (13-45); MEAN CORPUSCULAR HEMOGLOBIN 29.6 pg (27.0-33.4); MEAN CORPUSCULAR HGB CONC 33.1 g/dL (32.0-36.0); MEAN CORPUSCULAR VOLUME 90 fl (80-97); MONOCYTES % (AUTO) 9.4 % (3-13); PLATELET COUNT 210 10^3/uL (150-450); RED BLOOD COUNT 4.36 10^6/uL (3.72-5.28); RED CELL DISTRIBUTION WIDTH 13.5 % (11.5-14.0); SEGMENTED NEUTROPHILS % (AUTO) 37.3 % (42-78); TOTAL CELLS COUNTED % (AUTO) 100 %; WHITE BLOOD COUNT 5.9 10^3/uL (4.0-10.5)
[2020-06-14 06:35] LABS: ALBUMIN 3.6 g/dL (3.5-5.0); ALKALINE PHOSPHATASE 71 U/L (38-126); ANION GAP 5 (5-19); ASPARTATE AMINO TRANSFERASE 33 U/L (14-36); BILIRUBIN,DIRECT 0.2 mg/dL (0.0-0.4); BILIRUBIN,TOTAL 0.8 mg/dL (0.2-1.3); BLOOD UREA NITROGEN 8 mg/dL (7-20); CALCIUM 9.2 mg/dL (8.4-10.2); CARBON DIOXIDE 28 mmol/L (22-30); CHLORIDE 105 mmol/L (98-107); CHOLESTEROL 191.83 mg/dL (0-200); GLUCOSE 108 mg/dL (75-110); POTASSIUM 3.9 mmol/L (3.6-5.0); TOTAL PROTEIN 6.6 g/dL (6.3-8.2); TRIGLYCERIDES 123 mg/dL (<150)
[2020-06-14 06:45] LABS: DIRECT LDL 141 mg/dL (<100)
--- NOTE | 2020-06-14 08:55 | EKG REPORT ---
SEVERITY:- ABNORMAL ECG - ATRIAL FIBRILLATION RBBB AND LAFB PROBABLE LEFT VENTRICULAR HYPERTROPHY NONSPECIFIC ST-T CHANGES DIFFUSE, INCREASED COMPARED TO . : Confirmed by: Chavo Collins MD 14-Jun-2020 08:54:36
--- NOTE | 2020-06-14 09:59 | PDOC CONSULTATION ---
Consultation Consult Date: 06/14/20 Attending physician:: JARETT MCMILLAN Provider Consulted: ADAMA TOTH Consult reason:: A-fib History of Present Illness Admission Date/PCP: 06/13/20 23:40 STEPHANIE BARAHONA MD History of Present Illness: GERARDO WILLIAMSON is a 74 year old female with history of heart failure with preserved ejection fraction, prior stroke, non-compliance with medications and paroxysmal atrial fibrillation with RVR status post GLORIA guided cardioversion followed by initiation of sotalol 80 mg twice a day on 06/03/17 who is consulted to our service for evaluation of atrial fibrillation. The patient was seen in our ED yesterday with complains of headache for approximately 3 weeks as well as some memory issues, lightheadedness, uncontrolled hypertension and weakness. This morning the patient states that she had been trying to take her medications as prescribed however admits that sometimes she forgets. She takes her BP at home occasionally and states that she had seen readings as high as 179/100 but did not seek medical attention. She denies CP, palpitations, SOB, SCHAEFFER but endorses double and triple vision, weakness on the right side of the body and headache. Of note, she was significantly hypertensive in the ED. Physical exam on 06/14/20: GENERAL: Sleeping but easily arousable. Pleasant. Oriented x3 with normal mood. Not in acute distress. Well groomed and well developed. HEENT: Normocephalic, atraumatic. Pupils equal. Sclerae anicteric. Oropharynx moist. NECK: No JVD. No carotid bruits. LUNGS: Clear to auscultation bilaterally. Normal respiratory effort without the use of accessory muscles or intercostal retractions. CARDIOVASCULAR: Irregularly irregular rate and rhythm without murmurs, rubs, or gallops. PMI not displaced. EXTREMITIES: No pitting edema edema bilaterally, no cyanosis, no clubbing. +2 pulses femoral and pedal pulses bilaterally. SKIN: No lesions or rashes. MUSCULOSKELETAL: No chest tenderness to palpation. NEUROLOGIC: moderate muscular weakness on the right to include right arm, right leg, right side of face. Outpatient Medications as of her last office visit on Nov 20: 1. Furosemide 80 MG Oral Tablet; TAKE 1 TABLET BY MOUTH EVERY DAY 2. Hydromet 5-1.5 MG/5ML Oral Syrup; TK 5 ML PO Q 6 H PRN COU 3. Ibuprofen 800 MG Oral Tablet; TAKE 1 TABLET TWICE DAILY NEEDED 4. Isosorbide Mononitrate ER 30 MG Oral Tablet Extended Release 24 Hour; TAKE ONE-HALF TABLET BY MOUTH EVERY DAY 5. Klor-Con 10 10 MEQ Oral Tablet Extended Release; TAKE 1 TABLET BY MOUTH TWICE A DAY WITH LASIX 6. Losartan Potassium 50 MG Oral Tablet; TAKE 1 TABLET TWICE DAILY 7. NIFEdipine ER 60 MG Oral Tablet Extended Release 24 Hour; TAKE 1 TABLET TWICE DAILY 8. Nitroglycerin 0.4 MG Sublingual Tablet Sublingual; DISSOLVE 1 TAB UNDER TONGUE NEEDED FOR CHEST PAIN. MAY REPEAT EVERY 5 MIN UP TO 3 TABS IF NO RELIEF CALL 911 9. Ondansetron HCl - 4 MG Oral Tablet; TAKE 1 TABLET BY MOUTH EVERY 6 HOURS NEEDED FOR NAUSEA 10. OneTouch Delica Lancets 33G; USE 1 LANCET EVERY DAY TO TEST BLOOD SUGAR (LEANDER OK PER MD PER [facility]) 11. OneTouch Verio In Vitro Strip; TEST BLOOD SUGAR TWICE A DAY DX:E11.9 12. Potassium Chloride ER 10 MEQ Oral Capsule Extended Release; TAKE 1 CAPSULE DAILY 13. PriLOSEC 20 MG CPDR; TAKE 1 CAPSULE DAILY 14. Promethazine HCl - 25 MG Oral Tablet; TAKE 1 TABLET EVERY 6 HOURS PRN 15. Sotalol HCl - 80 MG Oral Tablet; TAKE 1/2 TABLET BY MOUTH EVERY 12 HOURS 16. Xarelto 20 MG Oral Tablet; TAKE 1 TABLET BY MOUTH EVERY DAY [id number] Cardiac studies: Lexiscan MPS on 10/30/18: -No evidence of ischemia or infarct. -Normal ejection fraction. Echocardiogram on 04/02/18 at [facility]: -Ejection fraction is normal. -Mild to moderate concentric LVH. -Grade 2 diastolic dysfunction. -Mild RVE. -Moderate LAE. -Mild MAKEDA. -Trace MR, mild AI, trace TR. Head MRI without contrast on 11/30/17: -Chronic changes. -No acute a suspicious abnormalities. -No recent CVA evident. Echocardiogram on 11/06/16: -Suboptimal study. -Ejection fraction was normal. -Mild concentric LVH. -Grade 2 diastolic dysfunction. -Borderline right ventricular dilatation. -Cannot assess for wall motion abnormalities. -Borderline LAE. -Trace MR, trace AI, trace TR. Lexiscan nuclear stress test on 11/06/16: -No ischemia. -No scar or [place]. -Ejection fraction of 66% Venous Doppler on 12/21/15: No evidence of DVT. Echocardiogram on 09/24/15: -The left ventricle is normal in size. -Mild concentric LVH. -Ejection fraction is 65%. -Grade 1 diastolic dysfunction. -Aortic valve sclerosis without stenosis. -Trace AI, trace TR. Past Medical History Cardiac Medical History: Reports: Atrial Fibrillation, Congestive Heart Failure - Diastolic, Myocardial Infarction, Hyperlipidema, Hypertension Denies: Coronary Artery Disease, DVT, Pulmonary Embolism Pulmonary Medical History: Reports: Bronchitis, Sleep Apnea - Has has home CPAP. Denies: Asthma, Chronic Obstructive Pulmonary Disease (COPD), Pneumonia EENT Medical History: Denies: None, Cataracts, Eyes, Ears, Nose, Throat, Other Neurological Medical History: Denies: Hemorrhagic CVA, Ischemic CVA, Seizures Endocrine Medical History: Reports: None Denies: Diabetes Mellitus Type 1, Diabetes Mellitus Type 2, Hyperthyroidism, Hypothyroidism GI Medical History: Reports: Gastroesophageal Reflux Disease Denies: Cirrhosis, Crohn's Disease, Hepatitis, Hiatal Hernia, Ulcerative Colitis Musculoskeltal Medical History: Denies: Arthritis, Gout Skin Medical History: Denies: Eczema, Psoriasis Psychiatric Medical History: Denies: Depression Hematology: Denies: Anemia, Sickle Cell Disease, Bleeding Tendencies, Other Infectious Medical History: Reports: None Denies: Methicillin-Resistant Staph Aureus, Vancomycin-Resistant Enterococci Past Surgical History Past Surgical History: Reports: Cardiac Catheterization - x3 with balloon angioplasty x1, Hysterectomy, Tonsillectomy Denies: Amputation, Mastectomy, Pacemaker Social History Lives with: Family - With her sister Smoking Status: Former Smoker Cigarettes Packs Per Day: 0.2 Number of Years Smokin Last Time Smoked: 1996 Frequency of Alcohol Use: Rare Hx Recreational Drug Use: No Drugs: None Hx Prescription Drug Abuse: No - Advance Directive Resuscitation Status: Full Code Family History Family History: CAD, Hypertension Parental Family History Reviewed: Yes Children Family History Reviewed: Yes Sibling(s) Family History Reviewed.: Yes Medication/Allergy Home Medications: Furosemide [Lasix 80 mg Tablet] 80 mg PO DAILY 05/14/19 Ibuprofen [Ibu] 800 mg PO BID 05/14/19 Isosorbide Mononitrate [Imdur 30 mg Tablet.er] 15 mg PO DAILY 05/14/19 Losartan Potassium [Cozaar 50 mg Tablet] 50 mg PO DAILY 05/14/19 Omeprazole 20 mg PO DAILY 05/14/19 Rivaroxaban [Xarelto] 20 mg PO DAILY 05/14/19 Sertraline HCl [Zoloft] 100 mg PO DAILY 05/14/19 Sotalol HCl [Betapace 80 mg Tablet] 1 tab PO BID 05/14/19 Albuterol Sulfate [Proair HFA Inhalation Aerosol 8.5 gm MDI] 1 puff IH Q4 PRN #1 inhaler 05/21/19 Ciprofloxacin HCl [Cipro 500 mg Tablet] 500 mg PO Q12 4 Days #8 tablet 05/21/19 Metronidazole [Flagyl 500 mg Tablet] 500 mg PO Q8 #12 tablet 05/21/19 Prednisone [Deltasone 20 mg Tablet] 40 mg PO DAILY #3 tablet 05/21/19 Butalb/Acetaminophen/Caffeine [Fioricet (50-325-40 mg) Tablet] 1 tab PO Q4H #20 tab 02/19/20 Allergies/Adverse Reactions: No Known Allergies Allergy (Verified 10/27/18 13:14) Physical Exam Vital Signs: Temp Pulse Resp BP Pulse Ox 97.5 F 74 19 150/104 H 97 06/14/20 04:14 06/14/20 07:00 06/14/20 04:14 06/14/20 04:14 06/14/20 04:14 Intake & Output 06/13/20 06/14/20 06/15/20 06:59 06:59 06:59 Output Total 300 Balance -300 Weight 106.6 kg Results Laboratory Results: 06/14/20 05:02 06/14/20 05:02 06/13/20 06/13/20 06/13/20 16:40 16:40 17:53 WBC 6.4 RBC 4.67 Hgb 13.7 Hct 41.6 MCV 89 MCH 29.3 MCHC 32.9 RDW 13.5 Plt Count 214 Seg Neutrophils % 45.7 Sodium 138.9 Potassium 3.9 Chloride 106 Carbon Dioxide 30 Anion Gap 3 L BUN 10 Creatinine 0.63 Est GFR ( Amer) > 60 Glucose 120 H Calcium 9.4 Total Bilirubin 0.5 AST 33 Alkaline Phosphatase 77 Total Protein 6.8 Albumin 3.8 Triglycerides Cholesterol LDL Cholesterol Direct VLDL Cholesterol HDL Cholesterol TSH Urine Color YELLOW Urine Appearance CLEAR Urine pH 7.0 Ur Specific [place] 1.013 Urine Protein NEGATIVE Urine Glucose (UA) NEGATIVE Urine Ketones NEGATIVE Urine Blood NEGATIVE Urine Nitrite NEGATIVE Ur Leukocyte Esterase NEGATIVE Urine WBC (Auto) 1 Urine RBC (Auto) 1 06/14/20 06/14/20 06/14/20 05:02 05:02 05:02 WBC 5.9 RBC 4.36 Hgb 12.9 Hct 39.1 MCV 90 MCH 29.6 MCHC 33.1 RDW 13.5 Plt Count 210 Seg Neutrophils % 37.3 L Sodium 138.0 Potassium 3.9 Chloride 105 Carbon Dioxide 28 Anion Gap 5 BUN 8 Creatinine 0.61 Est GFR ( Amer) > 60 Glucose 108 Calcium 9.2 Total Bilirubin 0.8 AST 33 Alkaline Phosphatase 71 Total Protein 6.6 Albumin 3.6 Triglycerides 123 Cholesterol 191.83 LDL Cholesterol Direct 141 H VLDL Cholesterol 25.0 HDL Cholesterol 41 TSH 1.70 Urine Color Urine Appearance Urine pH Ur Specific [place] Urine Protein Urine Glucose (UA) Urine Ketones Urine Blood Urine Nitrite Ur Leukocyte Esterase Urine WBC (Auto) Urine RBC (Auto) 06/13/20 16:40 Troponin I < 0.012 Impressions: Head CT 06/13/20 16:11 IMPRESSION: No acute intracranial abnormality. EVIDENCE OF ACUTE STROKE: NO. Chest X-Ray 06/13/20 16:18 IMPRESSION: No acute cardiopulmonary process. 06/14/20 05:02 06/14/20 05:02 MCV 90 fl (80-97) 06/14/20 05:02 MCH 29.6 pg (27.0-33.4) 06/14/20 05:02 MCHC 33.1 g/dL (32.0-36.0) 06/14/20 05:02 RDW 13.5 % (11.5-14.0) 06/14/20 05:02 Seg Neutrophils % 37.3 % (42-78) L 06/14/20 05:02 Chloride 105 mmol/L (98-107) 06/14/20 05:02 Carbon Dioxide 28 mmol/L (22-30) 06/14/20 05:02 Anion Gap 5 (5-19) 06/14/20 05:02 Est GFR ( Amer) > 60 (>60) 06/14/20 05:02 Glucose 108 mg/dL (75-110) 06/14/20 05:02 Calcium 9.2 mg/dL (8.4-10.2) 06/14/20 05:02 Total Bilirubin 0.8 mg/dL (0.2-1.3) 06/14/20 05:02 AST 33 U/L (14-36) 06/14/20 05:02 Alkaline Phosphatase 71 U/L (38-126) 06/14/20 05:02 Total Protein 6.6 g/dL (6.3-8.2) 06/14/20 05:02 Albumin 3.6 g/dL (3.5-5.0) 06/14/20 05:02 Triglycerides 123 mg/dL (<150) 06/14/20 05:02 Cholesterol 191.83 mg/dL (0-200) 06/14/20 05:02 LDL Cholesterol Direct 141 mg/dL (<100) H 06/14/20 05:02 VLDL Cholesterol 25.0 mg/dL (10-31) 06/14/20 05:02 HDL Cholesterol 41 mg/dL (>40) 06/14/20 05:02 TSH 1.70 uIU/mL (0.47-4.68) 06/14/20 05:02 Urine Color YELLOW 06/13/20 17:53 Urine Appearance CLEAR 06/13/20 17:53 Urine pH 7.0 (5.0-9.0) 06/13/20 17:53 Ur Specific [place] 1.013 06/13/20 17:53 Urine Protein NEGATIVE mg/dL (NEGATIVE) 06/13/20 17:53 Urine Glucose (UA) NEGATIVE mg/dL (NEGATIVE) 06/13/20 17:53 Urine Ketones NEGATIVE mg/dL (NEGATIVE) 06/13/20 17:53 Urine Blood NEGATIVE (NEGATIVE) 06/13/20 17:53 Urine Nitrite NEGATIVE (NEGATIVE) 06/13/20 17:53 Ur Leukocyte Esterase NEGATIVE (NEGATIVE) 06/13/20 17:53 Urine WBC (Auto) 1 /HPF 06/13/20 17:53 Urine RBC (Auto) 1 /HPF 06/13/20 17:53 06/13/20 16:40 Troponin I < 0.012 Current Medication List Generic Name Dose Route Start Last Admin Trade Name Freq PRN Reason Stop Dose Admin Furosemide 80 mg 06/14/20 10:00 Furosemide 80 Mg Tablet PO 07/14/20 09:59 DAILY AZRA Losartan Potassium 50 mg 06/14/20 10:00 Losartan Potassium 50 Mg Tablet PO 07/14/20 09:59 Q12 AZRA Pantoprazole Sodium 20 mg 06/14/20 06:00 06/14/20 06:04 Pantoprazole Sodium 20 Mg Tablet.Dr PO 07/14/20 05:59 20 mg Q6AM AZRA Administration Potassium Chloride 20 meq 06/14/20 10:00 Potassium Chloride 20 Meq Packet PO 07/14/20 09:59 DAILY AZRA Rivaroxaban 20 mg 06/14/20 17:00 Rivaroxaban 10 Mg Tablet PO 07/14/20 16:59 WSUPPER AZRA Sotalol HCl 80 mg 06/14/20 10:00 Sotalol Hcl 80 Mg Tablet PO 07/14/20 09:59 Q12 AZRA Discontinued Medications Generic Name Dose Route Start Last Admin Trade Name Ollieq PRN Reason Stop Dose Admin Acetaminophen 975 mg 06/13/20 17:37 06/13/20 17:55 Acetaminophen 325 Mg Tablet PO 06/13/20 17:38 975 mg NOW ONE Administration Losartan Potassium 50 mg 06/13/20 20:38 06/13/20 21:04 Losartan Potassium 50 Mg Tablet PO 06/13/20 20:39 50 mg NOW ONE Administration Losartan Potassium 50 mg 06/14/20 00:50 06/14/20 02:01 Losartan Potassium 50 Mg Tablet PO 06/14/20 00:51 50 mg NOW ONE Administration Meclizine HCl 25 mg 06/13/20 23:12 06/13/20 23:56 Meclizine Hcl 25 Mg Tablet PO 06/13/20 23:13 25 mg NOW ONE Administration Sotalol HCl 40 mg 06/13/20 20:38 06/13/20 21:06 Sotalol Hcl 80 Mg Tablet PO 06/13/20 20:39 40 mg NOW ONE Administration Assessment & Plan - Diagnosis (1) Stroke-like episode Is this a current diagnosis for this admission?: Yes Plan: The patient has a prior history of stroke/TIA and has physical evidence of weakness on the right side of the body consistent with TIA/stroke which is likely secondary to uncontrolled hypertension due to non-compliance with medications. Her CT on admission did not demonstrate acute changes. She is scheduled to undergo brain MRI later today. Recommendations: -Agree with MRI. -Further management per hospitalist team. (2) Chronic diastolic congestive heart failure Is this a current diagnosis for this admission?: Yes Plan: The patient appears euvolemic and without evidence of fluid overload. Recommendations: -Continue with outpatient regimen. -Strict intake and output. -Limit fluid intake to 1500 ml daily. -Low sodium diet. -Cardiology does not have further recommendations, we will sign off for now, please reconsult as clinically indicated. (3) Persistent atrial fibrillation Plan: She is rate-controlled and anticoagulated with Xarelto without evidence of intracranial bleed on CT scan on admission: Recommendations: -Continue with current management. -Cardiology does not have further recommendations, we will sign off for now, please reconsult as clinically indicated. (4) HLD (hyperlipidemia) Qualifiers: Hyperlipidemia type: unspecified Qualified Code(s): E78.5 - Hyperlipidemia, unspecified Is this a current diagnosis for this admission?: Yes Plan: Her current direct LDL is 141. Given her cardiac risk factors and prior stroke/TIA with current stroke-like symptoms her goal LDL is <70. Recommendations: -Start atorvastatin 80mg qhs. -Repeat fasting lipid panel with direct LDL and LFT's in 6 weeks in the outpatie nt setting.
[2020-06-14] MEDS: POTASSIUM CHLORIDE 20 MEQ PACKET PO SCH (10:28)
[2020-06-14] MEDS: SOTALOL HCL 80 MG TABLET PO SCH ×2 (10:28→21:47)
[2020-06-14] MEDS: FUROSEMIDE 80 MG TABLET PO SCH (10:28)
[2020-06-14] MEDS: LOSARTAN POTASSIUM 50 MG TABLET PO SCH ×2 (10:28→21:47)
--- NOTE | 2020-06-14 11:58 | RADIOLOGY REPORT (SQ) ---
EXAM DESCRIPTION: MRI HEAD WITHOUT IMAGES COMPLETED DATE/TIME: 06/14/2020 11:14 am REASON FOR STUDY: ataxia , possible cva COMPARISON: CT dated 06/13/2020. TECHNIQUE: Multiplanar imaging includes non-contrasted T1, T2, FLAIR, and diffusion with ADC map seq uences. Images stored on PACS. LIMITATIONS: None. FINDINGS: ANATOMY: No anomalies. Normal vascular flow voids. Pituitary fossa normal. CSF SPACES: Atrophy induced prominence of ventricles and CSF spaces. CEREBRUM: High signal intensity lesions scattered throughout the white matter on FLAIR imaging with d istribution suggesting micro-vascular ischemic changes. No evidence of hemorrhage, mass, or extraaxi al fluid collection. POSTERIOR FOSSA: No signal alteration. No hemorrhage. No edema, masses or mass effect. Internal minnie tory canals, cerebello-pontine angles, mastoids normal. DIFFUSION IMAGING: Negative for acute or sub-acute infarction. ORBITS: No masses. Globes normal. PARANASAL SINUSES: No fluid levels. Mucosa normal. OTHER: No other significant finding. IMPRESSION: ATROPHY AND CHRONIC MICRO-VASCULAR ISCHEMIC CHANGES. OTHERWISE NORMAL MRI OF THE BRAIN W ITHOUT INTRAVENOUS GADOLINIUM CONTRAST. EVIDENCE OF ACUTE STROKE: NO. TECHNICAL DOCUMENTATION: JOB ID: [id number] 2010 [employer]- All Rights Reserved Reading location - IP/workstation name: [email or web address]
--- NOTE | 2020-06-14 13:09 | PDOC PROGRESS REPORT ---
Subjective Date:: 06/14/20 Subjective:: The patient is actually tearful. She is worried about the possibility of a new stroke. She had a stroke at least 15 or 20 years ago. She still has right residual deficits from the original stroke. She has been getting weak and was worried that the new weakness was stroke related. Reason For Visit: ATAXIA Hypertension uncontrolled Atrial fibrillation chronic Physical Exam Vital Signs: Temp Pulse Resp BP Pulse Ox 97.2 F 77 20 144/77 H 100 06/14/20 11:30 06/14/20 11:30 06/14/20 11:30 06/14/20 11:30 06/14/20 11:30 Intake & Output 06/13/20 06/14/20 06/15/20 06:59 06:59 06:59 Output Total 300 Balance -300 Weight 106.6 kg General appearance: PRESENT: cooperative, mild distress, well-developed Head exam: PRESENT: atraumatic, normocephalic Ear exam: PRESENT: normal external ear exam. ABSENT: bleeding, drainage Mouth exam: PRESENT: moist, tongue midline Respiratory exam: PRESENT: clear to auscultation kayleigh, symmetrical, unlabored. ABSENT: prolonged expiratory phas, rales, rhonchi, tachypnea, wheezes Cardiovascular exam: PRESENT: irregular rhythm. ABSENT: bradycardia, diastolic murmur, systolic murmur, tachycardia GI/Abdominal exam: PRESENT: normal bowel sounds, soft. ABSENT: distended, guarding, tenderness Rectal exam: PRESENT: deferred Gentrourinary exam: ABSENT: indwelling catheter Extremities exam: ABSENT: pedal edema Musculoskeletal exam: PRESENT: normal inspection. ABSENT: deformity, dislocation Neurological exam: PRESENT: alert, awake, oriented to person, oriented to place, oriented to time, oriented to situation, motor sensory deficit - Patient reports that weakness on the right unchanged. Right sound effects supervisor strength 2/5 left sound effects supervisor strength 4/5. Plantar flexion 2/5 on the right and 3/5 on the left. Please see physical therapy notes for additional functional information.. ABSENT: altered Psychiatric exam: PRESENT: anxious. ABSENT: agitated Focused psych exam: ABSENT: delusional, paranoid, restlessness Skin exam: PRESENT: dry, normal color, warm. ABSENT: rash Results Laboratory Results: 06/14/20 05:02 06/14/20 05:02 06/13/20 06/13/2006/13/21 16:40 16:40 17:53 WBC 6.4 RBC 4.67 Hgb 13.7 Hct 41.6 MCV 89 MCH 29.3 MCHC 32.9 RDW 13.5 Plt Count 214 Seg Neutrophils % 45.7 Sodium 138.9 Potassium 3.9 Chloride 106 Carbon Dioxide 30 Anion Gap 3 L BUN 10 Creatinine 0.63 Est GFR ( Amer) > 60 Glucose 120 H Calcium 9.4 Total Bilirubin 0.5 AST 33 Alkaline Phosphatase 77 Total Protein 6.8 Albumin 3.8 Triglycerides Cholesterol LDL Cholesterol Direct VLDL Cholesterol HDL Cholesterol TSH Urine Color YELLOW Urine Appearance CLEAR Urine pH 7.0 Ur Specific [place] 1.013 Urine Protein NEGATIVE Urine Glucose (UA) NEGATIVE Urine Ketones NEGATIVE Urine Blood NEGATIVE Urine Nitrite NEGATIVE Ur Leukocyte Esterase NEGATIVE Urine WBC (Auto) 1 Urine RBC (Auto) 1 06/14/20 06/14/20 06/14/20 05:02 05:02 05:02 WBC 5.9 RBC 4.36 Hgb 12.9 Hct 39.1 MCV 90 MCH 29.6 MCHC 33.1 RDW 13.5 Plt Count 210 Seg Neutrophils % 37.3 L Sodium 138.0 Potassium 3.9 Chloride 105 Carbon Dioxide 28 Anion Gap 5 BUN 8 Creatinine 0.61 Est GFR ( Amer) > 60 Glucose 108 Calcium 9.2 Total Bilirubin 0.8 AST 33 Alkaline Phosphatase 71 Total Protein 6.6 Albumin 3.6 Triglycerides 123 Cholesterol 191.83 LDL Cholesterol Direct 141 H VLDL Cholesterol 25.0 HDL Cholesterol 41 TSH 1.70 Urine Color Urine Appearance Urine pH Ur Specific [place] Urine Protein Urine Glucose (UA) Urine Ketones Urine Blood Urine Nitrite Ur Leukocyte Esterase Urine WBC (Auto) Urine RBC (Auto) 06/13/20 16:40 Troponin I < 0.012 Impressions: Head CT 06/13/20 16:11 IMPRESSION: No acute intracranial abnormality. EVIDENCE OF ACUTE STROKE: NO. Chest X-Ray 06/13/20 16:18 IMPRESSION: No acute cardiopulmonary process. Head MRI 06/14/20 00:00 IMPRESSION: ATROPHY AND CHRONIC MICRO-VASCULAR ISCHEMIC CHANGES. OTHERWISE NORMAL MRI OF THE BRAIN WITHOUT INTRAVENOUS GADOLINIUM CONTRAST. EVIDENCE OF ACUTE STROKE: NO. Assessment and Plan - Diagnosis (1) Gait abnormality Is this a current diagnosis for this admission?: Yes (2) Longstanding persistent atrial fibrillation Is this a current diagnosis for this admission?: Yes (3) Hypertension Qualifiers: Hypertension type: essential hypertension Qualified Code(s): I10 - Essential (primary) hypertension Is this a current diagnosis for this admission?: Yes (4) KESHAWN (obstructive sleep apnea) Is this a current diagnosis for this admission?: Yes (5) Chronic diastolic congestive heart failure Is this a current diagnosis for this admission?: Yes (6) Headache Qualifiers: Headache type: unspecified Headache chronicity pattern: acute headache Intractability: not intractable Qualified Code(s): R51.9 - Headache, unspecified Is this a current diagnosis for this admission?: Yes - Plan Summary Summary: (1) Gait abnormality (2) Atrial fibrillation (3) Chronic diastolic congestive heart failure (4) Hypertension (5) KESHAWN (obstructive sleep apnea) (6) Headache Patient was paced on observation with strokelike symptoms, started about 3 weeks ago to telemetry unit. She has chronic atrial fibrillation and she is anticoagulated with rivaroxaban. She has short-term memory problems and she thinks she is not taking her medications every time. She is going to have an MRI in the morning. Physical and Occupational Therapy. 06/14/2020 Gait abnormality-reviewed the MRI. There is no acute stroke. There is no subacute stroke. There is microvascular disease with some cerebral atrophy. Without focal lesions it is possible that the weakness is related to age versus hypertensive encephalopathy. The patient notoriously has high blood pressure. Physical therapy did assess the patient. Please see their notes. She does need some assist with transfers and ambulating. They will evaluate the patient again tomorrow. We will need to determine home with home health and therapy versus short-term rehab. Atrial fibrillation-she has longstanding persistent atrial fibrillation. Currently on sotalol and anticoagulation with good control. Hypertension-the patient has notoriously high blood pressure and states that she forgets to take her medicine at times. With the microvascular changes on the MRI it could be early vascular dementia in a very mild form. Regardless she required additional medication today. We will try and get her pressure below 130. Without stroke she does not need permissive hypertension. She is on [place] and furosemide. We may need to adjust the dose or add additional medication. Chronic diastolic heart failure-at home she is on 80 mg of furosemide twice daily with potassium supplement. She is currently on 80 mg once a day. Will monitor closely and likely add the second 80 mg dose as she appears euvolemic as opposed to unsteadiness due to hypovolemia. Obstructive sleep apnea-continue use of CPAP Headache-with a negative MRI the headache could certainly be related to blood pressure although blood pressure is improved. She was also complaining of diplopia however there was no lesion on the MRI to suggest an anatomical cause. She was also tearful and quite upset and it could be related to stress and anxiety. I have ordered a low-dose of lorazepam as needed to see if this helps. - Time Time Spent with patient: 25-34 minutes Medications reviewed and adjusted accordingly: Yes Anticipated Discharge Disposition: Unknown Anticipated Discharge Timeframe: within 48 hours
[2020-06-14] MEDS ORDERED: ACETAMINOPHEN 325 MG TABLET PO PRN (14:53)
[2020-06-14] MEDS: TRAMADOL HCL 50 MG TABLET PO PRN (15:01)
[2020-06-14] MEDS ORDERED: HYDRALAZINE HCL INJ/PF 20 MG/1 ML SDV IV PRN (16:20)
[2020-06-14] MEDS ORDERED: RIVAROXABAN 10 MG TABLET PO SCH (17:00)
[2020-06-14] MEDS: ATORVASTATIN CALCIUM 80 MG TABLET PO SCH (21:46)
[2020-06-14] MEDS: LORAZEPAM INJ 2 MG/1 ML VIAL IV PRN (21:48)
[2020-06-15] MEDS ORDERED: HYDRALAZINE HCL 25 MG TABLET PO PRN (03:43)
[2020-06-15] MEDS: PANTOPRAZOLE SODIUM 20 MG TABLET.DR PO SCH (06:25)
[2020-06-15] MEDS: FUROSEMIDE 80 MG TABLET PO SCH (09:35)
[2020-06-15] MEDS: SOTALOL HCL 80 MG TABLET PO SCH ×2 (09:36→21:21)
[2020-06-15] MEDS: LOSARTAN POTASSIUM 50 MG TABLET PO SCH ×2 (09:36→21:21)
[2020-06-15] MEDS: RIVAROXABAN 10 MG TABLET PO SCH (09:36)
[2020-06-15] MEDS: POTASSIUM CHLORIDE 20 MEQ PACKET PO SCH (09:37)
[2020-06-15] MEDS: KETOROLAC TROMETHAMINE INJ/PF 30 MG/1 ML SDV IV PRN ×2 (09:37→21:20)
[2020-06-15] MEDS ORDERED: (PENDING PHARMACY ID) (Rivaroxaban [Xarelto] 20 MG Tablet) PO SCH (10:00)
--- NOTE | 2020-06-15 15:13 | PDOC PROGRESS REPORT ---
Subjective Date:: 06/15/20 Subjective:: The patient is still complaining of intermittent headaches. She has episodes of diplopia. She has weakness right arm greater than left but bilateral legs. Check she has pain on the lateral aspect of the right leg. Reason For Visit: ATAXIA Physical Exam Vital Signs: Temp Pulse Resp BP Pulse Ox 98.5 F 86 16 142/96 H 97 06/15/20 11:56 06/15/20 14:00 06/15/20 11:56 06/15/20 11:56 06/15/20 11:56 Intake & Output 06/14/20 06/15/20 06/16/20 06:59 06:59 06:59 Intake Total 458 Output Total 300 3050 Balance -300 -2592 Weight 106.6 kg 107.4 kg General appearance: PRESENT: cooperative, mild distress - Mild to moderate distress, well-developed Head exam: PRESENT: atraumatic, normocephalic Eye exam: PRESENT: conjunctiva pink, EOMI, PERRLA. ABSENT: nystagmus, scleral icterus Ear exam: PRESENT: normal external ear exam. ABSENT: bleeding, drainage Mouth exam: PRESENT: moist, tongue midline Neck exam: ABSENT: carotid bruit, JVD, lymphadenopathy Respiratory exam: PRESENT: clear to auscultation kayleigh, symmetrical, unlabored. ABSENT: accessory muscle use, prolonged expiratory phas, rales, rhonchi, tachypnea, wheezes Cardiovascular exam: PRESENT: irregular rhythm. ABSENT: bradycardia, diastolic murmur, systolic murmur, tachycardia Pulses: PRESENT: +2 pedal pulses bilateral GI/Abdominal exam: PRESENT: normal bowel sounds, soft. ABSENT: distended, tenderness Rectal exam: PRESENT: deferred Gentrourinary exam: ABSENT: indwelling catheter Extremities exam: PRESENT: tenderness - Along the lateral aspect of the right leg probable vastus lateralis muscle. No tenderness in the calf. Lateral aspect left leg nontender. ABSENT: pedal edema Musculoskeletal exam: PRESENT: normal inspection, other - Ataxia. Gait disorder. See physical therapy notes.. ABSENT: deformity, dislocation Neurological exam: PRESENT: alert, awake, oriented to person, oriented to place, oriented to time, oriented to situation, other - [id number] bilateral. Reported as a sharp pain.. ABSENT: altered, CN II-XII grossly intact - Reports diplopia. Intermittent. Not present at this time. Psychiatric exam: PRESENT: anxious. ABSENT: agitated Focused psych exam: ABSENT: delusional, paranoid, restlessness Skin exam: PRESENT: dry, normal color, warm. ABSENT: rash Results Laboratory Results: 06/14/20 05:02 06/14/20 05:02 06/13/20 16:40 Troponin I < 0.012 Impressions: Head CT 06/13/20 16:11 IMPRESSION: No acute intracranial abnormality. EVIDENCE OF ACUTE STROKE: NO. Chest X-Ray 06/13/20 16:18 IMPRESSION: No acute cardiopulmonary process. Head MRI 06/14/20 00:00 IMPRESSION: ATROPHY AND CHRONIC MICRO-VASCULAR ISCHEMIC CHANGES. OTHERWISE NORMAL MRI OF THE BRAIN WITHOUT INTRAVENOUS GADOLINIUM CONTRAST. EVIDENCE OF ACUTE STROKE: NO. Assessment and Plan - Diagnosis (1) Gait abnormality Is this a current diagnosis for this admission?: Yes (2) Longstanding persistent atrial fibrillation Is this a current diagnosis for this admission?: Yes (3) Hypertension Qualifiers: Hypertension type: essential hypertension Qualified Code(s): I10 - Essential (primary) hypertension Is this a current diagnosis for this admission?: Yes (4) KESHAWN (obstructive sleep apnea) Is this a current diagnosis for this admission?: Yes (5) Chronic diastolic congestive heart failure Is this a current diagnosis for this admission?: Yes (6) Headache Qualifiers: Headache type: unspecified Headache chronicity pattern: acute headache Intractability: not intractable Qualified Code(s): R51.9 - Headache, unspecified Is this a current diagnosis for this admission?: Yes (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 She has chronic atrial fibrillation and she is anticoagulated with rivaroxaban. She has short-term memory problems and she thinks she is not taking her medications every time. She is going to have an MRI in the morning. Physical and Occupational Therapy. 06/14/2020 Gait abnormality-reviewed the MRI. There is no acute stroke. There is no subacute stroke. There is microvascular disease with some cerebral atrophy. Without focal lesions it is possible that the weakness is related to age versus hypertensive encephalopathy. The patient notoriously has high blood pressure. Physical therapy did assess the patient. Please see their notes. She does need some assist with transfers and ambulating. They will evaluate the patient again tomorrow. We will need to determine home with home health and therapy versus short-term rehab. Atrial fibrillation-she has longstanding persistent atrial fibrillation. Currently on sotalol and anticoagulation with good control. Hypertension-the patient has notoriously high blood pressure and states that she forgets to take her medicine at times. With the microvascular changes on the MRI it could be early vascular dementia in a very mild form. Regardless she required additional medication today. We will try and get her pressure below 130. Without stroke she does not need permissive hypertension. She is on lo sartan and furosemide. We may need to adjust the dose or add additional medication. Chronic diastolic heart failure-at home she is on 80 mg of furosemide twice daily with potassium supplement. She is currently on 80 mg once a day. Will monitor closely and likely add the second 80 mg dose as she appears euvolemic as opposed to unsteadiness due to hypovolemia. Obstructive sleep apnea-continue use of CPAP Headache-with a negative MRI the headache could certainly be related to blood pressure although blood pressure is improved. She was also complaining of diplopia however there was no lesion on the MRI to suggest an anatomical cause. She was also tearful and quite upset and it could be related to stress and anxiety. I have ordered a low-dose of lorazepam as needed to see if this helps. 06/14/2020 Gait abnormality-with the findings of today's exam including tenderness in the right proximal leg muscles as well as her weakness, headaches and occasional diplopia, arteritis with PMR is a possibility. I will draw sed rate and CRP. I am going to try a single dose of 80 mg of Solu-Medrol now. If the CRP is up then consider biopsy. Headache-could be part of vasculitis syndrome along with occasional diplopia. Hypertension-good blood pressure control therefore headache is unlikely to be from hypertension. Headache is intermittent and MRI is normal so hemorrhage has been ruled out. Atrial fibrillation-reasonable rate control. Continue sotalol and oral anticoagulant. Obstructive sleep apnea-continue using CPAP at night Chronic diastolic heart failure-normovolemic and asymptomatic. Stable at this time. - Time Time Spent with patient: 15-24 minutes Medications reviewed and adjusted accordingly: Yes Anticipated Discharge Disposition: Unknown Anticipated Discharge Timeframe: Unknown
[2020-06-15] MEDS ORDERED: METHYLPREDNISOLONE INJ 125 MG/2 ML SDV IV ONE (15:30)
[2020-06-15] MEDS: SUMATRIPTAN SUCCINATE INJ/PF 6 MG/0.5 ML SDV SUBCUT PRN (15:44)
[2020-06-15 16:22] LABS: ABSOLUTE BASOPHILS # (AUTO) 0.1 10^3/uL (0.0-0.2); ABSOLUTE EOSINOPHILS # (AUTO) 0.1 10^3/uL (0.0-0.6); ABSOLUTE LYMPHOCYTES (AUTO) 2.9 10^3/uL (0.5-4.7); ABSOLUTE MONOCYTES (AUTO) 0.6 10^3/uL (0.1-1.4); ABSOLUTE NEUT (AUTO) 2.4 10^3/uL (1.7-8.2); BASOPHILS % (AUTO) 1.1 % (0-2); EOSINOPHILS % (AUTO) 2.3 % (0-6); HEMATOCRIT 43.6 % (36.0-47.0); HEMOGLOBIN 13.9 g/dL (12.0-15.5); LYMPHOCYTES % (AUTO) 47.8 % (13-45); MEAN CORPUSCULAR HEMOGLOBIN 28.9 pg (27.0-33.4); MEAN CORPUSCULAR VOLUME 91 fl (80-97); MONOCYTES % (AUTO) 9.8 % (3-13); PLATELET COUNT 227 10^3/uL (150-450); RED BLOOD COUNT 4.82 10^6/uL (3.72-5.28); RED CELL DISTRIBUTION WIDTH 13.6 % (11.5-14.0); TOTAL CELLS COUNTED % (AUTO) 100 %; WHITE BLOOD COUNT 6.1 10^3/uL (4.0-10.5)
[2020-06-15 16:50] LABS: ALBUMIN 3.8 g/dL (3.5-5.0); ALKALINE PHOSPHATASE 69 U/L (38-126); ANION GAP 5 (5-19); ASPARTATE AMINO TRANSFERASE 29 U/L (14-36); BILIRUBIN,DIRECT 0.2 mg/dL (0.0-0.4); BILIRUBIN,TOTAL 0.7 mg/dL (0.2-1.3); BLOOD UREA NITROGEN 14 mg/dL (7-20); C-REACTIVE PROTEIN 8.1 mg/L (<10.0); CALCIUM 9.6 mg/dL (8.4-10.2); CARBON DIOXIDE 29 mmol/L (22-30); CHLORIDE 103 mmol/L (98-107); CREATINE KINASE 41 U/L (30-135); GLUCOSE 120 mg/dL (75-110); POTASSIUM 4.3 mmol/L (3.6-5.0); TOTAL PROTEIN 6.7 g/dL (6.3-8.2)
[2020-06-15 16:59] LABS: ERYTHROCYTE SEDIMENTATION RATE 37 mm/hr (0-30)
[2020-06-15] MEDS: ATORVASTATIN CALCIUM 80 MG TABLET PO SCH (21:21)
[2020-06-15] MEDS: LORAZEPAM INJ 2 MG/1 ML VIAL IV PRN (21:22)
[2020-06-16] MEDS: PANTOPRAZOLE SODIUM 20 MG TABLET.DR PO SCH (06:00)
[2020-06-16] MEDS: SUMATRIPTAN SUCCINATE INJ/PF 6 MG/0.5 ML SDV SUBCUT PRN (09:15)
[2020-06-16] MEDS: SOTALOL HCL 80 MG TABLET PO SCH ×2 (10:32→21:23)
[2020-06-16] MEDS: LOSARTAN POTASSIUM 50 MG TABLET PO SCH ×2 (10:32→21:23)
[2020-06-16] MEDS: FUROSEMIDE 80 MG TABLET PO SCH (10:32)
[2020-06-16] MEDS: RIVAROXABAN 10 MG TABLET PO SCH (10:32)
[2020-06-16] MEDS: POTASSIUM CHLORIDE 20 MEQ PACKET PO SCH (10:32)
--- NOTE | 2020-06-16 11:50 | PDOC PROGRESS REPORT ---
Subjective Date:: 06/16/20 Subjective:: Patient reports loss of taste and smell as of yesterday. Imitrex helps her head aches but they recur. Physical and Occupational Therapy continue to work with the patient. Therapy is instituted and eyepatch. Reason For Visit: ATAXIA Physical Exam Vital Signs: Temp Pulse Resp BP Pulse Ox 97.6 F 81 18 140/79 H 100 06/16/20 08:00 06/16/20 08:00 06/16/20 08:00 06/16/20 08:00 06/16/20 08:00 Intake & Output 06/15/20 06/16/20 06/17/20 06:59 06:59 06:59 Intake Total 458 958 Output Total 3050 550 Balance -2592 408 Weight 107.4 kg 107.2 kg General appearance: PRESENT: cooperative, mild distress, well-developed Head exam: PRESENT: atraumatic, normocephalic Ear exam: PRESENT: normal external ear exam. ABSENT: bleeding, drainage Mouth exam: PRESENT: moist, tongue midline Respiratory exam: PRESENT: clear to auscultation kayleigh, symmetrical, unlabored. ABSENT: rales, rhonchi, tachypnea, wheezes Cardiovascular exam: PRESENT: irregular rhythm GI/Abdominal exam: PRESENT: normal bowel sounds, soft. ABSENT: tenderness Rectal exam: PRESENT: deferred Neurological exam: PRESENT: alert, awake, oriented to person, oriented to place, oriented to time, oriented to situation Psychiatric exam: PRESENT: depressed. ABSENT: agitated, anxious Focused psych exam: ABSENT: delusional, paranoid, restlessness Results Laboratory Results: 06/15/20 16:00 06/15/20 16:00 06/15/20 06/15/20 16:00 16:00 WBC 6.1 RBC 4.82 Hgb 13.9 Hct 43.6 MCV 91 MCH 28.9 MCHC 32.0 RDW 13.6 Plt Count 227 Seg Neutrophils % 39.0 L Sodium 137.4 Potassium 4.3 Chloride 103 Carbon Dioxide 29 Anion Gap 5 BUN 14 Creatinine 0.97 Est GFR ( Amer) > 60 Glucose 120 H Calcium 9.6 Magnesium 1.8 Total Bilirubin 0.7 AST 29 Alkaline Phosphatase 69 C-Reactive Protein 8.1 Total Protein 6.7 Albumin 3.8 01/22/21 01/24/21 16:40 16:00 Creatine Kinase 41 Troponin I < 0.012 Impressions: Head CT 06/13/20 16:11 IMPRESSION: No acute intracranial abnormality. EVIDENCE OF ACUTE STROKE: NO. Chest X-Ray 06/13/20 16:18 IMPRESSION: No acute cardiopulmonary process. Head MRI 06/14/20 00:00 IMPRESSION: ATROPHY AND CHRONIC MICRO-VASCULAR ISCHEMIC CHANGES. OTHERWISE NORMAL MRI OF THE BRAIN WITHOUT INTRAVENOUS GADOLINIUM CONTRAST. EVIDENCE OF ACUTE STROKE: NO. Assessment and Plan - Diagnosis (1) Gait abnormality Is this a current diagnosis for this admission?: Yes (2) Longstanding persistent atrial fibrillation Is this a current diagnosis for this admission?: Yes (3) Hypertension Qualifiers: Hypertension type: essential hypertension Qualified Code(s): I10 - Essential (primary) hypertension Is this a current diagnosis for this admission?: Yes (4) KESHAWN (obstructive sleep apnea) Is this a current diagnosis for this admission?: Yes (5) Chronic diastolic congestive heart failure Is this a current diagnosis for this admission?: Yes (6) Headache Qualifiers: Headache type: unspecified Headache chronicity pattern: acute headache Intractability: not intractable Qualified Code(s): R51.9 - Headache, unspecified Is this a current diagnosis for this admission?: Yes (7) Giant cell arteritis with polymyalgia rheumatica Is this a current diagnosis for this admission?: Yes (8) Migraine Qualifiers: Migraine type: unspecified Intractability: not intractable Is this a current diagnosis for this admission?: Yes (9) Suspected COVID-19 virus infection Is this a current diagnosis for this admission?: Yes - Plan Summary Summary: (1) Gait abnormality (2) Atrial fibrillation (3) Chronic diastolic congestive heart failure (4) Hypertension (5) KESHAWN (obstructive sleep apnea) (6) Headache Patient was paced on observation with strokelike symptoms, started about 3 weeks ago to telemetry unit. She has chronic atrial fibrillation and she is anti coagulated with rivaroxaban. She has short-term memory problems and she thinks she is not taking her medications every time. She is going to have an MRI in the morning. Physical and Occupational Therapy. 06/14/2020 Gait abnormality-reviewed the MRI. There is no acute stroke. There is no subacute stroke. There is microvascular disease with some cerebral atrophy. Without focal lesions it is possible that the weakness is related to age versus hypertensive encephalopathy. The patient notoriously has high blood pressure. Physical therapy did assess the patient. Please see their notes. She does need some assist with transfers and ambulating. They will evaluate the patient again tomorrow. We will need to determine home with home health and therapy versus short-term rehab. Atrial fibrillation-she has longstanding persistent atrial fibrillation. Currently on sotalol and anticoagulation with good control. Hypertension-the patient has notoriously high blood pressure and states that she forgets to take her medicine at times. With the microvascular changes on the MRI it could be early vascular dementia in a very mild form. Regardless she required additional medication today. We will try and get her pressure below 130. Without stroke she does not need permissive hypertension. She is on losartan and furosemide. We may need to adjust the dose or add additional medication. Chronic diastolic heart failure-at home she is on 80 mg of furosemide twice daily with potassium supplement. She is currently on 80 mg once a day. Will monitor closely and likely add the second 80 mg dose as she appears euvolemic as opposed to unsteadiness due to hypovolemia. Obstructive sleep apnea-continue use of CPAP Headache-with a negative MRI the headache could certainly be related to blood pressure although blood pressure is improved. She was also complaining of diplopia however there was no lesion on the MRI to suggest an anatomical cause. She was also tearful and quite upset and it could be related to stress and anxiety. I have ordered a low-dose of lorazepam as needed to see if this helps. 06/15/2020 Gait abnormality-with the findings of today's exam including tenderness in the right proximal leg muscles as well as her weakness, headaches and occasional diplopia, arteritis with PMR is a possibility. I will draw sed rate and CRP. I am going to try a single dose of 80 mg of Solu-Medrol now. If the CRP is up then consider biopsy. Headache-could be part of vasculitis syndrome along with occasional diplopia. Hypertension-good blood pressure control therefore headache is unlikely to be from hypertension. Headache is intermittent and MRI is normal so hemorrhage has been ruled out. Atrial fibrillation-reasonable rate control. Continue sotalol and oral anticoagulant. Obstructive sleep apnea-continue using CPAP at night Chronic diastolic heart failure-normovolemic and asymptomatic. Stable at this time. 06/16/2020 Gait abnormality-after yesterday's exam I did order CRP and sed rate. CRP was negative and sed rate was 37 with an upper limit normal of 30. She did receive a dose of Solu-Medrol but this did not seem to alter her course. Therapy continues to work with her. She still has balance issues with her gait. Atrial fibrillation-episodic increases in heart rate. The settled down and heart rate overall has good control Headache-vasculitis ruled out. She did have response to Imitrex. It may be a migraine type headache. I am going to try Topamax and add as a migraine prophylaxis agent. Suspected COVID-19 infection-patient reports loss of taste and smell since yesterday. We have ordered Covid testing. Chronic diastolic heart failure-asymptomatic at this time. Continue current medication. Regimen. Obstructive sleep apnea-continue CPAP at night Avenues of investigation have not uncovered a diagnosis to explain all her symptoms. I discussed possible lumbar puncture with the patient. This would help us rule out multiple illness these. We would need to hold her anticoagulation for 48 hours before this could be performed. If available and nerve conduction study would be helpful. Not available at this time. - Time Time Spent with patient: 15-24 minutes Medications reviewed and adjusted accordingly: Yes Anticipated Discharge Disposition: Unknown Anticipated Discharge Timeframe: Unknown
[2020-06-16] MEDS ORDERED: KETOROLAC TROMETHAMINE INJ/PF 30 MG/1 ML SDV IV PRN (15:00)
--- NOTE | 2020-06-16 16:45 | XCELERA REPORT ---
[address] [address] Transthoracic Echocardiogram Report Name: GERARDO WILLIAMSON Age: 74 yrs Gender: Female : 1945 Patient Status: Inpatient Patient Location: [address] [place] [address] Study Date: 06/16/2020 09:47 AM Height: 65 in Weight: 238 lb BSA: 2.1 m2 Procedure: A complete two-dimensional transthoracic echocardiogram was performed (2D, M-mode, spectral and color flow Doppler). The study was technically difficult with many images being suboptimal in quality. Reason For Study: Paroxysmal atrial fibrillation, possible CVA Ordering Physician: TICO HARMON Performed By: Rissa Ochoa Interpretation Summary The patient was in controlled atrial fibrillation during the study. Very difficult and essentially uninterpretable study. Cannot assess valvular structures. Cannot assess for regional wall motion abnormalities. Mild AI. Cannot assess LV systolic function. Consider GLORIA if clinically indicated. MMode/2D Measurements & Calculations RVDd: 2.5 cm LVIDd: 4.3 cm FS: 13.9 % Ao root diam: 2.7 cm IVSd: 1.3 cm LVIDs: 3.7 cm EDV(Teich): 83.9 ml Ao root area: 5.8 cm2 LVPWd: 0.89 cm ESV(Teich): 58.9 ml LA dimension: 2.8 cm EF(Teich): 29.8 % Doppler Measurements & Calculations MV E max viviane: MV dec time: Ao V2 max: LV V1 max P.8 cm/sec 0.21 sec 93.5 cm/sec 2.6 mmHg MV A max viviane: Ao max PG: LV V1 max: 31.6 cm/sec 3.5 mmHg 80.5 cm/sec MV E/A: 2.9 PA V2 max: TR max viviane: 90.1 cm/sec 203.9 cm/sec PA max P.2 mmHg TR max P.6 mmHg Mitral Valve The mitral valve is not well visualized. Aortic Valve The aortic valve is not well visualized secondary to technical limitations. There is no aortic valve stenosis. There is a mild amount of aortic regurgitation. Pulmonic Valve The pulmonic valve is not well visualized. Great Vessels The aortic root is normal size. Effusions There is no pericardial effusion. There is no pleural effusion. : TICO HARMON Antonio
[2020-06-16] MEDS: ATORVASTATIN CALCIUM 80 MG TABLET PO SCH (21:23)
[2020-06-16] MEDS: TOPIRAMATE 25 MG TABLET PO SCH (21:23)
[2020-06-17] MEDS: PANTOPRAZOLE SODIUM 20 MG TABLET.DR PO SCH (05:14)
[2020-06-17 07:28] LABS: HEMATOCRIT 42.1 % (36.0-47.0); HEMOGLOBIN 13.8 g/dL (12.0-15.5); MEAN CORPUSCULAR HEMOGLOBIN 29.7 pg (27.0-33.4); MEAN CORPUSCULAR HGB CONC 32.8 g/dL (32.0-36.0); MEAN CORPUSCULAR VOLUME 91 fl (80-97); PLATELET COUNT 230 10^3/uL (150-450); RED BLOOD COUNT 4.65 10^6/uL (3.72-5.28); RED CELL DISTRIBUTION WIDTH 13.8 % (11.5-14.0); WHITE BLOOD COUNT 9.6 10^3/uL (4.0-10.5)
[2020-06-17 07:45] LABS: ANION GAP 8 (5-19); BLOOD UREA NITROGEN 23 mg/dL (7-20); CALCIUM 9.5 mg/dL (8.4-10.2); CARBON DIOXIDE 25 mmol/L (22-30); CHLORIDE 105 mmol/L (98-107); GLUCOSE 117 mg/dL (75-110); POTASSIUM 4.1 mmol/L (3.6-5.0)
--- NOTE | 2020-06-17 10:07 | RADIOLOGY REPORT (SQ) ---
EXAM DESCRIPTION: MRI CERVICAL SPINE WITHOUT IMAGES COMPLETED DATE/TIME: 06/17/2020 9:35 am REASON FOR STUDY: neck pain/trauma and nerve pain in R arm/hand D50.9 IRON DEFICIENCY ANEMIA, UNSPE CIFIED D72.820 LYMPHOCYTOSIS (SYMPTOMATIC) COMPARISON: None. TECHNIQUE: Sagittal and Axial imaging includes T1, T2, STIR and gradient echo sequences. LIMITATIONS: None. FINDINGS: ALIGNMENT: Normal. VERTEBRAE: Intact. BONE MARROW: Normal. No marrow replacement or reactive changes. DISCS: Mild decreased height and signal. HARDWARE: None in the spine. CORD AND BASE OF BRAIN: Normal in size and signal intensity. SOFT TISSUES: No soft tissue masses. C1-C2: No significant spinal stenosis. C2-C3: No significant spinal stenosis or exit foraminal stenosis. C3-C4: No significant spinal stenosis or exit foraminal stenosis. C4-C5: No significant spinal stenosis or exit foraminal stenosis. C5-C6: Posterior disc and osteophyte, asymmetric to the right. Mild spinal stenosis with mild imping ement of the cord. Mild exit foraminal stenosis. C6-C7: Posterior disc and osteophyte and uncovertebral spurring. Mild spinal stenosis. Left exit fo raminal stenosis. C7-T1: No significant spinal stenosis or exit foraminal stenosis. UPPER THORACIC: Incompletely imaged. No significant spinal stenosis or exit foraminal stenosis. OTHER: No other significant finding. IMPRESSION: CHRONIC DEGENERATIVE CHANGES IN THE LOWER CERVICAL SPINE DESCRIBED ABOVE. NO ACUTE F INDINGS. TECHNICAL DOCUMENTATION: JOB ID: [id number] 2010 [employer]- All Rights Reserved Reading location - IP/workstation name: [email or web address]
[2020-06-17] MEDS: LOSARTAN POTASSIUM 50 MG TABLET PO SCH ×2 (10:10→22:37)
[2020-06-17] MEDS: RIVAROXABAN 10 MG TABLET PO SCH (10:10)
[2020-06-17] MEDS: FUROSEMIDE 80 MG TABLET PO SCH (10:10)
[2020-06-17] MEDS: POTASSIUM CHLORIDE 20 MEQ PACKET PO SCH (10:11)
[2020-06-17] MEDS: SOTALOL HCL 80 MG TABLET PO SCH ×2 (11:40→22:40)
[2020-06-17] MEDS: SUMATRIPTAN SUCCINATE INJ/PF 6 MG/0.5 ML SDV SUBCUT PRN (11:41)
[2020-06-17] MEDS ORDERED: PREDNISONE 20 MG TABLET PO ONE (13:30)
[2020-06-17] MEDS: ACETAMINOPHEN 325 MG TABLET PO SCH ×2 (14:15→17:24)
[2020-06-17] MEDS: GABAPENTIN 300 MG CAPSULE PO SCH ×2 (14:15→17:24)
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
[2020-06-17] MEDS: ATORVASTATIN CALCIUM 80 MG TABLET PO SCH (22:36)
[2020-06-17] MEDS: TOPIRAMATE 25 MG TABLET PO SCH (22:37)
[2020-06-18] MEDS: PANTOPRAZOLE SODIUM 20 MG TABLET.DR PO SCH (05:42)
[2020-06-18] MEDS ORDERED: FUROSEMIDE 40 MG TABLET ONE ×2 (10:01→10:10)
[2020-06-18] MEDS: RIVAROXABAN 10 MG TABLET PO SCH (10:06)
[2020-06-18] MEDS: GABAPENTIN 300 MG CAPSULE PO SCH ×3 (10:07→17:18)
[2020-06-18] MEDS: PREDNISONE 20 MG TABLET PO SCH (10:07)
[2020-06-18] MEDS: ACETAMINOPHEN 325 MG TABLET PO SCH ×3 (10:07→17:18)
[2020-06-18] MEDS: LOSARTAN POTASSIUM 50 MG TABLET PO SCH ×2 (10:08→21:33)
[2020-06-18] MEDS: SOTALOL HCL 80 MG TABLET PO SCH ×2 (10:08→21:33)
[2020-06-18] MEDS: POTASSIUM CHLORIDE 20 MEQ PACKET PO SCH (10:25)
[2020-06-18] MEDS: FUROSEMIDE 80 MG TABLET PO SCH (10:25)
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
[2020-06-18] MEDS: TOPIRAMATE 25 MG TABLET PO SCH (21:33)
[2020-06-18] MEDS: ATORVASTATIN CALCIUM 80 MG TABLET PO SCH (21:34)
[2020-06-18] MEDS: TRAMADOL HCL 50 MG TABLET PO PRN (21:51)
[2020-06-19] MEDS: PANTOPRAZOLE SODIUM 20 MG TABLET.DR PO SCH (05:28)
[2020-06-19] MEDS: PREDNISONE 20 MG TABLET PO SCH (08:33)
[2020-06-19] MEDS: FUROSEMIDE 80 MG TABLET PO SCH (10:00)
[2020-06-19] MEDS: POTASSIUM CHLORIDE 20 MEQ PACKET PO SCH (10:37)
[2020-06-19] MEDS: SOTALOL HCL 80 MG TABLET PO SCH ×2 (10:37→21:17)
[2020-06-19] MEDS: GABAPENTIN 300 MG CAPSULE PO SCH ×3 (10:39→17:39)
[2020-06-19] MEDS: ACETAMINOPHEN 325 MG TABLET PO SCH ×3 (10:39→17:39)
[2020-06-19] MEDS: RIVAROXABAN 10 MG TABLET PO SCH (10:41)
[2020-06-19] MEDS: LOSARTAN POTASSIUM 50 MG TABLET PO SCH ×2 (10:42→21:18)
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
[2020-06-19] MEDS: TOPIRAMATE 25 MG TABLET PO SCH (21:17)
[2020-06-19] MEDS: ATORVASTATIN CALCIUM 80 MG TABLET PO SCH (21:18)
[2020-06-20] MEDS: PANTOPRAZOLE SODIUM 20 MG TABLET.DR PO SCH (06:16)
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
[2020-06-20] MEDS: ACETAMINOPHEN 325 MG TABLET PO SCH (09:21)
[2020-06-20] MEDS: GABAPENTIN 300 MG CAPSULE PO SCH (09:22)
[2020-06-20] MEDS: LOSARTAN POTASSIUM 50 MG TABLET PO SCH (09:22)
[2020-06-20] MEDS: RIVAROXABAN 10 MG TABLET PO SCH (09:23)
[2020-06-20] MEDS: PREDNISONE 20 MG TABLET PO SCH (09:23)
[2020-06-20] MEDS: SOTALOL HCL 80 MG TABLET PO SCH (09:24)
[2020-06-20] MEDS: FUROSEMIDE 80 MG TABLET PO SCH (09:24)
[2020-06-20] MEDS: POTASSIUM CHLORIDE 20 MEQ PACKET PO SCH (09:34)
[2020-06-20 12:49] VITALS: BP 139/77
== END 2020-06-20 13:35 | DRG 103 ==
LOC: ER 16:10 → INTOOBSV 23:40 → EH 23:40 → 5 06-14 04:13 → OBSVTOIN 06-16 13:20
PROVIDERS: ADMIT Internal Medicine; ATTEND Hospitalist
DX: F07.81 Postconcussional syndrome (principal); I48.11 Longstanding persistent atrial fibrillation; I50.32 Chronic diastolic (congestive) heart failure; M54.12 Radiculopathy, cervical region; G44.309 Post-traumatic headache, unspecified, not intractable; I11.0 Hypertensive heart disease with heart failure; I25.10 Atherosclerotic heart disease of native coronary artery without angina pectoris; M31.5 Giant cell arteritis with polymyalgia rheumatica; K21.9 Gastro-esophageal reflux disease without esophagitis; Z20.822 Contact with and (suspected) exposure to COVID-19; I45.10 Unspecified right bundle-branch block; G47.33 Obstructive sleep apnea (adult) (pediatric); E78.5 Hyperlipidemia, unspecified; E66.9 Obesity, unspecified; H53.2 Diplopia; V89.2XXS Person injured in unspecified motor-vehicle accident, traffic, sequela; M48.02 Spinal stenosis, cervical region; R41.3 Other amnesia; Z86.14 Personal history of Methicillin resistant Staphylococcus aureus infection; Z91.14 Patient's other noncompliance with medication regimen; Z79.899 Other long term (current) drug therapy; Z82.49 Family history of ischemic heart disease and other diseases of the circulatory system; I69.331 Monoplegia of upper limb following cerebral infarction affecting right dominant side; Z68.39 Body mass index [BMI] 39.0-39.9, adult; R73.03 Prediabetes; Z71.3 Dietary counseling and surveillance; Z79.01 Long term (current) use of anticoagulants; G62.9 Polyneuropathy, unspecified; Z87.891 Personal history of nicotine dependence
CPT/HCPCS: 36415; 70450; 70551; 71045; 72141; 80048; 80053; 80061; 81001; 82550; 83036; 83735; 84443; 84484; 85025; 85027; 85610; 85652; 85730; 86140; 93005; 93010; 93306; 94660; 99285; 0241U; C9803; G0378; J1885; J2060; J2930; J3030; J3490; J7512